=== PATIENT | male | born 1955 | race Caucasian/White ===

== ENCOUNTER → 2017-08-20 | Outpatient (CLI) | payer OTHER ==
[~2017-08-20] MED LIST: IOPAMIDOL 370 MG/ML 200 ML INFUS..BTL INJ ONE; SODIUM CHLORIDE 0.9% 50ML 50 ML ONE
[2017-08-20 08:00] LABS: BLOOD UREA NITROGEN 18 mg/dL (7-26); BUN/CREATININE RATIO 21 (6-25); CREATININE, SERUM 0.84 mg/dL (0.72-1.25); EST GLOMERULAR FILTRATION RATE > 60 ML/MIN (60-)
--- NOTE | 2017-08-20 10:20 | Diagnostic Imaging Report ---
Exam: Neck CTA History: Evaluate carotid stenosis Comparison studies:None Technique: Axial images were obtained from the thoracic inlet. Coronal and sagittal images reconstructed from the axial data. Intravenous contrast: 100 cc of Omnipaque 300. If present, stenosis is calculated utilizing the NASCET method which calculates the degree of stenosis with reference to the normal lumen of the carotid artery distal to the stenosis. Findings: Aortic arch and major vessels: Scattered hard plaque throughout the arch. Mild hard plaque at the origins of the left common carotid artery and left subclavian artery without significant stenosis. Mild scattered hard plaque in the left subclavian artery without significant stenosis. Mild stenosis at the right subclavian origin due to hard plaque. Right carotid artery: Mild scattered hard plaque in the common carotid artery without significant stenosis. Mild to moderate hard and soft plaque at the bifurcation extends into the carotid bulb with no (0%) significant stenosis by NASCET criteria. Approximately 50% stenosis at the ECA origin. Moderately tortuous internal carotid artery with mild hard and soft plaque in the proximal segment which does not result in significant stenosis. Minimal nonstenotic hard plaque in the intracranial right paraophthalmic segment. Left carotid artery: Minimal nonstenotic hard plaque in the common carotid artery. Moderate hard and soft plaque at the cervical carotid bifurcation extends into the left carotid bulb and ICA origin. There is approximately 30% stenosis in the carotid bulb and 50% stenosis at the left ICA origin. Mildly tortuous ICA. Vertebral arteries: Patent bilaterally with tortuous left V1 segment. Approximately 50% stenosis at the origin where there is mild hard plaque. Moderate (greater than 50% stenosis) at the left vertebral artery origin due to hard and soft plaque. Incidental findings: Surgical changes of anterior cervical discectomy and fusion from C4 to C7 with anterior plate and screw construct from C4 to C6. Mild canal stenosis at C5-C6 due due to an asymmetric left posterior osteophyte. Moderate left C3-C4 foraminal stenosis due to uncovertebral arthrosis and severe left facet arthrosis. Enhancing nonaggressive-appearing circumscribed 1.5 cm nodule in the superficial lobe of the right parotid gland. Findings may reflect tumor of primary parotid origin, possibly pleomorphic adenoma or alternatively pathologic lymph node. IMPRESSION: 1. Atherosclerosis at the right cervical bifurcation, carotid bulb and right ICA origin with approximately 50% stenosis at the left ECA origin without significant stenosis in the carotid bulb or ICA (0% stenosis by NASCET criteria). 2. Atherosclerosis in the left carotid bifurcation, carotid bulb and proximal left ICA with approximately 30% stenosis at the left carotid bulb and 50% stenosis at the left ICA origin. 3. Stenosis at the vertebral artery origins, moderate on the left and mild on the right. 4. Incidental right parotid nodule. Recommend FNA to further evaluate. Signed by: Dr. Ruben Alcala M.D. on 08/20/2017 10:16 AM
== END ==
LOC: CT 07:16
PROVIDERS: ATTEND Internal Medicine Interventional Cardiology
DX: I65.23 Occlusion and stenosis of bilateral carotid arteries (principal)
CPT/HCPCS: 36415; 70498; 82565; 84520; Q9967

== ENCOUNTER 2017-10-30 09:30 | Observation (INO) | payer OTHER ==
[~2017-10-30] VITALS: Ht 185.4 cm; Wt 120.2 kg
[2017-10-30] MEDS ORDERED: ASPIRIN 81 MG CHEW TAB PO ONE ×2 (09:45→11:00)
[2017-10-30] MEDS ORDERED: DIOVAN HCT 1601 EACH PO (10:20)
[2017-10-30] MEDS ORDERED: LOMOTIL (10:20)
[2017-10-30] MEDS ORDERED: HYDRALAZINE HCL50 MG PO (10:20)
[2017-10-30] MEDS ORDERED: FLOMAX0.4 MG PO (10:20)
[2017-10-30] MEDS ORDERED: ASPIRIN81 MG PO (10:20)
[2017-10-30] MEDS ORDERED: [UNRECOGNIZED DRUG - OTHER] (10:20)
[2017-10-30] MEDS ORDERED: LIPITOR20 MG (10:20)
[2017-10-30] MEDS ORDERED: METOPROLOL TART50 MG PO (10:20)
[2017-10-30] MEDS ORDERED: CLOPIDOGREL75 MG PO (10:20)
[2017-10-30] MEDS ORDERED: CYMBALTA30 MG PO (10:20)
[2017-10-30] MEDS ORDERED: [UNRECOGNIZED DRUG - OTHER] (10:20)
[2017-10-30] MEDS ORDERED: ALEVE220 MG PO (10:20)
[2017-10-30] MEDS ORDERED: SINGULAIR10 MG PO (10:20)
[2017-10-30] MEDS ORDERED: CRANBERRY (10:20)
[2017-10-30 10:24] LABS: BASOPHILS % 0.5 % (0.0-1.0); EOSINOPHILS # (AUTO) 0.3 (0.0-0.4); EOSINOPHILS % 4.6 % (0.0-6.0); HEMATOCRIT 38.1 % (38.2-49.6); HEMOGLOBIN 12.7 g/dL (14.0-18.0); LYMPHOCYTES # (AUTO) 0.9 (1.0-3.2); LYMPHOCYTES % 13.8 % (18.0-39.1); MEAN CORPUSCULAR HEMOGLOBIN 27.1 pg (28-32); MEAN CORPUSCULAR HGB CONC 33.3 g/dL (31-35); MEAN CORPUSCULAR VOLUME 81.4 fL (81-99); MONOCYTES # (AUTO) 0.5 (0.2-0.8); MONOCYTES % 7.7 % (4.4-11.3); NEUTROPHILS # (AUTO) 4.7 (2.1-6.9); NEUTROPHILS % 72.3 % (38.7-80.0); PLATELET COUNT 189 x10e3/uL (140-360); RED BLOOD COUNT 4.68 x10e6/uL (4.3-5.7); RED CELL DISTRIBUTION WIDTH 14.4 % (11.7-14.4)
[2017-10-30 10:36] LABS: INR 1.06
[2017-10-30 10:37] LABS: PARTIAL THROMBOPLASTIN TIME 27.4 seconds (23.8-35.5)
[2017-10-30 10:46] LABS: ALANINE AMINOTRANSFERASE 17 IU/L (0-55); ALBUMIN 3.8 g/dL (3.5-5.0); ALBUMIN/GLOBULIN RATIO 1.4 (0.8-2.0); ALKALINE PHOSPHATASE 83 IU/L (40-150); ANION GAP 14.2 mmol/L (8-16); BLOOD UREA NITROGEN 14 mg/dL (7-26); BUN/CREATININE RATIO 17 (6-25); CALCIUM 9.4 mg/dL (8.4-10.2); CARBON DIOXIDE 29 mmol/L (22-29); CHLORIDE 100 mmol/L (98-107); CREATINE KINASE 115 IU/L (30-200); CREATININE, SERUM 0.83 mg/dL (0.72-1.25); EST GLOMERULAR FILTRATION RATE > 60 ML/MIN (60-); GLUCOSE 164 mg/dL (74-118); POTASSIUM 3.2 mmol/L (3.5-5.1); SODIUM 140 mmol/L (136-145)
[2017-10-30] MEDS ORDERED: NITROGLYCERIN 0.4 MG SUBL SL PRN (11:00)
[2017-10-30 11:12] LABS: BILIRUBIN,URINE NEGATIVE (NEGATIVE); CLARITY,URINE CLEAR (CLEAR); COLOR,URINE YELLOW (YELLOW); KETONES,URINE NEGATIVE (NEGATIVE); LEUKOCYTE ESTERASE ,URINE NEGATIVE (NEGATIVE); NITRITE,URINE NEGATIVE (NEGATIVE); PROTEIN,URINE DIPSTICK NEGATIVE (NEGATIVE); URINE UROBILINOGEN 0.2 mg/dL (0.2 - 1)
--- NOTE | 2017-10-30 11:15 | Diagnostic Imaging Report ---
PROCEDURE: CHEST SINGLE (PORTABLE) COMPARISON: None. INDICATIONS: CHEST PAIN FINDINGS: LUNGS: No consolidations or edema. Right basilar round opacity may represent a nodule versus overlapping shadows. Followup PA and lateral chest recommended. PLEURA: No effusions or pneumothorax. HEART \T\ MEDIASTINUM: The heart is within normal size-limits. BONES \T\ SOFT TISSUES: No acute findings. CONCLUSION: 1. No acute thoracic abnormality. 2. Right basilar opacity could represent a pulmonary nodule. Regis Murdock D.O. Dictated by: Regis Murdock D.O. on 10/30/2017 at 11:21 Electronically approved by: Regis Murdock D.O. on 10/30/2017 at 11:21
[2017-10-30 11:17] LABS: BACTERIA,URINE FEW /HPF; EPITHELIAL CELLS,URINE FEW /LPF; RBC,URINE 0-5 /HPF (0-5); WBC,URINE (MAN) 0-5 /HPF (0-5)
[2017-10-30 12:59] VITALS: BP_SYST 199; BP_DIAS 88; BP_DIAS 98
[2017-10-30 13:23] VITALS: BP 199/88
[2017-10-30 16:19] VITALS: BP 195/86
[2017-10-30] MEDS ORDERED: LABETALOL HCL 5 MG/ML 20ML VIAL IV STA (18:23)
[2017-10-30 19:47] LABS: CREATINE KINASE MB 2.2 ng/mL (0-5.0)
[2017-10-30] MEDS ORDERED: ZOLPIDEM TARTRATE 5 MG TAB PO PRN (20:30)
[2017-10-30] MEDS ORDERED: ACETAMINOPHEN/ASPIRIN/CAFFEINE 1 EA TAB PO PRN (20:30)
[2017-10-30] MEDS ORDERED: POTASSIUM CHLORIDE 10 MEQ TABCR PO ONE (20:45)
[2017-10-30] MEDS ORDERED: ATORVASTATIN 40 MG TAB PO SCH (21:00)
[2017-10-30 21:44] VITALS: BP 179/75
[2017-10-30 22:00] VITALS: BP 169/77
[2017-10-30] MEDS: HYDRALAZINE HCL 25 MG TAB PO SCH (22:00)
[2017-10-31 00:11] VITALS: BP 149/66
[2017-10-31] MEDS ORDERED: ACETAMINOPHEN 325 MG TAB PO PRN (00:15)
--- NOTE | 2017-10-31 00:30 | Consultation ---
DATE OF CONSULTATION: October 30, 2017 CARDIOLOGY CONSULT NOTE REASON FOR CONSULT: Chest pain and hypertensive urgency. CHIEF COMPLAINT: "My blood pressure is out of control and I have pressure in my chest." HPI: Patient is a 62-year-old man with history of known CAD, status post stents in the past, mostly recently several months ago to the LAD, presents to the ER with complaints of chest pain. Says that he has been having pressure in his chest for past several weeks. Has also noticed his blood pressure has been extremely high at home despite being compliant with his meds. Patient says that he was taking his aspirin and Plavix. Chest pain feels like pressure and heaviness in the middle of his chest. Does not radiate. Feels similar to prior to a stent, however, less severe. Denies any exacerbating or relieving factors. Says that he was compliant with his medications. Denies any syncope or palpitations. PAST MEDICAL HISTORY: 1. Coronary artery disease. 2. Hypertension. 3. Hyperlipidemia. REVIEW OF SYSTEMS: As above, otherwise negative. SOCIAL HISTORY: Patient denies smoking, alcohol, or drug use. FAMILY HISTORY: No family history of early CAD or sudden cardiac . OBJECTIVE: VITAL SIGNS: Temperature 96.8, pulse 67, respiratory rate 20, blood pressure 179/75, satting 96% on room air. GENERAL: Obese white man, in no acute distress. CARDIOVASCULAR: Regular rate and rhythm. No murmurs, rubs, or gallops. PMI nondisplaced. Palpable carotid pulses. Palpable radial pulses. Palpable pedal pulses. No peripheral edema or varicosities. LUNGS: Clear to auscultation bilaterally. No respiratory distress. ABDOMEN: Obese, soft, nontender, nondistended. NEURO AND PSYCH: Alert and oriented to person, place, and time. Normal affect. LABORATORY DATA: Reviewed. Notable for cardiac enzymes negative x2 sets. IMAGING DATA: Reviewed, shows normal chest x-ray. TELEMETRY DATA: Reviewed, shows normal sinus rhythm. Echocardiogram pending. Electrocardiogram reviewed, shows normal sinus rhythm, no ST-T changes suggestive of ischemia. ASSESSMENT: 1. Typical chest pain. 2. Hypertensive urgency. PLAN: Acute [place] has been ruled out with serial cardiac enzymes, and ECG not suggestive of any acute ischemia. However, patient continues to complain of typical chest pain. He had recent stents. Although he says he is compliant given his episodes of hypertension that improves with his home oral medications, I am not sure whether he has been fully compliant with . Echocardiogram is pending. We will reassess after patient's blood pressure is better controlled, how is chest pain is doing. If he continues to complain about chest pain, will need risk stratification with stress test given history of recent stents. Resume his previous cardiac medications including dual antiplatelet therapy. Thank you for this consult. Will continue to follow. Job#: [id number]
[2017-10-31 05:16] VITALS: BP_SYST 152; BP_SYST 184; BP_DIAS 67; BP_DIAS 85
[2017-10-31 06:00] LABS: CHOL/HDL RATIO 3.1 (3.9-4.7)
[2017-10-31 08:36] VITALS: BP 171/72
[2017-10-31 08:42] LABS: BASOPHILS % 0.4 % (0.0-1.0); EOSINOPHILS # (AUTO) 0.3 (0.0-0.4); EOSINOPHILS % 3.7 % (0.0-6.0); HEMATOCRIT 38.3 % (38.2-49.6); HEMOGLOBIN 12.5 g/dL (14.0-18.0); LYMPHOCYTES # (AUTO) 0.9 (1.0-3.2); LYMPHOCYTES % 12.9 % (18.0-39.1); MEAN CORPUSCULAR HEMOGLOBIN 27.2 pg (28-32); MEAN CORPUSCULAR HGB CONC 32.6 g/dL (31-35); MEAN CORPUSCULAR VOLUME 83.3 fL (81-99); MONOCYTES # (AUTO) 0.6 (0.2-0.8); NEUTROPHILS # (AUTO) 5.4 (2.1-6.9); NEUTROPHILS % 74.4 % (38.7-80.0); PLATELET COUNT 202 x10e3/uL (140-360); RED CELL DISTRIBUTION WIDTH 14.9 % (11.7-14.4)
[2017-10-31] MEDS ORDERED: VICTOZA 2-0.6 MG/0.1 (08:51)
[2017-10-31 08:57] LABS: ANION GAP 14.1 mmol/L (8-16); BLOOD UREA NITROGEN 12 mg/dL (7-26); BUN/CREATININE RATIO 16 (6-25); CALCIUM 9.3 mg/dL (8.4-10.2); CARBON DIOXIDE 27 mmol/L (22-29); CHLORIDE 101 mmol/L (98-107); CREATININE, SERUM 0.76 mg/dL (0.72-1.25); EST GLOMERULAR FILTRATION RATE > 60 ML/MIN (60-); GLUCOSE 158 mg/dL (74-118); MAGNESIUM 1.5 MG/DL (1.3-2.1); POTASSIUM 3.1 mmol/L (3.5-5.1); SODIUM 139 mmol/L (136-145)
[2017-10-31] MEDS ORDERED: NON-FORMULARY MEDICATION (Hydralazine Hcl 50 MG) PO SCH (09:00)
[2017-10-31] MEDS ORDERED: ONDANSETRON HCL INJ 2 MG/ML VIAL IV PRN (09:00)
[2017-10-31] MEDS ORDERED: METOPROLOL TARTRATE 50 MG TAB PO SCH (09:00)
[2017-10-31] MEDS ORDERED: ENOXAPARIN SOD INJ 40 MG/0.4 ML SYR SC SCH (09:00)
[2017-10-31] MEDS ORDERED: VALSARTAN PO SCH (09:00)
[2017-10-31] MEDS ORDERED: TAMSULOSIN HCL 0.4 MG CAP PO SCH (09:00)
[2017-10-31] MEDS ORDERED: CLOPIDOGREL BISULFATE 75 MG TAB PO SCH (09:00)
[2017-10-31] MEDS ORDERED: HYDROCHLOROTHIAZIDE PO SCH (09:00)
[2017-10-31] MEDS ORDERED: HYDROCHLOROTHIAZIDE 25 MG TAB PO SCH (09:00)
[2017-10-31] MEDS ORDERED: [UNRECOGNIZED DRUG - OTHER] PO SCH (09:00)
[2017-10-31] MEDS ORDERED: DEXTROSE 50% SYRINGE 50 ML IV PRN (09:00)
[2017-10-31] MEDS ORDERED: VALSARTAN 160 MG TAB PO SCH (09:00)
[2017-10-31] MEDS ORDERED: HYDRALAZINE HCL 20 MG/ML VIAL IV PRN (09:00)
[2017-10-31] MEDS ORDERED: ATORVASTATIN 20 MG TAB PO SCH (09:00)
[2017-10-31] MEDS ORDERED: ASPIRIN 81 MG CHEW TAB PO SCH (09:00)
[2017-10-31] MEDS ORDERED: ASPIRIN 81 MG ENTERIC COATED PO SCH (09:00)
[2017-10-31] MEDS: HYDRALAZINE HCL 25 MG TAB PO SCH ×2 (09:11→16:08)
[2017-10-31] MEDS ORDERED: REGADENOSON 0.4 MG/5 ML SYR IV ONE (10:02)
[2017-10-31] MEDS ORDERED: INSULIN LISPRO 100 UNIT/1 ML 3ML VIAL SQ SCH (11:30)
[2017-10-31] MEDS ORDERED: POTASSIUM CHLORIDE 20 MEQ TAB CR PO NR (14:30)
[2017-10-31] MEDS ORDERED: POTASSIUM CHLORIDE 20 MEQ TAB CR PO ONE (16:15)
[2017-10-31] MEDS ORDERED: FAMOTIDINE 20 MG TAB PO SCH (16:30)
--- NOTE | 2017-10-31 16:38 | Progress Note ---
DATE: October 31, 2017 CARDIOLOGY PROGRESS NOTE SUBJECTIVE: No major events overnight. Blood pressure is better controlled. Chest pain has improved significantly; however, he still complains of about 1/10 to 2/10 chest pain. Underwent Lexiscan stress test today. REVIEW OF SYSTEMS: As above, otherwise negative. OBJECTIVE VITAL SIGNS: Temperature 98.3, pulse 64, respiratory rate 20, blood pressure 152/67. Satting 94% on room air. GENERAL: White man in no acute distress. CARDIOVASCULAR: Regular rate and rhythm. No murmurs, rubs, or gallops. Palpable carotid pulses. Palpable radial pulses. Palpable pedal pulses. No peripheral edema or varicosities. LUNGS: Clear to auscultation bilaterally. No respiratory distress. ABDOMEN: Soft, nontender, nondistended. No masses. NEURO AND PSYCH: Alert and oriented to person, place, and time. Normal affect. MEDICATIONS: Reviewed. LABORATORY DATA: Reviewed. IMAGING DATA: Reviewed. Stress test shows normal myocardial perfusion with no significant defects. ASSESSMENT 1. Chest pain, typical. 2. Hypertensive urgency. 3. Coronary artery disease, status post multiple stents. 4. Poorly controlled hypertension. 5. Hyperlipidemia. PLAN: The patient has been ruled out for acute [place]. Stress test today showed no perfusion defects. Continue his cardiovascular medicines including aspirin and Plavix for now. He needs better blood pressure control. Will change his metoprolol to carvedilol. Will also add low-dose spironolactone given he is on multiple blood pressure medicines with inadequate control. Thank you for this consult. Will continue to follow. Job#: [id number]
[2017-10-31] MEDS ORDERED: CARVEDILOL 12.5 MG TAB PO SCH (17:00)
[2017-10-31] MEDS ORDERED: SPIRONOLACTONE 25 MG TAB PO SCH (17:45)
[2017-10-31] MEDS ORDERED: CARVEDILOL12.5 MG PO (19:39)
[2017-10-31] MEDS ORDERED: SPIRONOLACTONE25 MG PO (19:40)
--- NOTE | 2017-10-31 20:34 | Discharge Summary ---
ADMISSION DIAGNOSES 1. Chest pain. 2. Hypertension. 3. Hyperlipidemia. 4. Type-2 diabetes. 5. BPH. 6. Neuropathy. 7. Obesity. DISCHARGE DIAGNOSES 1. Chest pain. 2. Hypertension. 3. Hyperlipidemia. 4. Type-2 diabetes. 5. BPH. 6. Neuropathy. 7. Obesity. 8. Ruled out myocardial infarction. HISTORY: Patient has a history of hyperlipidemia, hypertension, BPH, cardiac stents times 2, neuropathy, seasonal allergies, prostate cancer, status post radiation, and type-2 diabetes. Surgical history of cervical fusion, pelvic fracture, cholecystectomy, and tonsillectomy. HOSPITAL COURSE: A 62-year-old male complains of chest pressure that occurred all week. The pressure worsened and was associated with shortness of breath yesterday morning while sitting at work in a meeting. Pain is described as constant, but does not radiate. Pressures worse with exertion and improved with rest. On admission, patient had troponins negative times 3. EKG was normal sinus with PVCs, echo of 60%-65%. Patient was given aspirin and per cardiology, patient had a stress test. The stress test was negative per cardiology, who changed his blood pressure medications. Patient will discharge home on valsartan, Coreg, hydralazine, and spironolactone per cardio rec. He will resume the rest of his home medications. Patient will follow up with Cardiology as discussed and primary care in 1-2 weeks. Patient understands discharge instructions and agrees to plan. Dictated by: Sheri Proctor NP DIMA WELCH MD Job#: [id number] CQ
[2017-10-31] MEDS ORDERED: DULOXETINE HCL 30 MG DELAYED RELEASE PO SCH (21:00)
[2017-10-31] MEDS ORDERED: MONTELUKAST SODIUM 10 MG TAB PO SCH (21:00)
[2017-11-01] MEDS ORDERED: CARVEDILOL 12.5 MG TAB PO SCH (09:00)
[2017-11-01] MEDS ORDERED: SPIRONOLACTONE 25 MG TAB PO SCH (09:00)
== END 2017-10-31 19:50 | disposition home or self-care (01) ==
LOC: ER 09:30 → ERHOLD 11:25 → MED/SURG 13:10
PROVIDERS: ADMIT Internal Medicine; ATTEND Internal Medicine
DX: R07.9 Chest pain, unspecified (principal); E11.42 Type 2 diabetes mellitus with diabetic polyneuropathy; I10 Essential (primary) hypertension; D64.9 Anemia, unspecified; E87.6 Hypokalemia; I16.0 Hypertensive urgency; E66.9 Obesity, unspecified; I25.10 Atherosclerotic heart disease of native coronary artery without angina pectoris; E78.5 Hyperlipidemia, unspecified; N40.0 Benign prostatic hyperplasia without lower urinary tract symptoms; Z85.46 Personal history of malignant neoplasm of prostate; Z83.3 Family history of diabetes mellitus; Z82.3 Family history of stroke; Z95.5 Presence of coronary angioplasty implant and graft
CPT/HCPCS: 36415 ×2; 71045; 78452; 80048; 80053; 80061; 81001; 82550 ×2; 82553 ×2; 82948; 83735; 84484 ×2; 85025 ×2; 85610; 85730; 93005; 93306; 99284; A9502; G0378 ×2; J3490; 93017

== ENCOUNTER 2018-10-29 04:10 | Inpatient (IN) | payer OTHER ==
[~2018-10-29] VITALS: Ht 185.4 cm; Wt 122.5 kg
[~2018-10-29 04:10] MED LIST changes: +ALEVE220 MG PO; +ASPIRIN81 MG PO; +CARVEDILOL12.5 MG PO; +CLOPIDOGREL75 MG PO; +CRANBERRY; +CYMBALTA30 MG PO; +DIOVAN HCT 1601 EACH PO; +FLOMAX0.4 MG PO; +HYDRALAZINE HCL50 MG PO; -IOPAMIDOL 370 MG/ML 200 ML INFUS..BTL INJ ONE; +LIPITOR20 MG; +LOMOTIL; +METOPROLOL TART50 MG PO; +SINGULAIR10 MG PO; -SODIUM CHLORIDE 0.9% 50ML 50 ML ONE; +SPIRONOLACTONE25 MG PO; +VICTOZA 2-0.6 MG/0.1; +[UNRECOGNIZED DRUG - OTHER]; +[UNRECOGNIZED DRUG - OTHER] PO
--- OUTSIDE RECORDS SUMMARY | 2018-10-29 04:13 | XMS REPORT | Clinical Summary ---
Author Author Scott [facility] Organization [facility] Address Unknown Phone Unavailable Care Team Providers Care Lead Fabricator Name Role Phone Geovanni Arreaga MD PCP Allergies No Known Allergies Medications End Date Status Medication Sig Dispensed Refills Start Date Active clopidogrel (PLAVIX) 75 Take 75 mg by 0 mg tablet mouth daily. Active amlodipine-benazepril Take 1 0 (LOTREL) 10-40 mg per capsule by capsule mouth daily. Active metoprolol succinate XL Take 100 mg 0 (TOPROL-XL) 100 mg 24 hr by mouth tablet daily. Active valsartan-hydrochlorothia Take 1 tablet 0 zide (DIOVAN-HCT) by mouth 160-12.5 mg per tablet daily. Active hydrALAZINE (APRESOLINE) Take 50 mg by 0 50 MG tablet mouth 3 (three) times a day. Active carvedilol (COREG) 12.5 Take 12.5 mg 0 MG tablet by mouth 2 (two) times a day with meals. Active DULoxetine (CYMBALTA) 30 Take 30 mg by 0 MG capsule mouth daily. Active OMEPRAZOLE/SODIUM Take by 0 BICARBONATE (ZEGERID OTC mouth. ORAL) Active fluticasone (FLONASE) 50 2 sprays by 0 mcg/actuation nasal spray Each Nare route daily. As directed Active ACETAMINOPHEN/DIPHENHYDRA Take by 0 MINE mouth. PRN (DIPHENHYDRAMINE-ACETAMIN OPHEN ORAL) Active pen needle, diabetic (BD Use once 100 each 10 ULTRA-FINE SAV PEN daily 7 NEEDLES) 32 gauge x 32" needle Active VICTOZA 2-MAGDY 0.6 mg/0.1 DIAL AND 18 mL 1 mL (18 mg/3 mL) pen INJECT 7 injector SUBCUTANEOUSL Y 1.2MG DAILY Active Problems Problem Noted Date Uncontrolled type 2 diabetes mellitus with hyperglycemia 08/13/2016 Family History Medical History Relation Name Comments Emphysema Father Alzheimer's disease Mother Relation Name Status Comments Father Mother Social History Date Tobacco Use Types Packs/Day Years Used Never Smoker Smokeless Tobacco: Never Used Alcohol Use Drinks/Week oz/Week Comments No Sex Assigned at Date Recorded Not on file Industry Job Start Date Occupation Not on file Not on file Not on file Travel End Travel History Travel Start No recent travel history available. Last Filed Vital Signs Not on file Plan of Treatment Health Maintenance Due Date Last Done Comments DIABETIC RETINAL EYE EXAM 1955 DIABETIC FOOT EXAM 06/15/1965 URINE MICROALBUMIN 06/15/1965 COLONOSCOPY SCREENING 06/15/2005 SHINGLES VACCINES (#1) 06/15/2005 INFLUENZA VACCINE 10/15/2018 Results Not on fileafter 10/28/2017 Insurance Type Payer Benefit Subscriber ID Effective Phone Address Plan / Dates Group PPO [facility] xxxxxxxx 2012-P THCARE resent PPO- [employer] Advance Directives Patient has advance care planning documents on file. For more information, marco antonio e contact: Tlyer Garza [address] [place] [address]
[2018-10-29] MEDS ORDERED: ONDANSETRON HCL INJ 2MG/ML 2ML 2 MG/ML VIAL IV STA (04:29)
[2018-10-29] MEDS ORDERED: ASPIRIN 81 MG CHEW TAB PO ONE (04:30)
[2018-10-29] MEDS ORDERED: SODIUM CHLORIDE 0.9% 1000ML 1,000 ML IV ONE ×2 (04:30)
[2018-10-29] MEDS ORDERED: SODIUM CHLORIDE 0.9% 1000ML 1,000 ML ONE (04:36)
[2018-10-29 04:47] LABS: BASOPHILS % 0.3 % (0.0-1.0); EOSINOPHILS # (AUTO) 0.2 (0.0-0.4); EOSINOPHILS % 1.6 % (0.0-6.0); HEMATOCRIT 44.1 % (38.2-49.6); HEMOGLOBIN 13.9 g/dL (14.0-18.0); LYMPHOCYTES # (AUTO) 0.9 (1.0-3.2); MEAN CORPUSCULAR HEMOGLOBIN 26.1 pg (28-32); MEAN CORPUSCULAR HGB CONC 31.5 g/dL (31-35); MEAN CORPUSCULAR VOLUME 82.9 fL (81-99); MONOCYTES # (AUTO) 0.7 (0.2-0.8); MONOCYTES % 6.4 % (4.4-11.3); NEUTROPHILS # (AUTO) 9.7 (2.1-6.9); NEUTROPHILS % 83.4 % (38.7-80.0); PLATELET COUNT 269 x10e3/uL (140-360); RED BLOOD COUNT 5.32 x10e6/uL (4.3-5.7); RED CELL DISTRIBUTION WIDTH 13.4 % (11.7-14.4)
[2018-10-29 05:05] LABS: ALANINE AMINOTRANSFERASE 23 IU/L (0-55); ALBUMIN/GLOBULIN RATIO 1.5 (0.8-2.0); ALKALINE PHOSPHATASE 112 IU/L (40-150); ANION GAP 13.8 mmol/L (8-16); BLOOD UREA NITROGEN 9 mg/dL (7-26); BUN/CREATININE RATIO 10 (6-25); CALCIUM 9.1 mg/dL (8.4-10.2); CARBON DIOXIDE 30 mmol/L (22-29); CHLORIDE 99 mmol/L (98-107); CREATINE KINASE 124 IU/L (30-200); CREATININE, SERUM 0.92 mg/dL (0.72-1.25); EST GLOMERULAR FILTRATION RATE > 60 ML/MIN (60-); GLUCOSE 151 mg/dL (74-118); POTASSIUM 3.8 mmol/L (3.5-5.1); SODIUM 139 mmol/L (136-145)
[2018-10-29] MEDS ORDERED: MORPHINE SULFATE INJ 4 MG/ML INJ 1ML IV ONE (05:15)
[2018-10-29 05:17] LABS: AMYLASE 51 U/L (25-125); LIPASE 57 U/L (8-78)
[2018-10-29] MEDS ORDERED: AMLODIPINE BESYL5 MG PO (05:45)
[2018-10-29] MEDS ORDERED: METOPROLOL SUCC50 MG PO (05:46)
[2018-10-29] MEDS ORDERED: ISOSORBIDE MONO30 MG PO (05:47)
[2018-10-29 05:49] LABS: BILIRUBIN,URINE NEGATIVE (NEGATIVE); CLARITY,URINE SL CLOUDY (CLEAR); COLOR,URINE YELLOW (YELLOW); KETONES,URINE NEGATIVE (NEGATIVE); LEUKOCYTE ESTERASE ,URINE NEGATIVE (NEGATIVE); NITRITE,URINE NEGATIVE (NEGATIVE); PROTEIN,URINE DIPSTICK 2+ (NEGATIVE); URINE UROBILINOGEN 0.2 mg/dL (0.2 - 1)
[2018-10-29] MEDS ORDERED: TESTOSTERONE INJ (05:51)
[2018-10-29] MEDS ORDERED: CIALIS10 MG PO (05:52)
[2018-10-29] MEDS ORDERED: IOPAMIDOL 370 MG/ML 200 ML INFUS..BTL INJ ONE (05:53)
[2018-10-29] MEDS ORDERED: SODIUM CHLORIDE 0.9% 50ML 50 ML ONE (05:53)
[2018-10-29 06:03] LABS: AMORPHOUS SEDIMENT,URINE FEW (FEW); BACTERIA,URINE MANY /HPF; EPITHELIAL CELLS,URINE MODERATE /LPF; RBC,URINE 0-5 /HPF (0-5)
[2018-10-29 06:04] LABS: MUCUS,URINE MODERATE (RARE)
--- NOTE | 2018-10-29 06:34 | Diagnostic Imaging Report ---
EXAM: CT of the abdomen and pelvis WITH contrast HISTORY: Abdominal pain, vomiting, nausea, diarrhea, history of prostate cancer, cholecystectomy COMPARISON: None. TECHNIQUE: The abdomen and pelvis were scanned utilizing a multidetector helical scanner. Coronal and sagittal reformats are provided. PROTOCOL: Routine IV CONTRAST: 100 cc of Isovue-370. ORAL CONTRAST: Water RADIATION DOSE: Total DLP: 896.74 mGy*cm Estimated effective dose: (DLP x 0.015 x size factor) Dose modulation, iterative reconstruction, and/or weight based adjustment of the mA/kV was utilized to reduce the radiation dose to as low as reasonably achievable. COMPLICATIONS: None FINDINGS: LOWER THORAX: Unremarkable. HEPATOBILIARY: No mass. No biliary dilation. Metallic clips in the right upper quadrant of the abdomen are compatible with prior cholecystectomy. SPLEEN: No splenomegaly. PANCREAS: No focal masses or ductal dilatation. ADRENALS: No discrete adrenal nodule. KIDNEYS/URETERS: No hydronephrosis, stones, or definite solid mass lesions. Multiple bilateral fluid densities, measuring up to 3.6 cm in greatest dimension, compatible with cysts. PELVIC ORGANS/BLADDER: The urinary bladder is decompressed. GI TRACT: Multiple mildly dilated loops of small bowel, measuring up to 3.8 cm in diameter. Segmental wall thickening and narrowing of the small bowel in the midabdomen (axial image [id number]). The more distal small bowel and colon are relatively decompressed. PERITONEUM / RETROPERITONEUM: No free air or fluid. LYMPH NODES: No pathologically enlarged lymph node. VESSELS: Scattered atherosclerotic vascular calcifications, including the coronary arteries. BONES and JOINTS: No aggressive osseous lesion or acute fracture. Metallic left pelvic fixation hardware. SOFT TISSUES: Unremarkable. IMPRESSION: 1. Mildly dilated loops of small bowel, compatible with partial small bowel obstruction versus ileus. Serial abdominal radiographs may be of benefit for further catheterization. 2. Possible mid small bowel segmental stricture versus nonspecific inflammation. 3. Coronary atherosclerosis. Signed by: Dr. Lloyd Denton D.O., M.M.M. on 10/29/2018 6:31 AM
[2018-10-29] MEDS: CEFEPIME 1GM/NS 0.9% 50 ML 50 ML IV SCH ×2 (06:47→19:32)
[2018-10-29] MEDS: ONDANSETRON HCL INJ 2MG/ML 2ML 2 MG/ML VIAL IV PRN ×3 (06:52→22:47)
--- OUTSIDE RECORDS SUMMARY | 2018-10-29 06:54 | XMS REPORT | Clinical Summary ---
Author Author Scott [facility] Organization [facility] Address Unknown Phone Unavailable Care Team Providers Care Health Unit Supervisor Name Role Phone Geovanni Arreaga MD PCP [...] Phone Address Plan / Dates Group PPO [facility] xxxxxxxx 2012-P THCARE resent PPO- U[employer] Advance Directives Patient has advance care planning documents on file. For more information, marco antonio e contact: Tyler Garza [address] [place] [address]
[2018-10-29] MEDS: SODIUM CHLORIDE 0.9% 1000ML 1,000 ML IV SCH ×3 (07:50→16:15)
[2018-10-29] MEDS: MORPHINE SULFATE 2 MG/ML SYR 1ML IV PRN ×2 (10:51→20:46)
[2018-10-29] MEDS ORDERED: ACETAMINOPHEN 650 MG SUPP PR PRN (11:45)
[2018-10-29] MEDS ORDERED: DEXTROSE 50% SYRINGE 50 ML IV PRN (11:45)
--- NOTE | 2018-10-29 12:42 | NUR ---
DR.J WELLS HERE ASSESSING PATIENT
[2018-10-29 14:48] VITALS: BP 131/62
--- NOTE | 2018-10-29 14:48 | NUR ---
RECEIVED PT TO FLOOR AA0X3 PT IS NPO FOR DX OF SBO. PT ABD LARGE ROUND BUT SOFT TO TOUCH. NO PAIN UPON PALPATION BS ARE PRESENT ALL 4 QUADRANTS PT LBM REPORTED YESTERDAY, DESCRIBED LARGE DIARRHEA BROWN IN COLOR PT HAS IV FLUIDS TO THE LEFT AC 20 G , SITE IS CLEAN AND DRY PT DENIES PAIN, STATES BEING COMFORTABLE AT THIS TIME WILL CONTINUE TO MONITOR PT CLOSELY SIDE RAILSX2, BED WHEELS LOCKED ,CALL LIGHT IS WITHIN EASY REACH, INSTRUCTED TO CALL FOR ASSISTANCE IF NEEDED
--- NOTE | 2018-10-29 14:54 | Diagnostic Imaging Report ---
Abdomen, 2 views. History: Small bowel obstruction. Comparison: CT from earlier today. Findings: Multiple air-filled loops of dilated bowel are again seen in the left abdomen. Nondilated air-filled distal small bowel and colon are present. There is no evidence of free air. There are no masses or abnormal calcifications. The osseous structures are intact. Contrast is present within the bladder. Surgical screws are present in the left pelvis. IMPRESSION: Persistent partial proximal small bowel obstruction. Signed by: Brian Darby on 10/29/2018 2:51 PM
[2018-10-29] MEDS: INSULIN LISPRO 100 UNIT/1 ML 3ML VIAL SQ SCH ×2 (15:48→20:22)
[2018-10-29] MEDS: FAMOTIDINE 20 MG/2 ML VIAL IV SCH (16:44)
[2018-10-29 20:00] VITALS: BP 169/75
[2018-10-29 20:19] VITALS: BP 169/75
--- NOTE | 2018-10-29 21:00 | NUR ---
Patient refused SCD's for tonight. Patient can't sleep with SCDs on.
--- NOTE | 2018-10-29 22:43 | NUR ---
residual urine 95ml. Patient has no complaints
[2018-10-30] VITALS (8 sets, daily range): BP systolic 128–181; BP diastolic 57–84
[2018-10-30 03:09] LABS: BASOPHILS % 0.3 % (0.0-1.0); EOSINOPHILS # (AUTO) 0.2 (0.0-0.4); EOSINOPHILS % 1.5 % (0.0-6.0); HEMATOCRIT 42.2 % (38.2-49.6); HEMOGLOBIN 13.2 g/dL (14.0-18.0); LYMPHOCYTES # (AUTO) 0.8 (1.0-3.2); MEAN CORPUSCULAR HEMOGLOBIN 26.6 pg (28-32); MEAN CORPUSCULAR HGB CONC 31.3 g/dL (31-35); MEAN CORPUSCULAR VOLUME 85.1 fL (81-99); MONOCYTES # (AUTO) 0.7 (0.2-0.8); MONOCYTES % 6.8 % (4.4-11.3); NEUTROPHILS # (AUTO) 8.3 (2.1-6.9); PLATELET COUNT 219 x10e3/uL (140-360); RED BLOOD COUNT 4.96 x10e6/uL (4.3-5.7); RED CELL DISTRIBUTION WIDTH 13.7 % (11.7-14.4)
[2018-10-30 03:24] LABS: ANION GAP 12.6 mmol/L (8-16); BLOOD UREA NITROGEN 11 mg/dL (7-26); BUN/CREATININE RATIO 13 (6-25); CALCIUM 8.3 mg/dL (8.4-10.2); CARBON DIOXIDE 29 mmol/L (22-29); CHLORIDE 103 mmol/L (98-107); CREATININE, SERUM 0.83 mg/dL (0.72-1.25); EST GLOMERULAR FILTRATION RATE > 60 ML/MIN (60-); GLUCOSE 126 mg/dL (74-118); POTASSIUM 3.6 mmol/L (3.5-5.1); SODIUM 141 mmol/L (136-145)
[2018-10-30] MEDS: HYDRALAZINE HCL 20 MG/ML VIAL IV PRN (04:48)
--- NOTE | 2018-10-30 05:30 | NUR ---
No bladder discomfort noted. Bladder scan done 95 ml recorded.
[2018-10-30] MEDS: CEFEPIME 1GM/NS 0.9% 50 ML 50 ML IV SCH ×2 (06:20→18:22)
--- NOTE | 2018-10-30 06:42 | Diagnostic Imaging Report ---
RADIOGRAPH(S) OF THE ABDOMEN AND PELVIS, 3 view(s) HISTORY: Partial small bowel obstruction versus ileus COMPARISON: Abdominal series October 29, 2018. CT of the abdomen and pelvis October 29, 2018. FINDINGS: See impression IMPRESSION: Interval decrease in the gaseous dilation of multiple loops of small bowel, compatible with improving partial small bowel obstruction versus ileus. Signed by: Dr. Lloyd Denton D.O., M.M.M. on 10/30/2018 6:39 AM
[2018-10-30] MEDS: SODIUM CHLORIDE 0.9% 1000ML 1,000 ML IV SCH ×3 (06:45→22:30)
--- NOTE | 2018-10-30 07:00 | NUR ---
BEDSIDE SHIFT REPORT RECEIVED, PT IN STABLE CONDITIONS, DENIES PAIN AT THIS TIME, IVF INFUSING TO L AC 20G NO SS OF INFILTRATION NOTED, NO OTHER CO VOICED CALL LIGHT IN REACH WILL CONTINUE TO MONITOR
[2018-10-30] MEDS: INSULIN LISPRO 100 UNIT/1 ML 3ML VIAL SQ SCH ×4 (07:30→21:13)
[2018-10-30] MEDS: FAMOTIDINE 20 MG/2 ML VIAL IV SCH ×2 (09:45→16:46)
--- NOTE | 2018-10-30 11:30 | NUR ---
IV INFILTRATED, 20G TO R AC X 1 STICK PER FIRE SAFETY MANAGER, PT TOLERATED WELL, WILL CONTINUE TO MOINTOR
--- NOTE | 2018-10-30 12:25 | NUR ---
EDUCATED ABOUT IMM, SIGNED, FILED IN CHART, WITH COPY LEFT WITH FAMILY AT BEDSIDE.
[2018-10-30] MEDS ORDERED: MORPHINE SULFATE INJ 4 MG/ML INJ 1ML IV PRN (13:00)
--- NOTE | 2018-10-30 15:34 | Diagnostic Imaging Report ---
Abdomen, 2 views. History: Bowel obstruction. Findings: There are decreased number of dilated small bowel loops in the left abdomen. Air-filled nondilated distal small bowel and colon are again noted. Surgical changes are again noted. There is no evidence of free air. There are no masses or abnormal calcifications. The osseous structures are intact. IMPRESSION: Improvement in small bowel obstruction. Signed by: Brian Darby on 10/30/2018 3:31 PM
--- NOTE | 2018-10-30 16:22 | NUR ---
pt voided, post-void residual 57 ml, pt denies discomfort, will continue to monitor.
[2018-10-30] MEDS: CLOPIDOGREL BISULFATE 75 MG TAB PO SCH (16:46)
[2018-10-30] MEDS: ASPIRIN 81 MG CHEW TAB PO SCH (16:46)
[2018-10-30] MEDS: AMLODIPINE BESYLATE 5 MG TAB PO SCH (16:46)
[2018-10-30] MEDS: METOPROLOL SUCCINATE 50 MG TAB XL PO SCH (16:47)
--- NOTE | 2018-10-30 18:52 | NUR ---
BEDSIDE SHIFT REPORT PERFORMED, RECEIVED PT LAYING SEMI FOWLERS IN BED, AAOX3, RR EVEN AND NON-LABORED, ON ROOM AIR. NO S/SX OF DISTRESS NOTED. LEFT PT LAYING SEMI FOWLERS IN BED, BED IN LOW LOCKED POSITION, SIDE RAILS UPX2, CALL LIGHT AND PHONE WITHIN REACH.
--- NOTE | 2018-10-30 19:02 | NUR ---
BEDSIDE SHIFT REPORT GIVEN TO ONCOMING NIGHT RN, PT IN STABLE CONDITION, VOICES NO CO AT THIS TIME, CALL LIGHT IN REACH WILL CONTINUE TO MONITOR
--- NOTE | 2018-10-30 20:48 | NUR ---
POST VOID RESIDUAL OBTAINED. PT VOIDED 100ML, PVR WAS 37ML.
[2018-10-30] MEDS ORDERED: TAMSULOSIN HCL 0.4 MG CAP PO SCH (21:00)
[2018-10-30] MEDS ORDERED: MONTELUKAST SODIUM 10 MG TAB PO SCH (21:00)
[2018-10-30] MEDS ORDERED: ATORVASTATIN 40 MG TAB PO SCH (21:00)
[2018-10-30] MEDS ORDERED: DULOXETINE HCL 30 MG DELAYED RELEASE PO SCH (21:00)
[2018-10-31] VITALS: BP 198/92
[2018-10-31] MEDS: HYDRALAZINE HCL 20 MG/ML VIAL IV PRN (00:21)
[2018-10-31 04:00] VITALS: BP 141/64
[2018-10-31 04:12] LABS: BASOPHILS % 0.4 % (0.0-1.0); EOSINOPHILS # (AUTO) 0.3 (0.0-0.4); EOSINOPHILS % 3.6 % (0.0-6.0); HEMATOCRIT 39.7 % (38.2-49.6); HEMOGLOBIN 12.3 g/dL (14.0-18.0); LYMPHOCYTES % 13.5 % (18.0-39.1); MEAN CORPUSCULAR HEMOGLOBIN 26.1 pg (28-32); MEAN CORPUSCULAR VOLUME 84.3 fL (81-99); MONOCYTES # (AUTO) 0.6 (0.2-0.8); MONOCYTES % 8.2 % (4.4-11.3); NEUTROPHILS # (AUTO) 5.3 (2.1-6.9); NEUTROPHILS % 73.7 % (38.7-80.0); PLATELET COUNT 173 x10e3/uL (140-360); RED BLOOD COUNT 4.71 x10e6/uL (4.3-5.7); RED CELL DISTRIBUTION WIDTH 13.7 % (11.7-14.4)
[2018-10-31 04:27] LABS: ANION GAP 10.4 mmol/L (8-16); BLOOD UREA NITROGEN 8 mg/dL (7-26); BUN/CREATININE RATIO 11 (6-25); CALCIUM 7.9 mg/dL (8.4-10.2); CARBON DIOXIDE 27 mmol/L (22-29); CHLORIDE 107 mmol/L (98-107); CREATININE, SERUM 0.71 mg/dL (0.72-1.25); EST GLOMERULAR FILTRATION RATE > 60 ML/MIN (60-); GLUCOSE 129 mg/dL (74-118); POTASSIUM 3.4 mmol/L (3.5-5.1); SODIUM 141 mmol/L (136-145)
[2018-10-31] MEDS: SODIUM CHLORIDE 0.9% 1000ML 1,000 ML IV SCH (06:12)
[2018-10-31] MEDS: CEFEPIME 1GM/NS 0.9% 50 ML 50 ML IV SCH (06:12)
--- NOTE | 2018-10-31 07:00 | NUR ---
BEDSIDE SHIFT REPORT RECEIVED UPDATED ON POC VOICED UNDERSTANDING, DENIES PAIN AT THIS TIME, CALL LIGHT IN REACH WILL CONTINUE TO MONITOR
--- NOTE | 2018-10-31 07:26 | Diagnostic Imaging Report ---
EXAM: Abdomen 2 Views INDICATION: ^f/u SBO COMPARISON: KUB 10/30/2018 FINDINGS: Lines/tubes: None. Mild amount of stool in the colon. Interval decrease in size of the small and large bowel when compared to prior KUB. No renal calculi. No abnormal soft tissue masses. Mild degenerative changes in the lumbar spine and pelvis. Status post fixation of the left iliac bone with 2 traversing surgical screws. Right upper quadrant cholecystectomy clips. IMPRESSION: Continued improvement in small bowel obstruction. Signed by: Dr. Chantell Edwards M.D. on 10/31/2018 7:23 AM
[2018-10-31] MEDS: INSULIN LISPRO 100 UNIT/1 ML 3ML VIAL SQ SCH ×2 (07:30→12:48)
[2018-10-31 07:51] VITALS: BP 144/68
[2018-10-31] MEDS ORDERED: POTASSIUM CHLORIDE 20 MEQ TAB CR PO NR (08:15)
[2018-10-31 09:00] VITALS: BP 144/68
[2018-10-31] MEDS: AMLODIPINE BESYLATE 5 MG TAB PO SCH (09:00)
[2018-10-31] MEDS: METOPROLOL SUCCINATE 50 MG TAB XL PO SCH (09:00)
[2018-10-31] MEDS: ASPIRIN 81 MG CHEW TAB PO SCH (09:00)
[2018-10-31] MEDS: FAMOTIDINE 20 MG/2 ML VIAL IV SCH (09:00)
[2018-10-31] MEDS ORDERED: ATORVASTATIN 20 MG TAB PO SCH (09:00)
[2018-10-31] MEDS: CLOPIDOGREL BISULFATE 75 MG TAB PO SCH (09:00)
[2018-10-31 11:36] VITALS: BP 141/69
--- NOTE | 2018-11-01 00:31 | Discharge Summary ---
ADMISSION DIAGNOSES: Partial small bowel obstruction versus ileus, hypertension, hyperlipidemia, benign prostatic hypertrophy, obesity, type 2 diabetes, neuropathy. DISCHARGE DIAGNOSES: Partial small bowel obstruction versus ileus, hypertension, hyperlipidemia, benign prostatic hypertrophy, obesity, type 2 diabetes, neuropathy. HISTORY: Hypertension, hyperlipidemia, BPH, CAD with stents x2, neuropathy, prostate cancer, status post radiation, type 2 diabetes. SURGICAL HISTORY: Cervical fusion, pelvic fracture, cholecystectomy, tonsillectomy. FAMILY HISTORY: The patient's mother had diabetes and a stroke. SOCIAL HISTORY: Noncontributory. HOSPITAL COURSE: A 63-year-old male complains of abdominal discomfort and diarrhea x2-3 days. Yesterday, the abdominal pain located in the right upper and lower and right flank. It became sharp and constant, so he came to the ER. He was having 2 to 3 watery bowel movements a day until yesterday when the bowel movements stopped. Overall, he has been eating less because he has been trying to lose weight. On admission, CT of the abdomen showed mildly dilated loops of small bowel compatible with SBO versus ileus. The patient was kept n.p.o. and KUBs were repeated. On the day of discharge, KUB showed continued improvement in small bowel obstruction. The patient's diet was advanced and he is tolerating a regular diet and had multiple bowel movements prior to discharge. The patient will follow up with primary care in 1 to 2 weeks. Vital signs stable, the patient afebrile. Dictated by Sheri Proctor NP MD KARRIE Phillips/DOROTHY /[id number]
[2018-12-09] MEDS ORDERED: AMLODIPINE BESYL5 MG PO (16:10)
== END 2018-10-31 15:50 | disposition home or self-care (01) | DRG 390 ==
LOC: ER 04:10 → ERHOLD 06:48 → MED/SURG 14:49
PROVIDERS: ADMIT Internal Medicine; ATTEND Internal Medicine
DX: K56.609 Unspecified intestinal obstruction, unspecified as to partial versus complete obstruction (principal); I10 Essential (primary) hypertension; N40.0 Benign prostatic hyperplasia without lower urinary tract symptoms; E11.42 Type 2 diabetes mellitus with diabetic polyneuropathy; Z85.46 Personal history of malignant neoplasm of prostate; I25.10 Atherosclerotic heart disease of native coronary artery without angina pectoris; Z95.5 Presence of coronary angioplasty implant and graft; Z90.49 Acquired absence of other specified parts of digestive tract; E66.9 Obesity, unspecified; Z68.35 Body mass index [BMI] 35.0-35.9, adult
CPT/HCPCS: 36415; 74018; 74022; 74177; 80048; 80053; 81001; 82150; 82550; 82553; 82948; 83605; 83690; 84484; 85025; 87086; 93005; 96374; 99284; J0360; J0692; J2270; J2405; J7030; Q9967

== ENCOUNTER 2018-11-05 10:12 | Emergency (ER) | payer OTHER ==
[~2018-11-05] VITALS: Ht 185.4 cm; Wt 122.5 kg
[~2018-11-05 10:12] MED LIST changes: +AMLODIPINE BESYL5 MG PO; +CIALIS10 MG PO; +ISOSORBIDE MONO30 MG PO; +METOPROLOL SUCC50 MG PO; +TESTOSTERONE INJ
--- OUTSIDE RECORDS SUMMARY | 2018-11-05 10:16 | XMS REPORT | Clinical Summary ---
Author Author Scott [facility] Organization [facility] Address Unknown Phone Unavailable Care Team Providers Care Wordpress Developer Name Role Phone Geovanni Arreaga MD PCP [...] Used Never Smoker Smokeless Tobacco: Never Used Drinks/Week oz/Week Comments Alcohol Use No Sex Assigned at Date Recorded Not [...] INFLUENZA VACCINE 10/15/2018 Results Not on fileafter 11/04/2017 Insurance Type Payer Benefit Subscriber ID Effective Phone Address Plan / Dates Group PPO [facility] xxxxxxxx 2012-P THCARE resent PPO- [employer] Advance Directives For more information, please contact: [phone] 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
[2018-11-05 11:38] LABS: BASOPHILS % 0.2 % (0.0-1.0); EOSINOPHILS # (AUTO) 0.2 (0.0-0.4); EOSINOPHILS % 1.7 % (0.0-6.0); HEMOGLOBIN 12.4 g/dL (14.0-18.0); LYMPHOCYTES # (AUTO) 0.8 (1.0-3.2); LYMPHOCYTES % 8.4 % (18.0-39.1); MEAN CORPUSCULAR HEMOGLOBIN 25.9 pg (28-32); MEAN CORPUSCULAR VOLUME 83.5 fL (81-99); MONOCYTES # (AUTO) 0.6 (0.2-0.8); MONOCYTES % 6.6 % (4.4-11.3); NEUTROPHILS # (AUTO) 7.8 (2.1-6.9); NEUTROPHILS % 82.7 % (38.7-80.0); PLATELET COUNT 245 x10e3/uL (140-360); RED BLOOD COUNT 4.79 x10e6/uL (4.3-5.7); RED CELL DISTRIBUTION WIDTH 13.8 % (11.7-14.4)
[2018-11-05 11:57] LABS: ALANINE AMINOTRANSFERASE 15 IU/L (0-55); ALBUMIN 3.7 g/dL (3.5-5.0); ALBUMIN/GLOBULIN RATIO 1.5 (0.8-2.0); ALKALINE PHOSPHATASE 94 IU/L (40-150); ANION GAP 10.4 mmol/L (8-16); BLOOD UREA NITROGEN 22 mg/dL (7-26); BUN/CREATININE RATIO 22 (6-25); CALCIUM 8.7 mg/dL (8.4-10.2); CARBON DIOXIDE 29 mmol/L (22-29); CHLORIDE 96 mmol/L (98-107); CREATINE KINASE 63 IU/L (30-200); CREATININE, SERUM 0.99 mg/dL (0.72-1.25); EST GLOMERULAR FILTRATION RATE > 60 ML/MIN (60-); GLUCOSE 112 mg/dL (74-118); POTASSIUM 3.4 mmol/L (3.5-5.1); SODIUM 132 mmol/L (136-145)
[2018-11-05 12:17] LABS: BILIRUBIN,URINE SMALL (NEGATIVE); CLARITY,URINE CLEAR (CLEAR); COLOR,URINE YELLOW (YELLOW); KETONES,URINE NEGATIVE (NEGATIVE); LEUKOCYTE ESTERASE ,URINE NEGATIVE (NEGATIVE); NITRITE,URINE NEGATIVE (NEGATIVE); PROTEIN,URINE DIPSTICK 1+ (NEGATIVE); URINE UROBILINOGEN 1 mg/dL (0.2 - 1)
[2018-11-05 12:33] LABS: BACTERIA,URINE MODERATE /HPF; EPITHELIAL CELLS,URINE MODERATE /LPF; MUCUS,URINE FEW (RARE); RBC,URINE 0-5 /HPF (0-5); WBC,URINE (MAN) 0-5 /HPF (0-5)
--- NOTE | 2018-11-05 14:37 | Diagnostic Imaging Report ---
Exam: KUB Clinical history: Abdominal pain Findings: Prominent air-filled proximal colon is noted. There is bowel gas distally. This may represent ileus versus enteritis. There is no evidence of pathological calcification. Surgical screws are noted in the bony structures of the left hemipelvis. Impression: 1. Mildly prominent air-filled colon which may represent enteritis versus ileus. Signed by: Dr. Richard Levine MD on 11/05/2018 2:34 PM
[2018-11-05] MEDS ORDERED: FLAGYL500 MG PO (16:22)
[2018-11-05] MEDS ORDERED: CIPRO500 MG PO (16:22)
--- NOTE | 2018-11-05 16:24 | NUR ---
pt given po challenge at 1530 per md orders; pt po challenge negative
[2018-11-05 16:31] VITALS: BP 127/76
[2018-12-09] MEDS ORDERED: AMLODIPINE BESYL5 MG PO (16:10)
== END 2018-11-05 16:33 | disposition home or self-care (01) ==
LOC: ER 10:12
DX: R10.9 Unspecified abdominal pain (principal); R11.2 Nausea with vomiting, unspecified; R19.7 Diarrhea, unspecified
CPT/HCPCS: 36415; 74018; 80053; 81001; 82550; 82553; 84484; 85025; 99284

== ENCOUNTER 2018-11-19 12:10 | Inpatient (IN) | payer OTHER ==
[~2018-11-19] VITALS: Ht 185.4 cm; Wt 118.9 kg
[~2018-11-19 12:10] MED LIST changes: +CIPRO500 MG PO; +FLAGYL500 MG PO
--- OUTSIDE RECORDS SUMMARY | 2018-11-19 12:18 | XMS REPORT | Clinical Summary ---
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
[2018-11-19] MEDS ORDERED: ONDANSETRON HCL INJ 2MG/ML 2ML 2 MG/ML VIAL IV STA (12:25)
[2018-11-19] MEDS ORDERED: SODIUM CHLORIDE 0.9% 1000ML 1,000 ML IV STA (12:25)
[2018-11-19] MEDS ORDERED: MORPHINE SULFATE 2 MG/ML SYR 1ML IV STA (12:25)
[2018-11-19] MEDS ORDERED: MORPHINE SULFATE INJ 4 MG/ML INJ 1ML IV ONE (12:45)
--- NOTE | 2018-11-19 13:19 | NUR ---
Pt sitting up comfortably on stretcher. RR even and unlabored. Cardiac monitoring NIBP and pulse ox on pt. Bed locked in lowest position. Call light in reach. Will continue to monitor.
--- NOTE | 2018-11-19 13:31 | Diagnostic Imaging Report ---
EXAMINATION: CHEST SINGLE (PORTABLE) INDICATION: Chest pain COMPARISON: None FINDINGS: LINES/TUBES:EKG leads overlie the chest. LUNGS:The lungs are well-inflated. No focal consolidation or pulmonary edema. PLEURA:No pleural effusion or pneumothorax. MEDIASTINUM:The cardiomediastinal silhouette appears normal in size and shape. Atherosclerotic calcifications of the thoracic aorta. BONES/SOFT TISSUES:No acute osseous injury. ABDOMEN:No free air under the diaphragm. IMPRESSION: No focal pneumonia or pulmonary edema. Signed by: Renetta Rollins MD on 11/19/2018 1:28 PM
[2018-11-19 13:42] LABS: BASOPHILS % 0.6 % (0.0-1.0); EOSINOPHILS # (AUTO) 0.1 (0.0-0.4); EOSINOPHILS % 1.9 % (0.0-6.0); HEMATOCRIT 40.8 % (38.2-49.6); HEMOGLOBIN 12.9 g/dL (14.0-18.0); LYMPHOCYTES # (AUTO) 0.8 (1.0-3.2); LYMPHOCYTES % 13.1 % (18.0-39.1); MEAN CORPUSCULAR HEMOGLOBIN 25.8 pg (28-32); MEAN CORPUSCULAR HGB CONC 31.6 g/dL (31-35); MEAN CORPUSCULAR VOLUME 81.6 fL (81-99); MONOCYTES # (AUTO) 0.8 (0.2-0.8); MONOCYTES % 13.1 % (4.4-11.3); NEUTROPHILS # (AUTO) 4.6 (2.1-6.9); NEUTROPHILS % 71.1 % (38.7-80.0); PLATELET COUNT 259 x10e3/uL (140-360)
[2018-11-19 13:58] LABS: BILIRUBIN,URINE MODERATE (NEGATIVE); CLARITY,URINE SL CLOUDY (CLEAR); COLOR,URINE BROWN (YELLOW); INR 0.98; KETONES,URINE TRACE (NEGATIVE); LEUKOCYTE ESTERASE ,URINE NEGATIVE (NEGATIVE); NITRITE,URINE POSITIVE (NEGATIVE); PARTIAL THROMBOPLASTIN TIME 30.8 seconds (23.8-35.5); PROTEIN,URINE DIPSTICK 1+ (NEGATIVE); PROTHROMBIN TIME 13.5 seconds (11.9-14.5); URINE UROBILINOGEN 0.2 mg/dL (0.2 - 1)
[2018-11-19 14:12] LABS: ALANINE AMINOTRANSFERASE 25 IU/L (0-55); ALBUMIN 3.8 g/dL (3.5-5.0); ALBUMIN/GLOBULIN RATIO 1.5 (0.8-2.0); ALKALINE PHOSPHATASE 86 IU/L (40-150); BLOOD UREA NITROGEN 8 mg/dL (7-26); BUN/CREATININE RATIO 9 (6-25); CALCIUM 9.3 mg/dL (8.4-10.2); CARBON DIOXIDE 26 mmol/L (22-29); CHLORIDE 100 mmol/L (98-107); CREATINE KINASE 88 IU/L (30-200); CREATININE, SERUM 0.86 mg/dL (0.72-1.25); EST GLOMERULAR FILTRATION RATE > 60 ML/MIN (60-); GLUCOSE 91 mg/dL (74-118); LIPASE 71 U/L (8-78); MAGNESIUM 1.4 MG/DL (1.3-2.1); SODIUM 137 mmol/L (136-145)
[2018-11-19 14:16] LABS: BACTERIA,URINE FEW /HPF; EPITHELIAL CELLS,URINE FEW /LPF; TRANSITIONAL EPI CELLS,URINE RARE
--- NOTE | 2018-11-19 15:16 | Consultation ---
DATE OF CONSULTATION: 11/19/2018 Cardiology Consultation REASON FOR CONSULTATION: Chest pain. CONSULTING PHYSICIAN: Shine Pollock MD, Interventional Cardiology. HISTORY OF PRESENT ILLNESS: Mr. Araiza is 63-year-old man with history of coronary artery disease with previous stents, morbid obesity, dyslipidemia, hypertension, diabetes, presenting with complaints of abdominal discomfort and distention and cramps following p.o. intake. He recently had hospital evaluation for abdominal distention and bowel obstruction and was attempting to schedule outpatient endoscopic assessment. While this episode recurred and symptom fernandez from abdomen discomfort standpoint, the patient noted some radiation to chest and left upper extremity reason why he decided to seek attention in the emergency department. His initial evaluation demonstrates an EKG with normal sinus rhythm, normal EKG. On telemetry, sinus rhythm with rare PVCs. He currently is chest pain-free. He denies any shortness of breath, lightheadedness, or syncope. REVIEW OF SYSTEMS: A 12-system review is negative except for as noted above. ALLERGIES: TRAMADOL. MEDICATIONS: Home medication reviewed. Amlodipine 5 mg daily, aspirin 81 mg daily, atorvastatin 10 mg at bedtime, clopidogrel 75 mg daily, metoprolol succinate 50 mg daily, tamsulosin 0.4 mg daily studies. SOCIAL HISTORY: No current smoking, alcohol, or drugs. FAMILY HISTORY: Noncontributory. PHYSICAL EXAMINATION: VITAL SIGNS: Temperature 97.5, heart rate 79, respiratory rate 18, blood pressure 124/64, O2 saturation 98%. GENERAL: No acute distress, alert. NECK: No JVD. CHEST: Clear to auscultation. CARDIOVASCULAR: Regular rate and rhythm. Normal S1, S2. No S3, no S4. ABDOMEN: Distended. Bowel sounds decreased, tympanic. No rebound or guarding. EXTREMITIES: No edema. Warm distal extremities. CARDIOVASCULAR MEDICATIONS: Reviewed. LABORATORY DATA: Studies reviewed. White blood cell 6.4, hemoglobin 12.9, platelets of 259. INR 0.9 and creatinine 0.8. Normal transaminases. Troponin I 0.019. BNP 45, total protein 6.4, albumin 3.8, lipase 71. Chest x-ray, no focal pneumonia or pulmonary edema. ASSESSMENT: 1. Chest pain, atypical. 2. Suspected small-bowel obstruction. 3. Coronary artery disease with previous drug-eluting stents. 4. Hypertension, dyslipidemia and diabetes mellitus. RECOMMENDATIONS: 1. GI consultation. 2. Trend cardiac enzymes. 3. Resume cardiovascular medications. If advised by GI to keep n.p.o. transition to aspirin 300 mg per rectum. 4. We will follow closely. MD HEATH Arenas/DOROTHY /[id number]
[2018-11-19] MEDS ORDERED: MORPHINE SULFATE 2 MG/ML SYR 1ML IV PRN (16:00)
[2018-11-19] MEDS ORDERED: ONDANSETRON HCL INJ 2MG/ML 2ML 2 MG/ML VIAL IV PRN (16:00)
[2018-11-19] MEDS ORDERED: DEXTROSE 50% SYRINGE 50 ML IV PRN (16:00)
--- OUTSIDE RECORDS SUMMARY | 2018-11-19 16:01 | XMS REPORT | Clinical Summary ---
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
--- NOTE | 2018-11-19 16:42 | Diagnostic Imaging Report ---
EXAM: CT Abdomen and Pelvis WITH intravenous contrast INDICATION: Abdominal distention COMPARISON: Abdominal radiograph of 10/31/2018, abdomen and pelvis CT of 10/29/2018 TECHNIQUE: Abdomen and pelvis were scanned utilizing a multidetector helical scanner from the lung base to the pubic symphysis after administration of IV contrast. Coronal and sagittal reformations were obtained. Routine protocol was performed. Scan was performed during portal venous phase. IV CONTRAST: 100mL of Isovue 370 ORAL CONTRAST: Water RADIATION DOSE: Total DLP: 904.4 mGy*cm Dose modulation, iterative reconstruction, and/or weight based adjustment of the mA/kV was utilized to reduce the radiation dose to as low as reasonably achievable. FINDINGS: LOWER THORAX: Scattered right middle lobe and left lingular subcentimeter calcified and noncalcified granulomas. No focal consolidation. Coronary artery atherosclerotic calcifications. HEPATOBILIARY: No focal liver lesions. No biliary ductal dilation. Status post cholecystectomy. SPLEEN: No splenomegaly. PANCREAS: No focal masses or ductal dilatation. ADRENALS: No adrenal nodules. KIDNEYS/URETERS: No hydronephrosis. No renal calculi. Multiple bilateral renal cysts measuring up to 4.2 cm on the right and 4.1 cm on the left. PELVIC ORGANS/BLADDER: Unremarkable. PERITONEUM / RETROPERITONEUM: No free air or fluid. LYMPH NODES: No lymphadenopathy. VESSELS: Atherosclerotic calcifications of the nonaneurysmal abdominal aorta and major branches. GI TRACT: No abnormal bowel wall thickening. No bowel obstruction. Normal appendix. BONES AND SOFT TISSUES: Postoperative findings of hardware fixation of the left iliac bone. No acute osseous injury. No suspicious lytic or blastic lesions. Multilevel degenerative changes of the lumbar spine. IMPRESSION: No acute findings in the abdomen or pelvis. Diffuse atherosclerotic calcifications including of the coronary arteries. Signed by: Renetta Rollins MD on 11/19/2018 4:38 PM
[2018-11-19] MEDS: INSULIN LISPRO 100 UNIT/1 ML 3ML VIAL SQ SCH ×2 (16:45→21:00)
[2018-11-19] MEDS: METOPROLOL SUCCINATE 50 MG TAB XL PO SCH (16:57)
[2018-11-19] MEDS: SODIUM CHLORIDE 0.9% 1000ML 1,000 ML IV SCH (16:57)
[2018-11-19] MEDS: FAMOTIDINE 20 MG/2 ML VIAL IV SCH (16:57)
--- NOTE | 2018-11-19 17:45 | NUR ---
Recvd patient from ER via Wheelchair. AAOx3, able to walk, not in any distress, call light in reach
[2018-11-19 18:00] VITALS: BP 157/72
--- NOTE | 2018-11-19 18:45 | NUR ---
Received bedside report from RN. The patient is sitting up on the bed, not in distress and reported no pain. Bed height low, side rails up x2, call light within reach and wheels lock.
[2018-11-19] MEDS ORDERED: SODIUM CHLORIDE 0.9% 50ML 50 ML ONE (19:11)
[2018-11-19] MEDS ORDERED: IOPAMIDOL 370 MG/ML 200 ML INFUS..BTL INJ ONE (19:11)
[2018-11-19 19:30] VITALS: BP 162/79
[2018-11-19 19:34] LABS: CREATINE KINASE MB 1.8 ng/mL (0-5.0)
[2018-11-19 20:00] VITALS: BP 162/79
[2018-11-19] MEDS: ATORVASTATIN 40 MG TAB PO SCH (21:00)
[2018-11-19] MEDS ORDERED: HYDRALAZINE HCL 20 MG/ML VIAL IV PRN (22:45)
[2018-11-20] VITALS (9 sets, daily range): BP systolic 129–171; BP diastolic 61–82
--- NOTE | 2018-11-20 00:36 | NUR ---
Right AC IV is infiltrated and removed due to fluid noted in the surrounding tissue. The patient stated he does not want a new IV at this time and will notify the nurse when he want one. Tape and gauze placed over the right AC.
[2018-11-20] MEDS: SODIUM CHLORIDE 0.9% 1000ML 1,000 ML IV SCH ×3 (02:00→20:23)
[2018-11-20] MEDS ORDERED: ACETAMINOPHEN 325 MG TAB PO PRN (05:00)
[2018-11-20] MEDS ORDERED: ACETAMINOPHEN/CODEINE 300MG - 30MG TAB PO PRN (05:00)
[2018-11-20] MEDS ORDERED: MELATONIN 5 MG TABLET PO PRN (05:00)
--- NOTE | 2018-11-20 05:16 | NUR ---
Called Dr. Gloria and Dr. Ramon Hernandez for consult.
[2018-11-20 06:10] LABS: BASOPHILS % 0.6 % (0.0-1.0); EOSINOPHILS # (AUTO) 0.1 (0.0-0.4); EOSINOPHILS % 2.9 % (0.0-6.0); HEMATOCRIT 41.8 % (38.2-49.6); LYMPHOCYTES # (AUTO) 0.7 (1.0-3.2); LYMPHOCYTES % 14.5 % (18.0-39.1); MEAN CORPUSCULAR HEMOGLOBIN 25.5 pg (28-32); MEAN CORPUSCULAR HGB CONC 31.1 g/dL (31-35); MEAN CORPUSCULAR VOLUME 82.1 fL (81-99); MONOCYTES # (AUTO) 0.7 (0.2-0.8); MONOCYTES % 14.3 % (4.4-11.3); NEUTROPHILS # (AUTO) 3.3 (2.1-6.9); NEUTROPHILS % 67.3 % (38.7-80.0); PLATELET COUNT 209 x10e3/uL (140-360); RED BLOOD COUNT 5.09 x10e6/uL (4.3-5.7); RED CELL DISTRIBUTION WIDTH 13.8 % (11.7-14.4)
[2018-11-20 06:39] LABS: ALANINE AMINOTRANSFERASE 26 IU/L (0-55); ALBUMIN 3.5 g/dL (3.5-5.0); ALBUMIN/GLOBULIN RATIO 1.5 (0.8-2.0); ALKALINE PHOSPHATASE 76 IU/L (40-150); ANION GAP 13.4 mmol/L (8-16); BLOOD UREA NITROGEN 6 mg/dL (7-26); BUN/CREATININE RATIO 7 (6-25); CALCIUM 8.9 mg/dL (8.4-10.2); CARBON DIOXIDE 29 mmol/L (22-29); CHLORIDE 99 mmol/L (98-107); CHOL/HDL RATIO 3.4 (3.9-4.7); CHOLESTEROL 91 MD/DL (0-199); CREATININE, SERUM 0.81 mg/dL (0.72-1.25); EST GLOMERULAR FILTRATION RATE > 60 ML/MIN (60-); GLUCOSE 89 mg/dL (74-118); HDL CHOLESTEROL 27 MG/DL (40-60); LDL CHOLESTEROL 46 MG/DL (60-130); POTASSIUM 3.4 mmol/L (3.5-5.1); SODIUM 138 mmol/L (136-145); TRIGLYCERIDES 89 MG/DL (0-149)
[2018-11-20 06:40] LABS: CREATINE KINASE MB 2.2 ng/mL (0-5.0)
--- NOTE | 2018-11-20 07:15 | NUR ---
RECEIVED PATIENT RESTING IN BED NO S/S OF DISTRESS. BED LOW, WHEELS LOCKED, SIDE RAILS X2. CALL LIGHT IN REACH WILL CONTINUE TO MONITOR PATIENT.
[2018-11-20] MEDS: INSULIN LISPRO 100 UNIT/1 ML 3ML VIAL SQ SCH ×5 (07:30→20:23)
[2018-11-20] MEDS: METOPROLOL SUCCINATE 50 MG TAB XL PO SCH ×2 (08:01→17:45)
[2018-11-20] MEDS: ASPIRIN 81 MG CHEW TAB PO SCH (08:01)
[2018-11-20] MEDS: CLOPIDOGREL BISULFATE 75 MG TAB PO SCH (08:01)
[2018-11-20] MEDS ORDERED: ATORVASTATIN 20 MG TAB PO SCH (09:00)
--- NOTE | 2018-11-20 10:05 | NUR ---
PATIENT A/O X3, EVEN RESPIRATIONS ON RA. BOWEL SOUNDS ACTIVE, SKIN INTACT, NO EDEMA. ABDOMINAL PAIN 2/10. NO CHEST PAIN AT THIS TIME. PATIENT AMBULATES INDEPENDENTLY. PATIENT NPO AT THIS TIME. TELEMETRY #13 SR. CALL LIGHT IN REACH WILL CONTINUE TO MONITOR PATIENT.
[2018-11-20] MEDS ORDERED: ONDANSETRON HCL 4 MG ORAL DISINTEGRATING TAB PO PRN (10:15)
--- NOTE | 2018-11-20 11:05 | NUR ---
NEW IV PLACED TO LEFT FA 20 GAUGE
[2018-11-20] MEDS: FAMOTIDINE 20 MG/2 ML VIAL IV SCH ×2 (11:10→17:45)
[2018-11-20] MEDS: CEFTRIAXONE SOD 1 GM/NS 50 ML 50 ML IV SCH (12:26)
[2018-11-20] MEDS: HYDRALAZINE HCL 20 MG/ML VIAL IV PRN ×2 (12:27→23:44)
--- NOTE | 2018-11-20 12:41 | Progress Note ---
DATE: 11/20/2018 Cardiology Progress Note SUBJECTIVE: No complaints. PHYSICAL EXAMINATION: VITAL SIGNS: Temperature 97.2, heart rate 89, respiratory rate 20, blood pressure 139/69, O2 saturation 95%. GENERAL: In no acute distress, alert. NECK: No JVD. CHEST: Clear to auscultation. CARDIOVASCULAR: Regular rate and rhythm. Normal S1, S2. ABDOMEN: Distended. No rebound or guarding. EXTREMITIES: No cyanosis, clubbing, or edema. CARDIOVASCULAR MEDICATIONS: Reviewed. Hydralazine 10 mg q.3 hours IV p.r.n., atorvastatin 40 mg at bedtime, clopidogrel 75 mg daily, aspirin 81 mg daily, currently n.p.o. P.o. medications are being held. Metoprolol succinate 50 mg b.i.d. on hold. LABORATORY DATA: White blood cells 4.9, hemoglobin 13, platelets 209. Sodium 138, potassium 3.4, chloride 99, bicarbonate 29, BUN 6, creatinine 0.8, glucose 89. Troponins negative x3. LDL 46, HDL 27, total cholesterol 91, triglycerides 89. On telemetry, remains in sinus rhythm. ASSESSMENT: 1. Abdominal distention concerning for small bowel obstruction versus constipation, undergoing further evaluation. CT with no acute findings in the abdomen and pelvis and diffuse atherosclerotic calcifications including in the coronary arteries reported. 2. Atypical chest pain, now resolved. 3. Coronary artery disease with previous drug-eluting stents. 4. Hypertension, dyslipidemia, and diabetes. 5. Morbid obesity. RECOMMENDATIONS: 1. GI consulted. Appreciate input. 2. Cardiac enzymes negative. No AMI. Chest pain is atypical and now resolved. Continue conservative medical management for now. 3. Once resuming p.o., please continue current cardiovascular medications. If remains n.p.o. overnight, we will initiate aspirin 300 mg per rectum starting a.m. MD HEATH Arenas/DOROTHY /[id number]
--- NOTE | 2018-11-20 13:07 | NUR ---
LEFT FA IV INFILTRATED. REMOVED IV. CATHETER TIP INTACT AND PRESSURE DRESSING APPLIED.
--- NOTE | 2018-11-20 16:23 | NUR ---
SPOKE WITH DR. Lee Ann DORESY. PATIENT OK TO HAVE CLEAR LIQUID DIET AT THIS TIME. NEW ORDERS IMPLEMENTED .
--- NOTE | 2018-11-20 16:46 | NUR ---
NEW IV STARTED TO RIGHT FA 20 GAUGE.
[2018-11-20] MEDS: ATORVASTATIN 40 MG TAB PO SCH (20:24)
[2018-11-21] VITALS (8 sets, daily range): BP systolic 140–184; BP diastolic 62–82
[2018-11-21 02:32] LABS: BASOPHILS % 0.3 % (0.0-1.0); EOSINOPHILS # (AUTO) 0.2 (0.0-0.4); EOSINOPHILS % 2.4 % (0.0-6.0); HEMATOCRIT 39.7 % (38.2-49.6); HEMOGLOBIN 12.7 g/dL (14.0-18.0); LYMPHOCYTES # (AUTO) 0.8 (1.0-3.2); LYMPHOCYTES % 13.5 % (18.0-39.1); MEAN CORPUSCULAR HEMOGLOBIN 25.7 pg (28-32); MEAN CORPUSCULAR VOLUME 80.2 fL (81-99); MONOCYTES # (AUTO) 0.7 (0.2-0.8); MONOCYTES % 12.1 % (4.4-11.3); NEUTROPHILS # (AUTO) 4.4 (2.1-6.9); NEUTROPHILS % 71.4 % (38.7-80.0); PLATELET COUNT 229 x10e3/uL (140-360); RED BLOOD COUNT 4.95 x10e6/uL (4.3-5.7)
[2018-11-21 03:00] LABS: ANION GAP 15.2 mmol/L (8-16); BLOOD UREA NITROGEN 8 mg/dL (7-26); BUN/CREATININE RATIO 11 (6-25); CALCIUM 8.6 mg/dL (8.4-10.2); CARBON DIOXIDE 23 mmol/L (22-29); CHLORIDE 103 mmol/L (98-107); CREATININE, SERUM 0.72 mg/dL (0.72-1.25); EST GLOMERULAR FILTRATION RATE > 60 ML/MIN (60-); GLUCOSE 102 mg/dL (74-118); MAGNESIUM 1.4 MG/DL (1.3-2.1); POTASSIUM 3.2 mmol/L (3.5-5.1); SODIUM 138 mmol/L (136-145)
[2018-11-21 03:21] LABS: THYROID STIMULATING HORMONE 0.656 uIU/mL (0.350-4.940)
[2018-11-21 03:39] LABS: B-TYPE NATRIURETIC PEPTIDE2 53.5 pg/mL (0-100)
[2018-11-21] MEDS ORDERED: POTASSIUM CHLORIDE 20MEQ/100ML 200 ML IV ONE (06:00)
--- NOTE | 2018-11-21 07:00 | NUR ---
RECEIVED PATIENT RESTING IN BED NO SIGNS OF DISTRESS. BED LOW, WHEELS LOCKED, SIDE RAILS X2. CALL LIGHT IN REACH WILL CONTINUE TO MONITOR PATIENT.
--- NOTE | 2018-11-21 07:15 | NUR ---
NOTIFIED DR. SIBLEY THAT PATIENT HAD 7 RUNS ON V-TACH AND IS NOW BACK IN SINUS RHYTHM. NEW ORDER FOR MAGNESIUM SULFATE 2 GRAMS IV IF MAG LEVEL LESS THAN 2. METOPROLOL 5 MG IV Q8 FIRST DOSE NOW. NEW ORDERS IMPLEMENTED.
[2018-11-21] MEDS ORDERED: MAGNESIUM SULFATE 2GM/50ML 50 ML IV ONE (07:30)
[2018-11-21] MEDS: METOPROLOL SUCCINATE 50 MG TAB XL PO SCH ×2 (07:58→17:11)
[2018-11-21] MEDS: FAMOTIDINE 20 MG/2 ML VIAL IV SCH ×2 (08:13→17:11)
[2018-11-21] MEDS: METOPROLOL TARTRATE INJ 1 MG/ML VIAL IV SCH ×2 (08:13→12:55)
[2018-11-21] MEDS: SODIUM CHLORIDE 0.9% 1000ML 1,000 ML IV SCH ×3 (08:14→20:44)
[2018-11-21] MEDS ORDERED: AMLODIPINE BESYLATE 10 MG TAB PO SCH (09:00)
--- NOTE | 2018-11-21 09:41 | NUR ---
PATIENT A/O X3, EVEN RESPIRATIONS ON RA. BOWEL SOUNDS ACTIVE, SKIN INTACT, NO EDEMA. NO ABDOMINAL PAIN AT THIS TIME. PATIENT HAD BOWEL MOVEMENT THIS MORNING. NO CHEST PAIN AT THIS TIME. PATIENT AMBULATES INDEPENDENTLY. PATIENT NPO AT THIS TIME FOR CT SCAN TODAY. TELEMETRY #13 SR. CALL LIGHT IN REACH WILL CONTINUE TO MONITOR PATIENT
[2018-11-21] MEDS: ASPIRIN 81 MG CHEW TAB PO SCH (12:54)
[2018-11-21] MEDS: CLOPIDOGREL BISULFATE 75 MG TAB PO SCH (12:54)
--- NOTE | 2018-11-21 13:39 | Diagnostic Imaging Report ---
ADDENDUM #1 ADDENDUM: While the study was performed as CT Enterography, the evaluation of the small bowel is limited due to lack of small bowel distension and phase of contrast. There is a short segment proximal ileal loop with apparent wall thickening measuring up to 1 cm on series 3, image 130, which is non-specific, and may reflect peristalsis with infectious/inflammatory enteritis considered less likely. This finding was not definitely present on recent CT Abdomen/Pelvis from 11/19/2018. No evidence of wall thickening elsewhere in the small or large bowel. No surrounding inflammatory changes. The terminal ileum appears unremarkable. No evidence of abnormal enhancement. Signed by: Dr. Hiram Leggett MD on 11/23/2018 9:19 AM ORIGINAL REPORT EXAM: CT Abdomen and Pelvis WITH intravenous contrast INDICATION: Abdominal distention COMPARISON: CT abdomen/pelvis 11/19/2018. TECHNIQUE: Abdomen and pelvis were scanned utilizing a multidetector helical scanner from the lung base to the pubic symphysis after administration of IV contrast. CT enterography protocol was performed. Coronal and sagittal reformations were obtained. Scan was performed during portal venous phase. IV CONTRAST: 100mL of Isovue 370 ORAL CONTRAST: 900 cc of water. RADIATION DOSE: Total DLP: 874.1 mGy*cm Dose modulation, iterative reconstruction, and/or weight based adjustment of the mA/kV was utilized to reduce the radiation dose to as low as reasonably achievable. FINDINGS: LOWER THORAX: Scattered right middle lobe and left lingular subcentimeter calcified and noncalcified granulomas. No focal consolidation. Extensive coronary atherosclerosis. Extensive mitral annular calcifications. HEPATOBILIARY: No focal liver lesions. No biliary ductal dilation. Status post cholecystectomy. SPLEEN: No splenomegaly. PANCREAS: No focal masses or ductal dilatation. ADRENALS: No adrenal nodules. KIDNEYS/URETERS: No hydronephrosis. No renal calculi. Multiple bilateral renal cysts measuring up to 4.2 cm on the right and 4.1 cm on the left. PELVIC ORGANS/BLADDER: Unremarkable. PERITONEUM / RETROPERITONEUM: No free air or fluid. LYMPH NODES: No lymphadenopathy. VESSELS: Extensive atherosclerotic calcifications of the nonaneurysmal abdominal aorta and major branches. GI TRACT: The small bowel is not well distended. No abnormal bowel wall thickening. No bowel obstruction. Normal appendix. BONES AND SOFT TISSUES: Left pelvic bony hardware fixation. No acute osseous injury. No suspicious lytic or blastic lesions. Multilevel degenerative changes of the lumbar spine. IMPRESSION: No acute CT abnormality in the abdomen or pelvis. Signed by: Dr. Hiram Leggett MD on 11/21/2018 1:35 PM
[2018-11-21] MEDS: CEFTRIAXONE SOD 1 GM/NS 50 ML 50 ML IV SCH (13:51)
[2018-11-21] MEDS ORDERED: SODIUM CHLORIDE 0.9% 50ML 50 ML ONE (14:04)
[2018-11-21] MEDS ORDERED: IOPAMIDOL 370 MG/ML 200 ML INFUS..BTL INJ ONE (14:04)
--- NOTE | 2018-11-21 14:22 | Progress Note ---
DATE: 11/21/2018 Cardiology Progress Note SUBJECTIVE: The patient denies any chest pain or shortness of breath. Abdominal discomfort is still present, however, slightly improved. Remains distended. Plans for CT today. OBJECTIVE: VITAL SIGNS: Temperature 98.2, heart rate 82, respiratory rate 18, blood pressure 148/75, and O2 saturation 96% on room air. On telemetry, had a short run of ventricular tachycardia, remains in predominant sinus rhythm with right bundle-branch block. GENERAL: In no acute distress, alert, active. NECK: No JVD. CHEST: Clear to auscultation. CARDIOVASCULAR: Regular rate and rhythm, normal S1, S2. No S3 or S4. ABDOMEN: Distended. No rebound or guarding. EXTREMITIES: No cyanosis, clubbing, or edema. CARDIOVASCULAR MEDICATIONS: Reviewed. Metoprolol tartrate initiated at 5 mg IV every 8 hours, starting today. Aspirin 81 mg daily and clopidogrel 75 mg daily, currently on hold, patient is n.p.o. Atorvastatin 40 mg at bedtime, currently on hold, patient is n.p.o. STUDIES: White blood cells 6.1, hemoglobin 12.7, and platelets 229. INR 0.9. Sodium 138, potassium 3.2, chloride 103, bicarbonate 23, BUN 8, creatinine 0.7, glucose 102. Hemoglobin A1c 6.4, calcium 8.6, magnesium 1.4. BNP 53. TSH 0.6. ASSESSMENT: 1. A 63-year-old man presents with atypical chest pain. 2. Abdominal discomfort and issues with bowel obstruction, undergoing GI evaluation. 3. Coronary artery disease with history of drug-eluting stent PCI. 4. Diabetes mellitus. 5. Hypertension. 6. Dyslipidemia. 7. Hypokalemia. 8. Hypomagnesemia. 9. Ventricular tachycardia, nonsustained. RECOMMENDATIONS: 1. Continue telemetry monitoring. 2. Replete potassium and magnesium and attempt to maintain closer to 4 potassium and magnesium 2 and above. 3. IV metoprolol while n.p.o., resume oral home dosing once tolerating p.o. again. 4. Aspirin 300 mg per rectum today. He remains n.p.o., otherwise initiate aspirin 81 mg daily, and clopidogrel 75 mg daily, given the patient's drug-eluting stent PCI in less than a year ago. 5. Depending on clinical course, further recommendations to follow. MD HEATH Arenas/DOROTHY /[id number]
[2018-11-21] MEDS: ATORVASTATIN 40 MG TAB PO SCH (20:43)
[2018-11-21] MEDS: HYDRALAZINE HCL 20 MG/ML VIAL IV PRN (20:44)
[2018-11-22] VITALS: BP 164/71
[2018-11-22] MEDS ORDERED: CHLORDIAZEPOXIDE/CLIDINIUM 1 CAP PO STA
[2018-11-22 03:04] LABS: BASOPHILS % 0.5 % (0.0-1.0); EOSINOPHILS # (AUTO) 0.2 (0.0-0.4); EOSINOPHILS % 3.2 % (0.0-6.0); HEMATOCRIT 41.5 % (38.2-49.6); HEMOGLOBIN 13.3 g/dL (14.0-18.0); LYMPHOCYTES # (AUTO) 0.9 (1.0-3.2); LYMPHOCYTES % 15.3 % (18.0-39.1); MEAN CORPUSCULAR HEMOGLOBIN 25.9 pg (28-32); MEAN CORPUSCULAR VOLUME 80.7 fL (81-99); MONOCYTES # (AUTO) 0.8 (0.2-0.8); MONOCYTES % 13.6 % (4.4-11.3); NEUTROPHILS # (AUTO) 4.1 (2.1-6.9); NEUTROPHILS % 67.1 % (38.7-80.0); PLATELET COUNT 260 x10e3/uL (140-360); RED BLOOD COUNT 5.14 x10e6/uL (4.3-5.7)
[2018-11-22 03:15] LABS: ANION GAP 15.2 mmol/L (8-16); BLOOD UREA NITROGEN < 5 mg/dL (7-26); CALCIUM 8.6 mg/dL (8.4-10.2); CARBON DIOXIDE 24 mmol/L (22-29); CHLORIDE 105 mmol/L (98-107); CREATININE, SERUM 0.68 mg/dL (0.72-1.25); EST GLOMERULAR FILTRATION RATE > 60 ML/MIN (60-); GLUCOSE 110 mg/dL (74-118); POTASSIUM 3.2 mmol/L (3.5-5.1); SODIUM 141 mmol/L (136-145)
[2018-11-22 03:22] LABS: BUN/CREATININE RATIO 7 (6-25)
[2018-11-22 04:00] VITALS: BP 165/79
[2018-11-22] MEDS ORDERED: POTASSIUM CHLORIDE 20 MEQ TAB CR PO STA (05:12)
[2018-11-22] MEDS ORDERED: DIPHENHYDRAMINE HCL 25 MG CAP PO PRN (05:15)
[2018-11-22] MEDS ORDERED: NIFEDIPINE ER30 M1 PO (05:16)
[2018-11-22] MEDS ORDERED: LIBRAX CAPSULE1 EACH PO (05:16)
--- NOTE | 2018-11-22 07:08 | NUR ---
RECEIVED PATIENT RESTING IN BED NO SIGNS OF DISTRESS. BED LOW, WHEELS LOCKED, SIDE RAILS X2. CALL LIGHT IN REACH WILL CONTINUE TO MONITOR PATIENT.
[2018-11-22] MEDS: ASPIRIN 81 MG CHEW TAB PO SCH (08:26)
[2018-11-22] MEDS: FAMOTIDINE 20 MG/2 ML VIAL IV SCH (08:26)
[2018-11-22] MEDS: CHLORDIAZEPOXIDE/CLIDINIUM 1 CAP PO SCH ×2 (08:26→11:49)
[2018-11-22] MEDS: CLOPIDOGREL BISULFATE 75 MG TAB PO SCH (08:26)
[2018-11-22] MEDS: METOPROLOL SUCCINATE 50 MG TAB XL PO SCH (08:27)
[2018-11-22 08:58] VITALS: BP 140/75
[2018-11-22] MEDS ORDERED: NIFEDIPINE CR 30 MG TAB PO SCH (09:00)
[2018-11-22 09:18] VITALS: BP 140/75
--- NOTE | 2018-11-22 10:01 | NUR ---
PATIENT A/O X3, EVEN RESPIRATIONS ON RA. BOWEL SOUNDS ACTIVE, SKIN INTACT, NO EDEMA. NO ABDOMINAL PAIN AT THIS TIME. NO CHEST PAIN AT THIS TIME. PATIENT AMBULATES INDEPENDENTLY. TELEMETRY #13 SR. RIGHT FA 20 GAUGE IV SL. IV INTACT AND PATENT. CALL LIGHT IN REACH WILL CONTINUE TO MONITOR PATIENT.
[2018-11-22 12:21] VITALS: BP 162/78
--- NOTE | 2018-11-22 13:00 | NUR ---
SPOKE WITH DR. Lee Ann DORSEY, PATIENT ABLE TO GO HOME AND NEEDS TO FOLLOW UP IN OFFICE. PATIENT ALSO CLEARED FOR DISCHARGE BY DR. SAWYER COVERING FOR DR. SIBLEY.
--- NOTE | 2018-11-22 13:20 | NUR ---
REMOVED PATIENTS IV. CATHETER TIP INTACT AND PRESSURE DRESSING APPLIED.
--- NOTE | 2018-11-22 13:28 | NUR ---
PATIENT DISCHARGED FROM FACILITY. PATIENT GATHERED ALL PERSONAL BELONGINGS, DISCHARGE INSTRUCTIONS, AND FOLLOW UP INFORMATION. LEFT UNIT IN WHEELCHAIR AND WENT HOME VIA PRIVATE AUTO. NO SIGNS OF DISTRESS WHEN LEAVING FACILITY.
--- NOTE | 2018-11-25 07:38 | Discharge Summary ---
ADMISSION DIAGNOSES: Chest pain, urinary tract infection present on admission, hypertension, abdominal pain, type 2 diabetes, hyperlipidemia, and obesity with a BMI of 35.1. DISCHARGE DIAGNOSES: Chest pain, urinary tract infection present on admission, hypertension, abdominal pain, type 2 diabetes, hyperlipidemia, and obesity with a BMI of 35.1, rule out myocardial infarction, rule out congestive heart failure, and rule out urinary tract infection. HISTORY: Hypertension, hyperlipidemia, BPH, CAD with stents x2, neuropathy, prostate cancer, status post radiation, and type 2 diabetes. SURGICAL HISTORY: Cervical fusion, pelvic fracture repair, cholecystectomy, and tonsillectomy. FAMILY HISTORY: The patient's mom had diabetes and a stroke. SOCIAL HISTORY: Noncontributory. HOSPITAL COURSE: 63-year-old male recently hospitalized for SBO, returns with complaints of bilateral lower quadrant pain and poor appetite. He denies nausea, vomiting, diarrhea, and fever. He had a soft bowel movement yesterday. He says he is scared to eat because eating worsens the GI symptoms. He has also been having left-sided chest pain since yesterday that radiates to his left shoulder and arm. He denies associated shortness of breath, diaphoresis, dizziness. Chest pain worsens with exertion. On admission, troponins were negative. EKG showed normal sinus rhythm. Echo showed an EF of 55%. Chest x-ray was negative. CT of the abdomen showed no acute findings. GI then repeated the CT of the abdomen to get more specific answers, but the radiologist read it as the same. He was started on antibiotics because his urine initially showed positive nitrites, but the urine culture came back negative, so antibiotics were discontinued. Cardiology saw the patient and has no plan with him. GI started the patient on Librax, which helped the symptom. The patient is now eating and no longer having abdominal pain, so he will discharge home with new prescriptions for nifedipine and Librax. The patient understands discharge instructions and agrees to plan. He will follow up with primary care and GI in 1 to 2 weeks. Vital signs were stable, the patient is afebrile. Dictated by Sheri Proctor NP MD KARRIE Phillips/MODL /[id number]
[2018-12-09] MEDS ORDERED: AMLODIPINE BESYL5 MG PO (16:10)
== END 2018-11-22 13:28 | disposition home or self-care (01) | DRG 690 ==
LOC: ER 12:10 → ERHOLD 14:32 → MED/SURG 17:29
PROVIDERS: ADMIT Internal Medicine; ATTEND Internal Medicine
DX: N39.0 Urinary tract infection, site not specified (principal); I47.2 Ventricular tachycardia; R07.89 Other chest pain; M25.512 Pain in left shoulder; I10 Essential (primary) hypertension; E11.9 Type 2 diabetes mellitus without complications; I25.10 Atherosclerotic heart disease of native coronary artery without angina pectoris; K21.9 Gastro-esophageal reflux disease without esophagitis; I25.2 Old myocardial infarction; Z90.49 Acquired absence of other specified parts of digestive tract; Z85.46 Personal history of malignant neoplasm of prostate; Z82.49 Family history of ischemic heart disease and other diseases of the circulatory system; Z95.5 Presence of coronary angioplasty implant and graft; Z80.9 Family history of malignant neoplasm, unspecified; Z83.3 Family history of diabetes mellitus; E78.5 Hyperlipidemia, unspecified; E66.9 Obesity, unspecified; Z68.35 Body mass index [BMI] 35.0-35.9, adult; E87.6 Hypokalemia; E83.42 Hypomagnesemia; N28.1 Cyst of kidney, acquired; D64.9 Anemia, unspecified; N40.0 Benign prostatic hyperplasia without lower urinary tract symptoms; R31.9 Hematuria, unspecified; R10.32 Left lower quadrant pain; R10.31 Right lower quadrant pain; R14.0 Abdominal distension (gaseous)
CPT/HCPCS: 36415; 71045; 74177; 80048; 80053; 80061; 81001; 82550; 82553; 82948; 83036; 83690; 83735; 83880; 84443; 84484; 85025; 85610; 85730; 87086; 93005; 93306; 99284; J0360; J0696; J3475; J3480; J7030; Q9967

== ENCOUNTER → 2018-12-12 | Day surgery (SDC) | payer OTHER ==
[~2018-12-12] MED LIST changes: +FENTANYL CITRATE/PF 100MCG/2 ML INJ ONE; +GLUCAGON FOR INJ 1 MG VIAL ONE; +HYOSCYAMINE 0.125 MG TAB ONE; +LIBRAX CAPSULE1 EACH PO; +MIDAZOLAM HCL 2 MG/2 ML VIAL ONE; +NIFEDIPINE ER30 M1 PO; +PROPOFOL IV EMULSION 10 MG/ML 50 ML VIAL ONE
--- OUTSIDE RECORDS SUMMARY | 2018-12-12 09:07 | XMS REPORT | Clinical Summary ---
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
[2018-12-12 13:44] LABS: WBC,FECAL (FECAL LACTOFERRIN) NEGATIVE (NEGATIVE)
[2018-12-12 14:00] VITALS: BP 126/64
--- NOTE | 2018-12-12 14:31 | Operative Report ---
DATE OF PROCEDURE: 12/12/2018 SURGEON: Bob Hernandez MD PROCEDURE: Colonoscopy with polypectomy and biopsies. MEDICATIONS: The patient was done under MAC, please see anesthesiologist's note. INDICATION FOR PROCEDURE: Colorectal cancer screening, history of loose stools. PROCEDURE IN DETAIL: With the patient in left lateral decubitus position, a flexible fiberoptic Olympus colonoscope was inserted into the rectum with ease and advanced all the way to the cecum. An approximately 1 cm sessile polyp was noted in the cecum that was removed per snare electrocautery and site was hemoclipped x2. The ileocecal valve was intubated and the scope was advanced into the terminal ileum. Biopsies were obtained. The scope was then withdrawn back into the colon. Of note, scattered diverticulosis was noted throughout the colon. It was somewhat more prominent in the left colon. One minute polyp was removed per the cold biopsy forceps from the ascending colon. One polyp was snared and two polyps were removed per the biopsy forceps from the transverse colon. One polyp was removed per snare electrocautery. An additional polyp was removed per cold snare polypectomy from the descending colon. An approximately 1 cm polypoid lesion with yellowish over hue suspicious for lipoma, was biopsied from the distal descending colon. One polyp was removed per snare electrocautery from the sigmoid colon. The rectum grossly appeared to be within normal limits. The scope was then retroflexed into the distal rectum and small internal hemorrhoids were noted, none of which was actively bleeding. The scope was then straightened out, it was subsequently withdrawn after securing an adequate stool specimen that was sent for the appropriate stool studies. The patient tolerated the procedure well. IMPRESSION: 1. Cecal polyp approximately 1 cm in size was removed per snare electrocautery from the cecum, site hemoclipped x2. 2. Ascending colon polyp removed per cold biopsy forceps. 3. Diverticulosis. 4. Transverse colon polyps x3, one removed per snare electrocautery and two per biopsy forceps. 5. Mild patchy left-sided colitis. 6. Descending colon polyps x2, snared. 7. Rule out lipoma, descending colon. 8. Sigmoid polyp removed per snare electrocautery. 9. Internal hemorrhoids, none actively bleeding. PLAN: Follow up histology. Follow up stool studies. Check IBD panel, sedimentation rate and CRP. Start Bentyl 10 mg one p.o. t.i.d. and Visbiome one p.o. b.i.d. The patient might benefit from a followup colonoscopy in 3 years. Bob Hernandez MD [facility]/ANDREZL /[id number] cc: Dr. Geovanni Arreaga
[2018-12-13 12:28] LABS: C DIFFICILE TOXIN A&B AMP PROB **POSITIVE** (NEGATIVE)
== END | disposition home or self-care (01) ==
LOC: OR 08:40
PROVIDERS: ATTEND Internal Medicine Gastroenterology
DX: R19.7 Diarrhea, unspecified (principal); K63.5 Polyp of colon; K57.30 Diverticulosis of large intestine without perforation or abscess without bleeding; K51.50 Left sided colitis without complications; K64.8 Other hemorrhoids; I10 Essential (primary) hypertension; E78.5 Hyperlipidemia, unspecified; I25.10 Atherosclerotic heart disease of native coronary artery without angina pectoris; Z88.5 Allergy status to narcotic agent; E66.01 Morbid (severe) obesity due to excess calories; K21.9 Gastro-esophageal reflux disease without esophagitis; Z85.46 Personal history of malignant neoplasm of prostate; I25.2 Old myocardial infarction; Z95.5 Presence of coronary angioplasty implant and graft; D12.2 Benign neoplasm of ascending colon; D12.0 Benign neoplasm of cecum; D12.4 Benign neoplasm of descending colon; D12.5 Benign neoplasm of sigmoid colon; D12.3 Benign neoplasm of transverse colon; D17.79 Benign lipomatous neoplasm of other sites
CPT/HCPCS: 36415; 45380; 45385; 82948; 83630; 83993; 85651; 86140; 86256; 86671; 87045; 87177; 87328; 87493; J1610; J2250; J2704; J3010

== ENCOUNTER 2019-07-30 00:34 | Observation (INO) | payer OTHER ==
[~2019-07-30] VITALS: Ht 162.6 cm; Wt 125.6 kg
[~2019-07-30 00:34] MED LIST changes: -FENTANYL CITRATE/PF 100MCG/2 ML INJ ONE; -GLUCAGON FOR INJ 1 MG VIAL ONE; -HYOSCYAMINE 0.125 MG TAB ONE; -MIDAZOLAM HCL 2 MG/2 ML VIAL ONE; +NAPROSYN500 MG PO; -PROPOFOL IV EMULSION 10 MG/ML 50 ML VIAL ONE; +ULTRAM50 MG PO
--- OUTSIDE RECORDS SUMMARY | 2019-07-30 00:36 | XMS REPORT ---
Author Author [facility] t Organization [facility] Address [address] [facility]. [address] [place] [address] Phone Unavailable Care Team Providers Care Screw Machine Tool Setter Name Role Phone SAMARIA ARRIAGA M.D. PCP DR AMEYA LEÓN Attphys Unavailable Florina HINOJOSA Attphys Unavailable DIMA WELCH Attphys Unavailable Negro SALVADOR Attphys Unavailable PRAVEEN REED Attphys Unavailable DR AMEYA LEÓN Admphys Unavailable DIMA WELCH Admshaylas Unavailable Payers Payer Name Policy Type Policy Number Effective Date Expiration Date S mary janeandrew [facility] [id number] 2012 00:00:00 ANOOP araiza [facility] [id number] 2012 00:00:00 [facility] [id number] 2012 00:00:00 [facility] [id number] 2012 00:00:00 [facility] [id number] 2012 00:00:00 [facility] Problems Condition Name Condition Details Condition Category Status Onset Date Resolution Date Last Treatment Date Treating Clinician Comments Source Uncontrolled type 2 diabetes mellitus with hyperglycem ia Uncontrolled type 2 diabetes mellitus with hyperglycemia Disease Active 2016-08-13 00:00:00 Tyler Garza Chest pain Chest pain Problem Active [facility] Partial small bowel obstruction Partial small bowel obstruction Pro blem Active [facility] Urinary tract infection UTI (urinary tract infection) Problem Active [facility] Vomiting Vomiting Problem Active [facility] Abdominal pain Abdominal pain Problem Active [facility] Allergies, Adverse Reactions, Alerts Allergy Name Allergy Type Status Severity Reaction(s) Onset Date Inacti ve Date Treating Clinician Comments Source Codeine Propensity to adverse reactions Active Mild itching 2019-03-07 00:00:00 [facility] Tramadol Propensity to adverse reactions Active Mild ITCH ING 2019-03-07 00:00:00 [facility] No Known Allergies DA Active U 2017-11-20 00:00:00 [facility] tramadol DA Active [place] 2017-11-20 00:00:00 [facility] No Known Allergies DA Active U 2017-07-17 00:00:00 [facility] Family History Family Member Diagnosis Comments Start Date Stop Date Source Natural father Emphy[facility] Natural mother Alzheimer's disease H ernesto Garza Social History Social Habit Start Date Stop Date Quantity Comments Source Sex Assigned At Ryan Garza Alcohol intake 2016-08-13 00:00:00 2016-08-13 00:00:00 Current non-drinker of alcohol (finding) Tyler Garza Smoking Status Start Date Stop Date Source Never smoker Tyler koenig Medications Ordered Medication Name Filled Medication Name Start Date Stop Da te Current Medication? Ordering Clinician Indication Dosage Frequency Signature (SIG) Comments Components Source Naproxen (Naprosyn) 500 Mg Tablet Naproxen (Naprosyn) 500 Mg Tablet 2019-03-07 00:00:00 Yes Jaison Hinojosa Md 500 Twice A Day as needed for Pain [facility] Tramadol Hcl (Ultram) 50 Mg Tablet Tramadol Hcl (Ultram) 50 Mg Tablet 2019-03-07 00:00:00 Yes Jaison Hinojosa Md 50 Three Time s A Day as needed for Pain [facility] Chlordiazepoxide/Clidinium Br (Librax Capsule) 1 Each Capsule, 1 Cap Oral Chlordiazepoxide/Clidinium Br (Librax Capsule) 1 Each Capsule, 1 Cap Oral 2018-11-22 00:00:00 2018-12-09 00:00:00 No Holli Morel Interactive Media Project Manager 1 Before Meals And At Bedtime [facility] Nifedipine (Nifedipine Er) 30 Mg Tab.er.24, 30 Mg Oral Nifedipine (Nifedipine Er) 30 Mg Tab.er.24, 30 Mg Oral 2018-11-22 00:00:00 2018-12-09 00:00:00 No Holli Morel Interactive Media Project Manager 30 Daily [facility] Ciprofloxacin Hcl (Cipro) 500 Mg Tablet, 500 Mg Oral C iprofloxacin Hcl (Cipro) 500 Mg Tablet, 500 Mg Oral 2018-11-05 00:00:00 2018-11-19 00:00:00 No Ambica Sandhir Do 500 Twice A Day [facility] Metronidazole (Flagyl) 500 Mg Tablet, 500 Mg Oral Metr onidazole (Flagyl) 500 Mg Tablet, 500 Mg Oral 2018-11-05 00:00:00 2018-11-19 00:00:00 No Ambi ca Sandhir Do 500 Every 8 Hours [facility] VICTOZA 2-MAGDY 0.6 mg/0.1 mL (18 mg/3 mL) pen injector 2016-11-01 00:00:00 Yes DIAL AND INJECT SUBCUTANEOUSLY 1.2MG ZOIE LY Tyler Garza clopidogrel (PLAVIX) 75 mg tablet 2016-08-13 19:17:08 Yes 75mg QD Take 75 mg by mouth daily. Tyler Garza amlodipine-benazepril (LOTREL) 10-40 mg per capsule 08-13 19:17:08 Yes 1{capsule} QD Take 1 capsule by mouth daily. Tyler Garza metoprolol succinate XL (TOPROL-XL) 100 mg 24 hr tablet 2016-08-13 19:17:08 Yes 100mg QD Take 100 mg by mouth daily. Tyler Garza valsartan-hydrochlorothiazide (DIOVAN-HCT) 160-12.5 mg per t ablet 2016-08-13 19:17:08 Yes 1{tbl} QD Take 1 tablet by mouth daily. Tyler Garza hydrALAZINE (APRESOLINE) 50 MG tablet 2016-08-13 19:17:08 Yes 50mg Q.[id number] Take 50 mg by mouth 3 (three) times a day. Tyler Garza carvedilol (COREG) 12.5 MG tablet 2016-08-13 19:17:08 Yes 12.5mg Q.5D Take 12.5 mg by mouth 2 (two) times a day with meals. Tyler Garza DULoxetine (CYMBALTA) 30 MG capsule 2016-08-13 19:17:08 Yes 30mg QD Take 30 mg by mouth daily. Tyler Garza OMEPRAZOLE/SODIUM BICARBONATE (ZEGERID OTC ORAL) 2016-08-13 19:17:08 Yes Take by mouth. Tyler phan fluticasone (FLONASE) 50 mcg/actuation nasal spray 2016-07 19:17:08 Yes 2{spray} QD 2 sprays by Each Nare route daily. As di rected Tyler Garza ACETAMINOPHEN/DIPHENHYDRAMINE (DIPHENHYDRAMINE-ACETAMINOPHEN ORAL) 2016-08-13 19:17:08 Yes Take by mouth. PRN Tyler Garza pen needle, diabetic (BD ULTRA-FINE SAV PEN NEEDLES) 32 gau ge x 5/32" needle 2016-08-13 00:00:00 Yes Use once daily Tyler Garza Amlodipine Besylate 5 Mg Tablet Amlodipine Besylate 5 Mg Tablet Yes 5 Twice A Day [facility] Aspirin 81 Mg Tab.chew Aspirin 81 Mg Tab.chew Yes 81 Daily [facility] Atorvastatin Calcium (Lipitor) 20 Mg Tablet Atorvastat in Calcium (Lipitor) 20 Mg Tablet Yes 40 Daily [facility] Clopidogrel Bisulfate (Clopidogrel) 75 Mg Tablet Clopi dogrel Bisulfate (Clopidogrel) 75 Mg Tablet Yes 75 Daily [facility] Duloxetine Hcl (Cymbalta) 30 Mg Capsule. Duloxetine Hcl (Cymbalta) 30 Mg Capsule. Yes 30 Bedtime [facility] Liraglutide (Victoza 2-Magdy) 0.6 Mg/0.1 Ml Pen.injctr L iraglutide (Victoza 2-Magdy) 0.6 Mg/0.1 Ml Pen.injctr Yes [facility] Metoprolol Succinate 50 Mg Tab.er.24h Metoprolol Succinate 50 Mg Ta b.er.24h Yes 50 Twice A Day [facility] Montelukast Sodium (Singulair) 10 Mg Tablet Montelukas t Sodium (Singulair) 10 Mg Tablet Yes 10 Bedtime [facility] Naproxen Sodium (Aleve) 220 Mg Tablet Naproxen Sodium (Aleve) 220 M g Tablet Yes 220 Every 12 Hours as needed for Pain [facility] Tadalafil (Cialis) 10 Mg Tablet Tadalafil (Cialis) 10 Mg Tablet Yes 10 Daily [facility] Tamsulosin Hcl (Flomax*) 0.4 Mg Cap Tamsulosin Hcl (Flomax*) 0.4 Mg C ap Yes .[address] [facility] Testosterone Testosterone Yes 1.5 .n6xtkcm [facility] Zegrid Otc Zegrid Otc Yes 20 Bedtime [facility] Amlodipine Besylate 5 Mg Tablet, 5 Mg Oral Amlodipine Besylate 5 Mg Tablet, 5 Mg Oral 2018-11-22 00:00:00 No 5 Twice A Day [facility] Carvedilol 12.5 Mg Tablet, 12.5 Mg Oral Carvedilol 12.5 Mg T ablet, 12.5 Mg Oral 2018-10-29 00:00:00 No 12.5 Twice A Day [facility] Cranberry , Cranberry , 2018-10-29 00:00:00 No [facility] Gink , Gink , 2018-10-29 00:00:00 No [facility] Hydralazine Hcl 50 Mg Tablet, 50 Mg Oral Hydralazine H cl 50 Mg Tablet, 50 Mg Oral 2018-10-29 00:00:00 No 50 Three Times A Day [facility] Isosorbide Mononitrate (Isosorbide Mononitrate Er) 30 Mg Tab.er.24h, 30 Mg Oral Isosorbide Mononitrate (Isosorbide Mononitrate Er) 30 Mg Tab.er.24h, 30 Mg Oral 2018-10-29 00:00:00 No 30 Daily [facility] Lomotil , Lomotil , 2018-10-29 00:00:00 No as ne eded for Diarrhea [facility] Spironolactone 25 Mg Tablet, 25 Mg Oral Spironolactone 25 Mg Tablet, 25 Mg Oral 2018-10-29 00:00:00 No 25 Daily [facility] Valsartan/Hydrochlorothiazide (Diovan Hc t 160-12.5 Mg Tab) 1 Each Tablet, 1 Tab Oral Valsartan/Hydrochlorothiazide (Diovan Hc t 160-12.5 Mg Tab) 1 Each Tablet, 1 Tab Oral 2018-10-29 00:00:00 No 1 Daily [facility] Metoprolol Tartrate 50 Mg Tablet, 100 Mg Oral Metoprol ol Tartrate 50 Mg Tablet, 100 Mg Oral 2017-10-31 00:00:00 No 100 Twice A Day [facility] Procedures Procedure Date / Time Performed Performing Clinician [facility] e COLONOSCOPY AND BIOPSY 2018-12-12 00:00:00 TELMA HERNANDEZ [facility] COLONOSCOPY W/LESION REMOVAL 2018-12-12 00:00:00 TELMA HERNANDEZ [facility] Computed tomography of abdomen and pelvis with contrast 2018 00:00:00 TELMA HERNANDEZ [facility] Computed tomography of abdomen and pelvis with contrast 2018 00:00:00 EUGENIESUELLEN [facility] Computed tomography of abdomen and pelvis with contrast 2018 00:00:00 VON ACHARYA [facility] Plan of Care Planned Activity Planned Date Details Comments Source Future Scheduled Test 2019-10-16 00:00:00 INFLUENZA VACCINE [code = INFLUENZA VACCINE] [facility] Future Scheduled Test 2005-06-15 00:00:00 COLONOSCOPY SCREEN ING [code = COLONOSCOPY SCREENING] [facility] Future Scheduled Test 2005-06-15 00:00:00 SHINGLES VACCINES (#1) [code = SHINGLES VACCINES (#1)] [facility] Future Scheduled Test 1965-06-15 00:00:00 DIABETIC FOOT EXAM [code = DIABETIC FOOT EXAM] [facility] Future Scheduled Test 1965-06-15 00:00:00 URINE MICROALBUMIN [code = URINE MICROALBUMIN] [facility] Scheduled Test 1955 00:00:00 DIABETIC RETINAL E YE EXAM [code = DIABETIC RETINAL EYE EXAM] [facility] Encounters Start Date/Time End Date/Time Encounter Type Admission Type Attendi [facility] Care Department Encounter ID Source 2018-09-07 09:00:00 Inpatient C JAMESAMEYA COMER [facility] [id number] [facility] 2019-03-07 13:32:00 2019-03-07 15:00:00 Departed Emergency Room [address] [facility] [id number] [facility] 2018-12-12 08:40:00 2018-12-12 08:40:00 Registered Surgical Day Care [facility] [id number] [facility] 2018-11-19 14:32:00 2018-11-22 13:28:00 Discharged Inpatient [address] [facility] [id number] [facility] 2018-11-05 10:12:00 2018-11-05 16:33:00 Departed Emergency Room [address] [facility] [id number] [facility] 2018-10-29 06:48:00 2018-10-31 15:50:00 Discharged Inpatient [address] [facility] [id number] [facility] 2017-10-30 11:25:00 2017-10-31 19:50:00 Discharged Inpatient (obs) [address] [facility] [id number] [facility] 2017-08-20 07:16:00 2017-08-20 07:16:00 Registered Clinic [address] [facility] [id number] [facility] Results Test Description Test Time Test Comments Results Result Comments Source FOOT 3 [facility] 2019-03-07 14:27:00 [place] [address] Patient Name: KASSI MCNULTY MR #: [id number] : 1955 Age/Sex: 63/M Req #: [id number] Adm Physician: Ordered by: JAISON HINOJOSA MD Report #: [id number] Location: [facility] Room/Bed: Procedure: [id number] HOPD/FOOT 3 [facility] Exam Date: 03/07/19 Exam Time: 1422 REPORT STATUS: Signed Exam: Left foot series, 3 views. Clinical History: Foot pain for a month, no trauma Comparison: None. Findings: 3 views of the left foot. There is normal bone mineralization. Negative for acute, displaced fracture or dislocation. Minimal degenerative changes in the first toe metatarsophalangeal joint. Small inferior calcaneal enthesophyte. Soft tissues are unremarkable. Impression: 1. No acute abnormalities. Signed by: Lee Ann Post.D. on 03/07/2019 2:28 PM Dictated By: SHAILESH LÓPEZ MD 27 Transcribed By: CAROL on 03/07/191427 COPY TO: JAISON HINOJOSA MD [facility] 2019-03-07 14:26:00 [place] [address] Patient Name: KASSI MCNULTY MR #: [id number] : 1955 Age/Sex: 63/M Req #: [id number] Adm Physician: Ordered by: JAISON HINOJOSA MD Report #: [id number] Location: [facility] Room/Bed: Procedure: [id number] HOPD[facility]ANKLE [facility] Exam Date: 03/07/19 Exam Time: 1421 REPORT STATUS: Signed Exam: Left Ankle Series. History: Ankle pain for one month, no trauma Comparison: None. DISCUSSION: 3 views of the left ankle. There is normal bone mineralization. No evidence of acute, displaced fracture or dislocation. Ankle mortise is preserved.No osteochondral lesion. No abnormal soft tissue calcification or mass. Anterior calcaneal enthesophyte. No soft tissue swelling. IMPRESSION: 1. No acute abnormalities. The staff physician below has personally reviewed this exam on the date of dictation. Signed by: Dr. Shailesh López M.D. on 03/07/2019 2:27 PM Dictated By: SHAILESH LÓPEZ MD 26 Transcribed By: CAROL on 03/07/191426 COPY TO: JAISON HINOJOSA MD Saccharomyces cerevisiae IgG Ab 2018-12-16 21:57:00 Test Item Saccharomyces cerevisiae IgG Ab (test code = 6713-2) 33.4 0 .0-24.9 Negative <20.0 Equivocal 20.1 - 24.9 Positive >or= 25.0[facility] Centeracchar[facility] IgA Ab 2018-12-16 21:57:00* Test Item Value Reference Range Interpretation Comments Saccharomyces cerevisiae IgA Ab (test code = 51069-1) 28.0 0.0-24.9 Negative <20.0 Equivocal 20.1 - 24.9 Positive >or= 25.0IgA and IgG antibody testing for S. cerevisiae isuseful adjunct testing for differentiating Crohn'sdisease and ulcerative colitis. Close to 80% ofCrohn's disease patients are positive for eitherIgA or IgG. In ulcerative colitis, less than 15% arepositive for IgG and less than 2% are positive forIgA. Fewer than 5% are positive for either IgG orIgA antibody, and no healthy controls had antib odyfor both.[facility] CenterAtypical q-[id number] 21:57:00* Test Item Value Reference Range Interpretation Comments Atypical p-ANCA (test code = 02674-7) <1:20 Neg:<1:20 The atypical pANCA pattern has been observed in asignificant percentage of patie nts with ulcerative colitis,primary sclerosing cholangitis and autoimmune hepati tis. ASCA+/PANCA- Suggestive of Crohn's disease ASCA-/PANCA+ S uggestive of Ulcerative colitisPerformed at: [facility] [address] [place], [place] [id number] Director: Veronica Wilson MD, Phone: [phone] Centertool Qorvtqbudjdr9332-56-90 05:24:00 * Test Item Value Reference Range Interpretation Comments Stool Calprotectin (test code = 33952-5) <16 0-120 Concentration Interpretation Follow-Up<16 - 50 ug/g Normal None>50 -120 ug/g Borderline Re-evaluate in 4-6 weeks >120 ug/g Abnormal Repeat as clinically indicatedPerformed at: [facility] [address] [place], [place] [id number] Director: Veronica Wilson MD, Phone: [phone] Regional Medical CenterC-Reactive Fmypqdt5553-40-65 00:36:00* Test Item Value Reference Range Interpretation Comments C-Reactive Protein (test code = 1988-5) 2 0-10 Performed at: - [facility] [id number] Director: Jorge Granda MD, Phone: [phone] Regional Medical CenterClostridium Difficile Toxin A & [id number] 12:29:00* Test Item Value Reference Range Interpretation Comments Clostridium Difficile Toxin A & B (test code = 981550564) POSI TIVE NEGATIVE Results faxed to Dr. Hernandez at 1228 on 12/13/18 by Josh Molina. RB OK.Results f axed to infection control at 1228 on 12/13/18 by Josh Molina.Testing on stool a spirate specimens is outside bearing press machine operator claims since specimen type not validat ed on this assay.[facility] CenterErythrocyte Sedimentation [id number] 15:11:00* Test Item Value Reference Range Interpretation Comments Erythrocyte Sedimentation Rate (test code = 4537-7) 7 0- 13 [facility] Lactoferrin (LAB)2018-12-12 13:44:00* Test Item Value Reference Range Interpretation Comments Stool Lactoferrin (LAB) (test code = 76153-7) NEGATIVE NEGATIVE Testing on stool aspirate specimens is outside bearing press machine operator claims since specime n type not validated on this assay.[facility] Bedside Unuphcy7709-22-97 13:32:00* Test Item Value Reference Range Interpretation Comments Bedside Glucose (test code = 77204-4) 118 70-120 Meter ID: [id number] Regional Medical CenterWhite Blood Count 2018-11-22 03:23:00* Test Item Value Reference Range Interpretation Comments White Blood Count (test code = 6690-2) 6.03 4.8-10.8 [facility] CenterRed Blood [id number] 03:23:00* Test Item Value Reference Range Interpretation Comments Red Blood Count (test code = 789-8) 5.14 4.3-5.7 [facility] CenterHemoglobin2019-09-08 03:23:00* Test Item Value Reference Range Interpretation Comments Hemoglobin (test code = 96826-5) 13.3 14.0-18.0 [facility] CenterHematocrit2019-09-08 03:23:00* Test Item Value Reference Range Interpretation Comments Hematocrit (test code = 4544-3) 41.5 38.2-49.6 [facility] CenterMean Corpuscular Qujbxt3471-09-50 03:23:00* Test Item Value Reference Range Interpretation Comments Mean Corpuscular Volume (test code = 787-2) 80.7 81-99 [facility] CenterMean Corpuscular Rmdpdyjzpk3171-23-32 03:23:00* Test Item Value Reference Range Interpretation Comments Mean Corpuscular Hemoglobin (test code = 785-6) 25.9 28-32 [facility] CenterMean Corpuscular Hemoglobin Concent 2018-11-22 03:23:00* Test Item Value Reference Range Interpretation Comments Mean Corpuscular Hemoglobin Concent (test code = 786-4) 32.0 31-35 [facility] CenterRed Cell Distribution Acxeh0835-39-33 03:23:00* Test Item Value Reference Range Interpretation Comments Red Cell Distribution Width (test code = 68829-6) 14.0 11.7 -14.4 [facility] CenterPlatelet Hpwmz8613-62-57 03:23:00* Test Item Value Reference Range Interpretation Comments Platelet Count (test code = 777-3) 260 140-360 [facility] CenterNeutrophils (%) (Auto)2018-11-22 03:23:00 * Test Item Value Reference Range Interpretation Comments Neutrophils (%) (Auto) (test code = 48046-4) 67.1 38.7-80.0 [facility] CenterLymphocytes (%) (Auto)2018-11-22 03:23:00 * Test Item Value Reference Range Interpretation Comments Lymphocytes (%) (Auto) (test code = 736-9) 15.3 18.0-39.1 [facility] CenterMonocytes (%) (Auto)2018-11-22 03:23:00* Test Item Value Reference Range Interpretation Comments Monocytes (%) (Auto) (test code = 5905-5) 13.6 4.4-11.3 [facility] CenterEosinophils (%) (Auto)2018-11-22 03:23:00 * Test Item Value Reference Range Interpretation Comments Eosinophils (%) (Auto) (test code = 713-8) 3.2 0.0-6.0 [facility] CenterBasophils (%) (Auto)2018-11-22 03:23:00* Test Item Value Reference Range Interpretation Comments Basophils (%) (Auto) (test code = 706-2) 0.5 0.0-1.0 [facility] CenterIM GRANULOCYTES %2018-11-22 03:23:00* Test Item Value Reference Range Interpretation Comments IM GRANULOCYTES % (test code = IM GRANULOCYTES %) 0.3 0.0- 1.0 [facility] CenterNeutrophils # (Auto)2018-11-22 03:23:00* Test Item Value Reference Range Interpretation Comments Neutrophils # (Auto) (test code = 751-8) 4.1 2.1-6.9 [facility] CenterLymphocytes # (Auto)2018-11-22 03:23:00* Test Item Value Reference Range Interpretation Comments Lymphocytes # (Auto) (test code = 71226-0) 0.9 1.0-3.2 [facility] CenterMonocytes # (Auto)2018-11-22 03:23:00* Test Item Value Reference Range Interpretation Comments Monocytes # (Auto) (test code = 742-7) 0.8 0.2-0.8 [facility] CenterEosinophils # (Auto)2018-11-22 03:23:00* Test Item Value Reference Range Interpretation Comments Eosinophils # (Auto) (test code = 711-2) 0.2 0.0-0.4 [facility] CenterBasophils # (Auto)2018-11-22 03:23:00* Test Item Value Reference Range Interpretation Comments Basophils # (Auto) (test code = 704-7) 0.0 0.0-0.1 [facility] CenterAbsolute Immature Granulocyte (auto 2018-11-22 03:23:00* Test Item Value Reference Range Interpretation Comments Absolute Immature Granulocyte (auto (chriss t code = Absolute Immature Granulocyte (auto) 0.02 0-0.1 [facility] Centerodium Qrleu1467-11-51 03:22:00* Test Item Value Reference Range Interpretation Comments Sodium Level (test code = 2951-2) 141 136-145 [facility] CenterPotassium Fhpub3976-59-80 03:22:00* Test Item Value Reference Range Interpretation Comments Potassium Level (test code = 2823-3) 3.2 3.5-5.1 [facility] CenterChloride Wkwhd5963-85-74 03:22:00* Test Item Value Reference Range Interpretation Comments Chloride Level (test code = 2075-0) 105 98-107 [facility] CenterCarbon Dioxide Qvdsy6654-39-29 03:22:00* Test Item Value Reference Range Interpretation Comments Carbon Dioxide Level (test code = 2028-9) 24 22-29 [facility] CenterAnion [id number] 03:22:00* Test Item Value Reference Range Interpretation Comments Anion Gap (test code = 49061-7) 15.2 8-16 [facility] CenterBlood Urea Dygqoknv7805-73-52 03:22:00* Test Item Value Reference Range Interpretation Comments Blood Urea Nitrogen (test code = 3094-0) < 5 7-26 [facility] CenterCreatinine2019-09-08 03:22:00* Test Item Value Reference Range Interpretation Comments Creatinine (test code = 2160-0) 0.68 0.72-1.25 [facility] CenterBUN/Creatinine Demuz6320-72-98 03:22:00* Test Item Value Reference Range Interpretation Comments BUN/Creatinine Ratio (test code = 3097-3) 7 6-25 [facility] CenterEstimat Glomerular Filtration Rate 2018-11-22 03:22:00* Test Item Value Reference Range Interpretation Comments Estimat Glomerular Filtration Rate (test code = 251288189) > 60 >60 Ranges were taken from the National Kidney Disease Education Program and the [facility] Foundation literature.Reference ranges:60 or greater: Nzoxmc36-92 ( for 3 consecutive months): Chronic kidney disease 15 or less: Kidney failureMatagorda Regional Medical CenterGlucose Smnuk4987-81-08 03:22:00* Test Item Value Reference Range Interpretation Comments Glucose Level (test code = RLJ1800) 110 74-118 [facility] CenterCalcium Ljeto6539-98-21 03:22:00* Test Item Value Reference Range Interpretation Comments Calcium Level (test code = 34027-8) 8.6 8.4-10.2 [facility] CenterCT ABDOMEN/PELVIS [id number] 13:28:00 [facility] [address] [place] [address] Patient Name: KASSI MCNULTY MR #: [id number] : 1955 Age/Sex: 63/M Req #: [id number] Adm Physician: DIMA WELCH MD Ordered by: TELMA HERNANDEZ MD Report #: [id number] Location: MED/SURG Room/Bed: [facility] Procedure: [id number] CT/ CT ABDOMEN/PELVIS W Exam Date: 11/21/18 Exam Time: REPORT STATUS: Signed ADDENDUM #1 ADDENDUM: While the study was performed as CT Enterography, the evaluation of the small bowel is limited due to lack of smal l bowel distension and phase of contrast. There is a short segment proxima l ileal loop with apparent wall thickening measuring up to 1 cm on series 3, i mage 130, which is non-specific, and may reflect peristalsis with infectious/i nflammatory enteritis considered less likely. This finding was not definitely present on recent CT Abdomen/Pelvis from 11/19/2018. No evidence of wall thicken ing elsewhere in the small or large bowel. No surrounding inflammatory changes . The terminal ileum appears unremarkable. No evidence of abnormal enhancement . Signed by: Dr. Ghada Alexander MD on 11/23/2018 9:19 AM ORIGINAL RE PORT EXAM: CT Abdomen and Pelvis WITH intravenous contrast INDICATION: Abdominal distention COMPARISON: CT abdomen/pelvis 11/19/2018. TECHNIQUE: Abdomen and pelvis were scanned utilizing a multidetector helical scanner from the lung base to the pubic symphysis after administration of IV contrast. CT enterography protocol was performed. Coronal and sagittal reform ations were obtained. Scan was performed during portal venous phase. I V CONTRAST: 100mL of Isovue 370 ORAL CONTRAST: 900 cc of water. RADIATION DOSE: Total DLP: 874.1 mGy*cm Dose modulation, iterative reconstruction, and/or weight based adjustment of the mA/kV was utilized to reduce the radiat ion dose to as low as reasonably achievable. FINDINGS: LOWER THORAX: S cattered right middle lobe and left lingular subcentimeter calcified and nonca lcified granulomas. No focal consolidation. Extensive coronary atherosclerosis . Extensive mitral annular calcifications. HEPATOBILIARY: No focal liver le sions. No biliary ductal dilation. Status post cholecystectomy. SPLEEN: N o splenomegaly. PANCREAS: No focal masses or ductal dilatation. ADRENA LS: No adrenal nodules. KIDNEYS/URETERS: No hydronephrosis. No renal calculi. Multiple bilateral renal cysts measuring up to 4.2 cm on the right and 4.1 cm on the left. PELVIC ORGANS/BLADDER: Unremarkable. PERITONEUM / RETROPERIT ONEUM: No free air or fluid. LYMPH NODES: No lymphadenopathy. VESSELS: Exten sive atherosclerotic calcifications of the nonaneurysmal abdominal aorta and m ajor branches. GI TRACT: The small bowel is not well distended. No abnormal bowel wall thickening. No bowel obstruction. Normal appendix. BONES AND SOFT TISSUES: Left pelvic bony hardware fixation. No acute osseous injury. No suspicious lytic or blastic lesions. Multilevel degenerative changes of the christine mbar spine. IMPRESSION: No acute CT abnormality in the abdomen or pelvis . Signed by: Dr. Ghada Alexander MD on 11/21/2018 1:35 PM Dictated By: JACK ALEXANDER MD 8 Transcribe d By: CAROL on 11/21/18 7038 COPY TO: TELMA HERNANDEZ MD B-Type Natriuretic Dchgpfo1334-68-54 03:46:00* Test Item Value Reference Range Interpretation Comments B-Type Natriuretic Peptide (test code = 97379-6) 53.5 0-100 [facility] CenterHemoglobin A1c Vxcojbk8307-32-08 03:25:00 * Test Item Value Reference Range Interpretation Comments Hemoglobin A1c Percent (test code = Hemoglobin A1c Percent) 6.4 4.0-7.0 [facility] CenterMagnesium Ymirk2783-47-56 03:25:00* Test Item Value Reference Range Interpretation Comments Magnesium Level (test code = 93564-3) 1.4 1.3-2.1 [facility] CenterThyroid Stimulating Hormone (TSH) 2018-11-21 03:25:00* Test Item Value Reference Range Interpretation Comments Thyroid Stimulating Hormone (TSH) (test code = 55928-4) 0.656 0.350-4.940 [facility] CenterCreatine Kinase CT6231-26-52 06:42:00* Test Item Value Reference Range Interpretation Comments Creatine Kinase MB (test code = 79629-6) 2.20 0-5.0 [facility] CenterTroponin L2820-33-78 06:42:00* Test Item Value Reference Range Interpretation Comments Troponin I (test code = QQV2788) 0.016 0-0.300 [facility] CenterTotal Vglliorql2477-52-60 06:41:00* Test Item Value Reference Range Interpretation Comments Total Bilirubin (test code = 1975-2) 0.8 0.2-1.2 [facility] CenterAspartate Amino Transf (AST/SGOT) 2018-11-20 06:41:00* Test Item Value Reference Range Interpretation Comments Aspartate Amino Transf (AST/SGOT) (test code = Aspartate Amino Transf (AST/SGOT)) 25 5-34 [facility] CenterAlanine Aminotransferase (ALT/SGPT) 2018-11-20 06:41:00* Test Item Value Reference Range Interpretation Comments Alanine Aminotransferase (ALT/SGPT) (test code = 1742-6) 26 0-55 [facility] CenterTotal Vaodllr3018-50-03 06:41:00* Test Item Value Reference Range Interpretation Comments Total Protein (test code = 2885-2) 5.9 6.5-8.1 [facility] CenterAlbumin2019-09-06 06:41:00* Test Item Value Reference Range Interpretation Comments Albumin (test code = 1751-7) 3.5 3.5-5.0 [facility] CenterGlobulin2019-09-06 06:41:00* Test Item Value Reference Range Interpretation Comments Globulin (test code = 20169-2) 2.4 2.3-3.5 [facility] CenterAlbumin/Globulin Gzszc6459-96-26 06:41:00 * Test Item Value Reference Range Interpretation Comments Albumin/Globulin Ratio (test code = 1759-0) 1.5 0.8-2.0 [facility] CenterAlkaline Fgeswmqggpx9774-18-42 06:41:00* Test Item Value Reference Range Interpretation Comments Alkaline Phosphatase (test code = 6768-6) 76 40-150 [facility] CenterTriglycerides Yftga9973-40-93 06:41:00* Test Item Value Reference Range Interpretation Comments Triglycerides Level (test code = 2571-8) 89 0-149 [facility] CenterCholesterol Jntxe8768-42-61 06:41:00* Test Item Value Reference Range Interpretation Comments Cholesterol Level (test code = 2093-3) 91 0-199 Less than 200 mg/dL Low Mehw907 - 239 mg/dL Borderline Bpli078 m g/dl and greater High Risk [facility] CenterLDL Gnpfssdegxj9925-88-75 06:41:00* Test Item Value Reference Range Interpretation Comments LDL Cholesterol (test code = 2089-1) 46 60-130 [facility] CenterHDL Tdtohrayays7594-84-70 06:41:00* Test Item Value Reference Range Interpretation Comments HDL Cholesterol (test code = 2085-9) 27 40-60 [facility] CenterCholesterol/HDL Ulfyv0178-29-28 06:41:00 * Test Item Value Reference Range Interpretation Comments Cholesterol/HDL Ratio (test code = 9830-1) 3.4 3.9-4.7 [facility] CenterCreatine Azbayc2897-16-59 06:39:00* Test Item Value Reference Range Interpretation Comments Creatine Kinase (test code = 2157-6) 80 30-200 [facility] CenterCT ABDOMEN/PELVIS R3024-48-72 15:53:00 [facility] [address] [place] [address] Patient Name: KASSI MCNULTY MR #: [id number] : 1955 Age/Sex: 63/M Req #: [id number] Adm Physician: DIMA WELCH MD Ordered by: SUELLEN TRAORE MD Report #: [id number] Location: [facility] Room/Bed: [place] [address] Procedure: CT/C T ABDOMEN/PELVIS W Exam Date: 11/19/18 Exam Time: 14 42 REPORT STATUS: Signed EXAM: C T Abdomen and Pelvis WITH intravenous contrast INDICATION: Abdominal dist ention COMPARISON: Abdominal radiograph of 10/31/2018, abdomen and pelvis CT of 10/29/2018 TECHNIQUE: Abdomen and pelvis were scanned utilizing a mult idetector helical scanner from the lung base to the pubic symphysis after admi nistration of IV contrast. Coronal and sagittal reformations were obtained. Ro utine protocol was performed. Scan was performed during portal venous phase. IV CONTRAST: 100mL of Isovue 370 ORAL CONTRAST: Water RADIATION DOSE: Total DLP: 904.4 mGy*cm Dose modulation, iterative reconstruction, and/or weight based adjustment of the mA/kV was utilized to reduce the radiat ion dose to as low as reasonably achievable. FINDINGS: LOWER THORAX: S cattered right middle lobe and left lingular subcentimeter calcified and nonca lcified granulomas. No focal consolidation. Coronary artery atherosclerotic ca lcifications. HEPATOBILIARY: No focal liver lesions. No biliary ductal dila tion. Status post cholecystectomy. SPLEEN: No splenomegaly. PANCREAS : No focal masses or ductal dilatation. ADRENALS: No adrenal nodules. KID NEYS/URETERS: No hydronephrosis. No renal calculi. Multiple bilateral renal cy sts measuring up to 4.2 cm on the right and 4.1 cm on the left. PELVIC ORGANS/ BLADDER: Unremarkable. PERITONEUM / RETROPERITONEUM: No free air or fluid. LYMPH NODES: No lymphadenopathy. VESSELS: Atherosclerotic calcifications of the nonaneurysmal abdominal aorta and major branches. GI TRACT: No abnorm al bowel wall thickening. No bowel obstruction. Normal appendix. BONES AN D SOFT TISSUES: Postoperative findings of hardware fixation of the left iliac bone. No acute osseous injury. No suspicious lytic or blastic lesions. Multile dereje degenerative changes of the lumbar spine. IMPRESSION: No acute findi ngs in the abdomen or pelvis. Diffuse atherosclerotic calcifications includ ing of the coronary arteries. Signed by: Ai Busch MD on 11/19/2018 4:38 PM Dictated By: AI BUSCH MD 1638 COPY TO: PAULINA TRAORE MD Urine UMC4417-79-88 14:16:00* Test Item Value Reference Range Interpretation Comments Urine WBC (test code = 5821-4) NONE 0-5 [facility] CenterUrine WUP2200-95-93 14:16:00* Test Item Value Reference Range Interpretation Comments Urine RBC (test code = 34240-2) NONE 0-5 [facility] CenterUrine Ozzlqpci8905-49-35 14:16:00* Test Item Value Reference Range Interpretation Comments Urine Bacteria (test code = 82942-4) FEW NONE [facility] CenterUrine Epithelial Aevfp7505-87-76 14:16:00 * Test Item Value Reference Range Interpretation Comments Urine Epithelial Cells (test code = 77284-3) FEW NONE [facility] CenterUrine Transitional Epithelial Cells 2018-11-19 14:16:00* Test Item Value Reference Range Interpretation Comments Urine Transitional Epithelial Cells (test code = 8249-5) RARE NONE [facility] CenterLipase2019-09-05 14:15:00* Test Item Value Reference Range Interpretation Comments Lipase (test code = 3040-3) 71 8-78 [facility] CenterProthrombin Auks8058-90-02 14:00:00* Test Item Value Reference Range Interpretation Comments Prothrombin Time (test code = 5902-2) 13.5 11.9-14.5 [facility] CenterProthromb Time International Ratio 2018-11-19 14:00:00* Test Item Value Reference Range Interpretation Comments Prothromb Time International Ratio (test code = 6301-6) 0.98 Oral Anticoagulant Therapy INR Values:1. Low Intensity Therapy 1.5 - 2.02 . Moderate Intensity Therapy 2.0 - 3.03. High Intensity Therapy(1) 2.5 - 3. 54. High Intensity Therapy(2) 3.0 - 4.05. Panic Value INR > 5.0 [facility] CenterActivated Partial Thromboplast Time 2018-11-19 14:00:00* Test Item Value Reference Range Interpretation Comments Activated Partial Thromboplast Time (test code = 74834-7) 30.8 23.8-35.5 [facility] CenterUrine Ondzb9316-71-29 13:59:00* Test Item Value Reference Range Interpretation Comments Urine Color (test code = 5778-6) BROWN YELLOW [facility] CenterUrine Zolujok5290-96-53 13:59:00* Test Item Value Reference Range Interpretation Comments Urine Clarity (test code = 48380-5) SL CLOUDY CLEAR [facility] CenterUrine Specific Gayoxoh4389-44-79 13:59:00 * Test Item Value Reference Range Interpretation Comments Urine Specific [place] (test code = 5811-5) >=1.030 1.010-1.02 5 [facility] CenterUrine pC7382-51-06 13:59:00* Test Item Value Reference Range Interpretation Comments Urine pH (test code = 99782-6) 5.5 5-7 [facility] CenterUrine Leukocyte Bdhejsiz4389-93-93 13:59:00* Test Item Value Reference Range Interpretation Comments Urine Leukocyte Esterase (test code = 11154-7) NEGATIVE NEGATIV E [facility] CenterUrine Tbvnzwl9668-28-49 13:59:00* Test Item Value Reference Range Interpretation Comments Urine Nitrite (test code = 26478-9) POSITIVE NEGATIVE [facility] CenterUrine Xgwsuim7111-85-37 13:59:00* Test Item Value Reference Range Interpretation Comments Urine Protein (test code = 09466-5) 1+ NEGATIVE [facility] Glucose (UA)2018-11-19 13:59:00* Test Item Value Reference Range Interpretation Comments Urine Glucose (UA) (test code = 73727-5) NEGATIVE NEGATIVE [facility] CenterUrine Xawxzcy2211-71-93 13:59:00* Test Item Value Reference Range Interpretation Comments Urine Ketones (test code = 13254-4) TRACE NEGATIVE [facility] Mezyqqkviwvc5947-52-60 13:59:00* Test Item Value Reference Range Interpretation Comments Urine Urobilinogen (test code = 89287-3) 0.2 0.2-1 [facility] CenterUrine Flivzlmyl5561-79-52 13:59:00* Test Item Value Reference Range Interpretation Comments Urine Bilirubin (test code = 1977-8) MODERATE NEGATIVE [facility] Xodwg2510-67-32 13:59:00* Test Item Value Reference Range Interpretation Comments Urine Blood (test code = 50940-7) NEGATIVE NEGATIVE [facility] CenterCHEST SINGLE (PORTABLE)2018-11-19 13:27:00 [facility] [address] [place], [place] [address] Patient Name: KASSI MCNULTY MR #: [id number] : 1955 Age/Sex: 63/M Req #: [id number] Adm Physician: Ordered by: SUELLEN TRAORE MD Report #: [id number] Location: ER Room/Bed: Procedure: [id number] DX/CH EST SINGLE (PORTABLE) Exam Date: 11/19/18 Exam Time: 1250 REPORT STATUS: Signed EXAM INATION: CHEST SINGLE (PORTABLE) INDICATION: Chest pain COMPARISO N: None FINDINGS: LINES/TUBES:EKG leads overlie the chest. L UNGS:The lungs are well-inflated. No focal consolidation or pulmonary edema. PLEURA:No pleural effusion or pneumothorax. MEDIASTINUM:The cardiomediast inal silhouette appears normal in size and shape. Atherosclerotic calcificatio ns of the thoracic aorta. BONES/SOFT TISSUES:No acute osseous injury. ABDOMEN:No free air under the diaphragm. IMPRESSION: No focal pneumon ia or pulmonary edema. Signed by: Ai Busch MD on 11/19/2018 1:28 PM Dictated By: AI BUSCH MD 1328 Transcribed By: CAROL on 11/19/18 1328 COPY TO: SUELLEN TRAORE MD ABDOMEN-1VIEW (KUB)2018-11-05 14:29:00 [place] [id number] [place], [place] [address] Patient Name: KASSI MCNULTY MR #: [id number] : 1955 Age/Sex: 63/M Req #: [id number] Adm Physician: Ordered by: DEBBY SALVADOR MD Report #: [id number] Location: ER Room/Bed: Procedure: [id number] DX/ ABDOMEN-1VIEW (KUB) Exam Date: 11/05/18 Exam Time: 1 200 REPORT STATUS: Signed Exam: KUB Clinical history: Abdominal pain Findings: Prominent air-filled pr oximal colon is noted. There is bowel gas distally. This may represent ileus v ersus enteritis. There is no evidence of pathological calcification. Surgical screws are noted in the bony structures of the left hemipelvis. Impressio n: 1. Mildly prominent air-filled colon which may represent enteritis versus ileus. Signed by: Dr. Richard Levine MD on 11/05/2018 2:34 PM Dictated By: OPAL LEVINE MD 1434 Transcribed By: CAROL on 11/05/18 1434 COPY TO: DEBBY SALVADOR MD Urine Lxorm4229-14-10 12:34:00* Test Item Value Reference Range Interpretation Comments Urine Mucus (test code = 8247-9) FEW RARE [facility]2018-10-31 07:19:00 [facility] [address] [place] [address] Patient Name: KASSI MCNULTY MR #: [id number] : 1955 Age/Sex: 63/M Req #: [id number] Adm Physician: DIMA WELCH MD Ordered by: Holli Morel [employer] Report #: [id number] Location: MED/SURG Room/Bed: 109-1 Procedure: [id number] DX/ ABDOMEN-1VIEW (KUB) Exam Date: Exam Time: REPORT STATUS: Signed EXAM: Abdomen 2 V iews INDICATION: f/u SBO COMPARISON: KUB 10/30/2018 FINDINGS: Lines/tubes: None. Mild amount of stool in the colon. Interval decrea se in size of the small and large bowel when compared to prior KUB. No re nal calculi. No abnormal soft tissue masses. Mild degenerative changes in the lumbar spine and pelvis. Status post fixation of the left iliac bone w ith 2 traversing surgical screws. Right upper quadrant cholecystectomy clip s. IMPRESSION: Continued improvement in small bowel obstruction. Sig jessica by: Dr. Chantell Edwards M.D. on 10/31/2018 7:23 AM Dictated B y: CHANTELL EDWARDS MD 2 Transcribed By: CAROL on 10/31/18722 COPY TO: HOLLI MOREL NP ABDOMEN ACUTE SERIES W/MINOR HCX6352-74-20 15:28:00 [place] [address] Patient Name: KASSI MCNULTY MR #: [id number] : 1955 Age/Sex: 63/M Req #: [id number] Adm Physician: DIMA WELCH MD Ordered by: AL WELLS MD Report #: [id number] Location: MED/SURG Room/Bed: [facility] Procedure: DX/ABDOMEN ACUTE SERIES W/PA CXR Exam Date: 10/30/18 Exam Time: 1429 REPORT STATUS: Sig jessica Abdomen, 2 views. History: Bowel obstruction. Findings: T here are decreased number of dilated small bowel loops in the left abdomen. r-filled nondilated distal small bowel and colon are again noted. Surgical daria nges are again noted. There is no evidence of free air. There are no masses or abnormal calcifications. The osseous structures are intact. IMPRESSIO N: Improvement in small bowel obstruction. Signed by: Brian Darby on 3:31 PM Dictated By: BRIAN DARBY MD 1531 Transcribed By: CAROL on 10/30/18 1531 COPY TO: AL WELLS MD ABDOMEN-1VIEW (KUB)2018-10-30 06:34:00 [place] [address] Patient Name: KASSI MCNULTY MR #: [id number] : 1955 Age/Sex: 63/M Req #: [id number] Adm Physician: DIMA WELCH MD Ordered by: Holli Morel [employer] Report #: [id number] Location: MED/SURG Room/Bed: [facility] Procedure: DX/ ABDOMEN-1VIEW (KUB) Exam Date: 10/30/18 Exam Time: 0 610 REPORT STATUS: Signed RADIOG RAPH(S) OF THE ABDOMEN AND PELVIS, 3 view(s) HISTORY: Partial small cheyanne wel obstruction versus ileus COMPARISON: Abdominal series October 29, 2018. CT of the abdomen and pelvis October 29, 2018. FINDINGS: See impression IMPRESSION: Interval decrease in the gaseous dilation of multiple loops of small bowel, compatible with improving partial small bowel obstruction dago angle ileus. Signed by: Dr. Lloyd Ngo D.O., M.M.M. on 10/30/2018 6:39 AM Dictated By: LLOYD NGO DO 8 COPY TO: Jayson MOREL NP ABDOMEN ACUTE SERIES W/PA ZTD6079-00-92 14:48:00 [place] [address] Patient Name: KASSI MCNULTY MR #: [id number] : 1955 Age/Sex: 63/M Req #: [id number] Adm Physician: DIMA WELCH MD Ordered by: AL WELLS MD Report #: [id number] Location: MED/SURG Room/Bed: [facility] Procedure: [id number] DX/ABDOMEN ACUTE SERIES W/PA CXR Exam Date: 10/29/18 Exam Time: 1306 REPORT STATUS: Sig jessica Abdomen, 2 views. History: Small bowel obstruction. Michael rison: CT from earlier today. Findings: Multiple air-filled loops of dilate d bowel are again seen in the left abdomen. Nondilated air-filled distal small bowel and colon are present. There is no evidence of free air. There are no masses or abnormal calcifications. The osseous structures are intact. Contrast is present within the bladder. Surgical screws are present in the left pelvis. IMPRESSION: Persistent partial proximal small bowel obstruction. Signed by: Brian Darby on 10/29/2018 2:51 PM Dictated By: BRIAN DARBY MD 50 Transcribed By: CAROL on 10/29/181450 COPY TO: AL WELLS MD CT ABDOMEN/PELVIS D9750-03-04 06:13:00 [place] [address] Patient Name: KASSI MCNULTY MR #: [id number] : 1955 Age/Sex: 63/M Req #: [id number] Adm Physician: Ordered by: VON ACHARYA MD Report #: [id number] Location: ER Room/Bed: Procedure: [id number]/CT ABDOMEN/PELVIS W Exam Date: 10/29/18 Exam Ti me: 0559 REPORT STATUS: Signed E XAM: CT of the abdomen and pelvis WITH contrast HISTORY: Abdominal pain, vomiting, nausea, diarrhea, history of prostate cancer, cholecystectomy COMP ARISON: None. TECHNIQUE: The abdomen and pelvis were scanned utilizing a multidetector helical scanner. Coronal and sagittal reformats are provided. PROTOCOL: Routine IV CONTRAST: 100 cc of Isovue-3 70. ORAL CONTRAST: Water RADIATION DOSE: Total DLP: 896.74 mGy*cm Estimated effective dose: (DLP x 0.015 x size factor) Dose modulation, iterative reconstruction, and/or weight based a djustment of the mA/kV was utilized to reduce the radiation dose to as low as reasonably achievable. COMPLICATIONS: None FINDINGS: LOWE R THORAX: Unremarkable. HEPATOBILIARY: No mass. No biliary dilation. Metallic clips in the right upper quadrant of the abdomen are compatible with prior cholecystectomy. SPLEEN: No splenomegaly. PANCREAS: No focal ma sses or ductal dilatation. ADRENALS: No discrete adrenal nodule. KIDNE YS/URETERS: No hydronephrosis, stones, or definite solid mass lesions. Mul tiple bilateral fluid densities, measuring up to 3.6 cm in greatest dimension, compatible with cysts. PELVIC ORGANS/BLADDER: The urinary bladder is decom pressed. GI TRACT: Multiple mildly dilated loops of small bowel, measuri ng up to 3.8 cm in diameter. Segmental wall thickening and narrowing of the small bowel in the midabdomen (axial image 49-53). The more distal small bow el and colon are relatively decompressed. PERITONEUM / RETROPERITONEUM: No free air or fluid. LYMPH NODES: No pathologically enlarged lymph node. VESSE LS: Scattered atherosclerotic vascular calcifications, including the coronary arteries. BONES and JOINTS: No aggressive osseous lesion or acute fracture. Metallic left pelvic fixation hardware. SOFT TISSUES: Unremarkable. IMPRESSION: 1. Mildly dilated loops of small bowel, compatible with partial small bowel obstruction versus ileus. Serial abdominal radiographs may be of benefit for further catheterization. 2. Possible mid small bowel segmental stricture versus nonspecific inflammation. 3. Coronary atherosclerosis. Signed by: Dr. Lloyd Ngo D.O., M.M.M. on 10/29/2018 6:31 AM Dictated By: LLOYD NGO DO 0 T ranscribed By: CAROL on 10/29/18630 COPY TO: VON ACHARYA MD Urine Amorphous Jrxqgznw4259-45-26 06:04:00* Test Item Value Reference Range Interpretation Comments Urine Amorphous Sediment (test code = 8246-1) FEW FEW [facility] Center[facility] Hyaline Azktn8680-26-22 06:04:00* Test Item Value Reference Range Interpretation Comments Urine Hyaline Casts (test code = 02742-7) 6-10 0-1 [facility] CenterUrine Fine Granular Gzcbu1382-93-66 06:04:00* Test Item Value Reference Range Interpretation Comments Urine Fine Granular Casts (test code = 41338-4) 1-5 >0 [facility] CenterAmylase Xcatr7439-85-85 05:18:00* Test Item Value Reference Range Interpretation Comments Amylase Level (test code = 1798-8) 51 25-125 [facility] CenterLactic Acid Donsi0237-55-53 05:06:00* Test Item Value Reference Range Interpretation Comments Lactic Acid Level (test code = Lactic Acid Level) 14.5 4.5- 19.8 [facility] OASG7726-22-96 13:40:00 [facility] [address] [place] [address] Patient Name : KASSI MCNULTY MR #: [id number] : 1955 Age/Sex: 62/M Adm Physician : DIMA WELCH MD Admit Date : 10/30/17 Location : MED/SURG Room/Bed : [facility] REPORT: Cardiolog y Report REFERRING PHYSICIAN: DIMA WELCH MD DATE OF STUDY: October NUCLEAR STRESS REPORT INDICATIONS: Chest pain. PROCEDURE: Pha rmacologic stress testing was performed per protocol with regadenoson. The he art rate was 67 beats per minute at rest and increased to 88 beats per minute during the regadenoson infusion. The rest blood pressure was 125/61 mmHg and increased to 134/47 mmHg, which is a normal response. The patient did not dev elop any significant symptoms. The resting electrocardiogram demonstrated nor mal sinus rhythm. There were no ST segment changes consistent with myocardial ischemia. Occasional PVCs were noted in recovery. Myocardial perfusion im aging was performed at rest following the injection of 11 mCi of tetrofosmin. At peak pharmacologic effect, the patient was injected with 33 mCi of tetrofo smin. Gated poststress tomographic imaging was performed. FINDINGS: The o verall quality of the study is fair. Left ventricular cavity is noted to be n ormal size on the rest and stress studies. SPECT images demonstrate homogeneo us tracer distribution throughout the myocardium. The gated SPECT imaging rev eals normal myocardial thickening and wall motion. The left ventricular eject ion fraction was calculated to be 61%. IMPRESSION: Myocardial perfusion im aging is normal. Overall left ventricular systolic function is normal without regional wall motion abnormalities. DT: 2017 13:55 Job#: [id number] EV cc: DIMA WELCH MD Signature Date Dictated By: NATANAEL MCCALLUM MD Transcribed By: [employer] on 10/31/17 <Electronically signed by NATANAEL MCCALLUM MD><<Signature on File>>01/28/18 1308 COPY TO: CHEST SINGLE (PORTABLE)2017-10-30 11:21:00 [place] [address] Patient Name: KASSI MCNULTY MR #: [id number] : 1955 Age/Sex: 62/M Req #: [id number] Adm Physician: Ordered by: DEBBY SALVADOR MD Report #: [id number] Location: ER Room/Bed: Procedure: [id number] DX/CHEST SINGLE (PORTABLE) Exam Date: 10/30/17 Exam Time: 1030 REPORT STATUS: Signed PROCEDURE: CHEST SINGLE (PORTABLE) COMPARISON: None. INDICATIONS: CHEST PAIN FINDINGS: LUNGS: No consolidations or edema. Right basi lar round opacity may represent a nodule versus overlapping shadows. Followup PA and lateral chest recommended. PLEURA: No effusions or pneumotho rax. HEART T MEDIASTINUM: The heart is within normal size-limits. BONES T SOFT TISSUES: No acute findings. CONCLUSION: 1. No acute thoracic abnormality. 2. Right basilar opacity could represent a pulm onary nodule. Herber Manning D.O. Dictated by: Herber Manning D.O. on 10/30/2017 at 11:21 Electronically approved by: Destiny Pennington on 10/30/2017 at 11:21 Dictated By: HERBER MANNING DO Elect ronically Signed By: HERBER MANNING DO on 10/30/17 1121 Transcribed By: ADRIANE on 10/30/17 1121 COPY TO: DEBBY SALVADOR MD CTA NECK [place] [address] Patient Name: KASSI MCNULTY MR #: [id number] : 1955 Age/Sex: 62/M Req #: [id number] Adm Physician: Ordered by: PRAVEEN REED MD Report #: [id number] Location: CT Room/Bed: Procedure: [id number] CT/CTA NECK Exam Date: 08/20/17 Exam Time: 0825 REPORT STATUS: Signed Exam: Ne ck CTA History: Evaluate carotid stenosis Comparison studies:None Techn ique: Axial images were obtained from the thoracic inlet. Coronal and sagit abel images reconstructed from the axial data. Intravenous contrast: 100 cc of Omnipaque 300. If present, stenosis is calculated utilizing the NASCET meth od which calculates the degree of stenosis with reference to the normal lumen of the carotid artery distal to the stenosis. Findings: Aortic arch and major vessels: Scattered hard plaque throughout the arch. Mild hard plaque at the origins of the left common carotid artery and left subclavian artery w ithout significant stenosis. Mild scattered hard plaque in the left subclavian artery without significant stenosis. Mild stenosis at the right subclavian or igin due to hard plaque. Right carotid artery: Mild scattered hard plaque in the common carotid artery without significant stenosis. Mild to moderate h terese and soft plaque at the bifurcation extends into the carotid bulb with no ( 0%) significant stenosis by NASCET criteria. Approximately 50% stenosis at the ECA origin. Moderately tortuous internal carotid artery with mild hard and so ft plaque in the proximal segment which does not result in significant stenosi s. Minimal nonstenotic hard plaque in the intracranial right paraophthalmic se gment. Left carotid artery: Minimal nonstenotic hard plaque in the common c arotid artery. Moderate hard and soft plaque at the cervical carotid bifurcati on extends into the left carotid bulb and ICA origin. There is approximately 3 0% stenosis in the carotid bulb and 50% stenosis at the left ICA origin. Mildl y tortuous ICA. Vertebral arteries: Patent bilaterally with tortuous left V1 segment. Approximately 50% stenosis at the origin where there is mild hard plaque. Moderate (greater than 50% stenosis) at the left vertebral artery kiara gin due to hard and soft plaque. Incidental findings: Surgical changes of anterior cervical discectomy and fusion from C4 to C7 with anterior plate and screw construct from C4 to C6. Mild canal stenosis at C5-C6 due due to an asymmetric left posterior osteophyte. Moderate left C3-C4 foraminal stenosis d ue to uncovertebral arthrosis and severe left facet arthrosis. Enhancing nonaggressive-appearing circumscribed 1.5 cm nodule in the superficial lobe of the right parotid gland. Findings may reflect tumor of primary parotid origin, possibly pleomorphic adenoma or alternatively pathologic lymph node. IMPRESSION: 1. Atherosclerosis at the right cervical bifurcation, carotid bulb and right ICA origin with approximately 50% stenosis at the left ECA origin without significant stenosis in the carotid bulb or ICA (0% stenosis by NASCET criteria). 2. Atherosclerosis in the left carotid bifurcation, c arotid bulb and proximal left ICA with approximately 30% stenosis at the left carotid bulb and 50% stenosis at the left ICA origin. 3. Stenosis at the vertebral artery origins, moderate on the left and mild on the right. 4. Incidental right parotid nodule. Recommend FNA to further evaluate. Signed by: Dr. Aj Foote M.D. on 08/20/2017 10:16 AM Dictated By: AJ MCCRACKEN MD 1016 Transc ribed By: CAROL on 08/20/17 1016 COPY TO: PRAVEEN REED MD
--- OUTSIDE RECORDS SUMMARY | 2019-07-30 00:36 | XMS REPORT | Clinical Summary ---
Author Author [facility] Organization [facility] Address Unknown Phone Unavailable Care Team Providers Care Pluck Trimmer Name Role Phone Geovanni Arreaga MD PCP [...] diabetic (BD Use once 100 each 10 0 ULTRA-FINE SAV PEN daily 7 NEEDLES) 32 gauge x " needle Active VICTOZA 2-MAGDY 0.6 mg/0.1 DIAL AND 18 mL 1 0 mL (18 mg/3 mL) pen INJECT 7 injector SUBCUTANEOUSL Y 1.2MG DAILY Active Problems Problem Noted Date Uncontrolled type 2 diabetes mellitus with hyperglyce tonya 08/13/2016 Family History Medical History Relation Name [...] 06/15/2005 SHINGLES VACCINES (#1) 06/15/2005 INFLUENZA VACCINE 10/16/2019 Results Not on fileafter 07/29/2018 Insurance Type Payer Benefit Subscriber ID Effective Phone Address Plan / Dates Group PPO [facility] xxxxxxxx 2012-P THC[employer] resent PPO- [employer] Advance Directives For more information, please contact: [phone] 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
[2019-07-30] MEDS ORDERED: NITROGLYCERIN 2% OINT 1 GM PKT TOP ONE (00:45)
[2019-07-30] MEDS ORDERED: ASPIRIN 81 MG CHEW TAB PO ONE (00:45)
[2019-07-30 01:00] LABS: BASOPHILS # (AUTO) 0.1 (0.0-0.1); BASOPHILS % 0.4 % (0.0-1.0); EOSINOPHILS # (AUTO) 0.3 (0.0-0.4); EOSINOPHILS % 1.8 % (0.0-6.0); HEMOGLOBIN 15.4 g/dL (14.0-18.0); LYMPHOCYTES # (AUTO) 1.1 (1.0-3.2); LYMPHOCYTES % 7.9 % (18.0-39.1); MEAN CORPUSCULAR HEMOGLOBIN 27.9 pg (28-32); MEAN CORPUSCULAR HGB CONC 32.8 g/dL (31-35); MEAN CORPUSCULAR VOLUME 85.1 fL (81-99); MONOCYTES # (AUTO) 1.2 (0.2-0.8); MONOCYTES % 8.7 % (4.4-11.3); NEUTROPHILS # (AUTO) 11.1 (2.1-6.9); PLATELET COUNT 206 x10e3/uL (140-360); RED BLOOD COUNT 5.52 x10e6/uL (4.3-5.7)
--- NOTE | 2019-07-30 01:01 | Emergency Department Note ---
History of Present Illnes History of Present Illness Chief Complaint: Chest Pain History of Present Illness This is a 64 year old male wth h/o cad and 4 cardiac stents who presen ts with intermittent chest pain for past couple of days, at 6 pm last night began to have arm pain with left arm hurting worse than right, rates chest pain 4/10 and left arm pain 8/10. 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 Historian: Patient Arrival Mode: Car Location: substernal chest pain Quality: substernal chest pain radiating to left arm Radiation: extremity (left arm) Severity: moderate Onset quality: gradual Duration (how long): day(s) (2) Timing of current episode: intermittent Progression: worsening Chronicity: recurrent Relieving factors: rest Exacerbating factors: other (exertion) Risk factors: cad,htn, dm Past Medical/Family History Physician Review I have reviewed the patient's past medical and family history. Any updates have been documented here. Past Medical History Recent Fever: No Clinical Suspicion of Infectio: No New/Unexplained Change in Ment: No Past Medical History: Hypertension, Diabetes, CAD, GERD, Hyperlipedemia Other Medical History: SBO NEUROPATHY Past Surgical History: Cholecysctectomy Other Surgery: CARDIAC STENTS X4 CERVICAL FUSION PELVIC SX BRONCHIAL CLEFT CYST REMOVAL AT 4 M/O AND 14Y/O Social History Smoking Cessation: Never Smoker Alcohol Use: None Any Illegal Drug Use: No Family History Family history of heart diseas: Yes Other family history htn,dm Other Last Tetanus: X4 MONTHS AGO Review of Systems Review of Systems Constitutional: no symptoms EENTM: no symptoms Cardiovascular: as per HPI Respiratory: no symptoms Gastrointestinal: no symptoms Genitourinary: no symptoms Musculoskeletal: no symptoms Neurological: no symptoms Psychological: no symptoms Endocrine: no symptoms Hematological/Lymphatic: no symptoms Review of other systems All other systems reviewed and negative. Physical Exam Related Data Allergies: Coded Allergies: codeine (Verified Adverse Reaction, Mild, itching, 03/07/19) cannot take synthetic codeine only tramadol (Verified Adverse Reaction, Mild, ITCHING, 03/07/19) can take for a few days then begins to itch Triage Vital Signs Vital Signs Date Time Temp Pulse Resp B/P (MAP) Pulse Ox O2 Delivery O2 Flow Rate FiO2 07/30/19 00:35 98.4 68 20 175/85 95 Vital signs reviewed: Yes Physical Exam CONSTITUTIONAL Constitutional: well-developed, well-nourished, distressed (mild) HENT HENT: normocephalic, atraumatic, oropharynx clear/moist, nose normal HENT L/R: left ext ear normal, right ext ear normal EYES Eyes: PERRL, conjunctivae normal NECK Neck: ROM normal PULMONARY Pulmonary: effort normal, breath sounds normal CARDIOVASCULAR Cardiovascular: regular rhythm, heart sounds normal, capillary refill normal, normal rate (67) GASTROINTESTINAL Abdominal: soft, nontender, bowel sounds normal GENITOURINARY Genitourinary: exam deferred SKIN Skin: warm, dry MUSCULOSKELETAL Musculoskeletal: ROM normal NEUROLOGICAL Neurological: alert, oriented x 3, no gross motor or sensory deficits PSYCHOLOGICAL Psychological: mood/affect normal, judgement normal Results Laboratory Laboratory Laboratory Tests Test 07/30/19 00:35 White Blood Count 13.74 x10e3/uL (4.8-10.8) Red Blood Count 5.52 x10e6/uL (4.3-5.7) Hemoglobin 15.4 g/dL (14.0-18.0) Hematocrit 47.0 % (38.2-49.6) Mean Corpuscular Volume 85.1 fL (81-99) Mean Corpuscular Hemoglobin 27.9 pg (28-32) Mean Corpuscular Hemoglobin Concent 32.8 g/dL (31-35) Red Cell Distribution Width 14.0 % (11.7-14.4) Platelet Count 206 x10e3/uL (140-360) Neutrophils (%) (Auto) 81.0 % (38.7-80.0) Lymphocytes (%) (Auto) 7.9 % (18.0-39.1) Monocytes (%) (Auto) 8.7 % (4.4-11.3) Eosinophils (%) (Auto) 1.8 % (0.0-6.0) Basophils (%) (Auto) 0.4 % (0.0-1.0) Neutrophils # (Auto) 11.1 (2.1-6.9) Lymphocytes # (Auto) 1.1 (1.0-3.2) Monocytes # (Auto) 1.2 (0.2-0.8) Eosinophils # (Auto) 0.3 (0.0-0.4) Basophils # (Auto) 0.1 (0.0-0.1) Absolute Immature Granulocyte (auto 0.03 x10e3/uL (0-0.1) Prothrombin Time 13.0 seconds (11.9-14.5) Prothromb Time International Ratio 0.93 Activated Partial Thromboplast Time 29.2 seconds (23.8-35.5) Sodium Level 135 mmol/L (136-145) Potassium Level 3.6 mmol/L (3.5-5.1) Chloride Level 97 mmol/L (98-107) Carbon Dioxide Level 27 mmol/L (22-29) Anion Gap 14.6 mmol/L (8-16) Blood Urea Nitrogen 15 mg/dL (7-26) Creatinine 0.84 mg/dL (0.72-1.25) Estimat Glomerular Filtration Rate > 60 ML/MIN (60-) BUN/Creatinine Ratio 18 (6-25) Glucose Level 152 mg/dL (74-118) Calcium Level 9.5 mg/dL (8.4-10.2) Total Bilirubin 0.9 mg/dL (0.2-1.2) Aspartate Amino Transf (AST/SGOT) 17 IU/L (5-34) Alanine Aminotransferase (ALT/SGPT) 26 IU/L (0-55) Alkaline Phosphatase 81 IU/L (40-150) Creatine Kinase 94 IU/L (30-200) Creatine Kinase MB 4.80 ng/mL (0-5.0) Troponin I 0.035 ng/mL (0-0.300) Total Protein 6.3 g/dL (6.5-8.1) Albumin 3.4 g/dL (3.5-5.0) Globulin 2.9 g/dL (2.3-3.5) Albumin/Globulin Ratio 1.2 (0.8-2.0) Laboratory Tests Test 07/30/19 00:35 Lab results reviewed: Yes Imaging Imaging results reviewed: Yes Impressions Patient Name: KASSI MCNULTY MR #: [id number] : 1955 Age/Sex: 64/M Req #: [id number] Adm Physician: Ordered by: VON ACHARYA MD Report #: [id number] Location: ER Room/Bed: Procedure: [id number] DX/CHEST SINGLE (PORTABLE) Exam Date: Exam Time: REPORT STATUS: Signed EXAMINATION: CHEST SINGLE (PORTABLE) INDICATION: ^chest pain ^Y COMPARISON: None FINDINGS: AP view TUBES and LINES: None. LUNGS: Lungs are well inflated. Mild bibasilar atelectasis/scarring. No focal consolidation. There is no evidence of pneumonia or pulmonary edema. PLEURA: No pleural effusion or pneumothorax. HEART AND MEDIASTINUM: The cardiomediastinal silhouette is unremarkable. BONES AND SOFT TISSUES: No acute osseous lesion. Soft tissues are unremarkable. UPPER ABDOMEN: No free air under the diaphragm. IMPRESSION: No acute thoracic radiographic abnormality. 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 Clinical Decision Tools HEART Score HEART Scort: HEART Scort Response (Comments) Value History Moderately suspicious 1 EKG Normal 0 Age 45 - 65 1 Risk factors hx of atherosclerotic disease 2 Troponin < or = to normal limit Total 4 Assessment & Plan Assessment & Plan Problems: (1) Chest pain due to CAD Assessment & Plan pt with h/o cad, htn, dm with 4 cardiac stents presents with intermittent chest pain for 2 days and now with arm pain, especially left arm. cbc,cmp, ekg, cardiac enzymes, cxr, ordered to eval for myocardial infarction, electrolyte a bnormality, nitropaste 1 inch to chest wall ordered aspirin 81 mg po tylenol 650 mg po ordered i spoke with dr deutsch and dr stuart place in obs Reassessment Reassessment time: 01:46 Reassessment pt's chest pain is resolved and left arm pain is improved on nitrobid ointment Depart Disposition: ADMITTED Last Vital Signs Date Time Temp Pulse Resp B/P (MAP) Pulse Ox O2 Delivery O2 Flow Rate FiO2 07/30/19 00:35 98.4 68 20 175/85 95 Home Meds Active Scripts Tramadol Hcl (ULTRAM) 50 Mg Tablet, 50 MG PO TID PRN for pain for 5 Days, #15 TAB Prov:JAISON HINOJOSA MD 03/07/19 Naproxen (NAPROSYN) 500 Mg Tablet, 500 MG PO BID PRN for pain for 7 Days, #15 Prov:JAISON HINOJOSA MD 03/07/19 Reported Medications Amlodipine Besylate (AMLODIPINE BESYLATE) 5 Mg Tablet, 5 MG PO BID, #30 TAB 12/09/18 Tadalafil (CIALIS) 10 Mg Tablet, 10 MG PO DAILY 10/29/18 [Testosterone ] No Conflict Check, 1.5 ML INJ .[id number] 10/29/18 Metoprolol Succinate (METOPROLOL SUCCINATE) 50 Mg Tab.er.24h, 50 MG PO BID, MG 10/29/18 Liraglutide (VICTOZA 2-MAGDY) 0.6 Mg/0.1 Ml Pen.injctr 10/31/17 Naproxen Sodium (ALEVE) 220 Mg Tablet, 220 MG PO Q12H PRN for PAIN 10/30/17 Atorvastatin Calcium (LIPITOR) 20 Mg Tablet, 40 MG DAILY, #30 TAB 10/30/17 Clopidogrel Bisulfate (CLOPIDOGREL) 75 Mg Tablet, 75 MG PO DAILY, #30 TAB 10/30/17 Aspirin (ASPIRIN) 81 Mg Tab.chew, 81 MG PO DAILY 10/30/17 Montelukast Sodium (SINGULAIR) 10 Mg Tablet, 10 MG PO HS 10/30/17 Duloxetine Hcl (CYMBALTA) 30 Mg Capsule.dr, 30 MG PO HS, #30 CAP 10/30/17 [Zegrid Otc] No Conflict Check, 20 MG PO HS 10/30/17 Tamsulosin Hcl* (FLOMAX*) 0.4 Mg Cap, 0.8 MG PO HS, #30 CAP 10/30/17 Medications in the ED Aspirin 81 mg PRN ONCE PO ; Start 07/30/19 at 00:45; Stop 07/30/19 at 00:48; Status DC Nitroglycerin 1 gm ONCE ONCE TOP ; Start 07/30/19 at 00:45; Stop 07/30/19 at 00:48; Status DC VON ACHARYA MD July 30, 2019 01:01
[2019-07-30 01:05] LABS: INR 0.93
[2019-07-30 01:06] LABS: PARTIAL THROMBOPLASTIN TIME 29.2 seconds (23.8-35.5)
[2019-07-30] MEDS ORDERED: ACETAMINOPHEN 325 MG TAB PO ONE (01:15)
[2019-07-30 01:20] LABS: ALANINE AMINOTRANSFERASE 26 IU/L (0-55); ALBUMIN 3.4 g/dL (3.5-5.0); ALBUMIN/GLOBULIN RATIO 1.2 (0.8-2.0); ALKALINE PHOSPHATASE 81 IU/L (40-150); ANION GAP 14.6 mmol/L (8-16); BLOOD UREA NITROGEN 15 mg/dL (7-26); BUN/CREATININE RATIO 18 (6-25); CALCIUM 9.5 mg/dL (8.4-10.2); CARBON DIOXIDE 27 mmol/L (22-29); CHLORIDE 97 mmol/L (98-107); CREATINE KINASE 94 IU/L (30-200); CREATININE, SERUM 0.84 mg/dL (0.72-1.25); EST GLOMERULAR FILTRATION RATE > 60 ML/MIN (60-); GLUCOSE 152 mg/dL (74-118); POTASSIUM 3.6 mmol/L (3.5-5.1); SODIUM 135 mmol/L (136-145)
--- NOTE | 2019-07-30 01:46 | Diagnostic Imaging Report ---
EXAMINATION: CHEST SINGLE (PORTABLE) INDICATION: ^chest pain ^Y COMPARISON: None FINDINGS: AP view TUBES and LINES: None. LUNGS: Lungs are well inflated. Mild bibasilar atelectasis/scarring. No focal consolidation. There is no evidence of pneumonia or pulmonary edema. PLEURA: No pleural effusion or pneumothorax. HEART AND MEDIASTINUM: The cardiomediastinal silhouette is unremarkable. BONES AND SOFT TISSUES: No acute osseous lesion. Soft tissues are unremarkable. UPPER ABDOMEN: No free air under the diaphragm. IMPRESSION: No acute thoracic radiographic abnormality. Signed by: Rodney Watson MD on 07/30/2019 1:43 AM
[2019-07-30] MEDS ORDERED: ONDANSETRON HCL INJ 2MG/ML 2ML 2 MG/ML VIAL IV PRN (02:00)
[2019-07-30] MEDS ORDERED: DEXTROSE 50% SYRINGE 50 ML IV PRN (02:00)
[2019-07-30] MEDS: MORPHINE SULFATE 2 MG/ML SYR 1ML IV PRN ×3 (02:15→16:15)
[2019-07-30] MEDS: FAMOTIDINE 20 MG/2 ML VIAL IV SCH ×3 (02:15→20:46)
--- OUTSIDE RECORDS SUMMARY | 2019-07-30 02:31 | XMS REPORT ---
Author Author [facility] t Organization [facility] Address [address] [facility]. 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 PCP DR AMEYA LEÓN Attphys Unavailable Cristofer ACHARYA Attphys Unavailable Florina HINOJOSA Attphys Unavailable DIMA WELCH Attphys Unavailable Negro SALVADOR Attphys Unavailable PRAVEEN REED Attphys Unavailable DR AMEYA LEÓN Admphys Unavailable DIMA WELCH Admgaro Unavailable Payers Payer Name Policy Type Policy Number Effective Date Expiration Date S mary janeandrew [facility] [id number] 2012 00:00:00 ANOOP araiza [facility] [id number] 2012 00:00:00 [facility] [id number] 2012 00:00:00 [facility] [id number] 2012 00:00:00 [facility] [id number] 2012 00:00:00 [facility] Problems Condition Name Condition Details Condition Category Status Onset Date Resolution Date Last Treatment Date Treating Clinician Comments Source Uncontrolled type 2 diabetes mellitus with hyperglycem ia Uncontrolled type 2 diabetes mellitus with hyperglycemia Disease Active 2016-08-13 00:00:00 Tyler Garza Chest pain Chest pain Problem Active [facility] Partial small bowel obstruction Partial small bowel obstruction Pro blem Active [facility] Urinary tract infection UTI (urinary tract infection) Problem Active [facility] Vomiting Vomiting Problem Active [facility] Abdominal pain Abdominal pain Problem Active [facility] Allergies, Adverse Reactions, Alerts Allergy Name Allergy Type Status Severity Reaction(s) Onset Date Inacti ve Date Treating Clinician Comments Source Codeine Propensity to adverse reactions Active Mild itching 2019-03-07 00:00:00 [facility] Tramadol Propensity to adverse reactions Active Mild ITCH ING 2019-03-07 00:00:00 [facility] No Known Allergies DA Active [place] 2017-11-20 00:00:[address] [facility] tramadol DA Active [place] 2017-11-20 00:00:[address] [facility] No Known Allergies DA Active U 2017-07-17 00:00:[address] [facility] Family History Family Member Diagnosis Comments Start Date Stop Date Source Natural father Emphysema [facility] Natural mother Alzheimer's disease H ernesto Garza Social History Social Habit Start Date Stop Date Quantity Comments Source Sex Assigned At Ryan Garza Alcohol intake 2016-08-13 00:00:00 2016-08-13 00:00:00 Current non-drinker of alcohol (finding) Tyler Garza Smoking Status Start Date Stop Date Source Never smoker [facility] t Medications Ordered Medication Name Filled Medication Name Start Date Stop Da te Current Medication? Ordering Clinician Indication Dosage Frequency Signature (SIG) Comments Components Source Naproxen (Naprosyn) 500 Mg Tablet Naproxen (Naprosyn) 500 Mg Tablet 2019-03-07 00:00:00 Yes Jaison Hinojosa Md 500 Twice A Day as needed for Pain [facility] Tramadol Hcl (Ultram) 50 Mg Tablet Tramadol Hcl (Ultram) 50 Mg Tablet 2019-03-07 00:00:00 Yes Jaison Hinojosa Md 50 Three Time s A Day as needed for Pain [facility] Chlordiazepoxide/Clidinium Br (Librax Capsule) 1 Each Capsule, 1 Cap Oral Chlordiazepoxide/Clidinium Br (Librax Capsule) 1 Each Capsule, 1 Cap Oral 2018-11-22 00:00:00 2018-12-09 00:00:00 No Holli Morel Snout Puller 1 Before Meals And At Bedtime [facility] Nifedipine (Nifedipine Er) 30 Mg Tab.er.24, 30 Mg Oral Nifedipine (Nifedipine Er) 30 Mg Tab.er.24, 30 Mg Oral 2018-11-22 00:00:00 2018-12-09 00:00:00 No Holli Morel Snout Puller 30 Daily [facility] Ciprofloxacin Hcl (Cipro) 500 Mg Tablet, 500 Mg Oral C iprofloxacin Hcl (Cipro) 500 Mg Tablet, 500 Mg Oral 2018-11-05 00:00:00 2018-11-19 00:00:00 No Debby Rochar Do 500 Twice A Day [facility] Metronidazole (Flagyl) 500 Mg Tablet, 500 Mg Oral Metr onidazole (Flagyl) 500 Mg Tablet, 500 Mg Oral 2018-11-05 00:00:00 2018-11-19 00:00:00 No Denisha herrera Sandhir Do 500 Every 8 Hours [facility] VICTOZA 2-MAGDY 0.6 mg/0.1 mL (18 mg/3 mL) pen injector 2016-11-01 00:00:00 Yes DIAL AND INJECT SUBCUTANEOUSLY 1.2MG ZOIE Garza clopidogrel (PLAVIX) 75 mg tablet 2016-08-13 [...] 50 MG tablet 2016-08-13 19:17:08 Yes 50mg Q.[id number] Take 50 mg by mouth 3 (three) [...] Tyler Garza pen needle, diabetic (BD ULTRA-FINE SVA PEN NEEDLES) 32 gau ge x 5/32" needle 2016-08-13 00:00:00 Yes Use once daily Tyler Garza Amlodipine Besylate 5 Mg Tablet Amlodipine Besylate 5 Mg Tablet Yes 5 Twice A Day [facility] Aspirin 81 Mg Tab.chew Aspirin 81 Mg Tab.chew Yes 81 Daily [facility] Atorvastatin Calcium (Lipitor) 20 Mg Tablet Atorvastat in Calcium (Lipitor) 20 Mg Tablet Yes 40 Daily [facility] Clopidogrel Bisulfate (Clopidogrel) 75 Mg Tablet Clopi dogrel Bisulfate (Clopidogrel) 75 Mg Tablet Yes 75 Daily [facility] Duloxetine Hcl (Cymbalta) 30 Mg Capsule. Duloxetine Hcl (Cymbalta) 30 Mg Capsule. Yes 30 Bedtime [facility] Liraglutide (Victoza 2-Magdy) 0.6 Mg/0.1 Ml Pen.injctr L iraglutide (Victoza 2-Magdy) 0.6 Mg/0.1 Ml Pen.injctr Yes [facility] Metoprolol Succinate 50 Mg Tab.er.24h Metoprolol Succinate 50 Mg Ta b.er.24h Yes 50 Twice A Day [facility] Montelukast Sodium (Singulair) 10 Mg Tablet Montelukas t Sodium (Singulair) 10 Mg Tablet Yes 10 Bedtime [facility] Naproxen Sodium (Aleve) 220 Mg Tablet Naproxen Sodium (Aleve) 220 M g Tablet Yes 220 Every 12 Hours as needed for Pain [facility] Tadalafil (Cialis) 10 Mg Tablet Tadalafil (Cialis) 10 Mg Tablet Yes 10 Daily [facility] Tamsulosin Hcl (Flomax*) 0.4 Mg Cap Tamsulosin Hcl (Flomax*) 0.4 Mg C ap Yes .8 Bedtime [facility] Testosterone Testosterone Yes 1.5 .d0dthvk [facility] Zegrid Otc Zegrid Otc Yes 20 Bedtime [facility] Amlodipine Besylate 5 Mg Tablet, 5 Mg Oral Amlodipine Besylate 5 Mg Tablet, 5 Mg Oral 2018-11-22 00:00:00 No 5 Twice A Day [facility] Carvedilol 12.5 Mg Tablet, 12.5 Mg Oral Carvedilol 12.5 Mg T ablet, 12.5 Mg Oral 2018-10-29 00:00:00 No 12.5 Twice A Day [facility] Cranberry , Cranberry , 2018-10-29 00:00:00 No [facility] Gink , Gink , 2018-10-29 00:00:00 No [facility] Hydralazine Hcl 50 Mg Tablet, 50 Mg Oral Hydralazine H cl 50 Mg Tablet, 50 Mg Oral 2018-10-29 00:00:00 No 50 Three Times A Day [facility] Isosorbide Mononitrate (Isosorbide Mononitrate Er) 30 Mg Tab.er.24h, 30 Mg Oral Isosorbide Mononitrate (Isosorbide Mononitrate Er) 30 Mg Tab.er.24h, 30 Mg Oral 2018-10-29 00:00:00 No 30 Daily [facility] Lomotil , Lomotil , 2018-10-29 00:00:00 No as ne eded for Diarrhea [facility] Spironolactone 25 Mg Tablet, 25 Mg Oral Spironolactone 25 Mg Tablet, 25 Mg Oral 2018-10-29 00:00:00 No 25 Daily [facility] Valsartan/Hydrochlorothiazide (Diovan Hc t 160-12.5 Mg Tab) 1 Each Tablet, 1 Tab Oral Valsartan/Hydrochlorothiazide (Diovan Hc t 160-12.5 Mg Tab) 1 Each Tablet, 1 Tab Oral 2018-10-29 00:00:00 No 1 Daily [facility] Metoprolol Tartrate 50 Mg Tablet, 100 Mg Oral Metoprol ol Tartrate 50 Mg Tablet, 100 Mg Oral 2017-10-31 00:00:00 No 100 Twice A Day [facility] Procedures Procedure Date / Time Performed Performing Clinician [facility] e COLONOSCOPY AND BIOPSY 2018-12-12 00:00:00 TELMA HERNANDEZ [facility] COLONOSCOPY W/LESION REMOVAL 2018-12-12 00:00:00 TELMA HERNANDEZ [facility] Computed tomography of abdomen and pelvis with contrast 2018 00:00:00 TELMA HERNANDEZ [facility] Computed tomography of abdomen and pelvis with contrast 2018 00:00:00 SUELLEN TRAORE [facility] Computed tomography of abdomen and pelvis with contrast 2018 00:00:00 VON ACHARYA [facility] Plan of Care Planned Activity Planned Date Details Comments Source Future Scheduled Test 2019-10-16 00:00:00 INFLUENZA VACCINE [code = INFLUENZA VACCINE] [facility] Scheduled Test 2005-06-15 00:00:00 COLONOSCOPY SCREEN ING [code = COLONOSCOPY SCREENING] [facility] Scheduled Test 2005-06-15 00:00:00 SHINGLES VACCINES (#1) [code = SHINGLES VACCINES (#1)] [facility] Scheduled Test 1965-06-15 00:00:00 DIABETIC FOOT EXAM [code = DIABETIC FOOT EXAM] [facility] Scheduled Test 1965-06-15 00:00:00 URINE MICROALBUMIN [code = URINE MICROALBUMIN] [facility] Scheduled Test 1955 00:00:00 DIABETIC RETINAL E YE EXAM [code = DIABETIC RETINAL EYE EXAM] [facility] Encounters Start Date/Time End Date/Time Encounter Type Admission Type Attendi [facility] Care Department Encounter ID Source 2018-09-07 09:00:00 Inpatient C AMEYA LEÓN [facility] [id number] [facility] 2019-03-07 13:32:00 2019-03-07 15:00:00 Departed Emergency Room 1 JAISON HINOJOSA [facility] [id number] [facility] 2018-12-12 08:40:00 2018-12-12 08:40:00 Registered Surgical Day Care [facility] [id number] [facility] 2018-11-19 14:32:00 2018-11-22 13:28:00 Discharged Inpatient 1 DIMA WELCH [facility] [id number] [facility] 2018-11-05 10:12:00 2018-11-05 16:33:00 Departed Emergency Room 1 DEBBY SALVADOR [facility] [id number] [facility] 2018-10-29 06:48:00 2018-10-31 15:50:00 Discharged Inpatient 1 DIMA WELCH [facility] [id number] [facility] 2017-10-30 11:25:00 2017-10-31 19:50:00 Discharged Inpatient (obs) 1 DIMA WELCH [facility] [id number] [facility] 2017-08-20 07:16:00 2017-08-20 07:16:00 Registered Clinic 3 PRAVEEN REED [facility] [id number] [facility] Results Test Description Test Time Test Comments Results Result Comments Source CHEST SINGLE (PORTABLE) 2019-07-30 01:42:00 [facility] [address] [place] [address] Patient Name: KASSI MCNULTY MR #: [id number] : 1955 Age/Sex: 64/M Req #: [id number] Adm Physician: Ordered by: VON ACHARYA MD Report #: [id number] Location: ER Room/Bed: Procedure: [id number] DX/CHEST SINGLE (PORTABLE) Exam Date: Exam Time: REPORT STATUS: Signed EXAMINATION: CHEST SINGLE (PORTABLE) INDICATION: chest pain Y COMPARISON: None FINDINGS: AP view TUBES and LINES: None. LUNGS: Lungs are well inflated. Mild bibasilar atelectasis/scarring. No focal consolidation. There is no evidence of pneumonia or pulmonary edema. PLEURA: No pleural effusion or pneumothorax. HEART AND MEDIASTINUM: The cardiomediastinal silhouette is unremarkable. BONES AND SOFT TISSUES: No acute osseous lesion. Soft tissues are unremarkable. UPPER ABDOMEN: No free air under the diaphragm. IMPRESSION: No acute thoracic radiographic abnormality. Signed by: Rodney Sampson MD on 07/30/2019 1:43 AM Dictated By: RODNEY SAMPSON MD 2 Transcribed By: CAROL on 07/30/19142 COPY TO: OVN ACHARYA MD FOOT 3 VIEW LT - [facility] 2019-03-07 14:27:00 [place] [address] Patient Name: KASSI MCNULTY MR #: [id number] : 1955 Age/Sex: 63/M Req #: [id number] Adm Physician: Ordered by: JAISON HINOJOSA MD Report #: [id number] [facility] Room/Bed: Procedure: [id number] [facility]/FOOT 3 VIEW LT - [facility] Exam Date: 03/07/19 Exam Time: 1422 REPORT [...] Impression: 1. No acute abnormalities. Signed by: Dr. Shailesh López M.D. on 03/07/2019 2:28 PM Dictated By: SHAILESH LÓPEZ MD 142 Transcribed By: CAROL on 03/07/191427 COPY TO: JAISON HINOJOSA MD [facility] 2019-03-07 14:26:00 [place] [address] Patient Name: KASSI MCNULTY MR #: [id number] : 1955 Age/Sex: 63/M Req #: [id number] Adm Physician: Ordered by: JAISON HINOJOSA MD Report #: [id number] [facility] Room/Bed: Procedure: [id number] [facility] Exam Date: 03/07/19 Exam Time: 1421 REPORT [...] <20.0 Equivocal 20.1 - 24.9 Positive >or= 25.0[facility] Renaissanceaccharomyces cerevisiae IgA Ab 2018-12-16 21:57:00* Test Item Value Reference Range Interpretation Comments Saccharomyces cerevisiae IgA Ab (test code = 27400-8) 28.0 0.0-24.9 Negative <20.0 Equivocal 20.1 - [...] and no healthy controls had antib odyfor both.[facility] LakewayAtypical [id number] 21:57:00* Test Item Value Reference Range Interpretation Comments Atypical p-ANCA (test code = 07248-5) <1:20 Neg:<1:20 The atypical pANCA pattern has been observed in asignificant percentage of patie nts with ulcerative colitis,primary sclerosing cholangitis and autoimmune hepati tis. ASCA+/PANCA- Suggestive of Crohn's disease ASCA-/PANCA+ S uggestive of Ulcerative colitisPerformed at: [employer] [address] [place], [place] [id number] Director: Veronica Wilson MD, Phone: [phone] Renaissancetool Ggfqkilpvyeh1867-15-51 05:24:00 * Test Item Value Reference Range Interpretation Comments Stool Calprotectin (test code = 52396-3) <16 0-120 Concentration Interpretation Follow-Up<16 - 50 ug/g Normal None>50 -120 ug/g Borderline Re-evaluate in 4-6 weeks >120 ug/g Abnormal Repeat as clinically indicatedPerformed at: [facility] [address] [place], [place] [id number] Director: Veronica Wilson MD, Phone: [phone] Scott & [facility] Center [facility] LakewayC-Reactive Syofqit2763-71-59 00:36:00* Test Item Value Reference Range Interpretation Comments C-Reactive Protein (test code = 1988-5) 2 0-10 Performed at: [facility] [address] [place], [place] [id number] Director: Jorge Granda MD, Phone: [phone] Scott & White Medical Center – LakewayClostridium Difficile Toxin A & [id number] 12:29:00* Test Item Value Reference Range Interpretation Comments Clostridium Difficile Toxin A & B (test code = 643227067) POSI TIVE NEGATIVE Results faxed to Dr. Hernandez at 1228 on 12/13/18 by Josh Molina. RB OK.Results f axed to infection control at 1228 on 12/13/18 by Josh Molina.Testing on stool a spirate specimens is outside dental surgeon claims since specimen type not validat ed on this assay.[facility] LakewayErythrocyte Sedimentation [id number] 15:11:00* Test Item Value Reference Range Interpretation Comments Erythrocyte Sedimentation Rate (test code = 4537-7) 7 0- 13 [facility] Renaissancetool Lactoferrin (LAB)2018-12-12 13:44:00* Test Item Value Reference Range Interpretation Comments Stool Lactoferrin (LAB) (test code = 37483-7) NEGATIVE NEGATIVE Testing on stool aspirate specimens is outside dental surgeon claims since specime n type not validated on this assay.[facility] Bedside Mbzetls6246-80-77 13:32:00* Test Item Value Reference Range Interpretation Comments Bedside Glucose (test code = 99258-2) 118 70-120 Meter ID: [id number] Scott & White Medical Center – LakewayWhite Blood Count 2018-11-22 03:23:00* Test Item Value Reference Range Interpretation Comments White Blood Count (test code = 6690-2) 6.03 4.8-10.8 [facility] LakewayRed Blood Hiuyf6552-15-54 03:23:00* Test Item Value Reference Range Interpretation Comments Red Blood Count (test code = 789-8) 5.14 4.3-5.7 [facility] LakewayHemoglobin2019-09-08 03:23:00* Test Item Value Reference Range Interpretation Comments Hemoglobin (test code = 66176-7) 13.3 14.0-18.0 [facility] LakewayHematocrit2019-09-08 03:23:00* Test Item Value Reference Range Interpretation Comments Hematocrit (test code = 4544-3) 41.5 38.2-49.6 [facility] LakewayMean Corpuscular Nadmjf6993-21-22 03:23:00* Test Item Value Reference Range Interpretation Comments Mean Corpuscular Volume (test code = 787-2) 80.7 81-99 [facility] LakewayMean Corpuscular Zfsjgqavez4071-73-66 03:23:00* Test Item Value Reference Range Interpretation Comments Mean Corpuscular Hemoglobin (test code = 785-6) 25.9 28-32 [facility] LakewayMean Corpuscular Hemoglobin Concent 2018-11-22 03:23:00* Test Item Value Reference Range Interpretation Comments Mean Corpuscular Hemoglobin Concent (test code = 786-4) 32.0 31-35 [facility] LakewayRed Cell Distribution Kfmpr5430-26-60 03:23:00* Test Item Value Reference Range Interpretation Comments Red Cell Distribution Width (test code = 33677-6) 14.0 11.7 -14.4 [facility] LakewayPlatelet Gjdmt7239-94-15 03:23:00* Test Item Value Reference Range Interpretation Comments Platelet Count (test code = 777-3) 260 140-360 [facility] LakewayNeutrophils (%) (Auto)2018-11-22 03:23:00 * Test Item Value Reference Range Interpretation Comments Neutrophils (%) (Auto) (test code = 49372-6) 67.1 38.7-80.0 [facility] LakewayLymphocytes (%) (Auto)2018-11-22 03:23:00 * Test Item Value Reference Range Interpretation Comments Lymphocytes (%) (Auto) (test code = 736-9) 15.3 18.0-39.1 [facility] LakewayMonocytes (%) (Auto)2018-11-22 03:23:00* Test Item Value Reference Range Interpretation Comments Monocytes (%) (Auto) (test code = 5905-5) 13.6 4.4-11.3 [facility]wayEosinophils (%) (Auto)2018-11-22 03:23:00 * Test Item Value Reference Range Interpretation Comments Eosinophils (%) (Auto) (test code = 713-8) 3.2 0.0-6.0 [facility] LakewayBasophils (%) (Auto)2018-11-22 03:23:00* Test Item Value Reference Range Interpretation Comments Basophils (%) (Auto) (test code = 706-2) 0.5 0.0-1.0 [facility] LakewayIM GRANULOCYTES %2018-11-22 03:23:00* Test Item Value Reference Range Interpretation Comments IM GRANULOCYTES % (test code = IM GRANULOCYTES %) 0.3 0.0- 1.0 [facility] LakewayNeutrophils # (Auto)2018-11-22 03:23:00* Test Item Value Reference Range Interpretation Comments Neutrophils # (Auto) (test code = 751-8) 4.1 2.1-6.9 [facility] LakewayLymphocytes # (Auto)2018-11-22 03:23:00* Test Item Value Reference Range Interpretation Comments Lymphocytes # (Auto) (test code = 81589-0) 0.9 1.0-3.2 [facility] LakewayMonocytes # (Auto)2018-11-22 03:23:00* Test Item Value Reference Range Interpretation Comments Monocytes # (Auto) (test code = 742-7) 0.8 0.2-0.8 [facility]wayEosinophils # (Auto)2018-11-22 03:23:00* Test Item Value Reference Range Interpretation Comments Eosinophils # (Auto) (test code = 711-2) 0.2 0.0-0.4 [facility] LakewayBasophils # (Auto)2018-11-22 03:23:00* Test Item Value Reference Range Interpretation Comments Basophils # (Auto) (test code = 704-7) 0.0 0.0-0.1 [facility] LakewayAbsolute Immature Granulocyte (auto 2018-11-22 03:23:00* Test Item Value Reference Range Interpretation Comments Absolute Immature Granulocyte (auto (chriss t code = Absolute Immature Granulocyte (auto) 0.02 0-0.1 [facility] Renaissanceodium Qlnzo7616-89-04 03:22:00* Test Item Value Reference Range Interpretation Comments Sodium Level (test code = 2951-2) 141 136-145 [facility] LakewayPotassium Husyr2235-27-61 03:22:00* Test Item Value Reference Range Interpretation Comments Potassium Level (test code = 2823-3) 3.2 3.5-5.1 [facility] LakewayChloride Xngxi0965-34-02 03:22:00* Test Item Value Reference Range Interpretation Comments Chloride Level (test code = 2075-0) 105 98-107 [facility] LakewayCarbon Dioxide Hfuoq3653-23-05 03:22:00* Test Item Value Reference Range Interpretation Comments Carbon Dioxide Level (test code = 2028-9) 24 22-29 [facility] LakewayAnion Pxo3837-98-91 03:22:00* Test Item Value Reference Range Interpretation Comments Anion Gap (test code = 46554-6) 15.2 8-16 [facility] LakewayBlood Urea Xjfvmygc3844-13-15 03:22:00* Test Item Value Reference Range Interpretation Comments Blood Urea Nitrogen (test code = 3094-0) < 5 7-26 [facility] LakewayCreatinine2019-09-08 03:22:00* Test Item Value Reference Range Interpretation Comments Creatinine (test code = 2160-0) 0.68 0.72-1.25 [facility] LakewayBUN/Creatinine Eqtnr3644-36-67 03:22:00* Test Item Value Reference Range Interpretation Comments BUN/Creatinine Ratio (test code = 3097-3) 7 6-25 [facility] LakewayEstimat Glomerular Filtration Rate 2018-11-22 03:22:00* Test Item Value Reference Range Interpretation Comments Estimat Glomerular Filtration Rate (test code = 658726007) > 60 >60 Ranges were taken from the National Kidney Disease Education Program and the [facility] Kidney Foundation literature.Reference ranges:60 or greater: Afnoem64-78 ( for 3 consecutive months): Chronic kidney disease 15 or less: Kidney failureBaylor Scott & White Medical Center – LakewayGlucose Cdfru4805-25-55 03:22:00* Test Item Value Reference Range Interpretation Comments Glucose Level (test code = UIN7973) 110 74-118 [facility] LakewayCalcium Mlrwb8477-85-67 03:22:00* Test Item Value Reference Range Interpretation Comments Calcium Level (test code = 80786-6) 8.6 8.4-10.2 [facility] LakewayCT ABDOMEN/PELVIS Q6046-69-53 13:28:00 [facility] [address] [place] [address] Patient Name: KASSI MCNULTY MR #: [id number] : 1955 Age/Sex: 63/M Req #: [id number] Adm Physician: DIMA WELCH MD Ordered by: TELMA HERNANDEZ MD Report #: [id number] Location: MED/SURG Room/Bed: [facility] Procedure: CT/ CT ABDOMEN/PELVIS W Exam Date: 11/21/18 [...] 1:35 PM Dictated By: JACK ALEXANDER MD 0919 Transcribe d By: CAROL on 11/21/18 3358 COPY TO: TELMA HERNANDEZ MD B-Type Natriuretic Jsukbsr1548-28-57 03:46:00* Test Item Value Reference Range Interpretation Comments B-Type Natriuretic Peptide (test code = 96785-7) 53.5 0-100 [facility] LakewayHemoglobin A1c Xyoznrj5302-03-29 03:25:00 * Test Item Value Reference Range Interpretation Comments Hemoglobin A1c Percent (test code = Hemoglobin A1c Percent) 6.4 4.0-7.0 [facility] LakewayMagnesium Qqezh6516-08-16 03:25:00* Test Item Value Reference Range Interpretation Comments Magnesium Level (test code = 95581-1) 1.4 1.3-2.1 [facility] LakewayThyroid Stimulating Hormone (TSH) 2018-11-21 03:25:00* Test Item Value Reference Range Interpretation Comments Thyroid Stimulating Hormone (TSH) (test code = 40773-3) 0.656 0.350-4.940 [facility] LakewayCreatine Kinase DH4779-72-25 06:42:00* Test Item Value Reference Range Interpretation Comments Creatine Kinase MB (test code = 42135-5) 2.20 0-5.0 [facility]wayTroponin R1252-69-15 06:42:00* Test Item Value Reference Range Interpretation Comments Troponin I (test code = POO8105) 0.016 0-0.300 [facility] LakewayTotal Dhufepgkw5250-88-16 06:41:00* Test Item Value Reference Range Interpretation Comments Total Bilirubin (test code = 1975-2) 0.8 0.2-1.2 [facility] LakewayAspartate Amino Transf (AST/SGOT) 2018-11-20 06:41:00* Test Item Value Reference Range Interpretation Comments Aspartate Amino Transf (AST/SGOT) (test code = Aspartate Amino Transf (AST/SGOT)) 25 5-34 [facility] LakewayAlanine Aminotransferase (ALT/SGPT) 2018-11-20 06:41:00* Test Item Value Reference Range Interpretation Comments Alanine Aminotransferase (ALT/SGPT) (test code = 1742-6) 26 0-55 [facility]wayTotal Fmyuqzx6276-61-14 06:41:00* Test Item Value Reference Range Interpretation Comments Total Protein (test code = 2885-2) 5.9 6.5-8.1 [facility] LakewayAlbumin2019-09-06 06:41:00* Test Item Value Reference Range Interpretation Comments Albumin (test code = 1751-7) 3.5 3.5-5.0 [facility] LakewayGlobulin2019-09-06 06:41:00* Test Item Value Reference Range Interpretation Comments Globulin (test code = 76317-3) 2.4 2.3-3.5 [facility] LakewayAlbumin/Globulin Slbwi6555-55-69 06:41:00 * Test Item Value Reference Range Interpretation Comments Albumin/Globulin Ratio (test code = 1759-0) 1.5 0.8-2.0 [facility] LakewayAlkaline Ofnydbqnbuo3502-63-88 06:41:00* Test Item Value Reference Range Interpretation Comments Alkaline Phosphatase (test code = 6768-6) 76 40-150 [facility] LakewayTriglycerides Rlimq9983-02-41 06:41:00* Test Item Value Reference Range Interpretation Comments Triglycerides Level (test code = 2571-8) 89 0-149 [facility] LakewayCholesterol Zymlx7481-86-37 06:41:00* Test Item Value Reference Range Interpretation Comments Cholesterol Level (test code = 2093-3) 91 0-199 Less than 200 mg/dL Low Tqod373 - 239 mg/dL Borderline Owag976 m g/dl and greater High Risk [facility] LakewayLDL Yybjjjgqpkw2215-92-67 06:41:00* Test Item Value Reference Range Interpretation Comments LDL Cholesterol (test code = 2089-1) 46 60-130 [facility] LakewayHDL Etssnreekip2906-13-15 06:41:00* Test Item Value Reference Range Interpretation Comments HDL Cholesterol (test code = 2085-9) 27 40-60 [facility] LakewayCholesterol/HDL Pdose6296-15-53 06:41:00 * Test Item Value Reference Range Interpretation Comments Cholesterol/HDL Ratio (test code = 9830-1) 3.4 3.9-4.7 [facility] LakewayCreatine Qthybt0448-98-30 06:39:00* Test Item Value Reference Range Interpretation Comments Creatine Kinase (test code = 2157-6) 80 30-200 [facility] LakewayCT ABDOMEN/PELVIS [id number] 15:53:00 [facility] [address] [address] Patient Name: KASSI MCNULTY MR #: [id number] : 1955 Age/Sex: 63/M Req #: [id number] Adm Physician: DIMA WELCH MD Ordered by: SUELLEN TRAORE MD Report #: [id number] Location: [facility] Room/Bed: [address] [address] Procedure: [id number] CT/C T ABDOMEN/PELVIS W Exam Date: 11/19/18 Exam Time: 14 42 REPORT STATUS: Signed EXAM: C T Abdomen and Pelvis WITH intravenous contrast INDICATION: Abdominal dist ention COMPARISON: Abdominal radiograph of 10/31/2018, abdomen and pelvis CT of 10/29/2018 TECHNIQUE: Abdomen and pelvis were scanned utilizing a [facility] [employer]tector helical scanner from the lung base to [...] 1638 COPY TO: PAULINA TRAORE MD Urine AUD8377-64-15 14:16:00* Test Item Value Reference Range Interpretation Comments Urine WBC (test code = 5821-4) NONE 0-5 [facility] LakewayUrine NJP3714-57-34 14:16:00* Test Item Value Reference Range Interpretation Comments Urine RBC (test code = 69670-2) NONE 0-5 [facility] LakewayUrine Bbxtdvfa4187-79-16 14:16:00* Test Item Value Reference Range Interpretation Comments Urine Bacteria (test code = 30319-5) FEW NONE [facility] LakewayUrine Epithelial Kdkwb4309-71-35 14:16:00 * Test Item Value Reference Range Interpretation Comments Urine Epithelial Cells (test code = 13413-0) FEW NONE [facility] LakewayUrine Transitional Epithelial Cells 2018-11-19 14:16:00* Test Item Value Reference Range Interpretation Comments Urine Transitional Epithelial Cells (test code = 8249-5) RARE NONE [facility] LakewayLipase2019-09-05 14:15:00* Test Item Value Reference Range Interpretation Comments Lipase (test code = 3040-3) 71 8-78 [facility] LakewayProthrombin Iiqt7842-81-18 14:00:00* Test Item Value Reference Range Interpretation Comments Prothrombin Time (test code = 5902-2) 13.5 11.9-14.5 [facility] LakewayProthromb Time International Ratio 2018-11-19 14:00:00* Test Item Value Reference Range Interpretation Comments Prothromb Time International Ratio (test code = 6301-6) 0.98 Oral Anticoagulant Therapy INR Values:1. Low Intensity Therapy 1.5 - 2.02 . Moderate Intensity Therapy 2.0 - 3.03. High Intensity Therapy(1) 2.5 - 3. 54. High Intensity Therapy(2) 3.0 - 4.05. Panic Value INR > 5.0 [facility] LakewayActivated Partial Thromboplast Time 2018-11-19 14:00:00* Test Item Value Reference Range Interpretation Comments Activated Partial Thromboplast Time (test code = 38411-4) 30.8 23.8-35.5 [facility] LakewayUrine Myosu5271-53-35 13:59:00* Test Item Value Reference Range Interpretation Comments Urine Color (test code = 5778-6) BROWN YELLOW [facility] LakewayUrine Mdxxwfz7517-55-91 13:59:00* Test Item Value Reference Range Interpretation Comments Urine Clarity (test code = 50634-3) SL CLOUDY CLEAR [facility] LakewayUrine Specific Ouxtkfq6302-40-86 13:59:00 * Test Item Value Reference Range Interpretation Comments Urine Specific Alva (test code = 5811-5) >=1.030 1.010-1.02 5 [facility] LakewayUrine oI1463-52-75 13:59:00* Test Item Value Reference Range Interpretation Comments Urine pH (test code = 65883-0) 5.5 5-7 [facility] LakewayUrine Leukocyte Xaaksavj4040-48-00 13:59:00* Test Item Value Reference Range Interpretation Comments Urine Leukocyte Esterase (test code = 30672-7) NEGATIVE NEGATIV E [facility] LakewayUrine Hiwqryg8645-82-58 13:59:00* Test Item Value Reference Range Interpretation Comments Urine Nitrite (test code = 43941-9) POSITIVE NEGATIVE [facility] LakewayUrine Gsvtknt7574-76-00 13:59:00* Test Item Value Reference Range Interpretation Comments Urine Protein (test code = 56368-2) 1+ NEGATIVE [facility] LakewayUrine Glucose (UA)2018-11-19 13:59:00* Test Item Value Reference Range Interpretation Comments Urine Glucose (UA) (test code = 58748-1) NEGATIVE NEGATIVE [facility] LakewayUrine Yjdlqas9864-91-89 13:59:00* Test Item Value Reference Range Interpretation Comments Urine Ketones (test code = 08976-6) TRACE NEGATIVE [facility] LakewayUrine Fpuakoefctir4101-89-73 13:59:00* Test Item Value Reference Range Interpretation Comments Urine Urobilinogen (test code = 70918-4) 0.2 0.2-1 [facility] LakewayUrine Gsyywsmvd7449-17-31 13:59:00* Test Item Value Reference Range Interpretation Comments Urine Bilirubin (test code = 1977-8) MODERATE NEGATIVE [facility] LakewayUrine Zumps1687-03-66 13:59:00* Test Item Value Reference Range Interpretation Comments Urine Blood (test code = 03167-9) NEGATIVE NEGATIVE [facility] LakewayCHEST SINGLE (PORTABLE)2018-11-19 13:27:00 [facility] [address] [place] [address] Patient Name: KASSI MCNULTY MR #: [id number] : 1955 Age/Sex: 63/M Req #: [id number] Adm Physician: Ordered by: SUELLEN TRAORE MD Report #: [id number] Location: ER Room/Bed: Procedure: DX/CH EST SINGLE (PORTABLE) Exam Date: 11/19/18 [...] TO: SUELLEN TRAORE MD ABDOMEN-1VIEW (KUB)2018-11-05 14:29:00 [address] [place] [address] Patient Name: KASSI MCNULTY MR #: [id number] : 1955 Age/Sex: 63/M Req #: [id number] Adm Physician: Ordered by: DEBBY SALVADOR MD Report #: [id number] Location: ER Room/Bed: Procedure: [id number] DX/ ABDOMEN-1VIEW (KUB) Exam Date: 11/05/18 Exam [...] 1434 COPY TO: DEBBY SALVADOR MD Urine Zgiuv2497-12-30 12:34:00* Test Item Value Reference Range Interpretation Comments Urine Mucus (test code = 8247-9) [facility]2018-10-31 07:19:00 [address] [place] [address] Patient Name: KASSI MCNULTY MR #: [id number] : 1955 Age/Sex: 63/M Req #: [id number] Adm Physician: DIMA WELCH MD Ordered by: Holli Morel SOIL TECHNOLOGIST Report #: [id number] Location: MED/SURG Room/Bed: 109 Procedure: [id number] DX/ ABDOMEN-1VIEW (KUB) Exam Date: Exam Time: [...] TO: HOLLI MOREL NP ABDOMEN ACUTE SERIES W/PA YPO6801-64-45 15:28:00 [address] [address] Patient Name: KASSI MCNULTY MR #: [id number] : 1955 Age/Sex: 63/M Req #: [id number] Adm Physician: DIMA WELCH MD Ordered by: AL WELLS MD Report #: [id number] Location: MED/SURG Room/Bed: [facility] Procedure: [id number] DX/ABDOMEN ACUTE SERIES W/PA CXR Exam Date: [...] TO: AL WELLS MD ABDOMEN-1VIEW (KUB)2018-10-30 06:34:00 [place] [address] Patient Name: KASSI MCNULTY MR #: [id number] : 1955 Age/Sex: 63/M Req #: [id number] Adm Physician: DIMA WELCH MD Ordered by: Holli Morel SOIL TECHNOLOGIST Report #: [id number] Location: MED/SURG Room/Bed: [facility] Procedure: [id number] DX/ ABDOMEN-1VIEW (KUB) Exam Date: 10/30/18 Exam [...] Jayson MOREL NP ABDOMEN ACUTE SERIES W/PA VZC1267-70-16 14:48:00 [address] [address] Patient Name: KASSI MCNULTY MR #: [id number] : 1955 Age/Sex: 63/M Req #: [id number] Adm Physician: DIMA WELCH MD Ordered by: AL WELLS MD Report #: [id number] Location: MED/SURG Room/Bed: [facility] Procedure: [id number] DX/ABDOMEN ACUTE SERIES W/PA CXR Exam Date: [...] 2:51 PM Dictated By: BRIAN DARBY MD 1452 Transcribed By: CAROL on 10/29/18 1451 COPY TO: AL WELLS MD CT ABDOMEN/PELVIS U0278-23-08 06:13:00 [address] [address] Patient Name: KASSI MCNULTY MR #: [id number] : 1955 Age/Sex: 63/M Req #: [id number] Adm Physician: Ordered by: VON ACHARYA MD Report #: [id number] Location: ER Room/Bed: Procedure: [id number]/CT [...] 6:31 AM Dictated By: LLOYD NGO DO T ranscribed By: CAROL on 10/29/1831 COPY TO: VON ACHARYA MD Urine Amorphous Vyxunior9354-17-73 06:04:00* Test Item Value Reference Range Interpretation Comments Urine Amorphous Sediment (test code = 8246-1) FEW FEW [facility] LakewayUrine Hyaline Czgml0587-05-42 06:04:00* Test Item Value Reference Range Interpretation Comments Urine Hyaline Casts (test code = 83371-4) 6-10 0-1 [facility] LakewayUrine Fine Granular Yfjmq7949-36-72 06:04:00* Test Item Value Reference Range Interpretation Comments Urine Fine Granular Casts (test code = 06056-0) 1-5 >0 [facility] LakewayAmylase Fxtcs9394-50-84 05:18:00* Test Item Value Reference Range Interpretation Comments Amylase Level (test code = 1798-8) 51 25-125 [facility] LakewayLactic Acid Mqowh4101-56-28 05:06:00* Test Item Value Reference Range Interpretation Comments Lactic Acid Level (test code = Lactic Acid Level) 14.5 4.5- 19.8 [facility] - Treadmill CGYR1489-92-60 13:40:00 [facility] [address] [address] Patient Name : KASSI MCNULTY MR #: [id number] : 1955 Age/Sex: 62/M Adm Physician : DIMA WELCH MD Admit Date : 10/30/17 Location : MED/SURG Room/Bed : [facility] REPORT: Cardiolog y Report REFERRING PHYSICIAN: DIMA [...] wall motion abnormalities. DT: 2017 13:55 Job#: [id number] EV cc: DIMA WELCH MD Signature Date Dictated By: NATANAEL MCCALLUM MD Transcribed By: EDS on 10/31/17 <Electronically signed by NATANAEL MCCALLUM MD><<Signature on File>>01/28/18 1308 COPY TO: CHEST SINGLE (PORTABLE)2017-10-30 11:21:00 [place] [address] Patient Name: KASSI CMNULTY MR #: [id number] : 1955 Age/Sex: 62/M Req #: [id number] Adm Physician: Ordered by: DEBBY SALVADOR MD Report #: [id number] Location: ER Room/Bed: Procedure: [id number] DX/CHEST SINGLE (PORTABLE) Exam Date: 10/30/17 Exam [...] COPY TO: DEBBY SALVADOR MD CTA NECK [place] [address] [address] Patient Name: KASSI MCNULTY MR #: [id number] : 1955 Age/Sex: 62/M Req #: [id number] Adm Physician: Ordered by: PRAVEEN REED MD Report #: [id number] Location: CT Room/Bed: Procedure: [id number] CT/CTA NECK Exam Date: 08/20/17 Exam Time: 824 REPORT STATUS: Signed Exam: Ne ck CTA [...]
--- OUTSIDE RECORDS SUMMARY | 2019-07-30 02:31 | XMS REPORT | Clinical Summary ---
Author Author [facility] Organization [facility] Address Unknown Phone Unavailable Care Team Providers Care Donkey Ride Operator Name Role Phone Geovanni Arreaga MD PCP [...] Address Plan / Dates Group PPO [facility] xxxxxxxx 2012-P [id number] resent PPO- UMR Advance Directives For more information, please contact: [phone] Patient Cps Team Lead Explanation Type Date Recorded Advance Directives, Living Will and Medical Power of Senior Managing Director
[2019-07-30] MEDS ORDERED: MORPHINE SULFATE 2 MG/ML SYR 1ML IV STA (02:36)
--- NOTE | 2019-07-30 03:11 | NUR ---
PT HAD A 5 BEAT RUN OF VTACH AT THIS TIME. RHYTHM NOTED ON [employer]. ER MD NOTIFIED AND AWARE. NO NEW ORDERS AT THIS TIME.
--- NOTE | 2019-07-30 06:59 | NUR ---
PT'S O2 SAT DROPPED TO 90% RA WHILE SLEEPING. PT PLACED ON 2LPM NC AT THIS TIME. NAD NOTED AT THIS TIME. PT IS TOLERATING WELL. WILL CONTINUE TO MONITOR.
--- NOTE | 2019-07-30 07:08 | NUR ---
REPORT GIVEN TO Dioni CARDENAS RN AT THIS TIME.
[2019-07-30] MEDS: NITROGLYCERIN 2% OINT 1 GM PKT TOP SCH ×3 (08:20→23:30)
[2019-07-30] MEDS ORDERED: ASPIRIN 81 MG ENTERIC COATED PO SCH (09:00)
[2019-07-30] MEDS ORDERED: NON-FORMULARY MEDICATION (Naproxen Sodium (Aleve) 220 MG) PO PRN (09:30)
[2019-07-30] MEDS ORDERED: TRAMADOL HCL 50 MG TAB PO PRN (09:30)
[2019-07-30] MEDS ORDERED: NAPROXEN 250 MG TAB PO PRN (09:30)
--- NOTE | 2019-07-30 09:35 | NUR ---
per dr. Koehler patient to receive metoprolol this am and again this pm.
[2019-07-30] MEDS: AMLODIPINE BESYLATE 5 MG TAB PO SCH ×2 (09:51→16:36)
[2019-07-30 09:52] LABS: CREATINE KINASE MB 3.3 ng/mL (0-5.0)
[2019-07-30] MEDS: METOPROLOL SUCCINATE 50 MG TAB XL PO SCH ×2 (09:52→16:37)
[2019-07-30] MEDS: INSULIN REGULAR, HUMAN 100 UNIT/1 ML 3ML VIAL SQ SCH ×4 (10:41→20:47)
[2019-07-30] MEDS: SODIUM CHLORIDE 0.9% 1000ML 1,000 ML IV SCH ×2 (11:36→17:03)
--- NOTE | 2019-07-30 12:03 | Consultation ---
DATE OF CONSULTATION: 07/30/2019 Cardiology Consultation REASON FOR CONSULTATION: Chest pain concerning for angina pectoris. HISTORY OF PRESENT ILLNESS: A 64-year-old pleasant gentleman, well known to me with history of type 2 diabetes, hypertension, dyslipidemia, morbid obesity, coronary artery disease with prior coronary stents, who presents with crescendo chest discomfort, last episode occurring yesterday, radiating to both upper extremities, pressure-like, increasing in intensity, frequency and duration. This is despite of adjustments of antihypertensive and antianginal therapy as outpatient. His initial set of enzymes is negative. His EKG shows normal sinus rhythm, nonspecific repolarization abnormalities. Symptoms are mildly improved, but still persistent. REVIEW OF SYSTEMS: A 12-systems review negative except for as noted above. PAST MEDICAL HISTORY: As per HPI. ALLERGIES: TO TRAMADOL, CODEINE. FAMILY HISTORY: Remarkable for hypertension. SOCIAL HISTORY: No current smoking, alcohol, or drugs. PHYSICAL EXAMINATION: VITAL SIGNS: Afebrile, blood pressure 154/88, respiratory rate 20, O2 saturation 99%. BMI 35. GENERAL: In no acute distress. Alert. NECK: No JVD. No carotid bruits. CHEST: Clear to auscultation. CARDIOVASCULAR: Regular rate and rhythm. Normal S1, S2. No S3, no S4. No murmurs. No rubs. ABDOMEN: Soft, nontender, and nondistended. Bowel sounds positive. EXTREMITIES: Trace edema, warm distal extremities. CARDIOVASCULAR MEDICATIONS: Reviewed. Resuming home cardiac medications aspirin 81 mg daily. Nitroglycerin p.r.n., it was given in the ER. LABORATORY DATA: Studies reviewed. Sodium 135, potassium 3.6, chloride 97, bicarbonate 27, BUN 15, creatinine 0.84, glucose 152. White blood cells 13.7, hemoglobin 15.4, and platelets 206. INR 0.9. AST 17, ALT 26, alkaline phosphatase 81. EKG as described above. ASSESSMENT AND PLAN: A 64-year-old man presents with: 1. Unstable angina. 2. History of coronary artery disease and prior stents. 3. Hypertension. 4. Diabetes. 5. Dyslipidemia. RECOMMENDATIONS: 1. Initiate IV fluids. Resume beta-leland, statin therapy, aspirin. 2. Plan for coronary angiography and possible coronary intervention later this afternoon. 3. Discussed at length with patient indications, alternatives, risks and benefits. The patient voices understanding and agrees to proceed. We will schedule. MD HEATH Arenas/DOROTHY /[id number]
[2019-07-30 12:14] VITALS: BP 135/68
--- NOTE | 2019-07-30 12:14 | NUR ---
RCD PT FRO ER BY BED PT IS ALERT AND ORIENTED VITALS CHECKED PT RESTING ON BED ADMISSION ASSESSMENT AND HISTORY DONE ,IV PATENT BY SALINE FLUSH ,PT RESTING ON BED ,INSTRUCTED THE PT AND FAMILY REGARDING HOSPITAL POLICY AND ROUTINE INCLUDING VISITOR POLICY BED LOW AND LOCKED CALL LIGHT IN REACH
--- NOTE | 2019-07-30 12:36 | NUR ---
PT ATE THE LUNCH FROM ER PAGED AND NOTIFIED DR DIXON HE SAID KEEP NPO PROCEDURE MAY BE LATER TODAY
[2019-07-30 14:13] VITALS: BP 135/68
[2019-07-30 14:21] VITALS: BP 135/68
--- NOTE | 2019-07-30 15:30 | NUR ---
GOT THE TELEPHONE ORDER FROM DR SIBLEY HE IS NOT DOING THE PROCEDURE TODAY BECAUSE THE BAD CLEVE AND POWER LOSS ,NOTIFIED [facility] PT HE IS OK WITH THAT GOT THE ORDER TO KEEP THE PT NPO AFTER MIDNIGHT
--- NOTE | 2019-07-30 15:30 | NUR ---
PT C/O PAIN ON BOTH ARMS PAGED AND NOTIFIED DR SIBLEY HE ASKED THE CARDIAC ENZYMES ,ITS NORMAL
[2019-07-30 15:45] VITALS: BP 169/77
[2019-07-30 17:40] LABS: CREATINE KINASE MB 3.8 ng/mL (0-5.0)
--- NOTE | 2019-07-30 17:48 | NUR ---
AC TO CASE SPECIALIST PAGED AND TALKED DR SIBLEY REGARDING PROCEDURE HE SAID HE IS DOING PROCEDURE ON TOMORROW MORNING AND HE WILL DISCUSS WIT CASE SPECIALIST
--- NOTE | 2019-07-30 17:50 | NUR ---
NOTIFIED THE COMMERCIAL LENDING VICE PRESIDENT Florina SIBLEY WILL DISCUSS WITH [employer] VAT WORKER REGARDING THE PROCEDURE
--- NOTE | 2019-07-30 18:52 | NUR ---
PT RESTING ON BED BED SIDE REPORT GIVEN TO ONCOMING NURSE
[2019-07-30 20:00] VITALS: BP 149/72
[2019-07-30 20:53] VITALS: BP 149/72
[2019-07-30] MEDS ORDERED: DULOXETINE HCL 30 MG DELAYED RELEASE PO SCH (21:00)
[2019-07-30] MEDS ORDERED: TAMSULOSIN HCL 0.4 MG CAP PO SCH (21:00)
[2019-07-30] MEDS ORDERED: MONTELUKAST SODIUM 10 MG TAB PO SCH (21:00)
[2019-07-31] VITALS (16 sets, daily range): BP systolic 111–162; BP diastolic 63–87
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
[2019-07-31] MEDS: SODIUM CHLORIDE 0.9% 1000ML 1,000 ML IV SCH ×2 (04:29→09:00)
[2019-07-31 05:45] LABS: BASOPHILS # (AUTO) 0.1 (0.0-0.1); BASOPHILS % 0.5 % (0.0-1.0); EOSINOPHILS # (AUTO) 0.3 (0.0-0.4); EOSINOPHILS % 2.5 % (0.0-6.0); HEMOGLOBIN 15.1 g/dL (14.0-18.0); LYMPHOCYTES # (AUTO) 0.7 (1.0-3.2); LYMPHOCYTES % 7.2 % (18.0-39.1); MEAN CORPUSCULAR HEMOGLOBIN 28.2 pg (28-32); MEAN CORPUSCULAR HGB CONC 32.1 g/dL (31-35); MEAN CORPUSCULAR VOLUME 87.7 fL (81-99); NEUTROPHILS % 79.4 % (38.7-80.0); PLATELET COUNT 196 x10e3/uL (140-360); RED BLOOD COUNT 5.36 x10e6/uL (4.3-5.7); RED CELL DISTRIBUTION WIDTH 14.2 % (11.7-14.4)
[2019-07-31] MEDS: NITROGLYCERIN 2% OINT 1 GM PKT TOP SCH ×2 (06:00→12:00)
[2019-07-31 06:14] LABS: ANION GAP 12.5 mmol/L (8-16); BLOOD UREA NITROGEN 9 mg/dL (7-26); BUN/CREATININE RATIO 12 (6-25); CALCIUM 8.7 mg/dL (8.4-10.2); CARBON DIOXIDE 28 mmol/L (22-29); CHLORIDE 101 mmol/L (98-107); CREATININE, SERUM 0.77 mg/dL (0.72-1.25); EST GLOMERULAR FILTRATION RATE > 60 ML/MIN (60-); GLUCOSE 127 mg/dL (74-118); MAGNESIUM 1.4 MG/DL (1.3-2.1); PHOSPHORUS 2.5 MG/DL (2.3-4.7); POTASSIUM 3.5 mmol/L (3.5-5.1); SODIUM 138 mmol/L (136-145)
[2019-07-31 06:33] LABS: CHOL/HDL RATIO 2.6 (3.9-4.7)
--- NOTE | 2019-07-31 07:05 | NUR ---
RCD PT AT BED PT IS ALERT AND ORIENTED PT RESTING ON BED IV PATENT PT NPO FOR PROCEDURE BED LOW AND LOCKED CALL LIGHT IN REACH
[2019-07-31] MEDS: INSULIN REGULAR, HUMAN 100 UNIT/1 ML 3ML VIAL SQ SCH ×2 (07:30→13:12)
[2019-07-31] MEDS ORDERED: IOPAMIDOL 370 MG/ML 200 ML INFUS..BTL INJ ONE (08:51)
[2019-07-31] MEDS ORDERED: HEPARIN SOD (PORCINE) 1000 UNIT/ML 30ML ONE (08:51)
[2019-07-31] MEDS ORDERED: VERAPAMIL HCL 2.5 MG/ML 2 ML VIAL ONE (08:51)
[2019-07-31] MEDS ORDERED: FENTANYL CITRATE/PF 100MCG/2 ML INJ ONE (08:51)
[2019-07-31] MEDS ORDERED: MIDAZOLAM HCL 2 MG/2 ML VIAL ONE (08:51)
[2019-07-31] MEDS ORDERED: LIDOCAINE HCL 2% LOCAL 20 ML VIAL ONE (08:51)
[2019-07-31] MEDS ORDERED: HEPARIN SOD/SOD CHLORIDE 2,000 ML ONE (08:51)
[2019-07-31] MEDS ORDERED: NITROGLYCERIN/D5W 200 MCG/ML 250 ML ONE (08:52)
[2019-07-31] MEDS ORDERED: SODIUM CHLORIDE 0.9% 1000ML 1,000 ML ONE (08:52)
[2019-07-31] MEDS: FAMOTIDINE 20 MG/2 ML VIAL IV SCH (09:00)
[2019-07-31] MEDS ORDERED: CLOPIDOGREL BISULFATE 75 MG TAB PO SCH (09:00)
[2019-07-31] MEDS ORDERED: ATORVASTATIN 40 MG TAB PO SCH ×2 (09:00→21:00)
[2019-07-31] MEDS ORDERED: ASPIRIN 81 MG CHEW TAB PO SCH (09:00)
--- NOTE | 2019-07-31 09:07 | NUR ---
PT WENT TO PROCEDURE IN SAFE CONDITION
[2019-07-31] MEDS ORDERED: ASPIRIN 325 MG TAB ONE (10:20)
[2019-07-31] MEDS ORDERED: CLOPIDOGREL BISULFATE 75 MG TAB ONE (10:20)
[2019-07-31] MEDS ORDERED: SODIUM CHLORIDE 0.9% 1000ML 1,000 ML IV SCH (10:45)
--- NOTE | 2019-07-31 12:12 | Progress Note ---
DATE: 07/30/2019 Cardiology Progress Note SUBJECTIVE: Denies any chest pain or shortness of breath this a.m. Had stuttering chest pain yesterday. OBJECTIVE: VITAL SIGNS: Temperature 98.2, heart rate 85, respiratory rate 16, blood pressure 150/87 to 126/64, O2 saturation 95% on room air. GENERAL: No acute distress. Alert. NECK: No JVD. CHEST: Clear to auscultation. CARDIOVASCULAR: Regular rate and rhythm. Normal S1, S2. No S3, no S4. No murmurs, no rubs. ABDOMEN: Soft. Bowel sounds positive. EXTREMITIES: Trace edema. TELEMETRY: Reveals normal sinus rhythm with occasional PVCs and PACs. STUDIES: Reviewed. Sodium 138, potassium 3.5, chloride 101, bicarbonate 28, BUN 9, creatinine 0.7, glucose 127, calcium 8.7, magnesium 1.4, phosphorus 2.5. Serial troponin negative x3. Triglycerides 51, total cholesterol 89, LDL 45, HDL 34. ASSESSMENT AND PLAN: A 64-year-old man presents with an unstable angina in the setting of multivessel coronary artery disease, now status post OM drug-eluting stent PCI this a.m. 1. Diabetes mellitus type 2. 2. Hyperlipidemia. 3. Hypertension. 4. Morbid obesity. PLAN: 1. Aspirin 81 mg daily. 2. Clopidogrel 75 mg daily for at least one year following drug-eluting stent PCI. 3. Continue diabetes optimization. Consider SGLT2 inhibitor as outpatient for improvement in cardiovascular risk. 4. High potency statin, given progressive coronary artery disease. Atorvastatin 80 mg at bedtime. 5. Up titrate metoprolol to 50 mg b.i.d. and continue amlodipine 5 mg b.i.d. 6. Outpatient followup advised in 2-4 weeks post discharge. 7. I thank, Dr. Castillo for the opportunity to participate in the care of Mr. Araiza. Shine Pollock MD AFSamantha/MODL /[id number]
--- NOTE | 2019-07-31 12:55 | NUR ---
PT BACK AFTER PROCEDURE PT IS ALERT AND ORIENTED VITALS CHECKED PT RESTING ON BED NO SIGNS OF BLEEDING NOTED ON THE RIGHT WRIST ON THE INCISION SITE BED LOW AND LOCKED CALL LIGHT IN REACH
[2019-07-31] MEDS: AMLODIPINE BESYLATE 5 MG TAB PO SCH (13:10)
[2019-07-31] MEDS: METOPROLOL SUCCINATE 50 MG TAB XL PO SCH (13:10)
--- NOTE | 2019-07-31 14:12 | Operative Report ---
DATE OF PROCEDURE: 07/31/2019 SURGEON: Shine Pollock MD PROCEDURE: Cardiac Catheterization PROCEDURE INDICATION: Unstable angina. PROCEDURE PERFORMED: 1. Left heart catheterization. 2. Selective coronary angiography. 3. Drug-eluting stent PCI of obtuse marginal. 4. Moderate sedation. PROCEDURE COMPLICATIONS: None. ESTIMATED BLOOD LOSS: Less than 15 mL. PROCEDURE SUMMARY: After consent was obtained, the patient was prepped and draped in a sterile fashion and the right radial site was locally infiltrated with 2% lidocaine. An access was obtained and a 5-[place]icar[place]uan outer diameter slender sheath was advanced. A TIG catheter was used for engagement of left main and right coronary artery and to cross aortic valve, a pigtail catheter was used. XBLAD 4.0 no side holes 6-[place]icaraguan guide catheter was used for the intervention along with a run-through wire and Resolute zita 2.25 x 8 drug-eluting stent was deployed across the target lesion to 20 atmospheres. FINDINGS: 1. LV pressure is 150/6 with end-diastolic pressure of 24. Aortic pressure was 138/73 with a gradient of 12 mmHg. 2. LV gram reveals preserved left ventricular systolic function, left ventricular ejection fraction is 65-70%. 3. Left main is large in caliber with luminal irregularities, gives an LAD, ramus intermedius, and circumflex. 4. The LAD has approximately luminal irregularities gives a diagonal that has two branches of small caliber branch of which has two tandem lesions of 70% and is less than 1.5 mm in caliber at this point. The mid LAD has less than 30% stenosis. The distal LAD has a patent stent. 5. The ramus intermedius has luminal irregularities and small to medium in caliber. 6. Circumflex is large in caliber, has an obtuse marginal, which has patent stent distal to the stent, however, there is 90% to 95% area of focal stenosis, this was felt to be the target lesion and was treated with drug-eluting stent PCI as will be described below. The right coronary artery is dominant with patent ostial stent. Distal, the crux level has a 30-40% area of focal stenosis. The RPDA is small in caliber and has a tandem lesions of 60 and 50% stenosis. The RPLV has 3 terminal branches and are small in caliber. 7. Drug-eluting stent PCI of obtuse marginal. XBLAD 4.0 guide catheter was used, a run through wire to cross the area of stenosis. Heparin to maintain an ACT over 250. Aspirin 325 mg and Plavix 600 mg were provided. ARTURO flow preprocedure was 3, postprocedure was 3, preprocedure stenosis 95%, postprocedure stenosis 0%, B type lesion. Postprocedure, no dissections or perforations. Primary stenting was performed with 2.25 x 8 Resolute Zita drug-eluting stents deployed to 20 atmospheres across the target lesion with excellent angiographic results. A TR band was applied at the end of the procedure. CONCLUSION: 1. Drug-eluting stent PCI of obtuse marginal with a 2.5 x 8 drug-eluting stent, deployed to 20 atmospheres to obtuse marginal. Recommend aspirin 81 mg daily, clopidogrel 75 mg daily, high potency statin (atorvastatin 80 mg at bedtime). Continue antianginal therapy with beta-leland and calcium channel leland, IV fluids. MD HEATH Arenas/DOROTHY /[id number]
[2019-07-31] MEDS ORDERED: Atorvastatin PO (14:49)
--- NOTE | 2019-07-31 16:04 | NUR ---
PATIENT WENT HOME IN SAFE CONDITION WITH HIS ,NO SIGNS OF BLEEDING ON THE SURGICAL SITE
--- NOTE | 2019-08-01 02:40 | Discharge Summary ---
ADMISSION DIAGNOSES: 1. Unstable angina with history of coronary artery disease and prior percutaneous coronary intervention. 2. Hypertension. DISCHARGE DIAGNOSES: 1. Unstable angina with history of coronary artery disease and prior percutaneous coronary intervention. 2. Hypertension. HISTORY: Type 2 diabetes, hypertension, hyperlipidemia, CAD with PCI, GERD, BPH, prostate cancer with radiation, nonsustained V-tach, neuropathy, seasonal allergies. SURGICAL HISTORY: Cholecystectomy, cervical fusion, pelvic fracture, brachial cleft cyst removal, tonsillectomy. FAMILY HISTORY: The patient's mother had diabetes and a stroke. SOCIAL HISTORY: Noncontributory. HOSPITAL COURSE: A 64-year-old male, admits with chest pain on occasions, which has worsened over the last 3 days. The pain worsens with exertion and that radiates down both arms. On admission, Cardiology was consulted. The patient's troponins were negative x3. Lipid panel was within normal limits. 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 The patient had a PCI placed on the obtuse marginal. The patient will continue aspirin and Plavix. His Lipitor was increased and he will continue his metoprolol per Cardiology recommendation. The patient understands discharge instructions and agrees to plan. He will follow up with primary care in 1 to 2 weeks and Cardiology next week. Vital signs stable and the patient afebrile. Dictated by Sheri Proctor NP MD KARRIE Phillips/DOROTHY /[id number]
[2019-08-01] MEDS ORDERED: CLOPIDOGREL BISULFATE 75 MG TAB PO SCH (09:00)
== END 2019-07-31 16:02 | disposition home or self-care (01) ==
LOC: ER 00:34 → ERHOLD 01:55 → MED/SURG 12:15
PROVIDERS: ADMIT Internal Medicine; ATTEND Internal Medicine
DX: I25.110 Atherosclerotic heart disease of native coronary artery with unstable angina pectoris (principal); I10 Essential (primary) hypertension; E11.9 Type 2 diabetes mellitus without complications; K21.9 Gastro-esophageal reflux disease without esophagitis; Z95.5 Presence of coronary angioplasty implant and graft; G62.9 Polyneuropathy, unspecified; E78.5 Hyperlipidemia, unspecified; N40.0 Benign prostatic hyperplasia without lower urinary tract symptoms; Z85.46 Personal history of malignant neoplasm of prostate
CPT/HCPCS: 36415 ×2; 71045; 80048; 80053; 80061; 82550; 82553; 82948 ×2; 83735; 84100; 84484; 85025 ×2; 85610; 85730; 92928; 93005; 93458; 96372; 99284; C1769; C1874; C1887; G0378 ×2; J1644; J2001; J2250; J2270; J3010; J7030 ×2; Q9967; 99152; 99153

== ENCOUNTER 2019-08-13 15:57 | Observation (INO) | payer OTHER ==
[~2019-08-13] VITALS: Ht 193 cm; Wt 125.6 kg
[~2019-08-13 15:57] MED LIST changes: +Atorvastatin PO
--- OUTSIDE RECORDS SUMMARY | 2019-08-13 16:01 | XMS REPORT | Clinical Summary ---
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
--- OUTSIDE RECORDS SUMMARY | 2019-08-13 16:01 | XMS REPORT ---
Author Author [facility] Organization [facility] Address [address] [place] [address] Phone Unavailable Care Team Providers Care Cv Tech Name Role Phone Roslyn ARRIAGA M.D. PCP DR AMEYA LEÓN Attphys Unavailable DIMA WELCH Attphys Unavailable ZEBALLOS, Florina BLACKWOOD Attphys Unavailable MODESTO, S DEBBY Attphys Unavailable BRIANNAPRAVEEN Irwin Attphys Unavailable DR AMEYA LEÓN Admphys Unavailable DIMA WELCH Admphys Unavailable Payers Payer Name Policy Type Policy Number Effective Date Expiration Date S mallika Umr Hmo NA 2012 00:00:00 [facility] Problems Condition Name Condition Details Condition Category Status Onset Date Resolution Date Last Treatment Date Treating Clinician Comments Source Uncontrolled type 2 diabetes mellitus with hyperglycem ia Uncontrolled type 2 diabetes mellitus with hyperglycemia Disease Active 2016-08-13 00:00:00 Tyler Druze Chest pain Chest pain Problem Active [facility] Partial small bowel obstruction Partial small bowel obstruction Pro blem Active [facility] Urinary tract infection UTI (urinary tract infection) Problem Active [facility] Vomiting Vomiting Problem Active [facility] Abdominal pain Abdominal pain Problem Active [facility] Chest pain due to coronary artery disease Problem Active [facility] Allergies, Adverse Reactions, Alerts Allergy Name Allergy Type Status Severity Reaction(s) Onset Date Inacti ve Date Treating Clinician Comments Source Codeine Propensity to adverse reactions Active Mild itching 2019-03-07 00:00:00 [facility] Tramadol Propensity to adverse reactions Active Mild ITCH ING 2019-03-07 00:00:00 [facility] No Known Allergies DA Active U 2017-11-20 00:00:00 [facility] tramadol DA Active ME 2017-11-20 00:00:00 [facility] No Known Allergies DA Active U 2017-07-17 00:00:00 [facility] Family History Family Member Diagnosis Comments Start Date Stop Date Source Natural father Emphysema [facility] Natural mother Alzheimer's disease H ernesto Garza Social History Social Habit Start Date Stop Date Quantity Comments Source Sex Assigned At Ryan idallo Druze Alcohol intake 2016-08-13 00:00:00 2016-08-13 00:00:00 Current non-drinker of alcohol (finding) Tyler Garza Smoking Status Start Date Stop Date Source Never smoker Tyler koenig Medications Ordered Medication Name Filled Medication Name Start Date Stop Da te Current Medication? Ordering Clinician Indication Dosage Frequency Signature (SIG) Comments Components Source Atorvastatin Atorvastatin 2019-07-31 14:49:00 Yes 80 Bedtime [facility] Tramadol Hcl (Ultram) 50 Mg TABLET Tramadol Hcl (Ultram) 50 Mg TABLET 2019-03-07 12:59:00 Yes 50 Three Times A Day as needed f or Pain [facility] Naproxen (Naprosyn) 500 Mg TABLET Naproxen (Naprosyn) 500 Mg TABLET 2019-03-07 12:59:00 2019-07-31 00:00:00 No 500 Twice A Day as n eeded for Pain [facility] Chlordiazepoxide/Clidinium Br (Librax Capsule) 1 Each CAPSULE Chlordiazepoxide/Clidinium Br (Librax Capsule) 1 Each CAPSULE 2018-11-22 05:16:00 2018-12-09 00:00:00 No 1 Before Meals And At Bedtime [facility] Nifedipine (Nifedipine Er) 30 Mg TAB.ER.24 Nifedipine (Nifedipine Er) 30 Mg TAB.ER.24 2018-11-22 05:16:00 2018-12-09 00:00:00 No 30 Daily [facility] Ciprofloxacin Hcl (Cipro) 500 Mg TABLET Ciprofloxacin Hcl (C ipro) 500 Mg TABLET 2018-11-05 16:22:00 2018-11-19 00:00:00 No 500 Twice A Day [facility] Metronidazole (Flagyl) 500 Mg TABLET Metronidazole (Flagyl) 500 Mg TABLET 2018-11-05 16:22:00 2018-11-19 00:00:00 No 500 Every 8 Hours [facility] VICTOZA 2-MAGDY 0.6 mg/0.1 mL (18 mg/3 mL) pen injector 2016-11-01 00:00:00 Yes DIAL AND INJECT SUBCUTANEOUSLY 1.2MG ZOIE LY Tyler Garza clopidogrel (PLAVIX) 75 mg tablet 2016-08-13 14:17:08 Yes 75mg QD Take 75 mg by mouth daily. Tyler Garza amlodipine-benazepril (LOTREL) 10-40 mg per capsule 08-13 14:17:08 Yes 1{capsule} QD Take 1 capsule by mouth daily. Tyler Garza metoprolol succinate XL (TOPROL-XL) 100 mg 24 hr tablet 2016-08-13 14:17:08 Yes 100mg QD Take 100 mg by mouth daily. Tyler Garza valsartan-hydrochlorothiazide (DIOVAN-HCT) 160-12.5 mg per t ablet 2016-08-13 14:17:08 Yes 1{tbl} QD Take 1 tablet by mouth daily. Tyler Garza hydrALAZINE (APRESOLINE) 50 MG tablet 2016-08-13 14:17:08 Yes 50mg [id number] Take 50 mg by mouth 3 (three) times a day. Tyler Garza carvedilol (COREG) 12.5 MG tablet 2016-08-13 14:17:08 Yes 12.5mg Q.5D Take 12.5 mg by mouth 2 (two) times a day with meals. Tyler Garza DULoxetine (CYMBALTA) 30 MG capsule 2016-08-13 14:17:08 Yes 30mg QD Take 30 mg by mouth daily. Tyler Garza OMEPRAZOLE/SODIUM BICARBONATE (ZEGERID OTC ORAL) 2016-08-13 14:17:08 Yes Take by mouth. Tyler phan fluticasone (FLONASE) 50 mcg/actuation nasal spray 2016-07 14:17:08 Yes 2{spray} QD 2 sprays by Each Nare route daily. As di rected Tyler Garza ACETAMINOPHEN/DIPHENHYDRAMINE (DIPHENHYDRAMINE-ACETAMINOPHEN ORAL) 2016-08-13 14:17:08 Yes Take by mouth. PRN Tyler Garza pen needle, diabetic (BD ULTRA-FINE SAV PEN NEEDLES) 32 gau ge x 5/32" needle 2016-08-13 00:00:00 Yes Use once daily Tyler Garza Amlodipine Besylate Amlodipine Besylate Yes 5 Twice A Day [facility] Aspirin Aspirin Yes 81 Daily [facility] Clopidogrel Bisulfate (Clopidogrel) 75 Mg TABLET Clopi dogrel Bisulfate (Clopidogrel) 75 Mg TABLET Yes 75 Daily [facility] Duloxetine Hcl (Cymbalta) 30 Mg CAPSULE. Duloxetine Hcl (Cymbalta) 30 Mg CAPSULE. Yes 30 Bedtime [facility] Liraglutide (Victoza 2-Magdy) 0.6 Mg/0.1 Ml PEN.INJCTR L iraglutide (Victoza 2-Magdy) 0.6 Mg/0.1 Ml PEN.INJCTR Yes [facility] Metoprolol Succinate Metoprolol Succinate Yes 50 Twice A Day [facility] Montelukast Sodium (Singulair) 10 Mg TABLET Montelukas t Sodium (Singulair) 10 Mg TABLET Yes 10 Bedtime [facility] Naproxen Sodium (Aleve) 220 Mg TABLET Naproxen Sodium (Aleve) 220 M g TABLET Yes 220 Every 12 Hours as needed for Pain [facility] Tadalafil (Cialis) 10 Mg TABLET Tadalafil (Cialis) 10 Mg TABLET Yes 10 Daily [facility] Tamsulosin Hcl (Flomax*) 0.4 Mg CAP Tamsulosin Hcl (Flomax*) 0.4 Mg C AP Yes .8 Bedtime [facility] Testosterone Testosterone Yes 1.5 .q8asoxn [facility] Zegrid Otc Zegrid Otc Yes 20 Bedtime [facility] Atorvastatin Calcium (Lipitor) 20 Mg TABLET Atorvastat in Calcium (Lipitor) 20 Mg TABLET 2019-07-31 00:00:00 No 40 Daily [facility] Amlodipine Besylate Amlodipine Besylate 2018-11-22 00:00:00 No 5 Twice A Day [facility] Carvedilol Carvedilol 2018-10-29 00:00:00 No 12.5 Twi ce A Day [facility] Cranberry Cranberry 2018-10-29 00:00:00 No [facility] Gink Gink 2018-10-29 00:00:00 No [facility] Hydralazine Hcl Hydralazine Hcl 2018-10-29 00:00:00 No 50 Three Times A Day [facility] Isosorbide Mononitrate (Isosorbide Mononitrate Er) 30 Mg TAB.ER.24H Isosorbide Mononitrate (Isosorbide Mononitrate Er) 30 Mg TAB.ER.24H 201 11-22-14 00:00:00 No 30 Daily [facility] Lomotil Lomotil 2018-10-29 00:00:00 No as needed for Diarrhea [facility] Spironolactone Spironolactone 2018-10-29 00:00:00 No 25 Daily [facility] Valsartan/Hydrochlorothiazide (Diovan Hct 160-12.5 Mg Tab) 1 Each TABLET Valsartan/Hydrochlorothiazide (Diovan Hct 160-12.5 Mg Tab) 1 Each TABLET 2018-10-29 00:00:00 No 1 Daily [facility] Metoprolol Tartrate Metoprolol Tartrate 2017-10-31 00:00:00 No 100 Twice A Day [facility] Vital Signs Vital Name Observation Time Observation Value Comments Source Body Temperature 2019-07-31 13:45:00 98.1 [degF] [facility] BMI (Body Mass Index) 2019-07-30 14:18:00 47.5 kg/m2 [facility] Weight 2019-07-30 12:14:00 277 [lb_av] [facility] Procedures Procedure Date / Time Performed Performing Clinician [facility] e COLONOSCOPY AND BIOPSY 2018-12-12 00:00:00 [facility] COLONOSCOPY W/LESION REMOVAL 2018-12-12 00:00:00 [facility] Computed tomography of abdomen and pelvis with contrast 2018 00:00:00 TELMA HERNANDEZ [facility] Computed tomography of abdomen and pelvis with contrast 2018 00:00:00 SUELLEN TRAORE [facility] Computed tomography of abdomen and pelvis with contrast 2018 00:00:00 VON ACHARYA [facility] Plan of Care Planned Activity Planned Date Details Comments Source Future Scheduled Test 2019-10-16 00:00:00 INFLUENZA VACCINE [code = INFLUENZA VACCINE] [facility] Scheduled Test 2005-06-15 00:00:00 COLONOSCOPY SCREEN ING [code = COLONOSCOPY SCREENING] [facility] Scheduled Test 2005-06-15 00:00:00 SHINGLES VACCINES (#1) [code = SHINGLES VACCINES (#1)] [facility] Scheduled Test 1965-06-15 00:00:00 DIABETIC FOOT EXAM [code = DIABETIC FOOT EXAM] [facility] Scheduled Test 1965-06-15 00:00:00 URINE MICROALBUMIN [code = URINE MICROALBUMIN] [facility] Scheduled Test 1955 00:00:00 DIABETIC RETINAL E YE EXAM [code = DIABETIC RETINAL EYE EXAM] [facility] Instructions Angina [facility] Encounters Start Date/Time End Date/Time Encounter Type Admission Type Att[facility] Care Department Encounter ID Source 2018-09-07 09:00:00 Inpatient Froilan AMEYA LEÓN [facility] [id number] [facility] 2019-07-30 01:55:00 2019-07-31 16:02:00 Discharged Inpatient (obs) 1 DIMA WELCH [facility] [id number] I [facility] 2019-03-07 12:32:00 2019-03-07 14:00:00 Departed Emergency Room 1 JAISON HINOJOSA [facility] [id number] [facility] 2018-12-12 08:40:00 2018-12-12 08:40:00 Registered Surgical Day Care [facility] [id number] [facility] 2018-11-19 14:32:00 2018-11-22 13:28:00 Discharged Inpatient 1 DIMA WELCH [facility] [id number] [facility] 2018-11-05 10:12:00 2018-11-05 16:33:00 Departed Emergency Room 1 DEBBY SALVADOR [facility] [id number] [facility] 2018-10-29 06:48:00 2018-10-31 15:50:00 Discharged Inpatient 1 DIMA WELCH [facility] [id number] [facility] 2017-10-30 11:25:00 2017-10-31 19:50:00 Discharged Inpatient (obs) 1 DIMA WELCH [facility] [id number] [facility] 2017-08-20 07:16:00 2017-08-20 07:16:00 Registered Clinic 3 BRIANNAPRAVEEN [facility] [id number] [facility] Results Test Description Test Time Test Comments Results Result Comments Source Capillary blood glucose measurement by glucometer (mas s/volume) 2019-07-31 13:09:00 Test Item Bedside Glucose (test code = 29869-9) 177 70-120 Meter ID: [id number] [facility] HospitalBlood leukocytes automated count (number/volume)2019-07-31 05:00:00* Test Item Value Reference Range Interpretation Comments White Blood Count (test code = 6690-2) 10.01 4.8-10.8 [facility] erythrocytes automated count (number/volume)2019-07-31 05:00:00* Test Item Value Reference Range Interpretation Comments Red Blood Count (test code = 789-8) 5.36 4.3-5.[address] [facility] hemoglobin measurement (moles/volume)2019-07-31 05:00:00* Test Item Value Reference Range Interpretation Comments Hemoglobin (test code = 35086-6) 15.1 14.0-18.0 [facility] Hospital[facility] blood hematocrit (volume fraction)2019-07-31 05:00:00* Test Item Value Reference Range Interpretation Comments Hematocrit (test code = 4544-3) 47.0 38.2-49.6 [facility] HospitalAutomated erythrocyte mean corpuscular tsinas4460-58-45 05:00:00* Test Item Value Reference Range Interpretation Comments Mean Corpuscular Volume (test code = 787-2) 87.7 81-99 [facility] HospitalAutom[facility] erythrocyte mean corpuscular hemoglobin (mass per erythrocyte)2019-07-31 05:00:00* Test Item Value Reference Range Interpretation Comments Mean Corpuscular Hemoglobin (test code = 785-6) 28.2 28-32 [facility] HospitalAutomated erythrocyte mean corpuscular hemoglobin concentration measurement (mass/volume)2019-07-31 05:00:00* Test Item Value Reference Range Interpretation Comments Mean Corpuscular Hemoglobin Concent (test code = 786-4) 32.1 31-35 [facility] HospitalRDW UkzSx-[id number] 05:00:00* Test Item Value Reference Range Interpretation Comments Red Cell Distribution Width (test code = 84907-1) 14.2 11.7 -14.4 [facility] HospitalAutom[facility] blood platelet count (count/volume)2019-07-31 05:00:00* Test Item Value Reference Range Interpretation Comments Platelet Count (test code = 777-3) 196 140-360 [facility] count as percentage of total dkrherplni8573-05-55 05:00:00* Test Item Value Reference Range Interpretation Comments Neutrophils (%) (Auto) (test code = 77299-2) 79.4 38.7-80.0 [facility] Hospital[facility] lymphocyte count as percentage ot total yfyxtqpejf0986-88-02 05:00:00* Test Item Value Reference Range Interpretation Comments Lymphocytes (%) (Auto) (test code = 736-9) 7.2 18.0-39.1 [facility] HospitalAutom[facility] blood monocyte count as percentage of total dzdfzefpbq6966-70-39 05:00:00* Test Item Value Reference Range Interpretation Comments Monocytes (%) (Auto) (test code = 5905-5) 10.0 4.4-11.3 [facility] HospitalAutomated blood eosinophil count as percentage of total srnmscdvjq6667-33-89 05:00:00* Test Item Value Reference Range Interpretation Comments Eosinophils (%) (Auto) (test code = 713-8) 2.5 0.0-6.0 [facility] HospitalAutomated blood basophil count as percentage of total tavmegmiyn8751-88-35 05:00:00* Test Item Value Reference Range Interpretation Comments Basophils (%) (Auto) (test code = 706-2) 0.5 0.0-1.0 [facility] HospitalFluoroscopic procedure less than one hour olmxohcp0968-88-83 05:00:00* Test Item Value Reference Range Interpretation Comments IM GRANULOCYTES % (test code = IM GRANULOCYTES %) 0.4 0.0- 1.0 [facility] HospitalAutom[facility] blood neutrophil count 2019-07-31 05:00:00* Test Item Value Reference Range Interpretation Comments Neutrophils # (Auto) (test code = 751-8) 8.0 2.1-6.9 [facility]Blood lymphocytes count (number/volume) 2019-07-31 05:00:00* Test Item Value Reference Range Interpretation Comments Lymphocytes # (Auto) (test code = 51906-6) 0.7 1.0-3.2 [facility] HospitalBlood monocytes automated count (number/volume)2019-07-31 05:00:00* Test Item Value Reference Range Interpretation Comments Monocytes # (Auto) (test code = 742-7) 1.0 0.2-0.8 [facility] HospitalAutomated blood eosinophil count 2019-07-31 05:00:00* Test Item Value Reference Range Interpretation Comments Eosinophils # (Auto) (test code = 711-2) 0.3 0.0-0.4 [facility] HospitalAutomated blood basophil count (count/volume)2019-07-31 05:00:00* Test Item Value Reference Range Interpretation Comments Basophils # (Auto) (test code = 704-7) 0.1 0.0-0.1 [facility] HospitalFluoroscopic procedure less than one hour kaugvsuy4159-19-39 05:00:00* Test Item Value Reference Range Interpretation Comments Absolute Immature Granulocyte (auto (chriss t code = Absolute Immature Granulocyte (auto) 0.04 0-0.1 [facility] sodium measurement (moles/volume)2019-07-31 05:00:00* Test Item Value Reference Range Interpretation Comments Sodium Level (test code = 2951-2) 138 136-145 [facility] plasma potassium measurement (moles/volume)2019-07-31 05:00:00* Test Item Value Reference Range Interpretation Comments Potassium Level (test code = 2823-3) 3.5 3.5-5.1 [facility] plasma chloride measurement (moles/volume)2019-07-31 05:00:00* Test Item Value Reference Range Interpretation Comments Chloride Level (test code = 2075-0) 101 98-107 [facility] plasma carbon dioxide, total measurement (moles/volume)2019-07-31 05:00:00* Test Item Value Reference Range Interpretation Comments Carbon Dioxide Level (test code = 2028-9) 28 22-29 [facility] plasma anion jnz1093-22-79 05:00:00* Test Item Value Reference Range Interpretation Comments Anion Gap (test code = 75214-8) 12.5 8-16 [facility] plasma urea nitrogen measurement (mass/volume)2019-07-31 05:00:00* Test Item Value Reference Range Interpretation Comments Blood Urea Nitrogen (test code = 3094-0) 9 7-26 [facility] creatinine measurement (mass/volume)2019-07-31 05:00:00* Test Item Value Reference Range Interpretation Comments Creatinine (test code = 2160-0) 0.77 0.72-1.25 [facility] plasma urea nitrogen/creatinine mass mihtc5973-04-50 05:00:00* Test Item Value Reference Range Interpretation Comments BUN/Creatinine Ratio (test code = 3097-3) 12 6-25 [facility] HospitalEstimated glomerular filtration rate (GFR) gregraygihymn7288-45-54 05:00:00* Test Item Value Reference Range Interpretation Comments Estimat Glomerular Filtration Rate (test code = 146588571) > 60 >60 Ranges were taken from the National Kidney Disease Education Program and the [facility] [employer] literature.Reference ranges:60 or greater: Udilzw34-02 ( for 3 consecutive months): Chronic kidney disease 15 or less: Kidney failureNavarro Regional HospitalGlucose jyokomjelsa6927-80-09 05:00:00* Test Item Value Reference Range Interpretation Comments Glucose Level (test code = IJZ4256) 127 74-118 [facility] calcium measurement (mass/volume)2019-07-31 05:00:00* Test Item Value Reference Range Interpretation Comments Calcium Level (test code = 47552-4) 8.7 8.4-10.2 [facility] HospitalPhosphorus dodrtgkmqzq0880-48-09 05:00:00 * Test Item Value Reference Range Interpretation Comments Phosphorus Level (test code = HFL7160) 2.5 2.3-4.7 [facility] magnesium measurement (mass/volume)2019-07-31 05:00:00* Test Item Value Reference Range Interpretation Comments Magnesium Level (test code = 48528-7) 1.4 1.3-2.1 [facility] plasma triglyceride measurement (mass/volume)2019-07-31 05:00:00* Test Item Value Reference Range Interpretation Comments Triglycerides Level (test code = 2571-8) 51 0-149 [facility] plasma cholesterol measurement (mass/volume)2019-07-31 05:00:00* Test Item Value Reference Range Interpretation Comments Cholesterol Level (test code = 2093-3) 89 0-199 Less than 200 mg/dL Low Pieb165 - 239 mg/dL Borderline Fjok514 m g/dl and greater High Risk [facility] plasma cholesterol in LDL measurement (mass/volume) 2019-07-31 05:00:00* Test Item Value Reference Range Interpretation Comments LDL Cholesterol (test code = 2089-1) 45 60-130 [facility] plasma cholesterol in HDL measurement (mass/volume)2019-07-31 05:00:00* Test Item Value Reference Range Interpretation Comments HDL Cholesterol (test code = 2085-9) 34 40-60 [facility] plasma total cholesterol/cholesterol in HDL mass ienvy3739-13-35 05:00:00* Test Item Value Reference Range Interpretation Comments Cholesterol/HDL Ratio (test code = 9830-1) 2.6 3.9-4.7 [facility] plasma creatine kinase measurement (enzymatic activity/volume)2019-07-30 16:40:00* Test Item Value Reference Range Interpretation Comments Creatine Kinase (test code = 2157-6) 105 30-200 [facility] plasma creatine kinase MB measurement (mass/volume)2019-07-30 16:40:00* Test Item Value Reference Range Interpretation Comments Creatine Kinase MB (test code = 24439-5) 3.80 0-5.0 [facility] HospitalTroponin I measurement by highly sensitive enzyme dmadfwtasiz3111-87-64 16:40:00* Test Item Value Reference Range Interpretation Comments Troponin I (test code = 41544-1) 0.022 0-0.300 [facility] HospitalCHEST SINGLE (PORTABLE)2019-07-30 01:42:00 [facility] [address] [place] [address] Patient Name: KASSI MCNULTY MR #: [id number] : 1955 Age/Sex: 64/M Req #: [id number] Adm Physician: DIMA WELCH MD Ordered by: VON ACHARYA MD Report #: [id number] Location: MED/SURG Room/Bed: [employer] Procedure: [id number] DX/CHEST SINGLE (PORTABLE) Exam Date: 07/30/19 Exam Time: 011 0 REPORT STATUS: Signed EXAMINAT ION: CHEST SINGLE (PORTABLE) INDICATION: chest pain Y COMPARISON: None FINDINGS: AP view TUBES and LINES: None. LUNGS: Lungs are well inflated. Mild bibasilar atelectasis/scarring. No f ocal consolidation. There is no evidence of pneumonia or pulmonary edema. PLEURA: No pleural effusion or pneumothorax. HEART AND MEDIASTINUM: The cardiomediastinal silhouette is unremarkable. BONES AND SOFT TISSUES: No acute osseous lesion. Soft tissues are unremarkable. UPPER ABDOMEN: N o free air under the diaphragm. IMPRESSION: No acute thoracic radiog raphic abnormality. Signed by: Rodney Sampson MD on 07/30/2019 1:43 AM Dictated By: RODNEY SAMPSON MD 2 Transcribed By: CAROL on 07/30/19142 COPY TO: VON REESE MD Prothrombin time (PT) in platelet poor plasma by coagulation [id number] 00:35:00* Test Item Value Reference Range Interpretation Comments Prothrombin Time (test code = 5902-2) 13.0 11.9-14.5 [facility] HospitalINR in Platelet poor plasma by Coagulation [id number] 00:35:00* Test Item Value Reference Range Interpretation Comments Prothromb Time International Ratio (test code = 6301-6) 0.93 Oral Anticoagulant Therapy INR Values:1. Low Intensity Therapy 1.5 - 2.02 . Moderate Intensity Therapy 2.0 - 3.03. High Intensity Therapy(1) 2.5 - 3. 54. High Intensity Therapy(2) 3.0 - 4.05. Panic Value INR > 5.0 [facility] HospitalActivated partial thromboplastin time (aPTT) in platelet poor plasma by coagulation nphxb9749-97-74 00:35:00* Test Item Value Reference Range Interpretation Comments Activated Partial Thromboplast Time (test code = 60279-3) 29.2 23.8-35.5 [facility] total bilirubin measurement (mass/volume)2019-07-30 00:35:00* Test Item Value Reference Range Interpretation Comments Total Bilirubin (test code = 1975-2) 0.9 0.2-1.2 [facility] HospitalFluoroscopic procedure less than one hour yzilmubi6213-65-28 00:35:00* Test Item Value Reference Range Interpretation Comments Aspartate Amino Transf (AST/SGOT) (test code = Aspartate Amino Transf (AST/SGOT)) 17 5-34 [facility] alanine aminotransferase measurement (enzymatic activity/volume)2019-07-30 00:35:00* Test Item Value Reference Range Interpretation Comments Alanine Aminotransferase (ALT/SGPT) (test code = 1742-6) 26 0-55 [facility] protein measurement (mass/volume)2019-07-30 00:35:00* Test Item Value Reference Range Interpretation Comments Total Protein (test code = 2885-2) 6.3 6.5-8.1 [facility] albumin measurement (mass/volume)2019-07-30 00:35:00* Test Item Value Reference Range Interpretation Comments Albumin (test code = 1751-7) 3.4 3.5-5.0 [facility] HospitalPlasma globulin measurement (mass/volume) 2019-07-30 00:35:00* Test Item Value Reference Range Interpretation Comments Globulin (test code = 34432-9) 2.9 2.3-3.5 [facility] or plasma albumin/globulin mass ucllq4307-88-30 00:35:00* Test Item Value Reference Range Interpretation Comments Albumin/Globulin Ratio (test code = 1759-0) 1.2 0.8-2.0 [facility] Irving[facility] or plasma alkaline phosphatase measurement (enzymatic activity/volume)2019-07-30 00:35:00* Test Item Value Reference Range Interpretation Comments Alkaline Phosphatase (test code = 6768-6) 81 40-150 [facility] HospitalFO[facility] 14:27:00 [facility] [address] [address] Patient Name: KASSI MCNULTY MR #: [id number] : 1955 Age/Sex: 63/M Req #: [id number] Adm Physician: Ordered by: JAISON HINOJOSA MD Report #: [id number] Location: [facility] Room/Bed: Procedure: [id number] H [facility] Ex[facility]: 03/07/19 Exam T keenan: 1422 REPORT STATUS: Signed Exam: Left foot series, 3 views. Clinical History: Foot pain for a francisco h, no trauma Comparison: None. Findings: 3 views of the left foot. The re is normal bone mineralization. Negative for acute, displaced fracture or di slocation. Minimal degenerative changes in the first toe metatarsophalangeal j oint. Small inferior calcaneal enthesophyte. Soft tissues are unremarkable. Impression: 1. No acute abnormalities. Signed by: Dr. Shailesh López M.D. on 03/07/2019 2:28 PM Dictated By: SHAILESH LÓPEZ MD Elec tronically Signed By: SHAILESH LÓPEZ MD on 03/07/191427 Transcribed By: FARIBA Mercado on 03/07/191427 COPY TO: JAISON HINOJOSA MD ANKLE 3[facility]ITALYZLC0081-43-58 14:26:[address] [address] Patient Name: KASSI MCNULTY MR #: [id number] : 1955 Age/Sex: 63/M Req #: [id number] Adm Physician: Ordered by: JAISON HIONJOSA MD Report #: [id number] Location: [facility] Room/Bed: Procedure: [id number] H OPD[facility]LE [facility] Exam Date: 03/07/19 Exam T keenan: 1422 REPORT STATUS: Signed Exam: Left Ankle Series. History: Ankle pain for one month, no trauma Comparison: None. DISCUSSION: 3 views of the left ankle. There is nor mal bone mineralization. No evidence of acute, displaced fracture or dislocat ion. Ankle mortise is preserved.No osteochondral lesion. No abnormal soft tiss ue calcification or mass. Anterior calcaneal enthesophyte. No soft tissue swel ling. IMPRESSION: 1. No acute abnormalities. The staff physician below has personally reviewed this exam on the date of dictation. Signed by: Dr. Shailesh López M.D. on 03/07/2019 2:27 PM Dict ated By: SHAILESH LÓPEZ MD 26 COPY TO: KELECHI HINOJOSA MD Saccharomyces cerevisiae IgG [id number] 21:57:00* Test Item Value Reference Range Interpretation Comments Saccharomyces cerevisiae IgG Ab (test code = 6713-2) 33.4 0 .0-24.9 H Negative <20.0 Equivocal 20.1 - 24.9 Positive >or= 25.0[facility] Irvingaccharomyces cerevisiae IgA Ab 2018-12-16 21:57:00* Test Item Value Reference Range Interpretation Comments Saccharomyces cerevisiae IgA Ab (test code = 41735-5) 28.0 0.0-24.9 H Negative <20.0 Equivocal 20.1 - 24.9 Positive [...] and no healthy controls had antib odyfor both.[facility] HospitalAtypical a-[id number] 21:57:00* Test Item Value Reference Range Interpretation Comments Atypical p-ANCA (test code = 18002-0) <1:20 Neg:<1:20 The atypical pANCA pattern has been observed in asignificant percentage of patie nts with ulcerative colitis,primary sclerosing cholangitis and autoimmune hepati tis. ASCA+/PANCA- Suggestive of Crohn's disease ASCA-/PANCA+ S uggestive of Ulcerative colitisPerformed at: [facility] [place], [place] [id number] Director: Veronica Wilson MD, Phone: [phone] Irvingtool Ecsbenpjmrln8868-70-26 05:24:00 * Test Item Value Reference Range Interpretation Comments Stool Calprotectin (test code = 01063-3) <16 0-120 Concentration Interpretation Follow-Up<16 - 50 ug/g Normal None>50 -120 ug/g Borderline Re-evaluate in 4-6 weeks >120 ug/g Abnormal Repeat as clinically indicatedPerformed at: [facility] [address] [place], [place] [id number] Director: Veronica Wilson MD, Phone: [phone] Regional HospitalC-Reactive Umwdsjd1264-59-66 00:36:00* Test Item Value Reference Range Interpretation Comments C-Reactive Protein (test code = 1988-5) 2 0-10 Performed at: - [facility] [address] [place], [place] [id number] Director: Jorge Granda MD, Phone: [phone] Regional HospitalClostridium Difficile Toxin A & B4785-65-15 12:29:00* Test Item Value Reference Range Interpretation Comments Clostridium Difficile Toxin A & B (test code = 174159218) POSI TIVE NEGATIVE H Results faxed to Dr. Hernandez at 1228 on 12/13/18 by Josh Molina. RB OK.Results f axed to infection control at 1228 on 12/13/18 by Josh Molina.Testing on stool a spirate specimens is outside barrel reamer claims since specimen type not validat ed on this assay.[facility] HospitalErythrocyte Sedimentation Nrke6382-38-57 15:11:00* Test Item Value Reference Range Interpretation Comments Erythrocyte Sedimentation Rate (test code = 4537-7) 7 0- 13 [facility] HospitalErythrocyte sedimentation rate by Westergren avhazj8920-16-96 14:15:00* Test Item Value Reference Range Interpretation Comments Erythrocyte Sedimentation Rate (test code = 4537-7) 7 0- 13 [facility] Irvingerum combs's yeast IgG antibody assay (units/volume)2018-12-12 14:15:00* Test Item Value Reference Range Interpretation Comments Saccharomyces cerevisiae IgG Ab (test code = 6713-2) 33.4 0 .0-24.9 Negative <20.0 Equivocal 20.1 - 24.9 Positive >or= 25.0[facility] Irvingerum combs's yeast IgA antibody assay (units/volume)2018-12-12 14:15:00* Test Item Value Reference Range Interpretation Comments Saccharomyces cerevisiae IgA Ab (test code = 52508-3) 28.0 0.0-24.9 Negative <20.0 Equivocal 20.1 - [...] both.[facility] Irvingerum atypical perinuclear neutrophil cytoplasmic antibody titer by ouracuqnnomjdwtrjr4932-67-38 14:15:00* Test Item Value Reference Range Interpretation Comments Atypical p-ANCA (test code = 31828-9) <1:20 Neg:<1:20 The atypical pANCA pattern has been observed in asignificant percentage of patie nts with ulcerative colitis,primary sclerosing cholangitis and autoimmune hepati tis. ASCA+/PANCA- Suggestive of Crohn's disease ASCA-/PANCA+ S uggestive of Ulcerative colitisPerformed at: - [facility] [id number] Director: Veronica Wilson MD, Phone: [phone] Irvingerum or plasma C reactive protein measurement (mass/volume)2018-12-12 14:15:00* Test Item Value Reference Range Interpretation Comments C-Reactive Protein (test code = 1988-5) 2 0-10 Performed at: - [facility] [address] [id number] Director: Jorge Granda MD, Phone: [phone] Scott & White Medical Center – Irvingtool Lactoferrin (LAB)2018-12-12 13:44:00* Test Item Value Reference Range Interpretation Comments Stool Lactoferrin (LAB) (test code = 65869-3) NEGATIVE NEGATIVE Testing on stool aspirate specimens is outside barrel reamer claims since specime n type not validated on this assay.[facility] Bedside Omupjkf8655-09-43 13:32:00* Test Item Value Reference Range Interpretation Comments Bedside Glucose (test code = 68450-1) 118 70-120 Meter ID: [id number] Scott & White Medical Center – Irvingtool lactoferrin rlqrsnxlg0193-43-63 12:21:00* Test Item Value Reference Range Interpretation Comments Stool Lactoferrin (LAB) (test code = 76621-9) NEGATIVE NEGATIVE Testing on stool aspirate specimens is outside barrel reamer claims since specime n type not validated on this assay.[facility] Irvingtool calprotectin measurement (mass/mass)2018-12-12 12:21:00* Test Item Value Reference Range Interpretation Comments Stool Calprotectin (test code = 35639-6) <16 0-120 Concentration Interpretation Follow-Up<16 - 50 ug/g Normal None>50 -120 ug/g Borderline Re-evaluate in 4-6 weeks >120 ug/g Abnormal Repeat as clinically indicatedPerformed at: [facility] [address] [id number] Director: Veronica Wilson MD, Phone: [phone] Regional HospitalClostridium difficile A and B toxin zqxee7346-10-81 12:21:00* Test Item Value Reference Range Interpretation Comments Clostridium Difficile Toxin A & B (test code = 291168450) POSI TIVE NEGATIVE Results faxed to Dr. Hernandez at 1228 on 12/13/18 by Josh Molina. RB OK.Results f axed to infection control at 1228 on 12/13/18 by Josh Molina.Testing on stool a spirate specimens is outside barrel reamer claims since specimen type not validat ed on this assay.[facility] HospitalWhite Blood Count 2018-11-22 03:23:00* Test Item Value Reference Range Interpretation Comments White Blood Count (test code = 6690-2) 6.03 4.8-10.8 [facility] HospitalRed Blood Qtdfs3108-96-84 03:23:00* Test Item Value Reference Range Interpretation Comments Red Blood Count (test code = 789-8) 5.14 4.3-5.7 [facility] HospitalHemoglobin2019-09-08 03:23:00* Test Item Value Reference Range Interpretation Comments Hemoglobin (test code = 97198-1) 13.3 14.0-18.0 L [facility] HospitalHematocrit2019-09-08 03:23:00* Test Item Value Reference Range Interpretation Comments Hematocrit (test code = 4544-3) 41.5 38.2-49.6 [facility] HospitalMean Corpuscular Hqetxu8274-59-75 03:23:00* Test Item Value Reference Range Interpretation Comments Mean Corpuscular Volume (test code = 787-2) 80.7 81-99 L [facility] HospitalMean Corpuscular Awekccirvr2696-65-53 03:23:00* Test Item Value Reference Range Interpretation Comments Mean Corpuscular Hemoglobin (test code = 785-6) 25.9 28-32 L [facility] HospitalMean Corpuscular Hemoglobin Concent 2018-11-22 03:23:00* Test Item Value Reference Range Interpretation Comments Mean Corpuscular Hemoglobin Concent (test code = 786-4) 32.0 31-35 [facility] HospitalRed Cell Distribution Aymta0143-12-13 03:23:00* Test Item Value Reference Range Interpretation Comments Red Cell Distribution Width (test code = 07271-0) 14.0 11.7 -14.4 [facility] HospitalPlatelet Nxsvv5723-53-51 03:23:00* Test Item Value Reference Range Interpretation Comments Platelet Count (test code = 777-3) 260 140-360 [facility] HospitalNeutrophils (%) (Auto)2018-11-22 03:23:00 * Test Item Value Reference Range Interpretation Comments Neutrophils (%) (Auto) (test code = 06127-7) 67.1 38.7-80.0 [facility] HospitalLymphocytes (%) (Auto)2018-11-22 03:23:00 * Test Item Value Reference Range Interpretation Comments Lymphocytes (%) (Auto) (test code = 736-9) 15.3 18.0-39.1 L [facility] HospitalMonocytes (%) (Auto)2018-11-22 03:23:00* Test Item Value Reference Range Interpretation Comments Monocytes (%) (Auto) (test code = 5905-5) 13.6 4.4-11.3 H [facility] HospitalEosinophils (%) (Auto)2018-11-22 03:23:00 * Test Item Value Reference Range Interpretation Comments Eosinophils (%) (Auto) (test code = 713-8) 3.2 0.0-6.0 [facility] HospitalBasophils (%) (Auto)2018-11-22 03:23:00* Test Item Value Reference Range Interpretation Comments Basophils (%) (Auto) (test code = 706-2) 0.5 0.0-1.0 [facility] HospitalIM GRANULOCYTES %2018-11-22 03:23:00* Test Item Value Reference Range Interpretation Comments IM GRANULOCYTES % (test code = IM GRANULOCYTES %) 0.3 0.0- 1.0 [facility] HospitalNeutrophils # (Auto)2018-11-22 03:23:00* Test Item Value Reference Range Interpretation Comments Neutrophils # (Auto) (test code = 751-8) 4.1 2.1-6.9 [facility] HospitalLymphocytes # (Auto)2018-11-22 03:23:00* Test Item Value Reference Range Interpretation Comments Lymphocytes # (Auto) (test code = 24651-9) 0.9 1.0-3.2 L [facility] HospitalMonocytes # (Auto)2018-11-22 03:23:00* Test Item Value Reference Range Interpretation Comments Monocytes # (Auto) (test code = 742-7) 0.8 0.2-0.8 [facility] HospitalEosinophils # (Auto)2018-11-22 03:23:00* Test Item Value Reference Range Interpretation Comments Eosinophils # (Auto) (test code = 711-2) 0.2 0.0-0.4 [facility] HospitalBasophils # (Auto)2018-11-22 03:23:00* Test Item Value Reference Range Interpretation Comments Basophils # (Auto) (test code = 704-7) 0.0 0.0-0.1 [facility] HospitalAbsolute Immature Granulocyte (auto 2018-11-22 03:23:00* Test Item Value Reference Range Interpretation Comments Absolute Immature Granulocyte (auto (chriss t code = Absolute Immature Granulocyte (auto) 0.02 0-0.1 [facility] HospitalWhite Blood Chsjj5995-95-45 03:23:00* Test Item Value Reference Range Interpretation Comments White Blood Count (test code = 6690-2) 6.03 4.8-10.8 [facility] HospitalRed Blood Kgzsw8600-55-95 03:23:00* Test Item Value Reference Range Interpretation Comments Red Blood Count (test code = 789-8) 5.14 4.3-5.7 [facility] HospitalHemoglobin2019-09-08 03:23:00* Test Item Value Reference Range Interpretation Comments Hemoglobin (test code = 80458-1) 13.3 14.0-18.0 L [facility] HospitalHematocrit2019-09-08 03:23:00* Test Item Value Reference Range Interpretation Comments Hematocrit (test code = 4544-3) 41.5 38.2-49.6 [facility] HospitalMean Corpuscular Ziqbvs6485-29-66 03:23:00* Test Item Value Reference Range Interpretation Comments Mean Corpuscular Volume (test code = 787-2) 80.7 81-99 L [facility] HospitalMean Corpuscular Osllryitvr0414-66-29 03:23:00* Test Item Value Reference Range Interpretation Comments Mean Corpuscular Hemoglobin (test code = 785-6) 25.9 28-32 L [facility] HospitalMean Corpuscular Hemoglobin Concent 2018-11-22 03:23:00* Test Item Value Reference Range Interpretation Comments Mean Corpuscular Hemoglobin Concent (test code = 786-4) 32.0 31-35 [facility] HospitalRed Cell Distribution Tijfy9475-34-26 03:23:00* Test Item Value Reference Range Interpretation Comments Red Cell Distribution Width (test code = 24911-4) 14.0 11.7 -14.4 [facility] HospitalPlatelet Udsbg5499-53-25 03:23:00* Test Item Value Reference Range Interpretation Comments Platelet Count (test code = 777-3) 260 140360 [facility] HospitalNeutrophils (%) (Auto)2018-11-22 03:23:00 * Test Item Value Reference Range Interpretation Comments Neutrophils (%) (Auto) (test code = 67931-8) 67.1 38.7-80.0 [facility] HospitalLymphocytes (%) (Auto)2018-11-22 03:23:00 * Test Item Value Reference Range Interpretation Comments Lymphocytes (%) (Auto) (test code = 736-9) 15.3 18.0-39.1 L [facility] HospitalMonocytes (%) (Auto)2018-11-22 03:23:00* Test Item Value Reference Range Interpretation Comments Monocytes (%) (Auto) (test code = 5905-5) 13.6 4.4-11.3 H [facility] HospitalEosinophils (%) (Auto)2018-11-22 03:23:00 * Test Item Value Reference Range Interpretation Comments Eosinophils (%) (Auto) (test code = 713-8) 3.2 0.0-6.0 [facility] HospitalBasophils (%) (Auto)2018-11-22 03:23:00* Test Item Value Reference Range Interpretation Comments Basophils (%) (Auto) (test code = 706-2) 0.5 0.0-1.0 [facility] HospitalIM GRANULOCYTES %2018-11-22 03:23:00* Test Item Value Reference Range Interpretation Comments IM GRANULOCYTES % (test code = IM GRANULOCYTES %) 0.3 0.0- 1.0 [facility] HospitalNeutrophils # (Auto)2018-11-22 03:23:00* Test Item Value Reference Range Interpretation Comments Neutrophils # (Auto) (test code = 751-8) 4.1 2.1-6.9 [facility] HospitalLymphocytes # (Auto)2018-11-22 03:23:00* Test Item Value Reference Range Interpretation Comments Lymphocytes # (Auto) (test code = 02859-8) 0.9 1.0-3.2 L [facility] HospitalMonocytes # (Auto)2018-11-22 03:23:00* Test Item Value Reference Range Interpretation Comments Monocytes # (Auto) (test code = 742-7) 0.8 0.2-0.8 [facility] HospitalEosinophils # (Auto)2018-11-22 03:23:00* Test Item Value Reference Range Interpretation Comments Eosinophils # (Auto) (test code = 711-2) 0.2 0.0-0.4 [facility] HospitalBasophils # (Auto)2018-11-22 03:23:00* Test Item Value Reference Range Interpretation Comments Basophils # (Auto) (test code = 704-7) 0.0 0.0-0.1 [facility] HospitalAbsolute Immature Granulocyte (auto 2018-11-22 03:23:00* Test Item Value Reference Range Interpretation Comments Absolute Immature Granulocyte (auto (chriss t code = Absolute Immature Granulocyte (auto) 0.02 0-0.1 [facility] Irvingodium Ntftt8078-45-62 03:22:00* Test Item Value Reference Range Interpretation Comments Sodium Level (test code = 2951-2) 141 136-145 [facility] HospitalPotassium Gdhik0338-83-65 03:22:00* Test Item Value Reference Range Interpretation Comments Potassium Level (test code = 2823-3) 3.2 3.5-5.1 L [facility] HospitalChloride Djtua8831-01-19 03:22:00* Test Item Value Reference Range Interpretation Comments Chloride Level (test code = 2075-0) 105 98-107 [facility] HospitalCarbon Dioxide Nosxh6260-51-75 03:22:00* Test Item Value Reference Range Interpretation Comments Carbon Dioxide Level (test code = 2028-9) 24 22-29 [facility] HospitalAnion Rsl0911-67-38 03:22:00* Test Item Value Reference Range Interpretation Comments Anion Gap (test code = 35444-1) 15.2 8-16 [facility] HospitalBlood Urea Mydniadc6582-71-06 03:22:00* Test Item Value Reference Range Interpretation Comments Blood Urea Nitrogen (test code = 3094-0) < 5 7-26 L [facility] HospitalCreatinine2019-09-08 03:22:00* Test Item Value Reference Range Interpretation Comments Creatinine (test code = 2160-0) 0.68 0.72-1.25 L [facility] HospitalBUN/Creatinine Gdspf7460-28-85 03:22:00* Test Item Value Reference Range Interpretation Comments BUN/Creatinine Ratio (test code = 3097-3) 7 6-25 [facility] HospitalEstimat Glomerular Filtration Rate 2018-11-22 03:22:00* Test Item Value Reference Range Interpretation Comments Estimat Glomerular Filtration Rate (test code = 887326050) > 60 >60 Ranges were taken from the National Kidney Disease Education Program and the [facility] literature.Reference ranges:60 or greater: Jwugcl76-42 ( for 3 consecutive months): Chronic kidney disease 15 or less: Kidney failureNavarro Regional HospitalGlucose Xnpvm3052-90-02 03:22:00* Test Item Value Reference Range Interpretation Comments Glucose Level (test code = LXB1365) 110 74-118 [facility] HospitalCalcium Zuwpo5742-78-46 03:22:00* Test Item Value Reference Range Interpretation Comments Calcium Level (test code = 34871-8) 8.6 8.4-10.2 [facility] Irvingodium Oqama5854-25-55 03:22:00* Test Item Value Reference Range Interpretation Comments Sodium Level (test code = 2951-2) 141 136-145 [facility] HospitalPotassium Oorsc8499-01-68 03:22:00* Test Item Value Reference Range Interpretation Comments Potassium Level (test code = 2823-3) 3.2 3.5-5.1 L [facility] HospitalChloride Sgval8129-87-97 03:22:00* Test Item Value Reference Range Interpretation Comments Chloride Level (test code = 2075-0) 105 98-107 [facility] HospitalCarbon Dioxide Arpwv3251-40-87 03:22:00* Test Item Value Reference Range Interpretation Comments Carbon Dioxide Level (test code = 2028-9) 24 22-29 [facility] HospitalAnion Fvv2331-30-02 03:22:00* Test Item Value Reference Range Interpretation Comments Anion Gap (test code = 46571-0) 15.2 8-16 [facility] HospitalBlood Urea Ziychxbh3910-17-55 03:22:00* Test Item Value Reference Range Interpretation Comments Blood Urea Nitrogen (test code = 3094-0) < 5 7-26 L [facility] HospitalCreatinine2019-09-08 03:22:00* Test Item Value Reference Range Interpretation Comments Creatinine (test code = 2160-0) 0.68 0.72-1.25 L [facility] HospitalBUN/Creatinine Arbjb4614-59-04 03:22:00* Test Item Value Reference Range Interpretation Comments BUN/Creatinine Ratio (test code = 3097-3) 7 09-08 [facility] HospitalEstimat Glomerular Filtration Rate 2018-11-22 03:22:00* Test Item Value Reference Range Interpretation Comments Estimat Glomerular Filtration Rate (test code = 781706577) > 60 >60 Ranges were taken from the National Kidney Disease Education Program and the [facility] literature.Reference ranges:60 or greater: [place]75-14 ( for 3 consecutive months): Chronic kidney disease 15 or less: Kidney failureNavarro Regional HospitalGlucose Nvyav4823-78-01 03:22:00* Test Item Value Reference Range Interpretation Comments Glucose Level (test code = VMV2083) 110 74-118 [facility] HospitalCalcium Mzxpd5803-48-47 03:22:00* Test Item Value Reference Range Interpretation Comments Calcium Level (test code = 30047-2) 8.6 8.4-10.2 [facility] HospitalBedside Pmhpcvm3731-99-40 20:14:00* Test Item Value Reference Range Interpretation Comments Bedside Glucose (test code = 52709-8) 115 70-120 Meter ID: [id number] Regional HospitalCT ABDOMEN/PELVIS W 2018-11-21 13:28:00 [facility] [address] [place] [address] Patient Name: KASSI MCNULTY MR #: [id number] : 1955 Age/Sex: 63/M Req #: [id number] Adm Physician: DIMA WELCH MD Ordered by: TELMA HERNANDEZ MD Report #: [id number] Location: MED/SURG Room/Bed: [facility] Procedure: [id number] CT/ CT ABDOMEN/PELVIS W Exam Date: 11/21/18 [...] 0919 Transcribe d By: CAROL on 11/21/18 4590 COPY TO: TELMA HERNANDEZ MD B-Type Natriuretic Fpkahwm5646-04-33 03:46:00* Test Item Value Reference Range Interpretation Comments B-Type Natriuretic Peptide (test code = 48752-3) 53.5 0-100 [facility] HospitalB-Type Natriuretic Mfedluf3644-21-43 03:46:00* Test Item Value Reference Range Interpretation Comments B-Type Natriuretic Peptide (test code = 41249-0) 53.5 0-100 [facility] HospitalHemoglobin A1c Awnqoal3541-62-14 03:25:00 * Test Item Value Reference Range Interpretation Comments Hemoglobin A1c Percent (test code = Hemoglobin A1c Percent) 6.4 4.0-7.0 [facility] Alliancegnesium Dfvdv8104-03-16 03:25:00* Test Item Value Reference Range Interpretation Comments Magnesium Level (test code = 75073-4) 1.4 1.3-2.1 [facility] HospitalThyroid Stimulating Hormone (TSH) 2018-11-21 03:25:00* Test Item Value Reference Range Interpretation Comments Thyroid Stimulating Hormone (TSH) (test code = 12272-0) 0.656 0.350-4.940 [facility] HospitalHemoglobin A1c Etgbzsn1497-66-31 03:25:00 * Test Item Value Reference Range Interpretation Comments Hemoglobin A1c Percent (test code = Hemoglobin A1c Percent) 6.4 4.0-7.0 [facility]2019-09-07 03:25:00* Test Item Value Reference Range Interpretation Comments Magnesium Level (test code = 47549-9) 1.4 1.3-2.1 [facility] HospitalThyroid Stimulating Hormone (TSH) 2018-11-21 03:25:00* Test Item Value Reference Range Interpretation Comments Thyroid Stimulating Hormone (TSH) (test code = 90513-0) 0.656 0.350-4.940 [facility] HospitalFluoroscopic procedure less than one hour ztfvhzwz9187-65-66 02:12:00* Test Item Value Reference Range Interpretation Comments Hemoglobin A1c Percent (test code = Hemoglobin A1c Percent) 6.4 4.0-7.0 [facility] HospitalBNP Grk-bBld5979-20-07 02:12:00* Test Item Value Reference Range Interpretation Comments B-Type Natriuretic Peptide (test code = 37167-8) 53.5 0-100 [facility] Irvingerum or plasma thyrotropin measurement by detection limit <= 0.005 miu/l (units/volume)2018-11-21 02:12:00* Test Item Value Reference Range Interpretation Comments Thyroid Stimulating Hormone (TSH) (test code = 07169-1) 0.656 0.350-4.940 [facility] HospitalCreatine Kinase PA3625-40-20 06:42:00* Test Item Value Reference Range Interpretation Comments Creatine Kinase MB (test code = 00894-2) 2.20 0-5.0 [facility] HospitalTroponin B1829-37-21 06:42:00* Test Item Value Reference Range Interpretation Comments Troponin I (test code = HAD6270) 0.016 0-0.300 [facility] HospitalCreatine Kinase JU6194-60-85 06:42:00* Test Item Value Reference Range Interpretation Comments Creatine Kinase MB (test code = 78596-9) 2.20 0-5.0 [facility]Trco[facility] centernin U6044-80-32 06:42:00* Test Item Value Reference Range Interpretation Comments Troponin I (test code = [id number]) 0.016 0-0.300 [facility] HospitalTotal Gzglleghv5893-65-78 06:41:00* Test Item Value Reference Range Interpretation Comments Total Bilirubin (test code = 1975-2) 0.8 0.2-1.2 [facility] HospitalAspartate Amino Transf (AST/SGOT) 2018-11-20 06:41:00* Test Item Value Reference Range Interpretation Comments Aspartate Amino Transf (AST/SGOT) (test code = Aspartate Amino Transf (AST/SGOT)) 25 5-34 [facility] HospitalAlanine Aminotransferase (ALT/SGPT) 2018-11-20 06:41:00* Test Item Value Reference Range Interpretation Comments Alanine Aminotransferase (ALT/SGPT) (test code = 1742-6) 26 0-55 [facility] HospitalTotal Fjlusnc9265-98-52 06:41:00* Test Item Value Reference Range Interpretation Comments Total Protein (test code = 2885-2) 5.9 6.5-8.1 L [facility] HospitalAlbumin2019-09-06 06:41:00* Test Item Value Reference Range Interpretation Comments Albumin (test code = 1751-7) 3.5 3.5-5.0 [facility] HospitalGlobulin2019-09-06 06:41:00* Test Item Value Reference Range Interpretation Comments Globulin (test code = 48376-7) 2.4 2.3-3.5 [facility] HospitalAlbumin/Globulin Llidt8498-01-91 06:41:00 * Test Item Value Reference Range Interpretation Comments Albumin/Globulin Ratio (test code = 1759-0) 1.5 0.8-2.0 [facility] HospitalAlkaline Dubtdwnetub3267-37-04 06:41:00* Test Item Value Reference Range Interpretation Comments Alkaline Phosphatase (test code = 6768-6) 76 40-150 [facility] HospitalTriglycerides Wnulj3584-58-13 06:41:00* Test Item Value Reference Range Interpretation Comments Triglycerides Level (test code = 2571-8) 89 0-149 [facility] HospitalCholesterol Acspu8668-11-19 06:41:00* Test Item Value Reference Range Interpretation Comments Cholesterol Level (test code = 2093-3) 91 0-199 Less than 200 mg/dL Low Aopa504 - 239 mg/dL Borderline Lxsw801 m g/dl and greater High Risk [facility] HospitalLDL Cqjckozbifx9938-95-57 06:41:00* Test Item Value Reference Range Interpretation Comments LDL Cholesterol (test code = 2089-1) 46 60-130 L [facility] HospitalHDL Kfbknnloggn5958-30-18 06:41:00* Test Item Value Reference Range Interpretation Comments HDL Cholesterol (test code = 2085-9) 27 40-60 L [facility] HospitalCholesterol/HDL Iytjs0595-43-17 06:41:00 * Test Item Value Reference Range Interpretation Comments Cholesterol/HDL Ratio (test code = 9830-1) 3.4 3.9-4.7 L [facility] HospitalTotal Rxdobzgdh5696-19-57 06:41:00* Test Item Value Reference Range Interpretation Comments Total Bilirubin (test code = 1975-2) 0.8 0.2-1.2 [facility] HospitalAspartate Amino Transf (AST/SGOT) 2018-11-20 06:41:00* Test Item Value Reference Range Interpretation Comments Aspartate Amino Transf (AST/SGOT) (test code = Aspartate Amino Transf (AST/SGOT)) 25 5-34 [facility] HospitalAlanine Aminotransferase (ALT/SGPT) 2018-11-20 06:41:00* Test Item Value Reference Range Interpretation Comments Alanine Aminotransferase (ALT/SGPT) (test code = 1742-6) 26 0-55 [facility] HospitalTotal Ytbudmc4423-57-21 06:41:00* Test Item Value Reference Range Interpretation Comments Total Protein (test code = 2885-2) 5.9 6.5-8.1 L [facility] HospitalAlbumin2019-09-06 06:41:00* Test Item Value Reference Range Interpretation Comments Albumin (test code = 1751-7) 3.5 3.5-5.0 [facility] HospitalGlobulin2019-09-06 06:41:00* Test Item Value Reference Range Interpretation Comments Globulin (test code = 28133-0) 2.4 2.3-3.5 [facility] HospitalAlbumin/Globulin Wyrrf7294-63-86 06:41:00 * Test Item Value Reference Range Interpretation Comments Albumin/Globulin Ratio (test code = 1759-0) 1.5 0.8-2.0 [facility] HospitalAlkaline Xrhgnjraxnt8027-27-24 06:41:00* Test Item Value Reference Range Interpretation Comments Alkaline Phosphatase (test code = 6768-6) 76 40-150 [facility] HospitalTriglycerides Qpltn3091-96-41 06:41:00* Test Item Value Reference Range Interpretation Comments Triglycerides Level (test code = 2571-8) 89 0-149 [facility] HospitalCholesterol Uyzef9917-09-16 06:41:00* Test Item Value Reference Range Interpretation Comments Cholesterol Level (test code = 2093-3) 91 0-199 Less than 200 mg/dL Low Ygqf391 - 239 mg/dL Borderline Mrrx592 m g/dl and greater High Risk [facility] HospitalLDL Utebasvmyoq4621-06-02 06:41:00* Test Item Value Reference Range Interpretation Comments LDL Cholesterol (test code = 2089-1) 46 60-130 L [facility] HospitalHDL Mvmlrtdcjdo0390-19-42 06:41:00* Test Item Value Reference Range Interpretation Comments HDL Cholesterol (test code = 2085-9) 27 40-60 L [facility] HospitalCholesterol/HDL Qvoer2876-54-51 06:41:00 * Test Item Value Reference Range Interpretation Comments Cholesterol/HDL Ratio (test code = 9830-1) 3.4 3.9-4.7 L [facility] HospitalCreatine Fuelqy7577-80-28 06:39:00* Test Item Value Reference Range Interpretation Comments Creatine Kinase (test code = 2157-6) 80 30-200 [facility] HospitalCreatine Sogbgh8194-60-40 06:39:00* Test Item Value Reference Range Interpretation Comments Creatine Kinase (test code = 2157-6) 80 30-200 [facility] HospitalCT ABDOMEN/PELVIS G7512-66-62 15:53:00 [facility] [address] [address] Patient Name: KASSI MCNULTY MR #: [id number] : 1955 Age/Sex: 63/M Req #: [id number] Adm Physician: DIMA WELCH MD Ordered by: SUELLEN TRAORE MD Report #: [id number] Location: [facility] Room/Bed: [place] [address] Procedure: CT/C T ABDOMEN/PELVIS W Exam Date: [...] 1638 COPY TO: PAULINA TRAORE MD Urine JMS5464-90-33 14:16:00* Test Item Value Reference Range Interpretation Comments Urine WBC (test code = 5821-4) NONE 0-5 [facility] HospitalU[facility] LMO7668-98-53 14:16:00* Test Item Value Reference Range Interpretation Comments Urine RBC (test code = 74156-5) NONE 0-5 [facility] HospitalUrine Olbqprfw0953-52-11 14:16:00* Test Item Value Reference Range Interpretation Comments Urine Bacteria (test code = 05852-3) FEW NONE [facility] HospitalUrine Epithelial Qsurc9486-60-95 14:16:00 * Test Item Value Reference Range Interpretation Comments Urine Epithelial Cells (test code = 63612-5) FEW NONE [facility] HospitalUrine Transitional Epithelial Cells 2018-11-19 14:16:00* Test Item Value Reference Range Interpretation Comments Urine Transitional Epithelial Cells (test code = 8249-5) RARE NONE [facility] HospitalUrine QRV0495-22-10 14:16:00* Test Item Value Reference Range Interpretation Comments Urine WBC (test code = 5821-4) NONE 0-5 [facility] HospitalUrine HNU4541-68-49 14:16:00* Test Item Value Reference Range Interpretation Comments Urine RBC (test code = 81861-4) NONE 0-5 [facility] HospitalUrine Lpyaklyn4381-60-95 14:16:00* Test Item Value Reference Range Interpretation Comments Urine Bacteria (test code = 42838-4) FEW NONE [facility] HospitalUrine Epithelial Ocmis0445-31-77 14:16:00 * Test Item Value Reference Range Interpretation Comments Urine Epithelial Cells (test code = 86039-1) FEW NONE [facility] HospitalUrine Transitional Epithelial Cells 2018-11-19 14:16:00* Test Item Value Reference Range Interpretation Comments Urine Transitional Epithelial Cells (test code = 8249-5) RARE NONE [facility] HospitalLipase2019-09-05 14:15:00* Test Item Value Reference Range Interpretation Comments Lipase (test code = 3040-3) [facility] HospitalLipase2019-09-05 14:15:00* Test Item Value Reference Range Interpretation Comments Lipase (test code = 3040-3) 71 - [facility] HospitalProthrombin Fwih2995-64-24 14:00:00* Test Item Value Reference Range Interpretation Comments Prothrombin Time (test code = 5902-2) 13.5 11.9-14.5 [facility] HospitalProthromb Time International Ratio 2018-11-19 14:00:00* Test Item Value Reference Range Interpretation Comments Prothromb Time International Ratio (test code = 6301-6) 0.98 Oral Anticoagulant Therapy INR Values:1. Low Intensity Therapy 1.5 - 2.02 . Moderate Intensity Therapy 2.0 - 3.03. High Intensity Therapy(1) 2.5 - 3. 54. High Intensity Therapy(2) 3.0 - 4.05. Panic Value INR > 5.0 [facility] HospitalActivated Partial Thromboplast Time 2018-11-19 14:00:00* Test Item Value Reference Range Interpretation Comments Activated Partial Thromboplast Time (test code = 84632-1) 30.8 23.8-35.5 [facility] HospitalProthrombin Wtqs4982-03-24 14:00:00* Test Item Value Reference Range Interpretation Comments Prothrombin Time (test code = 5902-2) 13.5 11.9-14.5 [facility] HospitalProthromb Time International Ratio 2018-11-19 14:00:00* Test Item Value Reference Range Interpretation Comments Prothromb Time International Ratio (test code = 6301-6) 0.98 Oral Anticoagulant Therapy INR Values:1. Low Intensity Therapy 1.5 - 2.02 . Moderate Intensity Therapy 2.0 - 3.03. High Intensity Therapy(1) 2.5 - 3. 54. High Intensity Therapy(2) 3.0 - 4.05. Panic Value INR > 5.0 [facility] HospitalActivated Partial Thromboplast Time 2018-11-19 14:00:00* Test Item Value Reference Range Interpretation Comments Activated Partial Thromboplast Time (test code = 82995-5) 30.8 23.8-35.5 [facility] HospitalUrine Qzqjg1320-91-37 13:59:00* Test Item Value Reference Range Interpretation Comments Urine Color (test code = 5778-6) BROWN YELLOW H [facility] HospitalUrine Hqxezbp8477-70-92 13:59:00* Test Item Value Reference Range Interpretation Comments Urine Clarity (test code = 76468-2) SL CLOUDY CLEAR H [facility] HospitalUrine Specific Ixsfohv1825-10-54 13:59:00 * Test Item Value Reference Range Interpretation Comments Urine Specific [place] (test code = 5811-5) >=1.030 1.010-1.02 5 [facility] HospitalUrine oU9112-15-13 13:59:00* Test Item Value Reference Range Interpretation Comments Urine pH (test code = 11871-0) 5.5 5-7 [facility] HospitalU[facility] Leukocyte Zwsnklpb9537-29-63 13:59:00* Test Item Value Reference Range Interpretation Comments Urine Leukocyte Esterase (test code = 84560-3) NEGATIVE NEGATIV E [facility] Gogrhxk6918-23-96 13:59:00* Test Item Value Reference Range Interpretation Comments Urine Nitrite (test code = 50102-3) POSITIVE NEGATIVE [facility] Tohhvkv7231-15-31 13:59:00* Test Item Value Reference Range Interpretation Comments Urine Protein (test code = 60514-6) 1+ NEGATIVE [facility] Glucose (UA)2018-11-19 13:59:00* Test Item Value Reference Range Interpretation Comments Urine Glucose (UA) (test code = 26303-3) NEGATIVE NEGATIVE [facility] HospitalU[facility] Qbaypuh1125-63-74 13:59:00* Test Item Value Reference Range Interpretation Comments Urine Ketones (test code = 94828-0) TRACE NEGATIVE H [facility] HospitalUrine Tbpjxswwuywr6389-69-26 13:59:00* Test Item Value Reference Range Interpretation Comments Urine Urobilinogen (test code = 57366-6) 0.2 0.2-1 [facility] HospitalU[facility] Efpukmrch5776-17-18 13:59:00* Test Item Value Reference Range Interpretation Comments Urine Bilirubin (test code = 1977-8) MODERATE NEGATIVE [facility] Yxlcr5797-87-84 13:59:00* Test Item Value Reference Range Interpretation Comments Urine Blood (test code = 10791-0) NEGATIVE NEGATIVE [facility] HospitalU[facility] Kwhec7008-13-17 13:59:00* Test Item Value Reference Range Interpretation Comments Urine Color (test code = 5778-6) BROWN YELLOW H [facility] HospitalUrine Yxmadau4591-99-63 13:59:00* Test Item Value Reference Range Interpretation Comments Urine Clarity (test code = 17263-7) SL CLOUDY CLEAR H [facility] HospitalUrine Specific Nmfhxlc9870-00-51 13:59:00 * Test Item Value Reference Range Interpretation Comments Urine Specific [place] (test code = 5811-5) >=1.030 1.010-1.02 5 [facility] HospitalUrine gC1761-26-94 13:59:00* Test Item Value Reference Range Interpretation Comments Urine pH (test code = 85440-6) 5.5 5-7 [facility] HospitalUrine Leukocyte Gdgkvlwg9898-43-67 13:59:00* Test Item Value Reference Range Interpretation Comments Urine Leukocyte Esterase (test code = 46432-6) NEGATIVE NEGATIV E [facility] HospitalU[facility] Kwjinsr2322-91-61 13:59:00* Test Item Value Reference Range Interpretation Comments Urine Nitrite (test code = 58847-8) POSITIVE NEGATIVE [facility] [place] Unahumw3745-85-19 13:59:00* Test Item Value Reference Range Interpretation Comments Urine Protein (test code = 55736-1) 1+ NEGATIVE H [facility] HospitalUrine Glucose (UA)2018-11-19 13:59:00* Test Item Value Reference Range Interpretation Comments Urine Glucose (UA) (test code = 27359-6) NEGATIVE NEGATIVE [facility] HospitalU[facility] Mpbfnmj3146-68-49 13:59:00* Test Item Value Reference Range Interpretation Comments Urine Ketones (test code = 42375-6) TRACE NEGATIVE H [facility] HospitalUrine Lsjvunqqkvhg6103-35-08 13:59:00* Test Item Value Reference Range Interpretation Comments Urine Urobilinogen (test code = 47158-6) 0.2 0.2-1 [facility] HospitalU[facility] Ypahjtstq7654-39-37 13:59:00* Test Item Value Reference Range Interpretation Comments Urine Bilirubin (test code = 1977-8) MODERATE NEGATIVE [facility] Wumli8234-20-95 13:59:00* Test Item Value Reference Range Interpretation Comments Urine Blood (test code = 38093-6) NEGATIVE NEGATIVE [facility] Club[facility] SING[facility] ([facility])2018-11-19 13:27:00 [facility] [address] [address] Patient Name: KASSI MCNULTY MR #: [id number] : 1955 Age/Sex: 63/M Req #: [id number] Adm Physician: Ordered by: SUELLEN TRAORE MD Report #: [id number] Location: ER Room/Bed: Procedure: [id number] DX/CH EST SINGLE (PORTABLE) Exam Date: 11/19/18 [...] 1:28 PM Dictated By: AI BUSCH MD 1320 Transcribed By: CAROL on 11/19/18 1328 COPY TO: SUELLEN TRAORE MD Urine color sbfdheoubyljx1384-85-01 12:55:00* Test Item Value Reference Range Interpretation Comments Urine Color (test code = 5778-6) BROWN YELLOW [facility] HospitalU[facility] tpyuldf9487-94-83 12:55:00* Test Item Value Reference Range Interpretation Comments Urine Clarity (test code = 30524-0) SL CLOUDY CLEAR [facility] gravity of Urine by Test strip 2018-11-19 12:55:00* Test Item Value Reference Range Interpretation Comments Urine Specific [place] (test code = 5811-5) >=1.030 1.010-1.02 5 [facility] HospitalU[facility] pH measurement by automated test ebqek1275-11-36 12:55:00* Test Item Value Reference Range Interpretation Comments Urine pH (test code = 52408-4) 5.5 5-7 [facility] HospitalUrine leukocyte esterase detection by automated test etyjk4746-89-57 12:55:00* Test Item Value Reference Range Interpretation Comments Urine Leukocyte Esterase (test code = 81277-0) NEGATIVE NEGATIV E [facility] HospitalUrine nitrite detection by automated test trwsm0250-73-65 12:55:00* Test Item Value Reference Range Interpretation Comments Urine Nitrite (test code = 81122-9) POSITIVE NEGATIVE [facility] HospitalUrine protein detection by automated test nggox6348-07-53 12:55:00* Test Item Value Reference Range Interpretation Comments Urine Protein (test code = 15355-9) 1+ NEGATIVE [facility] HospitalU[facility] glucose detection by automated test xxaxj7837-16-87 12:55:00* Test Item Value Reference Range Interpretation Comments Urine Glucose (UA) (test code = 06177-3) NEGATIVE NEGATIVE [facility] HospitalUrine ketones detection by automated test dseqg2995-55-27 12:55:00* Test Item Value Reference Range Interpretation Comments Urine Ketones (test code = 04567-6) TRACE NEGATIVE [facility] HospitalUrine urobilinogen measurement by test strip (mass/volume)2018-11-19 12:55:00* Test Item Value Reference Range Interpretation Comments Urine Urobilinogen (test code = 01114-7) 0.2 0.2-1 [facility] HospitalUrine total bilirubin dhdlgpxrp0390-99-85 12:55:00* Test Item Value Reference Range Interpretation Comments Urine Bilirubin (test code = 1977-8) MODERATE NEGATIVE [facility] HospitalUrine erythrocytes yofiajulz8767-20-86 12:55:00* Test Item Value Reference Range Interpretation Comments Urine Blood (test code = 37552-5) NEGATIVE NEGATIVE [facility] HospitalAutomated urine sediment leukocyte count by microscopy (number/high power field)2018-11-19 12:55:00* Test Item Value Reference Range Interpretation Comments Urine WBC (test code = 5821-4) NONE 0-5 [facility] HospitalErythrocytes detection in urine sediment by light shjthbvrgq7509-10-73 12:55:00* Test Item Value Reference Range Interpretation Comments Urine RBC (test code = 19954-7) NONE 0-5 [facility] HospitalBacteria detection in urine sediment by light ktjcxsstnt6075-37-52 12:55:00* Test Item Value Reference Range Interpretation Comments Urine Bacteria (test code = 22603-3) FEW NONE [facility] HospitalEpithelial cells detection in urine sediment by light tnegmnuzsp9555-49-50 12:55:00* Test Item Value Reference Range Interpretation Comments Urine Epithelial Cells (test code = 26702-4) FEW NONE [facility] HospitalTransitional cells detection in urine sediment by light xirixnmhgy4004-26-34 12:55:00* Test Item Value Reference Range Interpretation Comments Urine Transitional Epithelial Cells (test code = 8249-5) RARE NONE [facility] Irving[facility]um or plasma lipase measurement (enzymatic activity/volume)2018-11-19 12:55:00* Test Item Value Reference Range Interpretation Comments Lipase (test code = 3040-3) 71 8-78 [facility] HospitalABDOMEN-1VIEW (KUB)2018-11-05 14:29:00 [facility] [address] [address] Patient Name: KASSI MCNULTY MR #: [id number] : 1955 Age/Sex: 63/M Req #: [id number] Adm Physician: Ordered by: DEBBY SALVADOR MD Report #: [id number] Location: ER Room/Bed: Procedure: [id number] DX/ ABDOMEN-1VIEW (KUB) Exam Date: 11/05/18 Exam [...] 1434 COPY TO: DEBBY SALVADOR MD Urine CTF0269-20-43 12:34:00* Test Item Value Reference Range Interpretation Comments Urine WBC (test code = 5821-4) 0-5 0-5 [facility] HospitalU[facility] UZZ9594-16-66 12:34:00* Test Item Value Reference Range Interpretation Comments Urine RBC (test code = 31127-2) 0-5 0-5 [facility] HospitalU[facility] Pjglzepo2930-82-45 12:34:00* Test Item Value Reference Range Interpretation Comments Urine Bacteria (test code = 59480-9) MODERATE NONE H [facility] HospitalUrine Epithelial Kbyps8405-93-37 12:34:00 * Test Item Value Reference Range Interpretation Comments Urine Epithelial Cells (test code = 62842-2) MODERATE NONE [facility] Usljg1082-96-55 12:34:00* Test Item Value Reference Range Interpretation Comments Urine Mucus (test code = 8247-9) FEW RARE H [facility] Wtxxy2311-02-93 12:34:00* Test Item Value Reference Range Interpretation Comments Urine Mucus (test code = 8247-9) FEW RARE H [facility] Dydfx7095-15-86 12:34:00* Test Item Value Reference Range Interpretation Comments Urine Mucus (test code = 8247-9) FEW RARE H [facility] Kyueo6306-59-58 12:19:00* Test Item Value Reference Range Interpretation Comments Urine Color (test code = 5778-6) YELLOW YELLOW [facility] Dftirpx8139-12-74 12:19:00* Test Item Value Reference Range Interpretation Comments Urine Clarity (test code = 08768-6) CLEAR CLEAR [facility] Specific Pkxauzx4440-32-95 12:19:00 * Test Item Value Reference Range Interpretation Comments Urine Specific [place] (test code = 5811-5) >=1.030 1.010-1.02 5 [facility] vS2808-80-47 12:19:00* Test Item Value Reference Range Interpretation Comments Urine pH (test code = 88771-1) 5.5 5-7 [facility] Leukocyte Danhxrky5334-97-22 12:19:00* Test Item Value Reference Range Interpretation Comments Urine Leukocyte Esterase (test code = 35229-6) NEGATIVE NEGATIV E [facility] Phscpts6464-97-14 12:19:00* Test Item Value Reference Range Interpretation Comments Urine Nitrite (test code = 50010-8) NEGATIVE NEGATIVE [facility] Gyauuet8227-32-39 12:19:00* Test Item Value Reference Range Interpretation Comments Urine Protein (test code = 83605-4) 1+ NEGATIVE H [facility] HospitalUrine Glucose (UA)2018-11-05 12:19:00* Test Item Value Reference Range Interpretation Comments Urine Glucose (UA) (test code = 45630-8) NEGATIVE NEGATIVE [facility] HospitalUrine Cdqziys8424-25-84 12:19:00* Test Item Value Reference Range Interpretation Comments Urine Ketones (test code = 38614-2) NEGATIVE NEGATIVE [facility] HospitalUrine Abuugvhenppv2443-02-66 12:19:00* Test Item Value Reference Range Interpretation Comments Urine Urobilinogen (test code = 68268-9) 1 0.2-1 [facility] HospitalUrine Xzcjpcemp9092-04-06 12:19:00* Test Item Value Reference Range Interpretation Comments Urine Bilirubin (test code = 1977-8) SMALL NEGATIVE [facility] HospitalUrine Pmnie7502-89-21 12:19:00* Test Item Value Reference Range Interpretation Comments Urine Blood (test code = 30678-4) NEGATIVE NEGATIVE [facility] HospitalCreatine Kinase HI6813-28-20 12:11:00* Test Item Value Reference Range Interpretation Comments Creatine Kinase MB (test code = 61095-9) 2.20 0-5.0 [facility] HospitalTroponin F1537-44-18 12:11:00* Test Item Value Reference Range Interpretation Comments Troponin I (test code = GZK3540) 0.014 0-0.300 [facility] Mwswn1914-09-51 12:00:00* Test Item Value Reference Range Interpretation Comments Sodium Level (test code = 2951-2) 132 136-145 L [facility] HospitalPotassium Toygm4293-87-61 12:00:00* Test Item Value Reference Range Interpretation Comments Potassium Level (test code = 2823-3) 3.4 3.5-5.1 L [facility] HospitalChloride Viuyk0788-65-56 12:00:00* Test Item Value Reference Range Interpretation Comments Chloride Level (test code = 2075-0) 96 98-107 L [facility] HospitalCarbon Dioxide Vfyfk5108-12-82 12:00:00* Test Item Value Reference Range Interpretation Comments Carbon Dioxide Level (test code = 2028-9) 29 22-29 [facility] HospitalAnion Ham4546-52-88 12:00:00* Test Item Value Reference Range Interpretation Comments Anion Gap (test code = 56955-7) 10.4 8-16 [facility] HospitalBlood Urea Xatnyhvi4915-99-29 12:00:00* Test Item Value Reference Range Interpretation Comments Blood Urea Nitrogen (test code = 3094-0) 22 10-09 [facility] HospitalCreatinine2019-08-22 12:00:00* Test Item Value Reference Range Interpretation Comments Creatinine (test code = 2160-0) 0.99 0.72-1.25 [facility] HospitalBUN/Creatinine Azlff4920-58-49 12:00:00* Test Item Value Reference Range Interpretation Comments BUN/Creatinine Ratio (test code = 3097-3) 09-08 [facility] HospitalEstimat Glomerular Filtration Rate 2018-11-05 12:00:00* Test Item Value Reference Range Interpretation Comments Estimat Glomerular Filtration Rate (test code = 833992531) > 60 >60 Ranges were taken from the National Kidney Disease Education Program and the [facility] literature.Reference ranges:60 or greater: Xbsate61-37 ( for 3 consecutive months): Chronic kidney disease 15 or less: Kidney failureNavarro Regional HospitalGlucose Avsgy0478-11-21 12:00:00* Test Item Value Reference Range Interpretation Comments Glucose Level (test code = PBH2844) 112 74-118 [facility] HospitalCalcium Ynhtq0212-18-68 12:00:00* Test Item Value Reference Range Interpretation Comments Calcium Level (test code = 14623-5) 8.7 8.4-10.2 [facility] HospitalTotal Hrgwptcos6576-41-27 12:00:00* Test Item Value Reference Range Interpretation Comments Total Bilirubin (test code = 1975-2) 1.1 0.2-1.2 [facility] HospitalAspartate Amino Transf (AST/SGOT) 2018-11-05 12:00:00* Test Item Value Reference Range Interpretation Comments Aspartate Amino Transf (AST/SGOT) (test code = Aspartate Amino Transf (AST/SGOT)) 16 5-34 [facility] HospitalAlanine Aminotransferase (ALT/SGPT) 2018-11-05 12:00:00* Test Item Value Reference Range Interpretation Comments Alanine Aminotransferase (ALT/SGPT) (test code = 1742-6) 15 0-55 [facility] HospitalTotal Xqmyshu7292-77-83 12:00:00* Test Item Value Reference Range Interpretation Comments Total Protein (test code = 2885-2) 6.1 6.5-8.1 L [facility] HospitalAlbumin2019-08-22 12:00:00* Test Item Value Reference Range Interpretation Comments Albumin (test code = 1751-7) 3.7 3.5-5.0 [facility] HospitalGlobulin2019-08-22 12:00:00* Test Item Value Reference Range Interpretation Comments Globulin (test code = 61066-7) 2.4 2.3-3.5 [facility] HospitalAlbumin/Globulin Hqkhv4580-69-36 12:00:00 * Test Item Value Reference Range Interpretation Comments Albumin/Globulin Ratio (test code = 1759-0) 1.5 0.8-2.0 [facility] HospitalAlkaline Ciprjlocnlc5362-86-19 12:00:00* Test Item Value Reference Range Interpretation Comments Alkaline Phosphatase (test code = 6768-6) 94 40-150 [facility] HospitalCreatine Hhepdb8860-17-38 12:00:00* Test Item Value Reference Range Interpretation Comments Creatine Kinase (test code = 2157-6) 63 30-200 [facility] HospitalWhite Blood Xcdtz7461-82-19 11:45:00* Test Item Value Reference Range Interpretation Comments White Blood Count (test code = 6690-2) 9.38 4.8-10.8 [facility] HospitalRed Blood Hhwws1403-97-89 11:45:00* Test Item Value Reference Range Interpretation Comments Red Blood Count (test code = 789-8) 4.79 4.3-5.7 [facility] HospitalHemoglobin2019-08-22 11:45:00* Test Item Value Reference Range Interpretation Comments Hemoglobin (test code = 84810-8) 12.4 14.0-18.0 L [facility] HospitalHematocrit2019-08-22 11:45:00* Test Item Value Reference Range Interpretation Comments Hematocrit (test code = 4544-3) 40.0 38.2-49.6 [facility] HospitalMean Corpuscular Rlkhht6294-16-83 11:45:00* Test Item Value Reference Range Interpretation Comments Mean Corpuscular Volume (test code = 787-2) 83.5 81-99 [facility] HospitalMean Corpuscular Jtfcpmmpad5228-24-05 11:45:00* Test Item Value Reference Range Interpretation Comments Mean Corpuscular Hemoglobin (test code = 785-6) 25.9 28-32 L [facility] Hemoglobin Concent 2018-11-05 11:45:00* Test Item Value Reference Range Interpretation Comments Mean Corpuscular Hemoglobin Concent (test code = 786-4) 31.0 31-35 [facility] HospitalRed Cell Distribution Isqcg6876-12-44 11:45:00* Test Item Value Reference Range Interpretation Comments Red Cell Distribution Width (test code = 94702-4) 13.8 11.7 -14.4 [facility] HospitalPlatelet Smdak0638-54-66 11:45:00* Test Item Value Reference Range Interpretation Comments Platelet Count (test code = 777-3) 245 140-360 [facility] HospitalNeutrophils (%) (Auto)2018-11-05 11:45:00 * Test Item Value Reference Range Interpretation Comments Neutrophils (%) (Auto) (test code = 55197-4) 82.7 38.7-80.0 H [facility] HospitalLymphocytes (%) (Auto)2018-11-05 11:45:00 * Test Item Value Reference Range Interpretation Comments Lymphocytes (%) (Auto) (test code = 736-9) 8.4 18.0-39.1 L [facility] HospitalMonocytes (%) (Auto)2018-11-05 11:45:00* Test Item Value Reference Range Interpretation Comments Monocytes (%) (Auto) (test code = 5905-5) 6.6 4.4-11.3 [facility] HospitalEosinophils (%) (Auto)2018-11-05 11:45:00 * Test Item Value Reference Range Interpretation Comments Eosinophils (%) (Auto) (test code = 713-8) 1.7 0.0-6.0 [facility] HospitalBasophils (%) (Auto)2018-11-05 11:45:00* Test Item Value Reference Range Interpretation Comments Basophils (%) (Auto) (test code = 706-2) 0.2 0.0-1.0 [facility] HospitalIM GRANULOCYTES %2018-11-05 11:45:00* Test Item Value Reference Range Interpretation Comments IM GRANULOCYTES % (test code = IM GRANULOCYTES %) 0.4 0.0- 1.0 [facility] HospitalNeutrophils # (Auto)2018-11-05 11:45:00* Test Item Value Reference Range Interpretation Comments Neutrophils # (Auto) (test code = 751-8) 7.8 2.1-6.9 H [facility] HospitalLymphocytes # (Auto)2018-11-05 11:45:00* Test Item Value Reference Range Interpretation Comments Lymphocytes # (Auto) (test code = 51693-0) 0.8 1.0-3.2 L [facility] HospitalMonocytes # (Auto)2018-11-05 11:45:00* Test Item Value Reference Range Interpretation Comments Monocytes # (Auto) (test code = 742-7) 0.6 0.2-0.8 [facility] HospitalEosinophils # (Auto)2018-11-05 11:45:00* Test Item Value Reference Range Interpretation Comments Eosinophils # (Auto) (test code = 711-2) 0.2 0.0-0.4 [facility] HospitalBasophils # (Auto)2018-11-05 11:45:00* Test Item Value Reference Range Interpretation Comments Basophils # (Auto) (test code = 704-7) 0.0 0.0-0.1 [facility] HospitalAbsolute Immature Granulocyte (auto 2018-11-05 11:45:00* Test Item Value Reference Range Interpretation Comments Absolute Immature Granulocyte (auto (chriss t code = Absolute Immature Granulocyte (auto) 0.04 0-0.1 [facility] HospitalMucus detection in urine sediment by light qsmnrstedr6638-20-90 10:39:00* Test Item Value Reference Range Interpretation Comments Urine Mucus (test code = 8247-9) FEW RARE [facility] Dbhwiyt7498-74-26 15:32:00* Test Item Value Reference Range Interpretation Comments Bedside Glucose (test code = 70595-9) 222 70-120 H Meter ID: [id number] [facility] Glucose 2018-10-31 15:32:00* Test Item Value Reference Range Interpretation Comments Bedside Glucose (test code = 79270-3) 222 70-120 H Meter ID: [id number] [facility] ClubABDOMEN-1VIEW (MICHAB) 2018-10-31 07:19:00 [facility] [address] [place] [address] Patient Name: KASSI MCNULTY MR #: [id number] : 1955 Age/Sex: 63/M Req #: [id number] Adm Physician: DIMA WELCH MD Ordered by: Holli Morel MANAGEMENT ANALYST Report #: [id number] Location: MED/SURG Room/Bed: [facility] Procedure: [id number] DX/ ABDOMEN-1VIEW (DARY) Exam Date: Exam Time: REPORT STATUS: Signed [...] on 10/31/18722 COPY TO: HOLLI MOREL NP Sodium Obwsi2474-83-48 04:28:00* Test Item Value Reference Range Interpretation Comments Sodium Level (test code = 2951-2) 141 136-145 [facility] HospitalPotassium Hsiun7568-57-99 04:28:00* Test Item Value Reference Range Interpretation Comments Potassium Level (test code = 2823-3) 3.4 3.5-5.1 L [facility] HospitalChloride Uyckx8397-46-99 04:28:00* Test Item Value Reference Range Interpretation Comments Chloride Level (test code = 2075-0) 107 98-107 [facility] HospitalCarbon Dioxide Wqqtd4103-61-99 04:28:00* Test Item Value Reference Range Interpretation Comments Carbon Dioxide Level (test code = 2028-9) 27 22-29 [facility] HospitalAnion Hqc8599-55-28 04:28:00* Test Item Value Reference Range Interpretation Comments Anion Gap (test code = 05845-2) 10.4 8-16 [facility] HospitalBlood Urea Kwxeyeye3985-92-88 04:28:00* Test Item Value Reference Range Interpretation Comments Blood Urea Nitrogen (test code = 3094-0) 8 7-26 [facility] HospitalCreatinine2019-08-17 04:28:00* Test Item Value Reference Range Interpretation Comments Creatinine (test code = 2160-0) 0.71 0.72-1.25 L [facility] HospitalBUN/Creatinine Eyqwp3707-02-82 04:28:00* Test Item Value Reference Range Interpretation Comments BUN/Creatinine Ratio (test code = 3097-3) 11 -25 [facility] HospitalEstimat Glomerular Filtration Rate 2018-10-31 04:28:00* Test Item Value Reference Range Interpretation Comments Estimat Glomerular Filtration Rate (test code = 880101201) > 60 >60 Ranges were taken from the National Kidney Disease Education Program and the [facility] literature.Reference ranges:60 or greater: Phjxrj98-23 ( for 3 consecutive months): Chronic kidney disease 15 or less: Kidney failureCHI [facility] ClubGlucose Cpekt3345-02-34 04:28:00* Test Item Value Reference Range Interpretation Comments Glucose Level (test code = LHC3244) 129 74-118 H [facility] HospitalCalcium Abgyk3109-68-47 04:28:00* Test Item Value Reference Range Interpretation Comments Calcium Level (test code = 86051-4) 7.9 8.4-10.2 L [facility] HospitalWhite Blood Scgmr1199-09-01 04:15:00* Test Item Value Reference Range Interpretation Comments White Blood Count (test code = 6690-2) 7.21 4.8-10.8 [facility] HospitalRed Blood Gfrwn8153-62-91 04:15:00* Test Item Value Reference Range Interpretation Comments Red Blood Count (test code = 789-8) 4.71 4.3-5.7 [facility] HospitalHemoglobin2019-08-17 04:15:00* Test Item Value Reference Range Interpretation Comments Hemoglobin (test code = 58868-8) 12.3 14.0-18.0 L [facility] HospitalHematocrit2019-08-17 04:15:00* Test Item Value Reference Range Interpretation Comments Hematocrit (test code = 4544-3) 39.7 38.2-49.6 [facility] HospitalMean Corpuscular Gauczv1028-92-08 04:15:00* Test Item Value Reference Range Interpretation Comments Mean Corpuscular Volume (test code = 787-2) 84.3 81-99 [facility] HospitalMean Corpuscular Sythhxyzmd7177-30-10 04:15:00* Test Item Value Reference Range Interpretation Comments Mean Corpuscular Hemoglobin (test code = 785-6) 26.1 28-32 L [facility] HospitalMean Corpuscular Hemoglobin Concent 2018-10-31 04:15:00* Test Item Value Reference Range Interpretation Comments Mean Corpuscular Hemoglobin Concent (test code = 786-4) 31.0 31-35 [facility] HospitalRed Cell Distribution Itckm2768-71-76 04:15:00* Test Item Value Reference Range Interpretation Comments Red Cell Distribution Width (test code = 86284-2) 13.7 11.7 -14.4 [facility] HospitalPlatelet Mebrp3287-11-49 04:15:00* Test Item Value Reference Range Interpretation Comments Platelet Count (test code = 777-3) 173 140-360 [facility] HospitalNeutrophils (%) (Auto)2018-10-31 04:15:00 * Test Item Value Reference Range Interpretation Comments Neutrophils (%) (Auto) (test code = 56237-2) 73.7 38.7-80.0 [facility] HospitalLymphocytes (%) (Auto)2018-10-31 04:15:00 * Test Item Value Reference Range Interpretation Comments Lymphocytes (%) (Auto) (test code = 736-9) 13.5 18.0-39.1 L [facility] HospitalMonocytes (%) (Auto)2018-10-31 04:15:00* Test Item Value Reference Range Interpretation Comments Monocytes (%) (Auto) (test code = 5905-5) 8.2 4.4-11.3 [facility] HospitalEosinophils (%) (Auto)2018-10-31 04:15:00 * Test Item Value Reference Range Interpretation Comments Eosinophils (%) (Auto) (test code = 713-8) 3.6 0.0-6.0 [facility] HospitalBasophils (%) (Auto)2018-10-31 04:15:00* Test Item Value Reference Range Interpretation Comments Basophils (%) (Auto) (test code = 706-2) 0.4 0.0-1.0 [facility] HospitalIM GRANULOCYTES %2018-10-31 04:15:00* Test Item Value Reference Range Interpretation Comments IM GRANULOCYTES % (test code = IM GRANULOCYTES %) 0.6 0.0- 1.0 [facility] HospitalNeutrophils # (Auto)2018-10-31 04:15:00* Test Item Value Reference Range Interpretation Comments Neutrophils # (Auto) (test code = 751-8) 5.3 2.1-6.9 [facility] HospitalLymphocytes # (Auto)2018-10-31 04:15:00* Test Item Value Reference Range Interpretation Comments Lymphocytes # (Auto) (test code = 94274-6) 1.0 1.0-3.2 [facility] HospitalMonocytes # (Auto)2018-10-31 04:15:00* Test Item Value Reference Range Interpretation Comments Monocytes # (Auto) (test code = 742-7) 0.6 0.2-0.8 [facility] HospitalEosinophils # (Auto)2018-10-31 04:15:00* Test Item Value Reference Range Interpretation Comments Eosinophils # (Auto) (test code = 711-2) 0.3 0.0-0.4 [facility] HospitalBasophils # (Auto)2018-10-31 04:15:00* Test Item Value Reference Range Interpretation Comments Basophils # (Auto) (test code = 704-7) 0.0 0.0-0.1 [facility] HospitalAbsolute Immature Granulocyte (auto 2018-10-31 04:15:00* Test Item Value Reference Range Interpretation Comments Absolute Immature Granulocyte (auto (chriss t code = Absolute Immature Granulocyte (auto) 0.04 0-0.1 [facility] HospitalABDOMEN ACUTE SERIES W/PA XOA6999-47-32 15:28:[address] [address] Patient Name: KASSI MCNULTY MR #: [id number] : 1955 Age/Sex: 63/M Req #: [id number] Adm Physician: DIMA WELCH MD Ordered by: AL WELLS MD Report #: [id number] Location: MED/SURG Room/Bed: [facility] Procedure: [id number] DX/ABDOMEN ACUTE SERIES W/PA CXR Exam Date: [...] TO: AL WELLS MD ABDOMEN-1VIEW (KUB)2018-10-30 06:34:00 [place] [address] Patient Name: KASSI MCNULTY MR #: [id number] : 1955 Age/Sex: 63/M Req #: [id number] Adm Physician: DIMA WELCH MD Ordered by: Holli Morel NP Report #: [id number] Location: MED/SURG Room/Bed: 109-1 Procedure: [id number] DX/ ABDOMEN-1VIEW (KUB) Exam Date: 10/30/18 Exam [...] NGO DO 8 COPY TO: Jayson MOREL MANAGEMENT ANALYST ABDOMEN ACUTE SERIES W/MINOR HRG2063-92-63 14:48:00 [place] [address] Patient Name: KASSI MCNULTY MR #: [id number] : 1955 Age/Sex: 63/M Req #: [id number] Adm Physician: DIMA WELCH MD Ordered by: AL WELLS MD Report #: [id number] Location: MED/SURG Room/Bed: 109-1 Procedure: [id number] DX/ABDOMEN ACUTE SERIES W/PA CXR Exam Date: [...] COPY TO: AL WELLS MD CT ABDOMEN/PELVIS W1597-66-92 06:13:00 [place] [address] Patient Name: KASSI MCNULTY MR #: [id number] : 1955 Age/Sex: 63/M Req #: [id number] Adm Physician: Ordered by: VON ACHARYA MD Report #: [id number] Location: ER Room/Bed: Procedure: [id number]/CT [...] NGO DO T ranscribed By: CAROL on 10/29/18630 COPY TO: VON ACHARYA MD Urine LTU0629-27-24 06:04:00* Test Item Value Reference Range Interpretation Comments Urine WBC (test code = 5821-4) 11-20 0-5 H [facility] HospitalUrine LWJ3609-14-31 06:04:00* Test Item Value Reference Range Interpretation Comments Urine RBC (test code = 44286-0) 0-5 0-5 [facility] HospitalUrine Qbxesvym4969-37-94 06:04:00* Test Item Value Reference Range Interpretation Comments Urine Bacteria (test code = 61596-2) MANY NONE H [facility] HospitalUrine Epithelial Gpstg6194-13-46 06:04:00 * Test Item Value Reference Range Interpretation Comments Urine Epithelial Cells (test code = 74986-8) MODERATE NONE [facility] Amorphous Clnvfipe6544-81-23 06:04:00* Test Item Value Reference Range Interpretation Comments Urine Amorphous Sediment (test code = 8246-1) FEW FEW [facility] Hyaline Zhvvh9060-49-04 06:04:00* Test Item Value Reference Range Interpretation Comments Urine Hyaline Casts (test code = 58975-7) 6-10 0-1 H [facility] HospitalU[facility] Fine Granular Gbsnn9638-31-06 06:04:00* Test Item Value Reference Range Interpretation Comments Urine Fine Granular Casts (test code = 77082-8) 1-5 >0 H [facility] HospitalUrine Hdqgi7943-62-84 06:04:00* Test Item Value Reference Range Interpretation Comments Urine Mucus (test code = 8247-9) MODERATE RARE H [facility] HospitalUrine Amorphous Tkkumtns0982-59-03 06:04:00* Test Item Value Reference Range Interpretation Comments Urine Amorphous Sediment (test code = 8246-1) FEW FEW [facility] HospitalU[facility] Hyaline Svgfd7489-20-09 06:04:00* Test Item Value Reference Range Interpretation Comments Urine Hyaline Casts (test code = 94252-9) 6-10 0-1 H [facility] Fine Granular Ojyjb2517-42-78 06:04:00* Test Item Value Reference Range Interpretation Comments Urine Fine Granular Casts (test code = 71085-3) 1-5 >0 H [facility] HospitalU[facility] Amorphous Rpwjtkcn0658-87-61 06:04:00* Test Item Value Reference Range Interpretation Comments Urine Amorphous Sediment (test code = 8246-1) FEW FEW [facility] HospitalU[facility] Hyaline Xhgew1933-29-67 06:04:00* Test Item Value Reference Range Interpretation Comments Urine Hyaline Casts (test code = 57187-9) 6-10 0-1 H [facility] HospitalU[facility] Fine Granular Slqyu0538-62-66 06:04:00* Test Item Value Reference Range Interpretation Comments Urine Fine Granular Casts (test code = 27145-8) 1-5 >0 H [facility] HospitalU[facility] Amorphous Lbjaunsw2800-48-37 06:04:00* Test Item Value Reference Range Interpretation Comments Urine Amorphous Sediment (test code = 8246-1) FEW FEW [facility] Hyaline Qklzw4181-54-32 06:04:00* Test Item Value Reference Range Interpretation Comments Urine Hyaline Casts (test code = 77913-8) 6-10 0-1 H [facility] HospitalU[facility] Fine Granular Irbbm9158-02-74 06:04:00* Test Item Value Reference Range Interpretation Comments Urine Fine Granular Casts (test code = 63639-1) 1-5 >0 H [facility] HospitalUrine Jmyjj2536-96-75 05:53:00* Test Item Value Reference Range Interpretation Comments Urine Color (test code = 5778-6) YELLOW YELLOW [facility] HospitalUrine Jftqeci5328-27-94 05:53:00* Test Item Value Reference Range Interpretation Comments Urine Clarity (test code = 76059-2) SL CLOUDY CLEAR H [facility] HospitalUrine Specific Tdnwbdc4312-68-89 05:53:00 * Test Item Value Reference Range Interpretation Comments Urine Specific [place] (test code = 5811-5) 1.025 1.010-1.02 5 [facility] HospitalU[facility] pB9462-05-25 05:53:00* Test Item Value Reference Range Interpretation Comments Urine pH (test code = 88140-6) 6 5-7 [facility] Leukocyte Vogrvbad8307-33-82 05:53:00* Test Item Value Reference Range Interpretation Comments Urine Leukocyte Esterase (test code = 83527-5) NEGATIVE NEGATIV E [facility] HospitalUrine Nvcsqub7127-55-49 05:53:00* Test Item Value Reference Range Interpretation Comments Urine Nitrite (test code = 27652-9) NEGATIVE NEGATIVE [facility] Pfexzju0187-81-02 05:53:00* Test Item Value Reference Range Interpretation Comments Urine Protein (test code = 77675-1) 2+ NEGATIVE H [facility] HospitalUrine Glucose (UA)2018-10-29 05:53:00* Test Item Value Reference Range Interpretation Comments Urine Glucose (UA) (test code = 76922-1) NEGATIVE NEGATIVE [facility] HospitalUrine Tnaaypw9304-72-65 05:53:00* Test Item Value Reference Range Interpretation Comments Urine Ketones (test code = 21239-7) NEGATIVE NEGATIVE [facility] HospitalU[facility] Nainldpiwuyf6601-23-25 05:53:00* Test Item Value Reference Range Interpretation Comments Urine Urobilinogen (test code = 78360-3) 0.2 0.2-1 [facility] HospitalUrine Jfrjfgnno9360-92-96 05:53:00* Test Item Value Reference Range Interpretation Comments Urine Bilirubin (test code = 1977-8) NEGATIVE NEGATIVE [facility] HospitalUrine Gbpuj0924-43-35 05:53:00* Test Item Value Reference Range Interpretation Comments Urine Blood (test code = 07542-2) NEGATIVE NEGATIVE [facility] HospitalAmylase Axsea7420-69-92 05:18:00* Test Item Value Reference Range Interpretation Comments Amylase Level (test code = 1798-8) 51 25-125 [facility] HospitalLipase2019-08-15 05:18:00* Test Item Value Reference Range Interpretation Comments Lipase (test code = 3040-3) 57 8-78 [facility] HospitalAmylase Fqays6957-38-09 05:18:00* Test Item Value Reference Range Interpretation Comments Amylase Level (test code = 1798-8) 51 25-125 [facility] HospitalLipase2019-08-15 05:18:00* Test Item Value Reference Range Interpretation Comments Lipase (test code = 3040-3) 57 8-78 [facility] HospitalAmylase Ifjnk2127-45-74 05:18:00* Test Item Value Reference Range Interpretation Comments Amylase Level (test code = 1798-8) 51 25-125 [facility] HospitalAmylase Zvdpa0646-58-08 05:18:00* Test Item Value Reference Range Interpretation Comments Amylase Level (test code = 1798-8) 51 25-125 [facility] HospitalAmorphous sediment detection in urine sediment by light thgekisdpm1639-78-50 05:15:00* Test Item Value Reference Range Interpretation Comments Urine Amorphous Sediment (test code = 8246-1) FEW FEW [facility] HospitalHyaline casts detection in urine sediment by light zzgxpdqihk7215-66-39 05:15:00* Test Item Value Reference Range Interpretation Comments Urine Hyaline Casts (test code = 16677-1) 6-10 0-1 [facility] HospitalAutomated fine granular casts count in urine sediment by microscopy low power field (number/area)2018-10-29 05:15:00* Test Item Value Reference Range Interpretation Comments Urine Fine Granular Casts (test code = 60087-0) 1-5 >0 [facility] HospitalCreatine Kinase WZ0144-50-71 05:13:00* Test Item Value Reference Range Interpretation Comments Creatine Kinase MB (test code = 08207-7) 5.90 0-5.0 H [facility] HospitalTroponin S3782-81-12 05:13:00* Test Item Value Reference Range Interpretation Comments Troponin I (test code = RLY2558) 0.010 0-0.300 [facility] HospitalLactic Acid Trvrm3553-35-87 05:06:00* Test Item Value Reference Range Interpretation Comments Lactic Acid Level (test code = Lactic Acid Level) 14.5 4.5- 19.8 [facility] HospitalTotal Wrkcwalrf2892-97-60 05:06:00* Test Item Value Reference Range Interpretation Comments Total Bilirubin (test code = 1975-2) 0.8 0.2-1.2 [facility] HospitalAspartate Amino Transf (AST/SGOT) 2018-10-29 05:06:00* Test Item Value Reference Range Interpretation Comments Aspartate Amino Transf (AST/SGOT) (test code = Aspartate Amino Transf (AST/SGOT)) 21 5-34 [facility] HospitalAlanine Aminotransferase (ALT/SGPT) 2018-10-29 05:06:00* Test Item Value Reference Range Interpretation Comments Alanine Aminotransferase (ALT/SGPT) (test code = 1742-6) 23 0-55 [facility] HospitalTotal Eqmqcqu7377-72-75 05:06:00* Test Item Value Reference Range Interpretation Comments Total Protein (test code = 2885-2) 6.6 6.5-8.1 [facility] HospitalAlbumin2019-08-15 05:06:00* Test Item Value Reference Range Interpretation Comments Albumin (test code = 1751-7) 4.0 3.5-5.0 [facility] HospitalGlobulin2019-08-15 05:06:00* Test Item Value Reference Range Interpretation Comments Globulin (test code = 69194-3) 2.6 2.3-3.5 [facility] HospitalAlbumin/Globulin Ttrhs3098-17-81 05:06:00 * Test Item Value Reference Range Interpretation Comments Albumin/Globulin Ratio (test code = 1759-0) 1.5 0.8-2.0 [facility] HospitalAlkaline Jartubzczzp0676-65-70 05:06:00* Test Item Value Reference Range Interpretation Comments Alkaline Phosphatase (test code = 6768-6) 112 40-150 [facility] HospitalCreatine Zciwdc3973-78-17 05:06:00* Test Item Value Reference Range Interpretation Comments Creatine Kinase (test code = 2157-6) 124 30-200 [facility] HospitalLactic Acid Iahck1084-00-03 05:06:00* Test Item Value Reference Range Interpretation Comments Lactic Acid Level (test code = Lactic Acid Level) 14.5 4.5- 19.8 [facility] HospitalLactic Acid Iskrt9625-93-76 05:06:00* Test Item Value Reference Range Interpretation Comments Lactic Acid Level (test code = Lactic Acid Level) 14.5 4.5- 19.8 [facility] HospitalLactic Acid Nkcvr9789-01-75 05:06:00* Test Item Value Reference Range Interpretation Comments Lactic Acid Level (test code = Lactic Acid Level) 14.5 4.5- 19.8 [facility] HospitalFluoroscopic procedure less than one hour gcjuepqa3643-27-58 04:25:00* Test Item Value Reference Range Interpretation Comments Lactic Acid Level (test code = Lactic Acid Level) 14.5 4.5- 19.8 [facility] Irving[facility]um or plasma amylase measurement (enzymatic activity/volume)2018-10-29 04:25:00* Test Item Value Reference Range Interpretation Comments Amylase Level (test code = 1798-8) 51 25-125 [facility] HospitalBedside Sidxidk9517-98-78 15:48:00* Test Item Value Reference Range Interpretation Comments Bedside Glucose (test code = 32852-0) 212 70-120 H Meter ID: [id number] Scott & White Medical Center – Irvingtress Test - Treadmill XQYQ4619-18-46 13:40:00 [facility] [address] [place] [address] Patient Name : KASSI MCNULTY MR #: [id number] : 1955 Age/Sex: 62/M Adm Physician : DIMA WELCH MD Admit Date : 10/30/17 Location : MED/SURG Room/Bed : [facility] REPORT: Cardiolog y Report REFERRING PHYSICIAN: DIMA [...] wall motion abnormalities. DT: 2017 13:55 Job#: [id number] EV cc: DIMA WELCH MD Signature Date Dictated By: NATANAEL MCCALLUM MD Transcribed By: SMEDS on 10/31/17 <Electronically signed by NATANAEL MCCALLUM MD><<Signature on File>>01/28/18 1308 COPY TO: Sodium Tgexd7110-55-47 08:57:00* Test Item Value Reference Range Interpretation Comments Sodium Level (test code = 2951-2) 139 136-145 [facility]Potassium Bmmgg0518-41-30 08:57:00* Test Item Value Reference Range Interpretation Comments Potassium Level (test code = 2823-3) 3.1 3.5-5.1 L [facility] HospitalChloride Iodvw9617-67-43 08:57:00* Test Item Value Reference Range Interpretation Comments Chloride Level (test code = 2075-0) 101 98-107 [facility] HospitalCarbon Dioxide Pzvkx0752-20-40 08:57:00* Test Item Value Reference Range Interpretation Comments Carbon Dioxide Level (test code = 2028-9) 27 -29 [facility] HospitalAnion Smz4715-57-39 08:57:00* Test Item Value Reference Range Interpretation Comments Anion Gap (test code = 12013-3) 14.1 8-16 [facility] HospitalBlood Urea Lacmdpah1494-00-04 08:57:00* Test Item Value Reference Range Interpretation Comments Blood Urea Nitrogen (test code = 3094-0) 12 7-26 [facility] HospitalCreatinine2018-08-17 08:57:00* Test Item Value Reference Range Interpretation Comments Creatinine (test code = 2160-0) 0.76 0.72-1.25 [facility] HospitalBUN/Creatinine Dhrvk1144-33-56 08:57:00* Test Item Value Reference Range Interpretation Comments BUN/Creatinine Ratio (test code = 3097-3) 16 - [facility] HospitalEstimat Glomerular Filtration Rate 2017-10-31 08:57:00* Test Item Value Reference Range Interpretation Comments Estimat Glomerular Filtration Rate (test code = 89196-4) 60- >60 Ranges were taken from the National Kidney Disease Education Program and the [facility] literature.Reference ranges:60 or greater: Helnba30-40 ( for 3 consecutive months): Chronic kidney disease 15 or less: Kidney failureNav[facility] HospitalGlucose Euipy8950-39-73 08:57:00* Test Item Value Reference Range Interpretation Comments Glucose Level (test code = PHP4848) 158 74-118 H [facility] HospitalCalcium Gmycm3519-82-25 08:57:00* Test Item Value Reference Range Interpretation Comments Calcium Level (test code = 59712-5) 9.3 8.4-10.2 [facility] HospitalMagnesium Eskvd8739-04-49 08:57:00* Test Item Value Reference Range Interpretation Comments Magnesium Level (test code = 37152-4) 1.5 1.3-2.1 [facility] HospitalWhite Blood Yrkkd7418-77-37 08:43:00* Test Item Value Reference Range Interpretation Comments White Blood Count (test code = 6690-2) 7.23 4.8-10.8 [facility] HospitalRed Blood Pssvu6214-52-16 08:43:00* Test Item Value Reference Range Interpretation Comments Red Blood Count (test code = 789-8) 4.60 4.3-5.7 [facility] HospitalHemoglobin2018-08-17 08:43:00* Test Item Value Reference Range Interpretation Comments Hemoglobin (test code = 40574-6) 12.5 14.0-18.0 L [facility] HospitalHematocrit2018-08-17 08:43:00* Test Item Value Reference Range Interpretation Comments Hematocrit (test code = 4544-3) 38.3 38.2-49.6 [facility] HospitalMean Corpuscular Wqsjse5409-64-18 08:43:00* Test Item Value Reference Range Interpretation Comments Mean Corpuscular Volume (test code = 787-2) 83.3 81-99 [facility] HospitalMean Corpuscular Ggyjjwmzwp6589-19-06 08:43:00* Test Item Value Reference Range Interpretation Comments Mean Corpuscular Hemoglobin (test code = 785-6) 27.2 28-32 L [facility] HospitalMean Corpuscular Hemoglobin Concent 2017-10-31 08:43:00* Test Item Value Reference Range Interpretation Comments Mean Corpuscular Hemoglobin Concent (test code = 786-4) 32.6 31-35 [facility] HospitalRed Cell Distribution Mugzg5068-89-66 08:43:00* Test Item Value Reference Range Interpretation Comments Red Cell Distribution Width (test code = 13219-4) 14.9 11.7 -14.4 H [facility] HospitalPlatelet Tkfum1312-80-59 08:43:00* Test Item Value Reference Range Interpretation Comments Platelet Count (test code = 777-3) 202 140-360 [facility] HospitalNeutrophils (%) (Auto)2017-10-31 08:43:00 * Test Item Value Reference Range Interpretation Comments Neutrophils (%) (Auto) (test code = 29295-2) 74.4 38.7-80.0 [facility] HospitalLymphocytes (%) (Auto)2017-10-31 08:43:00 * Test Item Value Reference Range Interpretation Comments Lymphocytes (%) (Auto) (test code = 736-9) 12.9 18.0-39.1 L [facility] HospitalMonocytes (%) (Auto)2017-10-31 08:43:00* Test Item Value Reference Range Interpretation Comments Monocytes (%) (Auto) (test code = 5905-5) 8.0 4.4-11.3 [facility] HospitalEosinophils (%) (Auto)2017-10-31 08:43:00 * Test Item Value Reference Range Interpretation Comments Eosinophils (%) (Auto) (test code = 713-8) 3.7 0.0-6.0 [facility] HospitalBasophils (%) (Auto)2017-10-31 08:43:00* Test Item Value Reference Range Interpretation Comments Basophils (%) (Auto) (test code = 706-2) 0.4 0.0-1.0 [facility] HospitalIM GRANULOCYTES %2017-10-31 08:43:00* Test Item Value Reference Range Interpretation Comments IM GRANULOCYTES % (test code = IM GRANULOCYTES %) 0.6 0.0- 1.0 [facility] HospitalNeutrophils # (Auto)2017-10-31 08:43:00* Test Item Value Reference Range Interpretation Comments Neutrophils # (Auto) (test code = 751-8) 5.4 2.1-6.9 [facility] HospitalLymphocytes # (Auto)2017-10-31 08:43:00* Test Item Value Reference Range Interpretation Comments Lymphocytes # (Auto) (test code = 83127-3) 0.9 1.0-3.2 L [facility] HospitalMonocytes # (Auto)2017-10-31 08:43:00* Test Item Value Reference Range Interpretation Comments Monocytes # (Auto) (test code = 742-7) 0.6 0.2-0.8 [facility] HospitalEosinophils # (Auto)2017-10-31 08:43:00* Test Item Value Reference Range Interpretation Comments Eosinophils # (Auto) (test code = 711-2) 0.3 0.0-0.4 [facility] HospitalBasophils # (Auto)2017-10-31 08:43:00* Test Item Value Reference Range Interpretation Comments Basophils # (Auto) (test code = 704-7) 0.0 0.0-0.1 [facility] HospitalAbsolute Immature Granulocyte (auto 2017-10-31 08:43:00* Test Item Value Reference Range Interpretation Comments Absolute Immature Granulocyte (auto (chriss t code = Absolute Immature Granulocyte (auto) 0.04 0-0.1 [facility] HospitalTriglycerides Wtvmx5874-24-58 06:01:00* Test Item Value Reference Range Interpretation Comments Triglycerides Level (test code = 2571-8) 123 0-149 [facility] HospitalCholesterol Cnnmy9859-99-19 06:01:00* Test Item Value Reference Range Interpretation Comments Cholesterol Level (test code = 2093-3) 135 0-199 Less than 200 mg/dL Low Axhg206 - 239 mg/dL Borderline Ijjb814 m g/dl and greater High Risk [facility] HospitalLDL Fkuxpklndnn7388-83-61 06:01:00* Test Item Value Reference Range Interpretation Comments LDL Cholesterol (test code = 2089-1) 66 60-130 [facility] HospitalHDL Htqxqgkivmx5563-58-34 06:01:00* Test Item Value Reference Range Interpretation Comments HDL Cholesterol (test code = 2085-9) 44 40-60 [facility] HospitalCholesterol/HDL Snhyg9936-53-30 06:01:00 * Test Item Value Reference Range Interpretation Comments Cholesterol/HDL Ratio (test code = 9830-1) 3.1 3.9-4.7 L [facility] HospitalCreatine Hwxawg6095-60-08 03:42:00* Test Item Value Reference Range Interpretation Comments Creatine Kinase (test code = 2157-6) 77 30-200 [facility] HospitalCreatine Kinase CX9886-27-79 03:42:00* Test Item Value Reference Range Interpretation Comments Creatine Kinase MB (test code = 32265-9) 2.00 0-5.0 [facility] HospitalTroponin W0869-59-12 03:42:00* Test Item Value Reference Range Interpretation Comments Troponin I (test code = IAN3431) 0.022 0-0.300 [facility] HospitalCHEST SINGLE (PORTABLE)2017-10-30 11:21:00 [facility] [address] [address] Patient Name: KASSI MCNULTY MR #: [id number] : 1955 Age/Sex: 62/M Req #: [id number] Adm Physician: Ordered by: DEBBY SALVADOR MD Report #: [id number] Location: ER Room/Bed: Procedure: [id number] DX/CHEST SINGLE (PORTABLE) Exam Date: 10/30/17 Exam [...] 10/30/17 1121 COPY TO: DEBBY SALVADOR MD Urine OYE5964-89-44 11:17:00* Test Item Value Reference Range Interpretation Comments Urine WBC (test code = 5821-4) 0-5 0-5 [facility] HospitalUrine KCD7473-67-61 11:17:00* Test Item Value Reference Range Interpretation Comments Urine RBC (test code = 49108-2) 0-5 0-5 [facility] HospitalUrine Vegdlupo0669-43-57 11:17:00* Test Item Value Reference Range Interpretation Comments Urine Bacteria (test code = 66127-1) FEW NONE [facility] HospitalUrine Epithelial Rkxqu0442-95-70 11:17:00 * Test Item Value Reference Range Interpretation Comments Urine Epithelial Cells (test code = 77493-9) FEW NONE [facility] HospitalUrine Ulzid4478-89-12 11:12:00* Test Item Value Reference Range Interpretation Comments Urine Color (test code = 5778-6) YELLOW YELLOW [facility] HospitalUrine Lyaczsy1584-11-49 11:12:00* Test Item Value Reference Range Interpretation Comments Urine Clarity (test code = 51738-5) CLEAR CLEAR [facility] HospitalUrine Specific Jsowlcq2189-22-07 11:12:00 * Test Item Value Reference Range Interpretation Comments Urine Specific [place] (test code = 5811-5) 1.005 1.010-1.02 5 L [facility] HospitalUrine [id number] 11:12:00* Test Item Value Reference Range Interpretation Comments Urine pH (test code = 81254-5) 7 5-7 [facility] HospitalU[facility] Leukocyte Bzkdcwli8355-77-01 11:12:00* Test Item Value Reference Range Interpretation Comments Urine Leukocyte Esterase (test code = 5799-2) NEGATIVE NEGATIVE [facility] HospitalU[facility] Gtcckzx1137-26-22 11:12:00* Test Item Value Reference Range Interpretation Comments Urine Nitrite (test code = 31607-9) NEGATIVE NEGATIVE [facility] HospitalU[facility] Nsgieok3441-92-11 11:12:00* Test Item Value Reference Range Interpretation Comments Urine Protein (test code = 5804-0) NEGATIVE NEGATIVE [facility] HospitalUrine Glucose (UA)2017-10-30 11:12:00* Test Item Value Reference Range Interpretation Comments Urine Glucose (UA) (test code = 2349-9) NEGATIVE NEGATIVE [facility] HospitalUrine Jndifat6246-82-13 11:12:00* Test Item Value Reference Range Interpretation Comments Urine Ketones (test code = 06185-5) NEGATIVE NEGATIVE [facility] Yvwubkzlpvzr9645-40-73 11:12:00* Test Item Value Reference Range Interpretation Comments Urine Urobilinogen (test code = 69037-3) 0.2 0.2-1 [facility] Duovuciea8301-13-49 11:12:00* Test Item Value Reference Range Interpretation Comments Urine Bilirubin (test code = 1978-6) NEGATIVE NEGATIVE [facility] HospitalU[facility] Voucv1932-30-84 11:12:00* Test Item Value Reference Range Interpretation Comments Urine Blood (test code = 83445-7) NEGATIVE NEGATIVE [facility] HospitalTotal Ytdvfozcz2726-58-35 10:47:00* Test Item Value Reference Range Interpretation Comments Total Bilirubin (test code = 1975-2) 0.5 0.2-1.2 [facility] HospitalAspartate Amino Transf (AST/SGOT) 2017-10-30 10:47:00* Test Item Value Reference Range Interpretation Comments Aspartate Amino Transf (AST/SGOT) (test code = Aspartate Amino Transf (AST/SGOT)) 14 5-34 [facility] HospitalAlanine Aminotransferase (ALT/SGPT) 2017-10-30 10:47:00* Test Item Value Reference Range Interpretation Comments Alanine Aminotransferase (ALT/SGPT) (test code = 1742-6) 17 0-55 [facility] HospitalTotal Ixvqidk6002-37-06 10:47:00* Test Item Value Reference Range Interpretation Comments Total Protein (test code = 2885-2) 6.6 6.5-8.1 [facility] HospitalAlbumin2018-08-16 10:47:00* Test Item Value Reference Range Interpretation Comments Albumin (test code = 1751-7) 3.8 3.5-5.0 [facility] HospitalGlobulin2018-08-16 10:47:00* Test Item Value Reference Range Interpretation Comments Globulin (test code = 61789-5) 2.8 2.3-3.5 [facility] HospitalAlbumin/Globulin Ysqcr8221-43-86 10:47:00 * Test Item Value Reference Range Interpretation Comments Albumin/Globulin Ratio (test code = 1759-0) 1.4 0.8-2.0 [facility] HospitalAlkaline Cmlorrkahws6931-13-03 10:47:00* Test Item Value Reference Range Interpretation Comments Alkaline Phosphatase (test code = 6768-6) 83 40-150 [facility] HospitalProthrombin Lvjf5296-09-08 10:40:00* Test Item Value Reference Range Interpretation Comments Prothrombin Time (test code = 5902-2) 13.0 11.9-14.5 [facility] HospitalProthromb Time International Ratio 2017-10-30 10:40:00* Test Item Value Reference Range Interpretation Comments Prothromb Time International Ratio (test code = 6301-6) 1.06 Oral Anticoagulant Therapy INR Values:1. Low Intensity Therapy 1.5 - 2.02 . Moderate Intensity Therapy 2.0 - 3.03. High Intensity Therapy(1) 2.5 - 3. 54. High Intensity Therapy(2) 3.0 - 4.05. Panic Value INR > 5.0 [facility] HospitalActivated Partial Thromboplast Time 2017-10-30 10:40:00* Test Item Value Reference Range Interpretation Comments Activated Partial Thromboplast Time (test code = 20933-6) 27.4 23.8-35.5 [facility] HospitalCTA NECK [facility] [address] [place] [address] Patient Name: KASSI MCNULTY MR #: [id number] : 1955 Age/Sex: 62/M Req #: [id number] Adm Physician: Ordered by: PRAVEEN REED MD Report #: [id number] Location: CT Room/Bed: Procedure: CT/CTA NECK Exam Date: 08/20/17 Exam Time: [...]
[2019-08-13] MEDS ORDERED: ASPIRIN 81 MG CHEW TAB PO ONE (16:30)
--- NOTE | 2019-08-13 16:36 | Emergency Department Note ---
History of Present Illnes History of Present Illness History of Present Illness This is a 64 year old male . c/o cp sob nausea for several days HERE FOR CHEST PAIN NAUSEA, AND DIARRHEA. HISTORY OF CHEST PAIN WAS SEEN HERE AND ADMITTED RECENTLY. Onset (how long ago): day(s) (several days) Location: epigastic pain Quality: mod Radiation: non-radiation, back, neck, extremity, abdomen, periumbilical, flank, proximal, distal, other Severity: moderate Duration (how long): day(s) (several days) Timing of current episode: constant Progression: unchanged Context: recent illness, recent surgery, recent immobilization, recent travel, trauma/injury, new medications, hx of DVT/PE, non-compliance w/ medications, other Relieving factors: none Exacerbating factors: none Treatments prior to arrival: none Past Medical/Family History Physician Review I have reviewed the patient's past medical and family history. Any updates have been documented here. Past Medical History Past Medical History: Hypertension, Diabetes, CAD Other Medical History: SBO NEUROPATHY Past Surgical History: Cholecysctectomy Other Surgery: NECK AND PELVIC SURGERIES Social History Smoking Cessation: Never Smoker Alcohol Use: None Any Illegal Drug Use: No TB Exposure/Symptoms: No Physically hurt or threatened: No Family History Family history of heart diseas: No Other Last Tetanus: X4 MONTHS AGO Any Pre-Existing Lines (PICC,: No Review of Systems Review of Systems Constitutional: no symptoms EENTM: no symptoms Cardiovascular: chest pain Respiratory: no symptoms Gastrointestinal: nausea Genitourinary: no symptoms Musculoskeletal: no symptoms Neurological: no symptoms Psychological: no symptoms Endocrine: no symptoms Hematological/Lymphatic: no symptoms Review of other systems All other systems reviewed and negative. Physical Exam Related Data Allergies: Coded Allergies: codeine (Verified Adverse Reaction, Mild, itching, 03/07/19) cannot take synthetic codeine only tramadol (Verified Adverse Reaction, Mild, ITCHING, 03/07/19) can take for a few days then begins to itch Triage Vital Signs Vital Signs Date Time Temp Pulse Resp B/P (MAP) Pulse Ox O2 Delivery O2 Flow Rate FiO2 08/13/19 16:38 98.6 74 16 132/85 96 Vital signs reviewed: Yes Physical Exam CONSTITUTIONAL HENT HENT: normocephalic, atraumatic, oropharynx clear/moist, oropharynx normal, mucosae dry, nose normal, nasal discharge, nasal congestion, rhinorrhea, oropharyngeal exudate, tonsillar excudate, pharynx abnormal, erythema, dentition normal, dental caries, other HENT L/R: left ext ear normal, right ext ear normal EYES Eyes: PERRL, conjunctivae normal NECK Neck: ROM normal PULMONARY Pulmonary: effort normal, breath sounds normal CARDIOVASCULAR Cardiovascular: other (c/o r side cp sob ) GASTROINTESTINAL Abdominal: soft, nontender, bowel sounds normal GENITOURINARY Genitourinary: exam deferred SKIN Skin: warm, dry MUSCULOSKELETAL Musculoskeletal: ROM normal NEUROLOGICAL Neurological: alert, oriented x 3, no gross motor or sensory deficits PSYCHOLOGICAL Psychological: mood/affect normal, judgement normal Results Laboratory Laboratory Laboratory Tests Test 08/13/19 17:08 White Blood Count 12.80 x10e3/uL (4.8-10.8) Red Blood Count 5.74 x10e6/uL (4.3-5.7) Hemoglobin 16.0 g/dL (14.0-18.0) Hematocrit 48.3 % (38.2-49.6) Mean Corpuscular Volume 84.1 fL (81-99) Mean Corpuscular Hemoglobin 27.9 pg (28-32) Mean Corpuscular Hemoglobin Concent 33.1 g/dL (31-35) Red Cell Distribution Width 13.7 % (11.7-14.4) Platelet Count 242 x10e3/uL (140-360) Neutrophils (%) (Auto) 81.2 % (38.7-80.0) Lymphocytes (%) (Auto) 9.1 % (18.0-39.1) Monocytes (%) (Auto) 7.3 % (4.4-11.3) Eosinophils (%) (Auto) 1.5 % (0.0-6.0) Basophils (%) (Auto) 0.4 % (0.0-1.0) Neutrophils # (Auto) 10.4 (2.1-6.9) Lymphocytes # (Auto) 1.2 (1.0-3.2) Monocytes # (Auto) 0.9 (0.2-0.8) Eosinophils # (Auto) 0.2 (0.0-0.4) Basophils # (Auto) 0.1 (0.0-0.1) Absolute Immature Granulocyte (auto 0.07 x10e3/uL (0-0.1) Prothrombin Time 13.4 seconds (11.9-14.5) Prothromb Time International Ratio 0.96 Activated Partial Thromboplast Time 28.0 seconds (23.8-35.5) Sodium Level 136 mmol/L (136-145) Potassium Level 3.3 mmol/L (3.5-5.1) Chloride Level 97 mmol/L (98-107) Carbon Dioxide Level 27 mmol/L (22-29) Anion Gap 15.3 mmol/L (8-16) Blood Urea Nitrogen 12 mg/dL (7-26) Creatinine 1.05 mg/dL (0.72-1.25) Estimat Glomerular Filtration Rate > 60 ML/MIN (60-) BUN/Creatinine Ratio 11 (6-25) Glucose Level 132 mg/dL (74-118) Calcium Level 9.5 mg/dL (8.4-10.2) Total Bilirubin 0.9 mg/dL (0.2-1.2) Aspartate Amino Transf (AST/SGOT) 23 IU/L (5-34) Alanine Aminotransferase (ALT/SGPT) 39 IU/L (0-55) Alkaline Phosphatase 80 IU/L (40-150) Creatine Kinase 101 IU/L (30-200) Creatine Kinase MB 3.10 ng/mL (0-5.0) Troponin I < 0.001 ng/mL (0-0.300) B-Type Natriuretic Peptide 25.6 pg/mL (0-100) Total Protein 6.2 g/dL (6.5-8.1) Albumin 3.5 g/dL (3.5-5.0) Globulin 2.7 g/dL (2.3-3.5) Albumin/Globulin Ratio 1.3 (0.8-2.0) Lab results reviewed: Yes Imaging Impressions ct chest IMPRESSION: Enlargement of the main pulmonary artery can be seen in pulmonary artery hypertension. No pulmonary embolism. Signed by: Dr. Dl Felix M.D. on 08/13/2019 6:26 PM Dictated By: DL FELIX MD 25 Transcribed By: CAROL on 08/13/191825 cxr IMPRESSION: 1. No acute cardiopulmonary abnormalities. Signed by: Dr. Dl Felix M.D. 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 Assessment & Plan Reassessment Reassessment time: 16:49 Reassessment 64y m presented to ed c/o right side cp sob nausea not feeling well sx x 2 days - Dr Torres in eval pt status - lab ekg cxr ordered Assessment & Plan Final Impression: (1) Chest pain Assessment & Plan Dr Torres in re eval pt status - discussed lab ekg cxr ct chest results plan of care and f/u instructions Dr Torres spoke w/ Dr Koehler will consult Dr Torres spoke w/ Dr Castillo will admit Depart Disposition: ADMITTED Home Meds Active Scripts [Atorvastatin] 40 MG TAB No Conflict Check, 80 MG PO HS for 30 Days Prov:HOLLI MOREL DINING SERVICES DIRECTOR 07/31/19 Tramadol Hcl (ULTRAM) 50 Mg Tablet, 50 MG PO TID PRN for pain for 5 Days, #15 TAB Prov:JAISON HINOJOSA MD 03/07/19 Reported Medications Amlodipine Besylate (AMLODIPINE BESYLATE) 5 Mg Tablet, 5 MG PO BID, #30 TAB 12/09/18 Tadalafil (CIALIS) 10 Mg Tablet, 10 MG PO DAILY 10/29/18 [Testosterone ] No Conflict Check, 1.5 ML INJ .[id number] 10/29/18 Metoprolol Succinate (METOPROLOL SUCCINATE) 50 Mg Tab.er.24h, 50 MG PO BID, MG 10/29/18 Liraglutide (VICTOZA 2-MAGDY) 0.6 Mg/0.1 Ml Pen.injctr 10/31/17 Naproxen Sodium (ALEVE) 220 Mg Tablet, 220 MG PO Q12H PRN for PAIN 10/30/17 Clopidogrel Bisulfate (CLOPIDOGREL) 75 Mg Tablet, 75 MG PO DAILY, #30 TAB 10/30/17 Aspirin (ASPIRIN) 81 Mg Tab.chew, 81 MG PO DAILY 10/30/17 Montelukast Sodium (SINGULAIR) 10 Mg Tablet, 10 MG PO HS 10/30/17 Duloxetine Hcl (CYMBALTA) 30 Mg Capsule.dr, 30 MG PO HS, #30 CAP 10/30/17 [Zegrid Otc] No Conflict Check, 20 MG PO HS 10/30/17 Tamsulosin Hcl* (FLOMAX*) 0.4 Mg Cap, 0.8 MG PO HS, #30 CAP 10/30/17 Medications in the ED Aspirin 81 mg PRN ONCE PO ; Start 08/13/19 at 16:30; Stop 08/13/19 at 16:31; Status UNV JULIANNE PAINTING NP August 13, 2019 16:36
[2019-08-13] MEDS ORDERED: NITROGLYCERIN 2% OINT 1 GM PKT TOP ONE (17:00)
[2019-08-13] MEDS ORDERED: ACETAMINOPHEN 325 MG TAB PO ONE ×3 (17:45)
[2019-08-13] MEDS ORDERED: HYDROCODONE/APAP 5MG-325MG TAB PO ONE (17:45)
[2019-08-13 17:55] LABS: BASOPHILS # (AUTO) 0.1 (0.0-0.1); BASOPHILS % 0.4 % (0.0-1.0); EOSINOPHILS # (AUTO) 0.2 (0.0-0.4); EOSINOPHILS % 1.5 % (0.0-6.0); HEMATOCRIT 48.3 % (38.2-49.6); LYMPHOCYTES # (AUTO) 1.2 (1.0-3.2); LYMPHOCYTES % 9.1 % (18.0-39.1); MEAN CORPUSCULAR HEMOGLOBIN 27.9 pg (28-32); MEAN CORPUSCULAR HGB CONC 33.1 g/dL (31-35); MEAN CORPUSCULAR VOLUME 84.1 fL (81-99); MONOCYTES # (AUTO) 0.9 (0.2-0.8); MONOCYTES % 7.3 % (4.4-11.3); NEUTROPHILS # (AUTO) 10.4 (2.1-6.9); NEUTROPHILS % 81.2 % (38.7-80.0); PLATELET COUNT 242 x10e3/uL (140-360); RED BLOOD COUNT 5.74 x10e6/uL (4.3-5.7); RED CELL DISTRIBUTION WIDTH 13.7 % (11.7-14.4)
[2019-08-13] MEDS ORDERED: SODIUM CHLORIDE 0.9% 50ML 50 ML ONE (18:09)
[2019-08-13] MEDS ORDERED: IOPAMIDOL 370 MG/ML 200 ML INFUS..BTL INJ ONE (18:09)
[2019-08-13 18:11] LABS: INR 0.96; PROTHROMBIN TIME 13.4 seconds (11.9-14.5)
[2019-08-13 18:12] LABS: ALANINE AMINOTRANSFERASE 39 IU/L (0-55); ALBUMIN 3.5 g/dL (3.5-5.0); ALBUMIN/GLOBULIN RATIO 1.3 (0.8-2.0); ALKALINE PHOSPHATASE 80 IU/L (40-150); ANION GAP 15.3 mmol/L (8-16); BLOOD UREA NITROGEN 12 mg/dL (7-26); BUN/CREATININE RATIO 11 (6-25); CALCIUM 9.5 mg/dL (8.4-10.2); CARBON DIOXIDE 27 mmol/L (22-29); CHLORIDE 97 mmol/L (98-107); CREATINE KINASE 101 IU/L (30-200); CREATININE, SERUM 1.05 mg/dL (0.72-1.25); EST GLOMERULAR FILTRATION RATE > 60 ML/MIN (60-); GLUCOSE 132 mg/dL (74-118); POTASSIUM 3.3 mmol/L (3.5-5.1); SODIUM 136 mmol/L (136-145)
--- NOTE | 2019-08-13 18:19 | Diagnostic Imaging Report ---
Examination: Single AP view of the chest. COMPARISON: None. INDICATION: Chest pain DISCUSSION: Lines/tubes: None. Lungs: The lungs are well inflated and clear. No pneumonia or pulmonary edema. Pleura: No pleural effusion or pneumothorax. Heart and mediastinum: The heart and the mediastinum are unremarkable. Bones and soft tissues: No acute bony abnormalities. IMPRESSION: 1. No acute cardiopulmonary abnormalities. Signed by: Dr. Tremaine Retana M.D. on 08/13/2019 6:16 PM
--- NOTE | 2019-08-13 18:29 | Diagnostic Imaging Report ---
EXAMINATION: CT scan of the chest with contrast. TECHNIQUE: Helical CT images of the chest were performed from the lung apices to the level of the adrenal glands after the intravenous administration of 100 cc of Isovue 300. Coronal and sagittal reformatted images were obtained. Dose modulation, iterative reconstruction, and/or weight based adjustment of the mA/kV was utilized to reduce the radiation dose to as low as reasonably achievable. COMPARISON: None. CLINICAL HISTORY:Chest pain DISCUSSION: LINES/TUBES: None. LUNGS AND AIRWAYS: Atelectasis in the lung bases. No concerning mass or consolidation. No pulmonary blood. PLEURA: No pneumothorax or pleural effusions. HEART AND MEDIASTINUM: The thyroid gland is normal. The heart is mildly enlarged. The main pulmonary artery is enlarged measuring approximate 4 cm. Aortic calcifications. LYMPH NODES: There is no mediastinal, hilar or axillary lymphadenopathy. ABDOMEN: Simple cyst in the kidneys. BONES AND SOFT TISSUES: No acute bony abnormalities. IMPRESSION: Enlargement of the main pulmonary artery can be seen in pulmonary artery hypertension. No pulmonary embolism. Signed by: Dr. Tremaine Retana M.D. on 08/13/2019 6:26 PM
--- NOTE | 2019-08-13 18:54 | NUR ---
covid 19 test performed.
[2019-08-13] MEDS ORDERED: MORPHINE SULFATE 2 MG/ML SYR 1ML IV PRN (19:00)
[2019-08-13] MEDS ORDERED: FAMOTIDINE 20 MG/2 ML VIAL IV SCH (19:00)
[2019-08-13] MEDS ORDERED: ONDANSETRON HCL INJ 2MG/ML 2ML 2 MG/ML VIAL IV PRN (19:00)
--- NOTE | 2019-08-13 19:03 | NUR ---
Report given to Michael ROBERTS
--- OUTSIDE RECORDS SUMMARY | 2019-08-13 19:06 | XMS REPORT | Clinical Summary ---
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
--- OUTSIDE RECORDS SUMMARY | 2019-08-13 19:07 | XMS REPORT ---
Author Author [facility] Organization [facility] Address [address] [place] [address] Phone Unavailable Care Team Providers Care Electronic News Gathering Editor Name Role Phone Roslyn ARRIAGA M.D. PCP DR AMEYA LEÓN Attphys Unavailable SWEET, A LAIRD Attphys Unavailable DIMA WELCH Attphys Unavailable ZEBALLOS, R JAISON Attphys Unavailable MODESTO, S AMBICA Attphys Unavailable BRIANNA, PRAVEEN Attphys Unavailable DR AMEYA LEÓN Admphys Unavailable DIMA WELCH Admphys Unavailable Payers Payer Name Policy Type Policy Number Effective Date Expiration Date S mallika r o NA 2012 00:00:00 [facility] Problems Condition Name Condition Details Condition Category Status Onset Date Resolution Date Last Treatment Date Treating Clinician Comments Source Uncontrolled type 2 diabetes mellitus with hyperglycem ia Uncontrolled type 2 diabetes mellitus with hyperglycemia Disease Active 2016-08-13 00:00:00 Scott Druze Chest pain Chest pain Problem Active [facility] Partial small bowel obstruction Partial small bowel obstruction Pro blem Active [facility] Urinary tract infection UTI (urinary tract infection) Problem Active [facility] Vomiting Vomiting Problem Active [facility] Abdominal pain Abdominal pain Problem Active [facility] Chest pain due to coronary artery disease Problem Active [facility] Allergies, Adverse Reactions, Alerts Allergy Name Allergy Type Status Severity Reaction(s) Onset Date Inacti ve Date Treating Clinician Comments Source Codeine Propensity to adverse reactions Active Mild itching 2019-03-07 00:00:00 [facility] Tramadol Propensity to adverse reactions Active Mild ITCH ING 2019-03-07 00:00:00 [facility] No Known Allergies DA Active U 2017-11-20 00:00:00 [facility] tramadol DA Active [place] 2017-11-20 00:00:00 [facility] No Known Allergies DA Active U 2017-07-17 00:00:00 [facility] Family History Family Member Diagnosis Comments Start Date Stop Date Source Natural father Emphysema [facility] Natural mother Alzheimer's disease H ernesto Garza Social History Social Habit Start Date Stop Date Quantity Comments Source Sex Assigned At Ryan imani Garza Alcohol intake 2016-08-13 00:00:00 2016-08-13 00:00:00 Current non-drinker of alcohol (finding) Tyler Garza Smoking Status Start Date Stop Date Source Never smoker Tyler koenig Medications Ordered Medication Name Filled Medication Name Start Date Stop Da te Current Medication? Ordering Clinician Indication Dosage Frequency Signature (SIG) Comments Components Source Atorvastatin Atorvastatin 2019-07-31 14:49:00 Yes 80 Bedtime [facility] Tramadol Hcl (Ultram) 50 Mg TABLET Tramadol Hcl (Ultram) 50 Mg TABLET 2019-03-07 12:59:00 Yes 50 Three Times A Day as needed f or Pain [facility] Naproxen (Naprosyn) 500 Mg TABLET Naproxen (Naprosyn) 500 Mg TABLET 2019-03-07 12:59:00 2019-07-31 00:00:00 No 500 Twice A Day as n eeded for Pain [facility] Chlordiazepoxide/Clidinium Br (Librax Capsule) 1 Each CAPSULE Chlordiazepoxide/Clidinium Br (Librax Capsule) 1 Each CAPSULE 2018-11-22 05:16:00 2018-12-09 00:00:00 No 1 Before Meals And At Bedtime [facility] Nifedipine (Nifedipine Er) 30 Mg TAB.ER.24 Nifedipine (Nifedipine Er) 30 Mg TAB.ER.24 2018-11-22 05:16:00 2018-12-09 00:00:00 No 30 Daily [facility] Ciprofloxacin Hcl (Cipro) 500 Mg TABLET Ciprofloxacin Hcl (C ipro) 500 Mg TABLET 2018-11-05 16:22:00 2018-11-19 00:00:00 No 500 Twice A Day [facility] Metronidazole (Flagyl) 500 Mg TABLET Metronidazole (Flagyl) 500 Mg TABLET 2018-11-05 16:22:00 2018-11-19 00:00:00 No 500 Every 8 Hours [facility] VICTOZA 2-MAGDY 0.6 mg/0.1 mL (18 [...] 50 MG tablet 2016-08-13 14:17:08 Yes 50mg Q.[id number] Take 50 mg by mouth 3 (three) [...] ORAL) 2016-08-13 14:17:08 Yes Take by mouth. [facility] fluticasone (FLONASE) 50 mcg/actuation nasal spray 2016-07 [...] Amlodipine Besylate Yes 5 Twice A Day [facility] Aspirin Aspirin Yes 81 Daily [facility] Clopidogrel Bisulfate (Clopidogrel) 75 Mg TABLET Clopi dogrel Bisulfate (Clopidogrel) 75 Mg TABLET Yes 75 Daily [facility] Duloxetine Hcl (Cymbalta) 30 Mg CAPSULE. Duloxetine Hcl (Cymbalta) 30 Mg CAPSULE. Yes 30 Bedtime [facility] Liraglutide (Victoza 2-Magdy) 0.6 Mg/0.1 Ml PEN.INJCTR L iraglutide (Victoza 2-Magdy) 0.6 Mg/0.1 Ml PEN.INJCTR Yes [facility] Metoprolol Succinate Metoprolol Succinate Yes 50 Twice A Day [facility] Montelukast Sodium (Singulair) 10 Mg TABLET Montelukas t Sodium (Singulair) 10 Mg TABLET Yes 10 Bedtime [facility] Naproxen Sodium (Aleve) 220 Mg TABLET Naproxen Sodium (Aleve) 220 M g TABLET Yes 220 Every 12 Hours as needed for Pain [facility] Tadalafil (Cialis) 10 Mg TABLET Tadalafil (Cialis) 10 Mg TABLET Yes 10 Daily [facility] Tamsulosin Hcl (Flomax*) 0.4 Mg CAP Tamsulosin Hcl (Flomax*) 0.4 Mg C AP Yes .8 Bedtime [facility] Testosterone Testosterone Yes 1.5 .r6sxafz [facility] Zegrid Otc Zegrid Otc Yes 20 Bedtime [facility] Atorvastatin Calcium (Lipitor) 20 Mg TABLET Atorvastat in Calcium (Lipitor) 20 Mg TABLET 2019-07-31 00:00:00 No 40 Daily [facility] Amlodipine Besylate Amlodipine Besylate 2018-11-22 00:00:00 No 5 Twice A Day [facility] Carvedilol Carvedilol 2018-10-29 00:00:00 No 12.5 Twi ce A Day [facility] Cranberry Cranberry 2018-10-29 00:00:00 No [facility] Gink Gink 2018-10-29 00:00:00 No [facility] Hydralazine Hcl Hydralazine Hcl 2018-10-29 00:00:00 No 50 Three Times A Day [facility] Isosorbide Mononitrate (Isosorbide Mononitrate Er) 30 Mg TAB.ER.24H Isosorbide Mononitrate (Isosorbide Mononitrate Er) 30 Mg TAB.ER.24H 201 11-22-14 00:00:00 No 30 Daily [facility] Lomotil Lomotil 2018-10-29 00:00:00 No as needed for Diarrhea [facility] Spironolactone Spironolactone 2018-10-29 00:00:00 No 25 Daily [facility] Valsartan/Hydrochlorothiazide (Diovan Hct 160-12.5 Mg Tab) 1 Each TABLET Valsartan/Hydrochlorothiazide (Diovan Hct 160-12.5 Mg Tab) 1 Each TABLET 2018-10-29 00:00:00 No 1 Daily [facility] Metoprolol Tartrate Metoprolol Tartrate 2017-10-31 00:00:00 No 100 Twice A Day [facility] Vital Signs Vital Name Observation Time Observation Value Comments Source Body Temperature 2019-07-31 13:45:00 98.1 [degF] [facility] BMI (Body Mass Index) 2019-07-30 14:18:00 47.5 kg/m2 [facility] Weight 2019-07-30 12:14:00 277 [lb_av] [facility] Procedures Procedure Date / Time Performed Performing Clinician [facility] e COLONOSCOPY AND BIOPSY 2018-12-12 00:00:00 [facility] COLONOSCOPY W/LESION REMOVAL 2018-12-12 00:00:00 [facility] Computed tomography of abdomen and pelvis with contrast 2018 00:00:00 TELMA EHRNANDEZ [facility] Computed tomography of abdomen and pelvis with contrast 2018 00:00:00 SUELLEN TRAORE [facility] Computed tomography of abdomen and pelvis with contrast 2018 00:00:00 VON ACHARYA [facility] Plan of Care Planned Activity Planned Date Details Comments Source Future Scheduled Test 2019-10-16 00:00:00 INFLUENZA VACCINE [code = INFLUENZA VACCINE] [facility] Scheduled Test 2005-06-15 00:00:00 COLONOSCOPY SCREEN ING [code = COLONOSCOPY SCREENING] [facility] Scheduled Test 2005-06-15 00:00:00 SHINGLES VACCINES (#1) [code = SHINGLES VACCINES (#1)] [facility] Future Scheduled Test 1965-06-15 00:00:00 DIABETIC FOOT EXAM [code = DIABETIC FOOT EXAM] [facility] Scheduled Test 1965-06-15 00:00:00 URINE MICROALBUMIN [code = URINE MICROALBUMIN] [facility] Scheduled Test 1955 00:00:00 DIABETIC RETINAL E YE EXAM [code = DIABETIC RETINAL EYE EXAM] [facility] Instructions Angina [facility] Encounters Start Date/Time End Date/Time Encounter Type Admission Type [facility] Facility Care Department Encounter ID Source 2018-09-07 09:00:00 Inpatient Froilan AMEYA LEÓN [facility] [id number] [facility] 2019-07-30 01:55:00 2019-07-31 16:02:00 Discharged Inpatient (obs) 1 RACHELLRENETTA DIMA [facility] [id number] [facility] 2019-03-07 12:32:00 2019-03-07 14:00:00 Departed Emergency Room 1 JAISON HINOJOSA [facility] [id number] [facility] 2018-12-12 08:40:00 2018-12-12 08:40:00 Registered Surgical Day Care [facility] [id number] [facility] 2018-11-19 14:32:00 2018-11-22 13:28:00 Discharged Inpatient 1 DIMA WELCH [facility] [id number] [facility] 2018-11-05 10:12:00 2018-11-05 16:33:00 Departed Emergency Room 1 DEBBY SALVADOR [facility] [id number] [facility] 2018-10-29 06:48:00 2018-10-31 15:50:00 Discharged Inpatient 1 DIMA WELCH [facility] [id number] [facility] 2017-10-30 11:25:00 2017-10-31 19:50:00 Discharged Inpatient (obs) 1 DIMA WELCH [facility] [id number] [facility] 2017-08-20 07:16:00 2017-08-20 07:16:00 Registered Clinic 3 BRIANNAPRAVEEN GAGE [facility] [id number] [facility] Results Test Description Test Time Test Comments Results Result Comments Source CT CHEST W 2019-08-13 18:21:00 [place] [address] Patient Name: KASSI MCNULTY MR #: [id number] : 1955 Age/Sex: 64/M Req #: [id number] Adm Physician: Ordered by: BRIAN PAINTING BACK SIZER Report #: [id number] Location: ER Room/Bed: Procedure: [id number] CT/CT CHEST W Exam Date: 08/13/19 Exam Time: 1806 REPORT STATUS: Signed EXAMINATION: CT scan of the chest with contrast. TECHNIQUE: Helical CT images of the chest were performed from the lung apices to the level of the adrenal glands after the intravenous administration of 100 cc of Isovue 300. Coronal and sagittal reformatted images were obtained. Dose modulation, iterative reconstruction, and/or weight based adjustment of the mA/kV was utilized to reduce the radiation dose to as low as reasonably achievable. COMPARISON: None. CLINICAL HISTORY:Chest pain DISCUSSION: LINES/TUBES: None. LUNGS AND AIRWAYS: Atelectasis in the lung bases. No concerning mass or consolidation. No pulmonary blood. PLEURA: No pneumothorax or pleural effusions. HEART AND MEDIASTINUM: The thyroid gland is normal. The heart is mildly enlarged. The main pulmonary artery is enlarged measuring approximate 4 cm. Aortic calcifications. LYMPH NODES: There is no mediastinal, hilar or axillary lymphadenopathy. ABDOMEN: Simple cyst in the kidneys. BONES AND SOFT TISSUES: No acute bony abnormalities. IMPRESSION: Enlargement of the main pulmonary artery can be seen in pulmonary artery hypertension. No pulmonary embolism. Signed by: Dr. Dl Felix M.D. on 08/13/2019 6:26 PM Dictated By: DL FELIX MD 25 Transcribed By: CAROL on 08/13/191825 COPY TO: BRIAN PAINTING NP CHEST SINGLE (NOT PORTABLE) 2019-08-13 18:15:00 [place] [address] Patient Name: KASSI MCNULTY MR #: [id number] : 1955 Age/Sex: 64/M Req #: [id number] Adm Physician: Ordered by: BRIAN PAINTING BACK SIZER Report #: [id number] Location: ER Room/Bed: Procedure: [id number] DX/CHEST SINGLE (NOT PORTABLE) Exam Date: 08/13/19 Exam Time: 175 REPORT STATUS: Signed Examination: Single AP view of the chest. COMPARISON: None. INDICATION: Chest pain DISCUSSION: Lines/tubes: None. Lungs: The lungs are well inflated and clear. No pneumonia or pulmonary edema. Pleura: No pleural effusion or pneumothorax. Heart and mediastinum: The heart and the mediastinum are unremarkable. Bones and soft tissues: No acute bony abnormalities. IMPRESSION: 1. No acute cardiopulmonary abnormalities. Signed by: Dr. Dl Felix M.D. on 08/13/2019 6:16 PM Dictated By: DL FELIX MD 15 Transcribed By: CAROL on 08/13/191815 COPY TO: BRIAN PAINTING BACK SIZER Capillary blood glucose measurement by glucometer (mas s/volume) 2019-07-31 13:09:00 Test Item Bedside Glucose (test code = 09812-4) 177 70-120 Meter ID: [id number] [facility] HospitalBlood leukocytes automated count (number/volume)2019-07-31 05:00:00* Test Item Value Reference Range Interpretation Comments White Blood Count (test code = 6690-2) 10.01 4.8-10.8 [facility]Bl[facility] erythrocytes automated count (number/volume)2019-07-31 05:00:00* Test Item Value Reference Range Interpretation Comments Red Blood Count (test code = 789-8) 5.36 4.3-5.7 [facility] HospitalBlood hemoglobin measurement (moles/volume)2019-07-31 05:00:00* Test Item Value Reference Range Interpretation Comments Hemoglobin (test code = 39216-0) 15.1 14.0-18.0 [facility] HospitalAutomated blood hematocrit (volume fraction)2019-07-31 05:00:00* Test Item Value Reference Range Interpretation Comments Hematocrit (test code = 4544-3) 47.0 38.2-49.6 [facility] HospitalAutomated erythrocyte mean corpuscular utahsc3955-01-10 05:00:00* Test Item Value Reference Range Interpretation Comments Mean Corpuscular Volume (test code = 787-2) 87.7 81-99 [facility] HospitalAutomated erythrocyte mean corpuscular hemoglobin (mass per erythrocyte)2019-07-31 05:00:00* Test Item Value Reference Range Interpretation Comments Mean Corpuscular Hemoglobin (test code = 785-6) 28.2 28-32 [facility] HospitalAutomated erythrocyte mean corpuscular hemoglobin concentration measurement (mass/volume)2019-07-31 05:00:00* Test Item Value Reference Range Interpretation Comments Mean Corpuscular Hemoglobin Concent (test code = 786-4) 32.1 31-35 [facility] HospitalRDW OwvQc-Pyg2471-88-16 05:00:00* Test Item Value Reference Range Interpretation Comments Red Cell Distribution Width (test code = 42135-0) 14.2 11.7 -14.4 [facility] HospitalAutomated blood platelet count (count/volume)2019-07-31 05:00:00* Test Item Value Reference Range Interpretation Comments Platelet Count (test code = 777-3) 196 140-360 [facility] HospitalAutomated blood segmented neutrophil count as percentage of total jjeoidytie5430-64-03 05:00:00* Test Item Value Reference Range Interpretation Comments Neutrophils (%) (Auto) (test code = 93005-7) 79.4 38.7-80.0 [facility] HospitalAutwakemed cary hospitaled blood lymphocyte count as percentage ot total dopvycbvlc3429-29-99 05:00:00* Test Item Value Reference Range Interpretation Comments Lymphocytes (%) (Auto) (test code = 736-9) 7.2 18.0-39.1 [facility] HospitalAutomated blood monocyte count as percentage of total etajgpzxfx4715-89-76 05:00:00* Test Item Value Reference Range Interpretation Comments Monocytes (%) (Auto) (test code = 5905-5) 10.0 4.4-11.3 [facility] HospitalAutomated blood eosinophil count as percentage of total zdrpbmumto0392-63-02 05:00:00* Test Item Value Reference Range Interpretation Comments Eosinophils (%) (Auto) (test code = 713-8) 2.5 0.0-6.0 [facility] as percentage of total chnwnlfhkl2051-85-34 05:00:00* Test Item Value Reference Range Interpretation Comments Basophils (%) (Auto) (test code = 706-2) 0.5 0.0-1.0 [facility] HospitalFluoroscopic procedure less than one hour nkxngfxz6864-79-58 05:00:00* Test Item Value Reference Range Interpretation Comments IM GRANULOCYTES % (test code = IM GRANULOCYTES %) 0.4 0.0- 1.0 [facility] HospitalAutomated blood neutrophil count 2019-07-31 05:00:00* Test Item Value Reference Range Interpretation Comments Neutrophils # (Auto) (test code = 751-8) 8.0 2.1-6.9 [facility] HospitalBlood lymphocytes count (number/volume) 2019-07-31 05:00:00* Test Item Value Reference Range Interpretation Comments Lymphocytes # (Auto) (test code = 39617-2) 0.7 1.0-3.2 [facility] HospitalBlood monocytes automated count (number/volume)2019-07-31 05:00:00* Test Item Value Reference Range Interpretation Comments Monocytes # (Auto) (test code = 742-7) 1.0 0.2-0.8 [facility] HospitalAutomated blood eosinophil count 2019-07-31 05:00:00* Test Item Value Reference Range Interpretation Comments Eosinophils # (Auto) (test code = 711-2) 0.3 0.0-0.4 [facility] HospitalAutomated blood basophil count (count/volume)2019-07-31 05:00:00* Test Item Value Reference Range Interpretation Comments Basophils # (Auto) (test code = 704-7) 0.1 0.0-0.1 [facility] HospitalFluoroscopic procedure less than one hour [id number] 05:00:00* Test Item Value Reference Range Interpretation Comments Absolute Immature Granulocyte (auto (chriss t code = Absolute Immature Granulocyte (auto) 0.04 0-0.1 [facility] sodium measurement (moles/volume)2019-07-31 05:00:00* Test Item Value Reference Range Interpretation Comments Sodium Level (test code = 2951-2) 138 136-145 [facility] plasma potassium measurement (moles/volume)2019-07-31 05:00:00* Test Item Value Reference Range Interpretation Comments Potassium Level (test code = 2823-3) 3.5 3.5-5.1 [facility] plasma chloride measurement (moles/volume)2019-07-31 05:00:00* Test Item Value Reference Range Interpretation Comments Chloride Level (test code = 2075-0) 101 98-107 [facility] or plasma carbon dioxide, total measurement (moles/volume)2019-07-31 05:00:00* Test Item Value Reference Range Interpretation Comments Carbon Dioxide Level (test code = 2028-9) 28 22-29 [facility] or plasma anion qwd4395-75-68 05:00:00* Test Item Value Reference Range Interpretation Comments Anion Gap (test code = 85246-9) 12.5 8-16 [facility] or plasma urea nitrogen measurement (mass/volume)2019-07-31 05:00:00* Test Item Value Reference Range Interpretation Comments Blood Urea Nitrogen (test code = 3094-0) 9 7-26 [facility] or plasma creatinine measurement (mass/volume)2019-07-31 05:00:00* Test Item Value Reference Range Interpretation Comments Creatinine (test code = 2160-0) 0.77 0.72-1.25 [facility] or plasma urea nitrogen/creatinine mass xgkdd3296-75-55 05:00:00* Test Item Value Reference Range Interpretation Comments BUN/Creatinine Ratio (test code = 3097-3) 12 6-25 [facility] HospitalEstimated glomerular filtration rate (GFR) auxukubepmiio1293-72-10 05:00:00* Test Item Value Reference Range Interpretation Comments Estimat Glomerular Filtration Rate (test code = 932236961) > 60 >60 Ranges were taken from the National Kidney Disease Education Program and the [facility] literature.Reference ranges:60 or greater: Oosqhy32-57 ( for 3 consecutive months): Chronic kidney disease 15 or less: Kidney failureMemorial Hermann Sugar Land HospitalGlucose clnjluarvev7786-08-06 05:00:00* Test Item Value Reference Range Interpretation Comments Glucose Level (test code = WZU6168) 127 74-118 [facility] or plasma calcium measurement (mass/volume)2019-07-31 05:00:00* Test Item Value Reference Range Interpretation Comments Calcium Level (test code = 33608-7) 8.7 8.4-10.2 [facility] HospitalPhosphorus hqohljszlqd1044-40-95 05:00:00 * Test Item Value Reference Range Interpretation Comments Phosphorus Level (test code = AAP1181) 2.5 2.3-4.7 [facility] or plasma magnesium measurement (mass/volume)2019-07-31 05:00:00* Test Item Value Reference Range Interpretation Comments Magnesium Level (test code = 78628-1) 1.4 1.3-2.1 [facility] or plasma triglyceride measurement (mass/volume)2019-07-31 05:00:00* Test Item Value Reference Range Interpretation Comments Triglycerides Level (test code = 2571-8) 51 0-149 [facility] or plasma cholesterol measurement (mass/volume)2019-07-31 05:00:00* Test Item Value Reference Range Interpretation Comments Cholesterol Level (test code = 2093-3) 89 0-199 Less than 200 mg/dL Low Ebuv174 - 239 mg/dL Borderline Kwlb907 m g/dl and greater High Risk [facility] or plasma cholesterol in LDL measurement (mass/volume) 2019-07-31 05:00:00* Test Item Value Reference Range Interpretation Comments LDL Cholesterol (test code = 2089-1) 45 60-130 [facility] or plasma cholesterol in HDL measurement (mass/volume)2019-07-31 05:00:00* Test Item Value Reference Range Interpretation Comments HDL Cholesterol (test code = 2085-9) 34 40-60 [facility] or plasma total cholesterol/cholesterol in HDL mass kyekx1895-73-42 05:00:00* Test Item Value Reference Range Interpretation Comments Cholesterol/HDL Ratio (test code = 9830-1) 2.6 3.9-4.7 [facility] or plasma creatine kinase measurement (enzymatic activity/volume)2019-07-30 16:40:00* Test Item Value Reference Range Interpretation Comments Creatine Kinase (test code = 2157-6) 105 30-200 [facility] or plasma creatine kinase MB measurement (mass/volume)2019-07-30 16:40:00* Test Item Value Reference Range Interpretation Comments Creatine Kinase MB (test code = 19384-5) 3.80 0-5.0 [facility] HospitalTroponin I measurement by highly sensitive enzyme thmngjtmnap7106-09-39 16:40:00* Test Item Value Reference Range Interpretation Comments Troponin I (test code = 44221-3) 0.022 0-0.300 [facility] HospitalCHEST SINGLE (PORTABLE)2019-07-30 01:42:00 [facility] [address] [place] [address] Patient Name: KASSI MCNULTY MR #: [id number] : 1955 Age/Sex: 64/M Req #: [id number] Adm Physician: DIMA WELCH MD Ordered by: VON ACHARYA MD Report #: [id number] Location: MED/SURG Room/Bed: 111-1 Procedure: [id number] DX/CHEST SINGLE (PORTABLE) Exam Date: 07/30/19 Exam [...] (PT) in platelet poor plasma by coagulation apaml0967-81-06 00:35:00* Test Item Value Reference Range Interpretation Comments Prothrombin Time (test code = 5902-2) 13.0 11.9-14.5 [facility] HospitalINR in Platelet poor plasma by Coagulation wkhit1962-31-54 00:35:00* Test Item Value Reference Range Interpretation Comments Prothromb Time International Ratio (test code = 6301-6) 0.93 Oral Anticoagulant Therapy INR Values:1. Low Intensity Therapy 1.5 - 2.02 . Moderate Intensity Therapy 2.0 - 3.03. High Intensity Therapy(1) 2.5 - 3. 54. High Intensity Therapy(2) 3.0 - 4.05. Panic Value INR > 5.0 [facility] HospitalActivated partial thromboplastin time (aPTT) in platelet poor plasma by coagulation ivrbj6630-51-50 00:35:00* Test Item Value Reference Range Interpretation Comments Activated Partial Thromboplast Time (test code = 33481-4) 29.2 23.8-35.5 [facility] plasma total bilirubin measurement (mass/volume)2019-07-30 00:35:00* Test Item Value Reference Range Interpretation Comments Total Bilirubin (test code = 1975-2) 0.9 0.2-1.2 [facility] HospitalFluoroscopic procedure less than one hour lhwjexaj6612-79-85 00:35:00* Test Item Value Reference Range Interpretation Comments Aspartate Amino Transf (AST/SGOT) (test code = Aspartate Amino Transf (AST/SGOT)) 17 5-34 [facility] alanine aminotransferase measurement (enzymatic activity/volume)2019-07-30 00:35:00* Test Item Value Reference Range Interpretation Comments Alanine Aminotransferase (ALT/SGPT) (test code = 1742-6) 26 0-55 [facility] or plasma protein measurement (mass/volume)2019-07-30 00:35:00* Test Item Value Reference Range Interpretation Comments Total Protein (test code = 2885-2) 6.3 6.5-8.1 [facility] or plasma albumin measurement (mass/volume)2019-07-30 00:35:00* Test Item Value Reference Range Interpretation Comments Albumin (test code = 1751-7) 3.4 3.5-5.0 [facility] HospitalPlasma globulin measurement (mass/volume) 2019-07-30 00:35:00* Test Item Value Reference Range Interpretation Comments Globulin (test code = 56218-9) 2.9 2.3-3.5 [facility] or plasma albumin/globulin mass csrqx0137-89-08 00:35:00* Test Item Value Reference Range Interpretation Comments Albumin/Globulin Ratio (test code = 1759-0) 1.2 0.8-2.0 [facility] or plasma alkaline phosphatase measurement (enzymatic activity/volume)2019-07-30 00:35:00* Test Item Value Reference Range Interpretation Comments Alkaline Phosphatase (test code = 6768-6) 81 40-150 [facility] CBTM2243-44-04 14:27:00 [facility] [address] [address] Patient Name: KASSI MCNULTY MR #: [id number] : 1955 Age/Sex: 63/M Req #: [id number] Adm Physician: Ordered by: JAISON HINOJOSA MD Report #: [id number] Location: [facility] Room/Bed: Procedure: [id number] H OPD[facility]FO[facility] 3 V[facility] Ex[facility] Date: 03/07/19 Exam T keenan: 1422 [...] 03/07/191427 COPY TO: JAISON HINOJOSA MD ANKLE 3VIEW - [id number] 14:26:[address] [address] Patient Name: KASSI MCNULTY MR #: [id number] : 1955 Age/Sex: 63/M Req #: [id number] Adm Physician: Ordered by: JAISON HINOJOSA MD Report #: [id number] Location: [facility] Room/Bed: Procedure: [id number] H OPD/ANKLE 3VIEW LT - [facility] Exam Date: 03/07/19 Exam [...] TO: KELECHI HINOJOSA MD Saccharomyces cerevisiae IgG Ce0470-74-85 21:57:00* Test Item Value Reference Range Interpretation Comments Saccharomyces cerevisiae IgG Ab (test code = 6713-2) 33.4 0 .0-24.9 H Negative <20.0 Equivocal 20.1 - 24.9 Positive >or= 25.0[facility]iscoaccharomyces cerevisiae IgA Ab 2018-12-16 21:57:00* Test Item Value Reference Range Interpretation Comments Saccharomyces cerevisiae IgA Ab (test code = 12743-3) 28.0 0.0-24.9 H Negative <20.0 Equivocal 20.1 [...] and no healthy controls had antib odyfor both.[facility] HospitalAtypical o-[id number] 21:57:00* Test Item Value Reference Range Interpretation Comments Atypical p-ANCA (test code = 54885-9) <1:20 Neg:<1:20 The atypical pANCA pattern has been observed in asignificant percentage of patie nts with ulcerative colitis,primary sclerosing cholangitis and autoimmune hepati tis. ASCA+/PANCA- Suggestive of Crohn's disease ASCA-/PANCA+ S uggestive of Ulcerative colitisPerformed at: [facility] [address] [place], [place] [id number] Director: Veronica Wilson MD, Phone: [phone]iscotool Kdordtzxdnrk3741-72-10 05:24:00 * Test Item Value Reference Range Interpretation Comments Stool Calprotectin (test code = 81970-1) <16 0-120 Concentration Interpretation Follow-Up<16 - 50 ug/g Normal None>50 -120 ug/g Borderline Re-evaluate in 4-6 weeks >120 ug/g Abnormal Repeat as clinically indicatedPerformed at: [facility] [address] [place], [place] [id number] Director: Veronica Wilson MD, Phone: [phone] Hermann Sugar Land HospitalC-Reactive Qpvbjyq5788-97-85 00:36:00* Test Item Value Reference Range Interpretation Comments C-Reactive Protein (test code = 1988-5) 2 0-10 Performed at: [facility] [address] [place], [place] [id number] Director: Jorge Granda MD, Phone: [phone] Hermann Sugar Land HospitalClostridium Difficile Toxin A & J5054-08-51 12:29:00* Test Item Value Reference Range Interpretation Comments Clostridium Difficile Toxin A & B (test code = 717191110) POSI TIVE NEGATIVE H Results faxed to Dr. Hernandez at 1228 on 12/13/18 by Josh Molina. RB OK.Results f axed to infection control at 1228 on 12/13/18 by Josh Molina.Testing on stool a spirate specimens is outside urology teacher claims since specimen type not validat ed on this assay.[facility] HospitalErythrocyte Sedimentation Sszv2530-12-84 15:11:00* Test Item Value Reference Range Interpretation Comments Erythrocyte Sedimentation Rate (test code = 4537-7) 7 0- 13 [facility] HospitalErythrocyte sedimentation rate by Westergren qeqioj7595-13-21 14:15:00* Test Item Value Reference Range Interpretation Comments Erythrocyte Sedimentation Rate (test code = 4537-7) 7 0- 13 [facility]iscoerum combs's yeast IgG antibody assay (units/volume)2018-12-12 14:15:00* Test Item Value Reference Range Interpretation Comments Saccharomyces cerevisiae IgG Ab (test code = 6713-2) 33.4 0 .0-24.9 Negative <20.0 Equivocal 20.1 - 24.9 Positive >or= 25.0[facility]iscoerum combs's yeast IgA antibody assay (units/volume)2018-12-12 14:15:00* Test Item Value Reference Range Interpretation Comments Saccharomyces cerevisiae IgA Ab (test code = 57183-2) 28.0 0.0-24.9 Negative <20.0 Equivocal 20.1 - [...] and no healthy controls had antib odyfor both.[facility]iscoerum atypical perinuclear neutrophil cytoplasmic antibody titer by oqypjelxfksuawmtej5325-66-39 14:15:00* Test Item Value Reference Range Interpretation Comments Atypical p-ANCA (test code = 81995-7) <1:20 Neg:<1:20 The atypical pANCA pattern has been observed in asignificant percentage of patie nts with ulcerative colitis,primary sclerosing cholangitis and autoimmune hepati tis. ASCA+/PANCA- Suggestive of Crohn's disease ASCA-/PANCA+ S uggestive of Ulcerative colitisPerformed at: - [facility] [id number] Director: Veronica Wilson MD, Phone: [phone]iscoerum or plasma C reactive protein measurement (mass/volume)2018-12-12 14:15:00* Test Item Value Reference Range Interpretation Comments C-Reactive Protein (test code = 1988-5) 2 0-10 Performed at: - [facility] [address] [id number] Director: Jorge Granda MD, Phone: [phone] Health Friscotool Lactoferrin (LAB)2018-12-12 13:44:00* Test Item Value Reference Range Interpretation Comments Stool Lactoferrin (LAB) (test code = 32333-7) NEGATIVE NEGATIVE Testing on stool aspirate specimens is outside urology teacher claims since specime n type not validated on this assay.[facility] Bedside Peripjy1089-12-31 13:32:00* Test Item Value Reference Range Interpretation Comments Bedside Glucose (test code = 69006-7) 118 70-120 Meter ID: [id number] Health Friscotool lactoferrin biwajixga6163-16-23 12:21:00* Test Item Value Reference Range Interpretation Comments Stool Lactoferrin (LAB) (test code = 40951-7) NEGATIVE NEGATIVE Testing on stool aspirate specimens is outside urology teacher claims since specime n type not validated on this assay.[facility]otool calprotectin measurement (mass/mass)2018-12-12 12:21:00* Test Item Value Reference Range Interpretation Comments Stool Calprotectin (test code = 88607-6) <16 0-120 Concentration Interpretation Follow-Up<16 - 50 ug/g Normal None>50 -120 ug/g Borderline Re-evaluate in 4-6 weeks >120 ug/g Abnormal Repeat as clinically indicatedPerformed at: [facility] [address] [id number] Director: Veronica Wilson MD, Phone: [phone] Hermann [facility] HospitalClostridium difficile A and B toxin bvrdk8638-73-52 12:21:00* Test Item Value Reference Range Interpretation Comments Clostridium Difficile Toxin A & B (test code = 382393090) POSI TIVE NEGATIVE Results faxed to Dr. Hernandez at 1228 on 12/13/18 by Josh Molina. RB OK.Results f axed to infection control at 1228 on 12/13/18 by Josh Molina.Testing on stool a spirate specimens is outside urology teacher claims since specimen type not validat ed on this assay.[facility] HospitalWhite Blood Count 2018-11-22 03:23:00* Test Item Value Reference Range Interpretation Comments White Blood Count (test code = 6690-2) 6.03 4.8-10.8 [facility] HospitalRed Blood Xkznj5647-24-97 03:23:00* Test Item Value Reference Range Interpretation Comments Red Blood Count (test code = 789-8) 5.14 4.3-5.7 [facility] HospitalHemoglobin2019-09-08 03:23:00* Test Item Value Reference Range Interpretation Comments Hemoglobin (test code = 08371-9) 13.3 14.0-18.0 L [facility] HospitalHematocrit2019-09-08 03:23:00* Test Item Value Reference Range Interpretation Comments Hematocrit (test code = 4544-3) 41.5 38.2-49.6 [facility] HospitalMean Corpuscular Flgtnh9611-74-17 03:23:00* Test Item Value Reference Range Interpretation Comments Mean Corpuscular Volume (test code = 787-2) 80.7 81-99 L [facility] HospitalMean Corpuscular Pjlglrkvwz6047-79-72 03:23:00* Test Item Value Reference Range Interpretation Comments Mean Corpuscular Hemoglobin (test code = 785-6) 25.9 28-32 L [facility] HospitalMean Corpuscular Hemoglobin Concent 2018-11-22 03:23:00* Test Item Value Reference Range Interpretation Comments Mean Corpuscular Hemoglobin Concent (test code = 786-4) 32.0 31-35 [facility] HospitalRed Cell Distribution Jxxgl2008-21-85 03:23:00* Test Item Value Reference Range Interpretation Comments Red Cell Distribution Width (test code = 59081-4) 14.0 11.7 -14.4 [facility] HospitalPlatelet Kqbca0130-87-25 03:23:00* Test Item Value Reference Range Interpretation Comments Platelet Count (test code = 777-3) 260 140-360 [facility] HospitalNeutrophils (%) (Auto)2018-11-22 03:23:00 * Test Item Value Reference Range Interpretation Comments Neutrophils (%) (Auto) (test code = 77312-1) 67.1 38.7-80.0 [facility] HospitalLymphocytes (%) (Auto)2018-11-22 03:23:00 * Test Item Value Reference Range Interpretation Comments Lymphocytes (%) (Auto) (test code = 736-9) 15.3 18.0-39.1 L [facility] HospitalMonocytes (%) (Auto)2018-11-22 03:23:00* Test Item Value Reference Range Interpretation Comments Monocytes (%) (Auto) (test code = 5905-5) 13.6 4.4-11.3 H [facility] HospitalEosinophils (%) (Auto)2018-11-22 03:23:00 * Test Item Value Reference Range Interpretation Comments Eosinophils (%) (Auto) (test code = 713-8) 3.2 0.0-6.0 [facility] HospitalBasophils (%) (Auto)2018-11-22 03:23:00* Test Item Value Reference Range Interpretation Comments Basophils (%) (Auto) (test code = 706-2) 0.5 0.0-1.0 [facility] HospitalIM GRANULOCYTES %2018-11-22 03:23:00* Test Item Value Reference Range Interpretation Comments IM GRANULOCYTES % (test code = IM GRANULOCYTES %) 0.3 0.0- 1.0 [facility] HospitalNeutrophils # (Auto)2018-11-22 03:23:00* Test Item Value Reference Range Interpretation Comments Neutrophils # (Auto) (test code = 751-8) 4.1 2.1-6.9 [facility] HospitalLymphocytes # (Auto)2018-11-22 03:23:00* Test Item Value Reference Range Interpretation Comments Lymphocytes # (Auto) (test code = 06116-1) 0.9 1.0-3.2 L [facility] HospitalMonocytes # (Auto)2018-11-22 03:23:00* Test Item Value Reference Range Interpretation Comments Monocytes # (Auto) (test code = 742-7) 0.8 0.2-0.8 [facility] HospitalEosinophils # (Auto)2018-11-22 03:23:00* Test Item Value Reference Range Interpretation Comments Eosinophils # (Auto) (test code = 711-2) 0.2 0.0-0.4 [facility] HospitalBasophils # (Auto)2018-11-22 03:23:00* Test Item Value Reference Range Interpretation Comments Basophils # (Auto) (test code = 704-7) 0.0 0.0-0.1 [facility] HospitalAbsolute Immature Granulocyte (auto 2018-11-22 03:23:00* Test Item Value Reference Range Interpretation Comments Absolute Immature Granulocyte (auto (chriss t code = Absolute Immature Granulocyte (auto) 0.02 0-0.1 [facility] HospitalWhite Blood Rhvdv7948-54-12 03:23:00* Test Item Value Reference Range Interpretation Comments White Blood Count (test code = 6690-2) 6.03 4.8-10.8 [facility] HospitalRed Blood Inbuj2177-81-03 03:23:00* Test Item Value Reference Range Interpretation Comments Red Blood Count (test code = 789-8) 5.14 4.3-5.7 [facility] HospitalHemoglobin2019-09-08 03:23:00* Test Item Value Reference Range Interpretation Comments Hemoglobin (test code = 90951-0) 13.3 14.0-18.0 L [facility] HospitalHematocrit2019-09-08 03:23:00* Test Item Value Reference Range Interpretation Comments Hematocrit (test code = 4544-3) 41.5 38.2-49.6 [facility] HospitalMean Corpuscular Xkpykm3624-64-88 03:23:00* Test Item Value Reference Range Interpretation Comments Mean Corpuscular Volume (test code = 787-2) 80.7 81-99 L [facility] HospitalMean Corpuscular Uclannmbiw9051-05-85 03:23:00* Test Item Value Reference Range Interpretation Comments Mean Corpuscular Hemoglobin (test code = 785-6) 25.9 28-32 L [facility] HospitalMean Corpuscular Hemoglobin Concent 2018-11-22 03:23:00* Test Item Value Reference Range Interpretation Comments Mean Corpuscular Hemoglobin Concent (test code = 786-4) 32.0 31-35 [facility] HospitalRed Cell Distribution Pmmrt9176-52-49 03:23:00* Test Item Value Reference Range Interpretation Comments Red Cell Distribution Width (test code = 14256-3) 14.0 11.7 -14.4 [facility] HospitalPlatelet Botmo8864-10-15 03:23:00* Test Item Value Reference Range Interpretation Comments Platelet Count (test code = 777-3) 260 140-360 [facility] HospitalNeutrophils (%) (Auto)2018-11-22 03:23:00 * Test Item Value Reference Range Interpretation Comments Neutrophils (%) (Auto) (test code = 07518-3) 67.1 38.7-80.0 [facility] HospitalLymphocytes (%) (Auto)2018-11-22 03:23:00 * Test Item Value Reference Range Interpretation Comments Lymphocytes (%) (Auto) (test code = 736-9) 15.3 18.0-39.1 L [facility] HospitalMonocytes (%) (Auto)2018-11-22 03:23:00* Test Item Value Reference Range Interpretation Comments Monocytes (%) (Auto) (test code = 5905-5) 13.6 4.4-11.3 H [facility] HospitalEosinophils (%) (Auto)2018-11-22 03:23:00 * Test Item Value Reference Range Interpretation Comments Eosinophils (%) (Auto) (test code = 713-8) 3.2 0.0-6.0 [facility] HospitalBasophils (%) (Auto)2018-11-22 03:23:00* Test Item Value Reference Range Interpretation Comments Basophils (%) (Auto) (test code = 706-2) 0.5 0.0-1.0 [facility] HospitalIM GRANULOCYTES %2018-11-22 03:23:00* Test Item Value Reference Range Interpretation Comments IM GRANULOCYTES % (test code = IM GRANULOCYTES %) 0.3 0.0- 1.0 [facility] HospitalNeutrophils # (Auto)2018-11-22 03:23:00* Test Item Value Reference Range Interpretation Comments Neutrophils # (Auto) (test code = 751-8) 4.1 2.1-6.9 [facility] HospitalLymphocytes # (Auto)2018-11-22 03:23:00* Test Item Value Reference Range Interpretation Comments Lymphocytes # (Auto) (test code = 40732-1) 0.9 1.0-3.2 L [facility] HospitalMonocytes # (Auto)2018-11-22 03:23:00* Test Item Value Reference Range Interpretation Comments Monocytes # (Auto) (test code = 742-7) 0.8 0.2-0.8 [facility] HospitalEosinophils # (Auto)2018-11-22 03:23:00* Test Item Value Reference Range Interpretation Comments Eosinophils # (Auto) (test code = 711-2) 0.2 0.0-0.4 [facility] HospitalBasophils # (Auto)2018-11-22 03:23:00* Test Item Value Reference Range Interpretation Comments Basophils # (Auto) (test code = 704-7) 0.0 0.0-0.1 [facility] HospitalAbsolute Immature Granulocyte (auto 2018-11-22 03:23:00* Test Item Value Reference Range Interpretation Comments Absolute Immature Granulocyte (auto (chriss t code = Absolute Immature Granulocyte (auto) 0.02 0-0.1 [facility] Pbqqt6840-51-88 03:22:00* Test Item Value Reference Range Interpretation Comments Sodium Level (test code = 2951-2) 141 136-145 [facility] HospitalPotassium Ldhsb9125-94-33 03:22:00* Test Item Value Reference Range Interpretation Comments Potassium Level (test code = 2823-3) 3.2 3.5-5.1 L [facility] HospitalChloride Kuenv3682-72-55 03:22:00* Test Item Value Reference Range Interpretation Comments Chloride Level (test code = 2075-0) 105 98-107 [facility] HospitalCarbon Dioxide Pdxbm2601-76-88 03:22:00* Test Item Value Reference Range Interpretation Comments Carbon Dioxide Level (test code = 2028-9) 24 22-29 [facility] HospitalAnion Aac3160-31-87 03:22:00* Test Item Value Reference Range Interpretation Comments Anion Gap (test code = 64109-4) 15.2 8-16 [facility] HospitalBlood Urea Mgobjnec5333-51-62 03:22:00* Test Item Value Reference Range Interpretation Comments Blood Urea Nitrogen (test code = 3094-0) < 5 7-26 L [facility] HospitalCreatinine2019-09-08 03:22:00* Test Item Value Reference Range Interpretation Comments Creatinine (test code = 2160-0) 0.68 0.72-1.25 L [facility] HospitalBUN/Creatinine Dkgjx7233-71-98 03:22:00* Test Item Value Reference Range Interpretation Comments BUN/Creatinine Ratio (test code = 3097-3) 7 6-25 [facility] HospitalEstimat Glomerular Filtration Rate 2018-11-22 03:22:00* Test Item Value Reference Range Interpretation Comments Estimat Glomerular Filtration Rate (test code = 447961827) > 60 >60 Ranges were taken from the National Kidney Disease Education Program and the [facility] Foundation literature.Reference ranges:60 or greater: Anvcxp33-77 ( for 3 consecutive months): Chronic kidney disease 15 or less: Kidney failureMemorial Hermann Sugar Land HospitalGlucose Ddbut3964-90-31 03:22:00* Test Item Value Reference Range Interpretation Comments Glucose Level (test code = FMF8799) 110 74-118 [facility] HospitalCalcium Zklat0285-40-30 03:22:00* Test Item Value Reference Range Interpretation Comments Calcium Level (test code = 90014-4) 8.6 8.4-10.2 [facility] Hthxe3684-10-25 03:22:00* Test Item Value Reference Range Interpretation Comments Sodium Level (test code = 2951-2) 141 136-145 [facility] HospitalPotassium Scinu0494-58-53 03:22:00* Test Item Value Reference Range Interpretation Comments Potassium Level (test code = 2823-3) 3.2 3.5-5.1 L [facility] HospitalChloride Olmqa5894-22-77 03:22:00* Test Item Value Reference Range Interpretation Comments Chloride Level (test code = 2075-0) 105 98-107 [facility] HospitalCarbon Dioxide Anqtz3910-41-17 03:22:00* Test Item Value Reference Range Interpretation Comments Carbon Dioxide Level (test code = 2028-9) 24 22-29 [facility] HospitalAnion Uxq4252-68-64 03:22:00* Test Item Value Reference Range Interpretation Comments Anion Gap (test code = 57229-9) 15.2 8-16 [facility] HospitalBlood Urea Wimjivcb8628-39-17 03:22:00* Test Item Value Reference Range Interpretation Comments Blood Urea Nitrogen (test code = 3094-0) < 5 7-26 L [facility] HospitalCreatinine2019-09-08 03:22:00* Test Item Value Reference Range Interpretation Comments Creatinine (test code = 2160-0) 0.68 0.72-1.25 L [facility] HospitalBUN/Creatinine Rlmsn7105-08-18 03:22:00* Test Item Value Reference Range Interpretation Comments BUN/Creatinine Ratio (test code = 3097-3) 7 6-25 [facility] HospitalEstimat Glomerular Filtration Rate 2018-11-22 03:22:00* Test Item Value Reference Range Interpretation Comments Estimat Glomerular Filtration Rate (test code = 886585000) > 60 >60 Ranges were taken from the National Kidney Disease Education Program and the [facility] literature.Reference ranges:60 or greater: Sjnzig95-86 ( for 3 consecutive months): Chronic kidney disease 15 or less: Kidney failureMemorial Hermann Sugar Land HospitalGlucose Qusfz8180-87-53 03:22:00* Test Item Value Reference Range Interpretation Comments Glucose Level (test code = XXQ0024) 110 74-118 [facility] HospitalCalcium Lviek2353-13-06 03:22:00* Test Item Value Reference Range Interpretation Comments Calcium Level (test code = 64711-4) 8.6 8.4-10.2 [facility] HospitalBedside Zlorcze3915-45-83 20:14:00* Test Item Value Reference Range Interpretation Comments Bedside Glucose (test code = 65051-5) 115 70-120 Meter ID: [id number] Hermann Sugar Land HospitalCT ABDOMEN/PELVIS W 2018-11-21 13:28:00 [address] [address] Patient Name: KASSI MCNULTY MR #: [id number] : 1955 Age/Sex: 63/M Req #: [id number] Adm Physician: DIMA WELCH MD Ordered by: TELMA HERNANDEZ MD Report #: [id number] Location: [facility] Room/Bed: 107-1 Procedure: [id number] CT/ CT ABDOMEN/PELVIS W Exam Date: 11/21/18 [...] 0919 Transcribe d By: CAROL on 11/21/18 1213 COPY TO: TELMA HERNANDEZ MD B-Type Natriuretic Mwkkjgv7962-36-55 03:46:00* Test Item Value Reference Range Interpretation Comments B-Type Natriuretic Peptide (test code = 57738-8) 53.5 0-100 [facility] HospitalB-Type Natriuretic Cjjhlrh7712-93-88 03:46:00* Test Item Value Reference Range Interpretation Comments B-Type Natriuretic Peptide (test code = 54691-9) 53.5 0-100 [facility] HospitalHemoglobin A1c Efthpqa1948-48-35 03:25:00 * Test Item Value Reference Range Interpretation Comments Hemoglobin A1c Percent (test code = Hemoglobin A1c Percent) 6.4 4.0-7.0 [facility] HospitalMagnesium Ugvoj3635-89-98 03:25:00* Test Item Value Reference Range Interpretation Comments Magnesium Level (test code = 40568-2) 1.4 1.3-2.1 [facility] HospitalThyroid Stimulating Hormone (TSH) 2018-11-21 03:25:00* Test Item Value Reference Range Interpretation Comments Thyroid Stimulating Hormone (TSH) (test code = 67960-6) 0.656 0.350-4.940 [facility] HospitalHemoglobin A1c Hridekf0351-91-64 03:25:00 * Test Item Value Reference Range Interpretation Comments Hemoglobin A1c Percent (test code = Hemoglobin A1c Percent) 6.4 4.0-7.0 [facility] HospitalMagnesium Cqyac4458-83-32 03:25:00* Test Item Value Reference Range Interpretation Comments Magnesium Level (test code = 87637-6) 1.4 1.3-2.1 [facility] HospitalThyroid Stimulating Hormone (TSH) 2018-11-21 03:25:00* Test Item Value Reference Range Interpretation Comments Thyroid Stimulating Hormone (TSH) (test code = 09693-6) 0.656 0.350-4.940 [facility] HospitalFluoroscopic procedure less than one hour dwbicfab9661-33-33 02:12:00* Test Item Value Reference Range Interpretation Comments Hemoglobin A1c Percent (test code = Hemoglobin A1c Percent) 6.4 4.0-7.0 [facility] HospitalBNP Pgd-mSzu7025-17-07 02:12:00* Test Item Value Reference Range Interpretation Comments B-Type Natriuretic Peptide (test code = 29266-6) 53.5 0-100 [facility]iscoerum or plasma thyrotropin measurement by detection limit <= 0.005 miu/l (units/volume)2018-11-21 02:12:00* Test Item Value Reference Range Interpretation Comments Thyroid Stimulating Hormone (TSH) (test code = 14374-8) 0.656 0.350-4.940 [facility] HospitalCreatine Kinase HE5295-59-50 06:42:00* Test Item Value Reference Range Interpretation Comments Creatine Kinase MB (test code = 29073-9) 2.20 0-5.0 [facility] HospitalTroponin X9068-64-62 06:42:00* Test Item Value Reference Range Interpretation Comments Troponin I (test code = CRA3443) 0.016 0-0.300 [facility] HospitalCreatine Kinase GI9178-00-85 06:42:00* Test Item Value Reference Range Interpretation Comments Creatine Kinase MB (test code = 05002-3) 2.20 0-5.0 [facility] HospitalTroponin D3435-62-04 06:42:00* Test Item Value Reference Range Interpretation Comments Troponin I (test code = ZFO2549) 0.016 0-0.300 [facility] HospitalTotal Bgzsnxyjf1931-70-21 06:41:00* Test Item Value Reference Range Interpretation Comments Total Bilirubin (test code = 1975-2) 0.8 0.2-1.2 [facility] HospitalAspartate Amino Transf (AST/SGOT) 2018-11-20 06:41:00* Test Item Value Reference Range Interpretation Comments Aspartate Amino Transf (AST/SGOT) (test code = Aspartate Amino Transf (AST/SGOT)) 25 5-34 [facility] HospitalAlanine Aminotransferase (ALT/SGPT) 2018-11-20 06:41:00* Test Item Value Reference Range Interpretation Comments Alanine Aminotransferase (ALT/SGPT) (test code = 1742-6) 26 0-55 [facility] HospitalTotal Ejzhcnz5142-47-21 06:41:00* Test Item Value Reference Range Interpretation Comments Total Protein (test code = 2885-2) 5.9 6.5-8.1 L [facility] HospitalAlbumin2019-09-06 06:41:00* Test Item Value Reference Range Interpretation Comments Albumin (test code = 1751-7) 3.5 3.5-5.0 [facility] HospitalGlobulin2019-09-06 06:41:00* Test Item Value Reference Range Interpretation Comments Globulin (test code = 03550-4) 2.4 2.3-3.5 [facility] HospitalAlbumin/Globulin Uunsb4267-47-52 06:41:00 * Test Item Value Reference Range Interpretation Comments Albumin/Globulin Ratio (test code = 1759-0) 1.5 0.8-2.0 [facility] HospitalAlkaline Tpapejoeovm2104-21-46 06:41:00* Test Item Value Reference Range Interpretation Comments Alkaline Phosphatase (test code = 6768-6) 76 40-150 [facility] HospitalTriglycerides Gtkgq8926-28-31 06:41:00* Test Item Value Reference Range Interpretation Comments Triglycerides Level (test code = 2571-8) 89 0-149 [facility] HospitalCholesterol Clocb6717-71-01 06:41:00* Test Item Value Reference Range Interpretation Comments Cholesterol Level (test code = 2093-3) 91 0-199 Less than 200 mg/dL Low Cfpd042 - 239 mg/dL Borderline Rtcz131 m g/dl and greater High Risk [facility] HospitalLDL Avywmqoignm1916-40-97 06:41:00* Test Item Value Reference Range Interpretation Comments LDL Cholesterol (test code = 2089-1) 46 60-130 L [facility] HospitalHDL Yqwseekusrc0995-53-18 06:41:00* Test Item Value Reference Range Interpretation Comments HDL Cholesterol (test code = 2085-9) 27 40-60 L [facility] HospitalCholesterol/HDL Mfpxz1671-75-62 06:41:00 * Test Item Value Reference Range Interpretation Comments Cholesterol/HDL Ratio (test code = 9830-1) 3.4 3.9-4.7 L [facility] HospitalTotal Ghlgnuavj2997-00-17 06:41:00* Test Item Value Reference Range Interpretation Comments Total Bilirubin (test code = 1975-2) 0.8 0.2-1.2 [facility] HospitalAspartate Amino Transf (AST/SGOT) 2018-11-20 06:41:00* Test Item Value Reference Range Interpretation Comments Aspartate Amino Transf (AST/SGOT) (test code = Aspartate Amino Transf (AST/SGOT)) 25 5-34 [facility] HospitalAlanine Aminotransferase (ALT/SGPT) 2018-11-20 06:41:00* Test Item Value Reference Range Interpretation Comments Alanine Aminotransferase (ALT/SGPT) (test code = 1742-6) 26 0-55 [facility] HospitalTotal Eyjhyqu6280-39-62 06:41:00* Test Item Value Reference Range Interpretation Comments Total Protein (test code = 2885-2) 5.9 6.5-8.1 L [facility] HospitalAlbumin2019-09-06 06:41:00* Test Item Value Reference Range Interpretation Comments Albumin (test code = 1751-7) 3.5 3.5-5.0 [facility] HospitalGlobulin2019-09-06 06:41:00* Test Item Value Reference Range Interpretation Comments Globulin (test code = 71400-4) 2.4 2.3-3.5 [facility] HospitalAlbumin/Globulin Jvele9547-90-11 06:41:00 * Test Item Value Reference Range Interpretation Comments Albumin/Globulin Ratio (test code = 1759-0) 1.5 0.8-2.0 [facility] HospitalAlkaline Nevqzkkkkhr1872-01-27 06:41:00* Test Item Value Reference Range Interpretation Comments Alkaline Phosphatase (test code = 6768-6) 76 40-150 [facility] HospitalTriglycerides Ydemm5563-59-97 06:41:00* Test Item Value Reference Range Interpretation Comments Triglycerides Level (test code = 2571-8) 89 0-149 [facility] HospitalCholesterol Vfmlp5828-76-06 06:41:00* Test Item Value Reference Range Interpretation Comments Cholesterol Level (test code = 2093-3) 91 0-199 Less than 200 mg/dL Low Jsxd624 - 239 mg/dL Borderline Wowv440 m g/dl and greater High Risk [facility] HospitalLDL Lbtuccjicxy5066-06-60 06:41:00* Test Item Value Reference Range Interpretation Comments LDL Cholesterol (test code = 2089-1) 46 60-130 L [facility] HospitalHDL Nxtrenwclzt7702-37-56 06:41:00* Test Item Value Reference Range Interpretation Comments HDL Cholesterol (test code = 2085-9) 27 40-60 L [facility] HospitalCholesterol/HDL Ydstd7521-46-00 06:41:00 * Test Item Value Reference Range Interpretation Comments Cholesterol/HDL Ratio (test code = 9830-1) 3.4 3.9-4.7 L [facility] HospitalCreatine Noyajg7419-11-59 06:39:00* Test Item Value Reference Range Interpretation Comments Creatine Kinase (test code = 2157-6) 80 30-200 [facility] HospitalCreatine Gmabvd3064-56-26 06:39:00* Test Item Value Reference Range Interpretation Comments Creatine Kinase (test code = 2157-6) 80 30-200 [facility] HospitalCT ABDOMEN/PELVIS C7094-51-15 15:53:00 [facility] [address] [address] Patient Name: KASSI MCNULTY MR #: [id number] : 1955 Age/Sex: 63/M Req #: [id number] Adm Physician: DIMA WELCH MD Ordered by: SUELLEN TRAORE MD Report #: [id number] Location: [facility] Room/Bed: [place] [address] Procedure: [id number] CT/C T ABDOMEN/PELVIS W Exam Date: 11/19/18 Exam Time: 14 42 REPORT STATUS: Signed EXAM: C T Abdomen and Pelvis WITH intravenous contrast INDICATION: Abdominal dist ention COMPARISON: Abdominal radiograph of 10/31/2018, abdomen and pelvis CT of 10/29/2018 TECHNIQUE: Abdomen and pelvis were scanned utilizing a [employer] helical scanner from the lung base to [...] 1638 COPY TO: PAULINA TRAORE MD Urine ARJ8083-25-19 14:16:00* Test Item Value Reference Range Interpretation Comments Urine WBC (test code = 5821-4) NONE 0-5 [facility] HospitalUrine SZH4988-81-20 14:16:00* Test Item Value Reference Range Interpretation Comments Urine RBC (test code = 22464-2) NONE 0-5 [facility] HospitalUrine Fokvysju3303-89-86 14:16:00* Test Item Value Reference Range Interpretation Comments Urine Bacteria (test code = 49282-0) FEW NONE [facility] HospitalUrine Epithelial Fcnlh4800-14-41 14:16:00 * Test Item Value Reference Range Interpretation Comments Urine Epithelial Cells (test code = 62038-7) FEW NONE [facility] HospitalUrine Transitional Epithelial Cells 2018-11-19 14:16:00* Test Item Value Reference Range Interpretation Comments Urine Transitional Epithelial Cells (test code = 8249-5) RARE NONE [facility] HospitalUrine FTU0020-21-56 14:16:00* Test Item Value Reference Range Interpretation Comments Urine WBC (test code = 5821-4) NONE 0-5 [facility] HospitalUrine YOF8754-97-27 14:16:00* Test Item Value Reference Range Interpretation Comments Urine RBC (test code = 00037-2) NONE 0-5 [facility] HospitalUrine Pevthnfn2456-41-26 14:16:00* Test Item Value Reference Range Interpretation Comments Urine Bacteria (test code = 48127-9) FEW NONE [facility] HospitalUrine Epithelial Cgihz4661-39-85 14:16:00 * Test Item Value Reference Range Interpretation Comments Urine Epithelial Cells (test code = 75872-7) FEW NONE [facility] HospitalUrine Transitional Epithelial Cells 2018-11-19 14:16:00* Test Item Value Reference Range Interpretation Comments Urine Transitional Epithelial Cells (test code = 8249-5) RARE NONE [facility] HospitalLipase2019-09-05 14:15:00* Test Item Value Reference Range Interpretation Comments Lipase (test code = 3040-3) 71 8-78 [facility] HospitalLipase2019-09-05 14:15:00* Test Item Value Reference Range Interpretation Comments Lipase (test code = 3040-3) 71 8-78 [facility] HospitalProthrombin Ewxs6506-37-11 14:00:00* Test Item Value Reference Range Interpretation Comments Prothrombin Time (test code = 5902-2) 13.5 11.9-14.5 [facility] HospitalProthromb Time International Ratio 2018-11-19 14:00:00* Test Item Value Reference Range Interpretation Comments Prothromb Time International Ratio (test code = 6301-6) 0.98 Oral Anticoagulant Therapy INR Values:1. Low Intensity Therapy 1.5 - 2.02 . Moderate Intensity Therapy 2.0 - 3.03. High Intensity Therapy(1) 2.5 - 3. 54. High Intensity Therapy(2) 3.0 - 4.05. Panic Value INR > 5.0 [facility] HospitalActivated Partial Thromboplast Time 2018-11-19 14:00:00* Test Item Value Reference Range Interpretation Comments Activated Partial Thromboplast Time (test code = 95844-0) 30.8 23.8-35.5 [facility] HospitalProthrombin Hczz1205-70-91 14:00:00* Test Item Value Reference Range Interpretation Comments Prothrombin Time (test code = 5902-2) 13.5 11.9-14.5 [facility] HospitalProthromb Time International Ratio 2018-11-19 14:00:00* Test Item Value Reference Range Interpretation Comments Prothromb Time International Ratio (test code = 6301-6) 0.98 Oral Anticoagulant Therapy INR Values:1. Low Intensity Therapy 1.5 - 2.02 . Moderate Intensity Therapy 2.0 - 3.03. High Intensity Therapy(1) 2.5 - 3. 54. High Intensity Therapy(2) 3.0 - 4.05. Panic Value INR > 5.0 [facility] HospitalActivated Partial Thromboplast Time 2018-11-19 14:00:00* Test Item Value Reference Range Interpretation Comments Activated Partial Thromboplast Time (test code = 37673-6) 30.8 23.8-35.5 [facility] HospitalUrine Oolpy2448-76-44 13:59:00* Test Item Value Reference Range Interpretation Comments Urine Color (test code = 5778-6) BROWN YELLOW H [facility] HospitalUrine Hyburji3330-99-74 13:59:00* Test Item Value Reference Range Interpretation Comments Urine Clarity (test code = 19351-9) SL CLOUDY CLEAR H [facility] HospitalUrine Specific Qmjdwmy8967-76-12 13:59:00 * Test Item Value Reference Range Interpretation Comments Urine Specific [place] (test code = 5811-5) >=1.030 1.010-1.02 5 [facility] HospitalUrine aR3165-81-48 13:59:00* Test Item Value Reference Range Interpretation Comments Urine pH (test code = 19572-6) 5.5 5-7 [facility] HospitalUrine Leukocyte Ineksobq0477-64-94 13:59:00* Test Item Value Reference Range Interpretation Comments Urine Leukocyte Esterase (test code = 61282-2) NEGATIVE NEGATIV E [facility] HospitalUrine Haktldo0108-32-21 13:59:00* Test Item Value Reference Range Interpretation Comments Urine Nitrite (test code = 45933-3) POSITIVE NEGATIVE H [facility] Evdfdqe8519-47-05 13:59:00* Test Item Value Reference Range Interpretation Comments Urine Protein (test code = 85596-7) 1+ NEGATIVE H [facility] Glucose (UA)2018-11-19 13:59:00* Test Item Value Reference Range Interpretation Comments Urine Glucose (UA) (test code = 23550-1) NEGATIVE NEGATIVE [facility] HospitalUrine Hiobknh8622-71-66 13:59:00* Test Item Value Reference Range Interpretation Comments Urine Ketones (test code = 70571-2) TRACE NEGATIVE H [facility] Uijytdrpnctz9787-54-73 13:59:00* Test Item Value Reference Range Interpretation Comments Urine Urobilinogen (test code = 15782-5) 0.2 0.2-1 [facility] HospitalUrine Ioqnxxbde4124-05-83 13:59:00* Test Item Value Reference Range Interpretation Comments Urine Bilirubin (test code = 1977-8) MODERATE NEGATIVE [facility] HospitalUrine Qqjzw5764-57-97 13:59:00* Test Item Value Reference Range Interpretation Comments Urine Blood (test code = 03663-3) NEGATIVE NEGATIVE [facility] HospitalUrine Tbtzv5932-66-79 13:59:00* Test Item Value Reference Range Interpretation Comments Urine Color (test code = 5778-6) BROWN YELLOW H [facility] HospitalUrine Chbvxxh7170-86-84 13:59:00* Test Item Value Reference Range Interpretation Comments Urine Clarity (test code = 54889-8) SL CLOUDY CLEAR H [facility] HospitalUrine Specific Ssewloa0909-28-37 13:59:00 * Test Item Value Reference Range Interpretation Comments Urine Specific [place] (test code = 5811-5) >=1.030 1.010-1.02 5 [facility] HospitalUrine jK8755-53-62 13:59:00* Test Item Value Reference Range Interpretation Comments Urine pH (test code = 30243-7) 5.5 5-7 [facility] HospitalU[facility] Leukocyte Xwwotuvy2373-55-85 13:59:00* Test Item Value Reference Range Interpretation Comments Urine Leukocyte Esterase (test code = 61480-1) NEGATIVE NEGATIV E [facility] HospitalUrine Uapjfhq4046-11-83 13:59:00* Test Item Value Reference Range Interpretation Comments Urine Nitrite (test code = 85103-7) POSITIVE NEGATIVE H [facility] HospitalUrine Zpdxxax4725-45-01 13:59:00* Test Item Value Reference Range Interpretation Comments Urine Protein (test code = 49825-1) 1+ NEGATIVE H [facility] HospitalUrine Glucose (UA)2018-11-19 13:59:00* Test Item Value Reference Range Interpretation Comments Urine Glucose (UA) (test code = 58604-4) NEGATIVE NEGATIVE [facility] HospitalUrine Okclrmc3894-27-78 13:59:00* Test Item Value Reference Range Interpretation Comments Urine Ketones (test code = 03529-5) TRACE NEGATIVE H [facility] HospitalUrine Brwnwcfpuzqj0443-27-97 13:59:00* Test Item Value Reference Range Interpretation Comments Urine Urobilinogen (test code = 72173-3) 0.2 0.2-1 [facility] HospitalUrine Izzbgpuqs8324-35-57 13:59:00* Test Item Value Reference Range Interpretation Comments Urine Bilirubin (test code = 1977-8) MODERATE NEGATIVE [facility] HospitalU[facility] Tybpa1395-39-63 13:59:00* Test Item Value Reference Range Interpretation Comments Urine Blood (test code = 30798-6) NEGATIVE NEGATIVE [facility] HospitalCHEST SINGLE (PORTABLE)2018-11-19 13:27:00 [facility] [address] [address] Patient Name: KASSI MCNULTY MR #: [id number] : 1955 Age/Sex: 63/M Req #: [id number] Adm Physician: Ordered by: SUELLEN TRAORE MD Report #: [id number] Location: ER Room/Bed: Procedure: [id number] DX/CH EST SINGLE (PORTABLE) Exam Date: 11/19/18 [...] COPY TO: SUELLEN TRAORE MD Urine color oebpralovwklc1101-18-47 12:55:00* Test Item Value Reference Range Interpretation Comments Urine Color (test code = 5778-6) BROWN YELLOW [facility] gwhcwma8114-19-20 12:55:00* Test Item Value Reference Range Interpretation Comments Urine Clarity (test code = 57917-4) SL CLOUDY CLEAR [facility] by Test strip 2018-11-19 12:55:00* Test Item Value Reference Range Interpretation Comments Urine Specific [place] (test code = 5811-5) >=1.030 1.010-1.02 5 [facility] HospitalUrine pH measurement by automated test ycqbz2652-29-49 12:55:00* Test Item Value Reference Range Interpretation Comments Urine pH (test code = 56464-9) 5.5 5-7 [facility] HospitalUrine leukocyte esterase detection by automated test hmgcs7779-15-50 12:55:00* Test Item Value Reference Range Interpretation Comments Urine Leukocyte Esterase (test code = 03375-1) NEGATIVE NEGATIV E [facility] HospitalUrine nitrite detection by automated test vjlhp5547-39-59 12:55:00* Test Item Value Reference Range Interpretation Comments Urine Nitrite (test code = 60963-4) POSITIVE NEGATIVE [facility] HospitalUrine protein detection by automated test bxcsj5227-24-06 12:55:00* Test Item Value Reference Range Interpretation Comments Urine Protein (test code = 05581-5) 1+ NEGATIVE [facility] HospitalUrine glucose detection by automated test noqor6540-49-27 12:55:00* Test Item Value Reference Range Interpretation Comments Urine Glucose (UA) (test code = 60969-3) NEGATIVE NEGATIVE [facility] HospitalUrine ketones detection by automated test rdpop6685-30-37 12:55:00* Test Item Value Reference Range Interpretation Comments Urine Ketones (test code = 02386-5) TRACE NEGATIVE [facility] HospitalUrine urobilinogen measurement by test strip (mass/volume)2018-11-19 12:55:00* Test Item Value Reference Range Interpretation Comments Urine Urobilinogen (test code = 10273-3) 0.2 0.2-1 [facility] HospitalU[facility] total bilirubin krnrupezj2914-18-18 12:55:00* Test Item Value Reference Range Interpretation Comments Urine Bilirubin (test code = 1977-8) MODERATE NEGATIVE [facility] HospitalUrine erythrocytes zrhkizywe2068-21-27 12:55:00* Test Item Value Reference Range Interpretation Comments Urine Blood (test code = 12822-0) NEGATIVE NEGATIVE [facility] HospitalAutomated urine sediment leukocyte count by microscopy (number/high power field)2018-11-19 12:55:00* Test Item Value Reference Range Interpretation Comments Urine WBC (test code = 5821-4) NONE 0-5 [facility] HospitalErythrocytes detection in urine sediment by light aqraobwopm6097-24-37 12:55:00* Test Item Value Reference Range Interpretation Comments Urine RBC (test code = 47163-8) NONE 0-5 [facility] HospitalBacteria detection in urine sediment by light mcybxstnzq7464-40-37 12:55:00* Test Item Value Reference Range Interpretation Comments Urine Bacteria (test code = 99036-9) FEW NONE [facility] HospitalEpithelial cells detection in urine sediment by light etobxprxyq3281-86-44 12:55:00* Test Item Value Reference Range Interpretation Comments Urine Epithelial Cells (test code = 94390-2) FEW NONE [facility] HospitalTransitional cells detection in urine sediment by light oaowsteykj3457-55-56 12:55:00* Test Item Value Reference Range Interpretation Comments Urine Transitional Epithelial Cells (test code = 8249-5) RARE NONE [facility]isco[facility]um or plasma lipase measurement (enzymatic activity/volume)2018-11-19 12:55:00* Test Item Value Reference Range Interpretation Comments Lipase (test code = 3040-3) 71 8-[address] (KUB)2018-11-05 14:29:00 [facility] [address] [place] [address] Patient Name: KASSI MCNULTY MR #: [id number] : 1955 Age/Sex: 63/M Req #: [id number] Adm Physician: Ordered by: DEBBY SALVADOR MD Report #: [id number] Location: ER Room/Bed: Procedure: [id number] DX/ ABDOMEN-1VIEW (KUB) Exam Date: 11/05/18 Exam [...] 1434 COPY TO: DEBBY SALVADOR MD Urine UXC5548-32-13 12:34:00* Test Item Value Reference Range Interpretation Comments Urine WBC (test code = 5821-4) 0-5 0-5 [facility] HospitalUrine JRT2147-86-50 12:34:00* Test Item Value Reference Range Interpretation Comments Urine RBC (test code = 34941-6) 0-5 0-5 [facility] HospitalUrine Nqbzbmdt1135-71-63 12:34:00* Test Item Value Reference Range Interpretation Comments Urine Bacteria (test code = 07606-3) MODERATE NONE H [facility] HospitalUrine Epithelial Tqpeo4475-73-09 12:34:00 * Test Item Value Reference Range Interpretation Comments Urine Epithelial Cells (test code = 42804-1) MODERATE NONE [facility] HospitalUrine Gqygy5594-95-37 12:34:00* Test Item Value Reference Range Interpretation Comments Urine Mucus (test code = 8247-9) FEW RARE H [facility] HospitalUrine Wwzlk9419-06-86 12:34:00* Test Item Value Reference Range Interpretation Comments Urine Mucus (test code = 8247-9) FEW RARE H [facility] HospitalUrine Rqqnk4514-72-88 12:34:00* Test Item Value Reference Range Interpretation Comments Urine Mucus (test code = 8247-9) FEW RARE H [facility] HospitalUrine Znikj7666-77-36 12:19:00* Test Item Value Reference Range Interpretation Comments Urine Color (test code = 5778-6) YELLOW YELLOW [facility] HospitalUrine Afrdagv4770-12-08 12:19:00* Test Item Value Reference Range Interpretation Comments Urine Clarity (test code = 53915-1) CLEAR CLEAR [facility] Specific Lnjuprm1142-73-89 12:19:00 * Test Item Value Reference Range Interpretation Comments Urine Specific [place] (test code = 5811-5) >=1.030 1.010-1.02 5 [facility] HospitalUrine wR1635-45-55 12:19:00* Test Item Value Reference Range Interpretation Comments Urine pH (test code = 83041-1) 5.5 5-7 [facility] HospitalUrine Leukocyte Sheziknq9392-85-09 12:19:00* Test Item Value Reference Range Interpretation Comments Urine Leukocyte Esterase (test code = 58806-2) NEGATIVE NEGATIV E [facility] HospitalUrine Julllxe8909-27-55 12:19:00* Test Item Value Reference Range Interpretation Comments Urine Nitrite (test code = 93299-0) NEGATIVE NEGATIVE [facility] HospitalUrine Nccrzgt6821-04-65 12:19:00* Test Item Value Reference Range Interpretation Comments Urine Protein (test code = 76300-8) 1+ NEGATIVE H [facility] HospitalUrine Glucose (UA)2018-11-05 12:19:00* Test Item Value Reference Range Interpretation Comments Urine Glucose (UA) (test code = 84652-7) NEGATIVE NEGATIVE [facility] HospitalUrine Acdkkpg7047-51-86 12:19:00* Test Item Value Reference Range Interpretation Comments Urine Ketones (test code = 37889-1) NEGATIVE NEGATIVE [facility] HospitalUrine Fnqffbigdgwe1876-35-68 12:19:00* Test Item Value Reference Range Interpretation Comments Urine Urobilinogen (test code = 84891-0) 1 0.2-1 [facility] HospitalUrine Blaquxpyg8920-23-89 12:19:00* Test Item Value Reference Range Interpretation Comments Urine Bilirubin (test code = 1977-8) SMALL NEGATIVE [facility] HospitalUrine Krxui0951-11-58 12:19:00* Test Item Value Reference Range Interpretation Comments Urine Blood (test code = 56295-4) NEGATIVE NEGATIVE [facility] HospitalCreatine Kinase BZ7607-95-43 12:11:00* Test Item Value Reference Range Interpretation Comments Creatine Kinase MB (test code = 59905-1) 2.20 0-5.0 [facility] HospitalTroponin J1582-85-94 12:11:00* Test Item Value Reference Range Interpretation Comments Troponin I (test code = EVP8587) 0.014 0-0.300 [facility] Fqnvg3075-28-18 12:00:00* Test Item Value Reference Range Interpretation Comments Sodium Level (test code = 2951-2) 132 136-145 L [facility] HospitalPotassium Ewuqr2463-08-60 12:00:00* Test Item Value Reference Range Interpretation Comments Potassium Level (test code = 2823-3) 3.4 3.5-5.1 L [facility] HospitalChloride Fsnao6596-41-71 12:00:00* Test Item Value Reference Range Interpretation Comments Chloride Level (test code = 2075-0) 96 98-107 L [facility] HospitalCarbon Dioxide Ebkfi7127-50-14 12:00:00* Test Item Value Reference Range Interpretation Comments Carbon Dioxide Level (test code = 2028-9) 29 22-29 [facility] HospitalAnion Gja9101-35-29 12:00:00* Test Item Value Reference Range Interpretation Comments Anion Gap (test code = 23172-8) 10.4 8-16 [facility] HospitalBlood Urea Pbtvidjn3075-26-29 12:00:00* Test Item Value Reference Range Interpretation Comments Blood Urea Nitrogen (test code = 3094-0) 22 7-26 [facility] HospitalCreatinine2019-08-22 12:00:00* Test Item Value Reference Range Interpretation Comments Creatinine (test code = 2160-0) 0.99 0.72-1.25 [facility] [facility]/Creatinine Oiitn9802-73-80 12:00:00* Test Item Value Reference Range Interpretation Comments BUN/Creatinine Ratio (test code = 3097-3) 22 6-25 [facility] HospitalEstimat Glomerular Filtration Rate 2018-11-05 12:00:00* Test Item Value Reference Range Interpretation Comments Estimat Glomerular Filtration Rate (test code = 914487722) > 60 >60 Ranges were taken from the National Kidney Disease Education Program and the [facility] literature.Reference ranges:60 or greater: Nyxntl75-62 ( for 3 consecutive months): Chronic kidney disease 15 or less: Kidney failureMemorial Hermann Sugar [facility] HospitalGlucose Bxtuh3799-16-63 12:00:00* Test Item Value Reference Range Interpretation Comments Glucose Level (test code = IGT0620) 112 74-118 [facility] HospitalCalcium Jvnqr9346-46-64 12:00:00* Test Item Value Reference Range Interpretation Comments Calcium Level (test code = 84316-7) 8.7 8.4-10.2 [facility] HospitalTotal Qlpqnwivp5443-86-77 12:00:00* Test Item Value Reference Range Interpretation Comments Total Bilirubin (test code = 1975-2) 1.1 0.2-1.2 [facility] HospitalAspartate Amino Transf (AST/SGOT) 2018-11-05 12:00:00* Test Item Value Reference Range Interpretation Comments Aspartate Amino Transf (AST/SGOT) (test code = Aspartate Amino Transf (AST/SGOT)) 16 5-34 [facility] HospitalAlanine Aminotransferase (ALT/SGPT) 2018-11-05 12:00:00* Test Item Value Reference Range Interpretation Comments Alanine Aminotransferase (ALT/SGPT) (test code = 1742-6) 15 0-55 [facility] HospitalTotal Jduaipg4576-42-29 12:00:00* Test Item Value Reference Range Interpretation Comments Total Protein (test code = 2885-2) 6.1 6.5-8.1 L [facility] HospitalAlbumin2019-08-22 12:00:00* Test Item Value Reference Range Interpretation Comments Albumin (test code = 1751-7) 3.7 3.5-5.0 [facility] HospitalGlobulin2019-08-22 12:00:00* Test Item Value Reference Range Interpretation Comments Globulin (test code = 19202-3) 2.4 2.3-3.5 [facility] HospitalAlbumin/Globulin Djyxl6691-43-51 12:00:00 * Test Item Value Reference Range Interpretation Comments Albumin/Globulin Ratio (test code = 1759-0) 1.5 0.8-2.0 [facility] HospitalAlkaline Bphnqjnieio5255-50-30 12:00:00* Test Item Value Reference Range Interpretation Comments Alkaline Phosphatase (test code = 6768-6) 94 40-150 [facility] HospitalCreatine Cblpbh4303-65-52 12:00:00* Test Item Value Reference Range Interpretation Comments Creatine Kinase (test code = 2157-6) 63 30-200 [facility] HospitalWhite Blood Yepnd2493-47-93 11:45:00* Test Item Value Reference Range Interpretation Comments White Blood Count (test code = 6690-2) 9.38 4.8-10.8 [facility] HospitalRed Blood Srzta2161-38-02 11:45:00* Test Item Value Reference Range Interpretation Comments Red Blood Count (test code = 789-8) 4.79 4.3-5.7 [facility] HospitalHemoglobin2019-08-22 11:45:00* Test Item Value Reference Range Interpretation Comments Hemoglobin (test code = 57981-4) 12.4 14.0-18.0 L [facility] HospitalHematocrit2019-08-22 11:45:00* Test Item Value Reference Range Interpretation Comments Hematocrit (test code = 4544-3) 40.0 38.2-49.6 [facility] HospitalMean Corpuscular Nwnwhs8670-13-77 11:45:00* Test Item Value Reference Range Interpretation Comments Mean Corpuscular Volume (test code = 787-2) 83.5 81-99 [facility] HospitalMean Corpuscular Jccrvekhgw4253-33-92 11:45:00* Test Item Value Reference Range Interpretation Comments Mean Corpuscular Hemoglobin (test code = 785-6) 25.9 28-32 L [facility] HospitalMean Corpuscular Hemoglobin Concent 2018-11-05 11:45:00* Test Item Value Reference Range Interpretation Comments Mean Corpuscular Hemoglobin Concent (test code = 786-4) 31.0 31-35 [facility] HospitalRed Cell Distribution Dwcpc0968-66-57 11:45:00* Test Item Value Reference Range Interpretation Comments Red Cell Distribution Width (test code = 13242-4) 13.8 11.7 -14.4 [facility] HospitalPlatelet Hflwc1756-28-50 11:45:00* Test Item Value Reference Range Interpretation Comments Platelet Count (test code = 777-3) 245 140-360 [facility] HospitalNeutrophils (%) (Auto)2018-11-05 11:45:00 * Test Item Value Reference Range Interpretation Comments Neutrophils (%) (Auto) (test code = 45456-0) 82.7 38.7-80.0 H [facility] HospitalLymphocytes (%) (Auto)2018-11-05 11:45:00 * Test Item Value Reference Range Interpretation Comments Lymphocytes (%) (Auto) (test code = 736-9) 8.4 18.0-39.1 L [facility] HospitalMonocytes (%) (Auto)2018-11-05 11:45:00* Test Item Value Reference Range Interpretation Comments Monocytes (%) (Auto) (test code = 5905-5) 6.6 4.4-11.3 [facility] HospitalEosinophils (%) (Auto)2018-11-05 11:45:00 * Test Item Value Reference Range Interpretation Comments Eosinophils (%) (Auto) (test code = 713-8) 1.7 0.0-6.0 [facility] HospitalBasophils (%) (Auto)2018-11-05 11:45:00* Test Item Value Reference Range Interpretation Comments Basophils (%) (Auto) (test code = 706-2) 0.2 0.0-1.0 [facility] HospitalIM GRANULOCYTES %2018-11-05 11:45:00* Test Item Value Reference Range Interpretation Comments IM GRANULOCYTES % (test code = IM GRANULOCYTES %) 0.4 0.0- 1.0 [facility] HospitalNeutrophils # (Auto)2018-11-05 11:45:00* Test Item Value Reference Range Interpretation Comments Neutrophils # (Auto) (test code = 751-8) 7.8 2.1-6.9 H [facility] HospitalLymphocytes # (Auto)2018-11-05 11:45:00* Test Item Value Reference Range Interpretation Comments Lymphocytes # (Auto) (test code = 41577-5) 0.8 1.0-3.2 L [facility] HospitalMonocytes # (Auto)2018-11-05 11:45:00* Test Item Value Reference Range Interpretation Comments Monocytes # (Auto) (test code = 742-7) 0.6 0.2-0.8 [facility] HospitalEosinophils # (Auto)2018-11-05 11:45:00* Test Item Value Reference Range Interpretation Comments Eosinophils # (Auto) (test code = 711-2) 0.2 0.0-0.4 [facility] HospitalBasophils # (Auto)2018-11-05 11:45:00* Test Item Value Reference Range Interpretation Comments Basophils # (Auto) (test code = 704-7) 0.0 0.0-0.1 [facility] HospitalAbsolute Immature Granulocyte (auto 2018-11-05 11:45:00* Test Item Value Reference Range Interpretation Comments Absolute Immature Granulocyte (auto (chriss t code = Absolute Immature Granulocyte (auto) 0.04 0-0.1 [facility] HospitalMucus detection in urine sediment by light hkepemmaxb5599-40-74 10:39:00* Test Item Value Reference Range Interpretation Comments Urine Mucus (test code = 8247-9) FEW RARE [facility] Hvtxkzh3741-15-39 15:32:00* Test Item Value Reference Range Interpretation Comments Bedside Glucose (test code = 37182-6) 222 70-120 H Meter ID: [id number] [facility] Glucose 2018-10-31 15:32:00* Test Item Value Reference Range Interpretation Comments Bedside Glucose (test code = 14526-3) 222 70-120 H Meter ID: [id number] [facility] 2018-10-31 07:19:00 [place] [address] Patient Name: KASSI MCNULTY MR #: [id number] : 1955 Age/Sex: 63/M Req #: [id number] Adm Physician: DIMA WELCH MD Ordered by: Holli Morel BACK SIZER Report #: [id number] Location: MED/SURG Room/Bed: [facility] Procedure: [id number] DX/ ABDOMEN-1VIEW (KUB) Exam Date: Exam Time: [...] y: CHANTELL EDWARDS MD 2 Transcribed By: ACROL on 10/31/18722 COPY TO: HOLLI MOREL BACK SIZER Sodium Puclh3540-01-56 04:28:00* Test Item Value Reference Range Interpretation Comments Sodium Level (test code = 2951-2) 141 136-145 [facility] HospitalPotassium Qbwzn1596-17-23 04:28:00* Test Item Value Reference Range Interpretation Comments Potassium Level (test code = 2823-3) 3.4 3.5-5.1 L [facility] HospitalChloride Fzzfy6540-71-91 04:28:00* Test Item Value Reference Range Interpretation Comments Chloride Level (test code = 2075-0) 107 98-107 [facility] HospitalCarbon Dioxide Vmkbk8860-03-13 04:28:00* Test Item Value Reference Range Interpretation Comments Carbon Dioxide Level (test code = 2028-9) 27 22-29 [facility] HospitalAnion Qlv7272-21-35 04:28:00* Test Item Value Reference Range Interpretation Comments Anion Gap (test code = 87894-1) 10.4 8-16 [facility] HospitalBlood Urea Wbekuwyi4444-86-54 04:28:00* Test Item Value Reference Range Interpretation Comments Blood Urea Nitrogen (test code = 3094-0) 8 7-26 [facility] HospitalCreatinine2019-08-17 04:28:00* Test Item Value Reference Range Interpretation Comments Creatinine (test code = 2160-0) 0.71 0.72-1.25 L [facility] HospitalBUN/Creatinine Ibgkr0193-08-02 04:28:00* Test Item Value Reference Range Interpretation Comments BUN/Creatinine Ratio (test code = 3097-3) 11 6-25 [facility] HospitalEstimat Glomerular Filtration Rate 2018-10-31 04:28:00* Test Item Value Reference Range Interpretation Comments Estimat Glomerular Filtration Rate (test code = 985612749) > 60 >60 Ranges were taken from the National Kidney Disease Education Program and the [facility] Kid[facility] Foundation literature.Reference ranges:60 or greater: Zbqgxd58-61 ( for 3 consecutive months): Chronic kidney disease 15 or less: Kidney failureMemorial Hermann Sugar [facility] HospitalGlucose Ntlbo5663-55-64 04:28:00* Test Item Value Reference Range Interpretation Comments Glucose Level (test code = HMR8772) 129 74-118 H [facility] HospitalCalcium Rhkrc5758-97-29 04:28:00* Test Item Value Reference Range Interpretation Comments Calcium Level (test code = 73287-1) 7.9 8.4-10.2 L [facility] HospitalWhite Blood Uojxl5675-18-88 04:15:00* Test Item Value Reference Range Interpretation Comments White Blood Count (test code = 6690-2) 7.21 4.8-10.8 [facility] HospitalRed Blood Uages9852-64-65 04:15:00* Test Item Value Reference Range Interpretation Comments Red Blood Count (test code = 789-8) 4.71 4.3-5.7 [facility] HospitalHemoglobin2019-08-17 04:15:00* Test Item Value Reference Range Interpretation Comments Hemoglobin (test code = 96469-9) 12.3 14.0-18.0 L [facility] HospitalHematocrit2019-08-17 04:15:00* Test Item Value Reference Range Interpretation Comments Hematocrit (test code = 4544-3) 39.7 38.2-49.6 [facility] HospitalMean Corpuscular Izwrxw9771-21-33 04:15:00* Test Item Value Reference Range Interpretation Comments Mean Corpuscular Volume (test code = 787-2) 84.3 81-99 [facility] HospitalMean Corpuscular Vjfoonkutt5099-96-56 04:15:00* Test Item Value Reference Range Interpretation Comments Mean Corpuscular Hemoglobin (test code = 785-6) 26.1 28-32 L [facility] HospitalMean Corpuscular Hemoglobin Concent 2018-10-31 04:15:00* Test Item Value Reference Range Interpretation Comments Mean Corpuscular Hemoglobin Concent (test code = 786-4) 31.0 31-35 [facility] HospitalRed Cell Distribution Iguks6724-58-16 04:15:00* Test Item Value Reference Range Interpretation Comments Red Cell Distribution Width (test code = 23079-2) 13.7 11.7 -14.4 [facility] HospitalPlatelet Pbifb9092-64-78 04:15:00* Test Item Value Reference Range Interpretation Comments Platelet Count (test code = 777-3) 173 140-360 [facility] HospitalNeutrophils (%) (Auto)2018-10-31 04:15:00 * Test Item Value Reference Range Interpretation Comments Neutrophils (%) (Auto) (test code = 99350-1) 73.7 38.7-80.0 [facility] HospitalLymphocytes (%) (Auto)2018-10-31 04:15:00 * Test Item Value Reference Range Interpretation Comments Lymphocytes (%) (Auto) (test code = 736-9) 13.5 18.0-39.1 L [facility] HospitalMonocytes (%) (Auto)2018-10-31 04:15:00* Test Item Value Reference Range Interpretation Comments Monocytes (%) (Auto) (test code = 5905-5) 8.2 4.4-11.3 [facility] HospitalEosinophils (%) (Auto)2018-10-31 04:15:00 * Test Item Value Reference Range Interpretation Comments Eosinophils (%) (Auto) (test code = 713-8) 3.6 0.0-6.0 [facility] HospitalBasophils (%) (Auto)2018-10-31 04:15:00* Test Item Value Reference Range Interpretation Comments Basophils (%) (Auto) (test code = 706-2) 0.4 0.0-1.0 [facility] HospitalIM GRANULOCYTES %2018-10-31 04:15:00* Test Item Value Reference Range Interpretation Comments IM GRANULOCYTES % (test code = IM GRANULOCYTES %) 0.6 0.0- 1.0 [facility] HospitalNeutrophils # (Auto)2018-10-31 04:15:00* Test Item Value Reference Range Interpretation Comments Neutrophils # (Auto) (test code = 751-8) 5.3 2.1-6.9 [facility] HospitalLymphocytes # (Auto)2018-10-31 04:15:00* Test Item Value Reference Range Interpretation Comments Lymphocytes # (Auto) (test code = 25118-6) 1.0 1.0-3.2 [facility] HospitalMonocytes # (Auto)2018-10-31 04:15:00* Test Item Value Reference Range Interpretation Comments Monocytes # (Auto) (test code = 742-7) 0.6 0.2-0.8 [facility] HospitalEosinophils # (Auto)2018-10-31 04:15:00* Test Item Value Reference Range Interpretation Comments Eosinophils # (Auto) (test code = 711-2) 0.3 0.0-0.4 [facility] HospitalBasophils # (Auto)2018-10-31 04:15:00* Test Item Value Reference Range Interpretation Comments Basophils # (Auto) (test code = 704-7) 0.0 0.0-0.1 [facility] HospitalAbsolute Immature Granulocyte (auto 2018-10-31 04:15:00* Test Item Value Reference Range Interpretation Comments Absolute Immature Granulocyte (auto (chriss t code = Absolute Immature Granulocyte (auto) 0.04 0-0.1 [facility] HospitalABDOMEN ACUTE SERIES W/MINOR DOF7321-11-53 15:28:00 [place] [address] Patient Name: KASSI MCNULTY MR #: [id number] : 1955 Age/Sex: 63/M Req #: [id number] Adm Physician: DIMA WELCH MD Ordered by: AL WELLS MD Report #: [id number] Location: MED/SURG Room/Bed: 109-1 Procedure: [id number] DX/ABDOMEN ACUTE SERIES W/PA CXR Exam Date: [...] TO: AL WELLS MD ABDOMEN-1VIEW (KUB)2018-10-30 06:34:00 [place] [address] Patient Name: KASSI MCNULTY MR #: [id number] : 1955 Age/Sex: 63/M Req #: [id number] Adm Physician: DIMA WELCH MD Ordered by: Holli Morel NP Report #: [id number] Location: MED/SURG Room/Bed: 109-1 Procedure: DX/ ABDOMEN-1VIEW (KUB) Exam Date: 10/30/18 [...] TO: Jayson MOREL NP ABDOMEN ACUTE SERIES W/MINOR TYQ0716-07-53 14:48:00 [place] [address] Patient Name: KASSI MCNULTY MR #: [id number] : 1955 Age/Sex: 63/M Req #: [id number] Adm Physician: DIMA WELCH MD Ordered by: AL WELLS MD Report #: [id number] Location: MED/SURG Room/Bed: [facility] Procedure: DX/ABDOMEN ACUTE SERIES W/PA CXR Exam [...] COPY TO: AL WELLS MD CT ABDOMEN/PELVIS N0465-91-40 06:13:00 [place] [address] Patient Name: KASSI MCNULTY MR #: [id number] : 1955 Age/Sex: 63/M Req #: [id number] Adm Physician: Ordered by: VON ACHARYA MD Report #: [id number] Location: ER Room/Bed: Procedure: 0815-[address]/CT [...] nonspecific inflammation. 3. Coronary atherosclerosis. Signed by: Dioni ErwinO., M.M.M. on 10/29/2018 6:31 AM Dictated By: LLOYD NGO DO 0 T ranscribed By: CAROL on 10/29/18630 COPY TO: VON ACHARYA MD Urine FGG2527-42-12 06:04:00* Test Item Value Reference Range Interpretation Comments Urine WBC (test code = 5821-4) 11-20 0-5 H [facility] HospitalUrine YGL8781-71-85 06:04:00* Test Item Value Reference Range Interpretation Comments Urine RBC (test code = 27016-9) 0-5 0-5 [facility] HospitalUrine Jatudfbi2646-43-50 06:04:00* Test Item Value Reference Range Interpretation Comments Urine Bacteria (test code = 77141-0) MANY NONE H [facility] HospitalUrine Epithelial Wwpif1682-76-95 06:04:00 * Test Item Value Reference Range Interpretation Comments Urine Epithelial Cells (test code = 62922-2) MODERATE NONE [facility] Amorphous Wstopbjm2395-79-00 06:04:00* Test Item Value Reference Range Interpretation Comments Urine Amorphous Sediment (test code = 8246-1) FEW FEW [facility] Hyaline Tphah1422-51-68 06:04:00* Test Item Value Reference Range Interpretation Comments Urine Hyaline Casts (test code = 87280-2) 6-10 0-1 H [facility] Fine Granular Fiofr7775-41-29 06:04:00* Test Item Value Reference Range Interpretation Comments Urine Fine Granular Casts (test code = 15901-0) 1-5 >0 H [facility] Caltp6772-87-91 06:04:00* Test Item Value Reference Range Interpretation Comments Urine Mucus (test code = 8247-9) MODERATE RARE H [facility] Amorphous Kyqfaifp6610-76-43 06:04:00* Test Item Value Reference Range Interpretation Comments Urine Amorphous Sediment (test code = 8246-1) FEW FEW [facility] Hyaline Ahwmp8858-27-04 06:04:00* Test Item Value Reference Range Interpretation Comments Urine Hyaline Casts (test code = 94474-5) 6-10 0-1 H [facility] Fine Granular Knqno8190-09-13 06:04:00* Test Item Value Reference Range Interpretation Comments Urine Fine Granular Casts (test code = 77503-6) 1-5 >0 H [facility] Amorphous Yxtbjlyg8964-17-69 06:04:00* Test Item Value Reference Range Interpretation Comments Urine Amorphous Sediment (test code = 8246-1) FEW FEW [facility] Hyaline Bzkvz5231-11-33 06:04:00* Test Item Value Reference Range Interpretation Comments Urine Hyaline Casts (test code = 91007-4) 6-10 0-1 H [facility] HospitalUrine Fine Granular Wwple6189-24-73 06:04:00* Test Item Value Reference Range Interpretation Comments Urine Fine Granular Casts (test code = 55246-9) 1-5 >0 H [facility] HospitalUrine Amorphous Mpanmxkr6104-07-21 06:04:00* Test Item Value Reference Range Interpretation Comments Urine Amorphous Sediment (test code = 8246-1) FEW FEW [facility] HospitalUrine Hyaline Erdry6892-13-09 06:04:00* Test Item Value Reference Range Interpretation Comments Urine Hyaline Casts (test code = 85211-5) 6-10 0-1 H [facility] HospitalUrine Fine Granular Qdgis2320-29-56 06:04:00* Test Item Value Reference Range Interpretation Comments Urine Fine Granular Casts (test code = 18239-9) 1-5 >0 H [facility] HospitalUrine Qvphj0990-85-71 05:53:00* Test Item Value Reference Range Interpretation Comments Urine Color (test code = 5778-6) YELLOW YELLOW [facility] HospitalUrine Asuxylp9854-51-60 05:53:00* Test Item Value Reference Range Interpretation Comments Urine Clarity (test code = 14034-7) SL CLOUDY CLEAR H [facility] HospitalUrine Specific Eptouow5446-30-95 05:53:00 * Test Item Value Reference Range Interpretation Comments Urine Specific [place] (test code = 5811-5) 1.025 1.010-1.02 5 [facility] HospitalUrine wL1194-81-45 05:53:00* Test Item Value Reference Range Interpretation Comments Urine pH (test code = 14318-8) 6 5-7 [facility] HospitalUrine Leukocyte Lgpoqgkq2203-98-83 05:53:00* Test Item Value Reference Range Interpretation Comments Urine Leukocyte Esterase (test code = 93510-3) NEGATIVE NEGATIV E [facility] HospitalUrine Disphla5102-93-75 05:53:00* Test Item Value Reference Range Interpretation Comments Urine Nitrite (test code = 27460-5) NEGATIVE NEGATIVE [facility] HospitalUrine Gqkdjzq0689-86-35 05:53:00* Test Item Value Reference Range Interpretation Comments Urine Protein (test code = 06839-1) 2+ NEGATIVE H [facility] HospitalUrine Glucose (UA)2018-10-29 05:53:00* Test Item Value Reference Range Interpretation Comments Urine Glucose (UA) (test code = 12672-8) NEGATIVE NEGATIVE [facility] HospitalUrine Tzmuutl7950-38-40 05:53:00* Test Item Value Reference Range Interpretation Comments Urine Ketones (test code = 03629-7) NEGATIVE NEGATIVE [facility] HospitalUrine Ojhkyddgxkfo2238-45-37 05:53:00* Test Item Value Reference Range Interpretation Comments Urine Urobilinogen (test code = 43914-7) 0.2 0.2-1 [facility] HospitalUrine Jwekvoznr8183-45-82 05:53:00* Test Item Value Reference Range Interpretation Comments Urine Bilirubin (test code = 1977-8) NEGATIVE NEGATIVE [facility] HospitalUrine Qjioa5487-88-04 05:53:00* Test Item Value Reference Range Interpretation Comments Urine Blood (test code = 74811-3) NEGATIVE NEGATIVE [facility] HospitalAmylase Sgogx8194-02-15 05:18:00* Test Item Value Reference Range Interpretation Comments Amylase Level (test code = 1798-8) 51 25-125 [facility] HospitalLipase2019-08-15 05:18:00* Test Item Value Reference Range Interpretation Comments Lipase (test code = 3040-3) 57 8-78 [facility] HospitalAmylase Olhal7309-43-69 05:18:00* Test Item Value Reference Range Interpretation Comments Amylase Level (test code = 1798-8) 51 25-125 [facility] HospitalLipase2019-08-15 05:18:00* Test Item Value Reference Range Interpretation Comments Lipase (test code = 3040-3) 57 8-78 [facility] HospitalAmylase Qxxje3480-95-38 05:18:00* Test Item Value Reference Range Interpretation Comments Amylase Level (test code = 1798-8) 51 25-125 [facility] HospitalAmylase Fossl9793-70-17 05:18:00* Test Item Value Reference Range Interpretation Comments Amylase Level (test code = 1798-8) 51 25-125 [facility] HospitalAmorphous sediment detection in urine sediment by light lwaqgdymjg5230-88-75 05:15:00* Test Item Value Reference Range Interpretation Comments Urine Amorphous Sediment (test code = 8246-1) FEW FEW [facility] HospitalHyaline casts detection in urine sediment by light krzrnxgjxe3634-49-38 05:15:00* Test Item Value Reference Range Interpretation Comments Urine Hyaline Casts (test code = 27958-3) 6-10 0-1 [facility] HospitalAutomated fine granular casts count in urine sediment by microscopy low power field (number/area)2018-10-29 05:15:00* Test Item Value Reference Range Interpretation Comments Urine Fine Granular Casts (test code = 68454-5) 1-5 >0 [facility] HospitalCreatine Kinase ZE2922-96-03 05:13:00* Test Item Value Reference Range Interpretation Comments Creatine Kinase MB (test code = 54064-2) 5.90 0-5.0 H [facility] HospitalTroponin X9990-65-37 05:13:00* Test Item Value Reference Range Interpretation Comments Troponin I (test code = ILQ4846) 0.010 0-0.300 [facility] HospitalLactic Acid Arhgu4950-02-08 05:06:00* Test Item Value Reference Range Interpretation Comments Lactic Acid Level (test code = Lactic Acid Level) 14.5 4.5- 19.8 [facility] HospitalTotal Fxbkzjnrb8687-65-29 05:06:00* Test Item Value Reference Range Interpretation Comments Total Bilirubin (test code = 1975-2) 0.8 0.2-1.2 [facility] HospitalAspartate Amino Transf (AST/SGOT) 2018-10-29 05:06:00* Test Item Value Reference Range Interpretation Comments Aspartate Amino Transf (AST/SGOT) (test code = Aspartate Amino Transf (AST/SGOT)) 21 5-34 [facility] HospitalAlanine Aminotransferase (ALT/SGPT) 2018-10-29 05:06:00* Test Item Value Reference Range Interpretation Comments Alanine Aminotransferase (ALT/SGPT) (test code = 1742-6) 23 0-55 [facility] HospitalTotal Lusyfbr9780-48-58 05:06:00* Test Item Value Reference Range Interpretation Comments Total Protein (test code = 2885-2) 6.6 6.5-8.1 [facility] HospitalAlbumin2019-08-15 05:06:00* Test Item Value Reference Range Interpretation Comments Albumin (test code = 1751-7) 4.0 3.5-5.0 [facility] HospitalGlobulin2019-08-15 05:06:00* Test Item Value Reference Range Interpretation Comments Globulin (test code = 41775-6) 2.6 2.3-3.5 [facility] HospitalAlbumin/Globulin Foour4321-46-57 05:06:00 * Test Item Value Reference Range Interpretation Comments Albumin/Globulin Ratio (test code = 1759-0) 1.5 0.8-2.0 [facility] HospitalAlkaline Lyedgiwroot1986-79-40 05:06:00* Test Item Value Reference Range Interpretation Comments Alkaline Phosphatase (test code = 6768-6) 112 40-150 [facility] HospitalCreatine Wzwgie1457-03-16 05:06:00* Test Item Value Reference Range Interpretation Comments Creatine Kinase (test code = 2157-6) 124 30-200 [facility] HospitalLactic Acid Sltbt7320-68-65 05:06:00* Test Item Value Reference Range Interpretation Comments Lactic Acid Level (test code = Lactic Acid Level) 14.5 4.5- 19.8 [facility] HospitalLactic Acid Hlfez1155-75-50 05:06:00* Test Item Value Reference Range Interpretation Comments Lactic Acid Level (test code = Lactic Acid Level) 14.5 4.5- 19.8 [facility] HospitalLactic Acid Esfap6682-45-87 05:06:00* Test Item Value Reference Range Interpretation Comments Lactic Acid Level (test code = Lactic Acid Level) 14.5 4.5- 19.8 [facility] HospitalFluoroscopic procedure less than one hour gapxolfw9558-37-58 04:25:00* Test Item Value Reference Range Interpretation Comments Lactic Acid Level (test code = Lactic Acid Level) 14.5 4.5- 19.8 [facility] or plasma amylase measurement (enzymatic activity/volume)2018-10-29 04:25:00* Test Item Value Reference Range Interpretation Comments Amylase Level (test code = 1798-8) 51 25-125 [facility] HospitalBedside Uuclzuv0481-51-64 15:48:00* Test Item Value Reference Range Interpretation Comments Bedside Glucose (test code = 44372-0) 212 70-120 H Meter ID: [id number] Health Friscotress Test - Treadmill RMCX5357-84-03 13:40:00 [place] [address] Patient Name : KASSI MCNULTY MR #: [id number] : 1955 Age/Sex: 62/M Adm Physician : DIMA WELCH MD Admit Date : 10/30/17 Location : MED/SURG Room/Bed : [facility] REPORT: Cardiolog y Report REFERRING PHYSICIAN: [...] wall motion abnormalities. DT: 2017 13:55 Job#: [id number] EV cc: DIMA WELCH MD Signature Date Dictated By: NATANAEL MCCALLUM MD Transcribed By: EDS on 10/31/17 <Electronically signed by NATANAEL MCCALLUM MD><<Signature on File>>01/28/18 1308 COPY TO: Sodium Ekpnv4555-13-24 08:57:00* Test Item Value Reference Range Interpretation Comments Sodium Level (test code = 2951-2) 139 136-145 [facility] HospitalPotassium Hzmjv4163-27-04 08:57:00* Test Item Value Reference Range Interpretation Comments Potassium Level (test code = 2823-3) 3.1 3.5-5.1 L [facility] HospitalChloride Fjrpv0122-19-58 08:57:00* Test Item Value Reference Range Interpretation Comments Chloride Level (test code = 2075-0) 101 98-107 [facility] HospitalCarbon Dioxide Bnzhm1595-85-10 08:57:00* Test Item Value Reference Range Interpretation Comments Carbon Dioxide Level (test code = 2028-9) 27 22-29 [facility] HospitalAnion Wto7702-76-30 08:57:00* Test Item Value Reference Range Interpretation Comments Anion Gap (test code = 36330-8) 14.1 8-16 [facility] HospitalBlood Urea Ihefpxpr0430-52-67 08:57:00* Test Item Value Reference Range Interpretation Comments Blood Urea Nitrogen (test code = 3094-0) 12 7-26 [facility] HospitalCreatinine2018-08-17 08:57:00* Test Item Value Reference Range Interpretation Comments Creatinine (test code = 2160-0) 0.76 0.72-1.25 [facility] HospitalBUN/Creatinine Xvbmp7888-82-50 08:57:00* Test Item Value Reference Range Interpretation Comments BUN/Creatinine Ratio (test code = 3097-3) 16 09-08 [facility] HospitalEstimat Glomerular Filtration Rate 2017-10-31 08:57:00* Test Item Value Reference Range Interpretation Comments Estimat Glomerular Filtration Rate (test code = 57656-8) 60- >60 Ranges were taken from the National Kidney Disease Education Program and the [employer] literature.Reference ranges:60 or greater: Lojdrg15-94 ( for 3 consecutive months): Chronic kidney disease 15 or less: Kidney failureMemorial Hermann Sugar [facility] HospitalGlucose Tbqbx0062-29-85 08:57:00* Test Item Value Reference Range Interpretation Comments Glucose Level (test code = JQY7670) 158 74-118 H [facility] HospitalCalcium Aihpt6509-59-10 08:57:00* Test Item Value Reference Range Interpretation Comments Calcium Level (test code = 99002-1) 9.3 8.4-10.2 [facility] HospitalMagnesium Ukecn6763-48-36 08:57:00* Test Item Value Reference Range Interpretation Comments Magnesium Level (test code = 22563-6) 1.5 1.3-2.1 [facility] HospitalWhite Blood Mpxec8107-36-65 08:43:00* Test Item Value Reference Range Interpretation Comments White Blood Count (test code = 6690-2) 7.23 4.8-10.8 [facility] HospitalRed Blood Dgakz2645-87-56 08:43:00* Test Item Value Reference Range Interpretation Comments Red Blood Count (test code = 789-8) 4.60 4.3-5.7 [facility] HospitalHemoglobin2018-08-17 08:43:00* Test Item Value Reference Range Interpretation Comments Hemoglobin (test code = 70173-4) 12.5 14.0-18.0 L [facility] HospitalHematocrit2018-08-17 08:43:00* Test Item Value Reference Range Interpretation Comments Hematocrit (test code = 4544-3) 38.3 38.2-49.6 [facility] HospitalMean Corpuscular Gcfeie0713-65-24 08:43:00* Test Item Value Reference Range Interpretation Comments Mean Corpuscular Volume (test code = 787-2) 83.3 81-99 [facility] HospitalMean Corpuscular Osdtzbclmk5060-62-38 08:43:00* Test Item Value Reference Range Interpretation Comments Mean Corpuscular Hemoglobin (test code = 785-6) 27.2 28-32 L [facility] HospitalMean Corpuscular Hemoglobin Concent 2017-10-31 08:43:00* Test Item Value Reference Range Interpretation Comments Mean Corpuscular Hemoglobin Concent (test code = 786-4) 32.6 31-35 [facility] HospitalRed Cell Distribution Udefw7517-35-46 08:43:00* Test Item Value Reference Range Interpretation Comments Red Cell Distribution Width (test code = 58291-7) 14.9 11.7 -14.4 H [facility] HospitalPlatelet Lqlib6269-23-66 08:43:00* Test Item Value Reference Range Interpretation Comments Platelet Count (test code = 777-3) 202 140-360 [facility] HospitalNeutrophils (%) (Auto)2017-10-31 08:43:00 * Test Item Value Reference Range Interpretation Comments Neutrophils (%) (Auto) (test code = 15017-3) 74.4 38.7-80.0 [facility] HospitalLymphocytes (%) (Auto)2017-10-31 08:43:00 * Test Item Value Reference Range Interpretation Comments Lymphocytes (%) (Auto) (test code = 736-9) 12.9 18.0-39.1 L [facility] HospitalMonocytes (%) (Auto)2017-10-31 08:43:00* Test Item Value Reference Range Interpretation Comments Monocytes (%) (Auto) (test code = 5905-5) 8.0 4.4-11.3 [facility] HospitalEosinophils (%) (Auto)2017-10-31 08:43:00 * Test Item Value Reference Range Interpretation Comments Eosinophils (%) (Auto) (test code = 713-8) 3.7 0.0-6.0 [facility] HospitalBasophils (%) (Auto)2017-10-31 08:43:00* Test Item Value Reference Range Interpretation Comments Basophils (%) (Auto) (test code = 706-2) 0.4 0.0-1.0 [facility] HospitalIM GRANULOCYTES %2017-10-31 08:43:00* Test Item Value Reference Range Interpretation Comments IM GRANULOCYTES % (test code = IM GRANULOCYTES %) 0.6 0.0- 1.0 [facility] HospitalNeutrophils # (Auto)2017-10-31 08:43:00* Test Item Value Reference Range Interpretation Comments Neutrophils # (Auto) (test code = 751-8) 5.4 2.1-6.9 [facility] HospitalLymphocytes # (Auto)2017-10-31 08:43:00* Test Item Value Reference Range Interpretation Comments Lymphocytes # (Auto) (test code = 88924-1) 0.9 1.0-3.2 L [facility] HospitalMonocytes # (Auto)2017-10-31 08:43:00* Test Item Value Reference Range Interpretation Comments Monocytes # (Auto) (test code = 742-7) 0.6 0.2-0.8 [facility] HospitalEosinophils # (Auto)2017-10-31 08:43:00* Test Item Value Reference Range Interpretation Comments Eosinophils # (Auto) (test code = 711-2) 0.3 0.0-0.4 [facility] HospitalBasophils # (Auto)2017-10-31 08:43:00* Test Item Value Reference Range Interpretation Comments Basophils # (Auto) (test code = 704-7) 0.0 0.0-0.1 [facility] HospitalAbsolute Immature Granulocyte (auto 2017-10-31 08:43:00* Test Item Value Reference Range Interpretation Comments Absolute Immature Granulocyte (auto (chriss t code = Absolute Immature Granulocyte (auto) 0.04 0-0.1 [facility] HospitalTriglycerides Ntdep6426-04-95 06:01:00* Test Item Value Reference Range Interpretation Comments Triglycerides Level (test code = 2571-8) 123 0-149 [facility] HospitalCholesterol Ucupp5050-52-87 06:01:00* Test Item Value Reference Range Interpretation Comments Cholesterol Level (test code = 2093-3) 135 0-199 Less than 200 mg/dL Low Fbhl622 - 239 mg/dL Borderline Qvms588 m g/dl and greater High Risk [facility] HospitalLDL Bhsiisnrwfa1583-31-57 06:01:00* Test Item Value Reference Range Interpretation Comments LDL Cholesterol (test code = 2089-1) 66 60-130 [facility] HospitalHDL Wumtlsmakrt0661-75-15 06:01:00* Test Item Value Reference Range Interpretation Comments HDL Cholesterol (test code = 2085-9) 44 40-60 [facility] HospitalCholesterol/HDL Atfje9438-75-93 06:01:00 * Test Item Value Reference Range Interpretation Comments Cholesterol/HDL Ratio (test code = 9830-1) 3.1 3.9-4.7 L [facility] HospitalCreatine Kzmpkl0326-18-05 03:42:00* Test Item Value Reference Range Interpretation Comments Creatine Kinase (test code = 2157-6) 77 30-200 [facility] HospitalCreatine Kinase KX8875-46-01 03:42:00* Test Item Value Reference Range Interpretation Comments Creatine Kinase MB (test code = 83338-5) 2.00 0-5.0 [facility] HospitalTroponin N5998-54-17 03:42:00* Test Item Value Reference Range Interpretation Comments Troponin I (test code = BUJ0396) 0.022 0-0.300 [facility] SINGLE (PORTABLE)2017-10-30 11:21:00 [facility] [address] [address] Patient Name: KASSI MCNULTY MR #: [id number] : 1955 Age/Sex: 62/M Req #: [id number] Adm Physician: Ordered by: DEBBY SALVADOR MD Report #: [id number] Location: ER Room/Bed: Procedure: [id number] DX/CHEST SINGLE (PORTABLE) Exam Date: 10/30/17 Exam [...] 1121 COPY TO: DEBBY SALVADOR MD Urine DLH0580-51-32 11:17:00* Test Item Value Reference Range Interpretation Comments Urine WBC (test code = 5821-4) 0-5 0-5 [facility] HospitalUrine QEE0028-80-11 11:17:00* Test Item Value Reference Range Interpretation Comments Urine RBC (test code = 00559-2) 0-5 0-5 [facility] HospitalUrine Kfxsjplk5703-27-33 11:17:00* Test Item Value Reference Range Interpretation Comments Urine Bacteria (test code = 79902-8) FEW NONE [facility] HospitalUrine Epithelial Gxrsb0238-83-50 11:17:00 * Test Item Value Reference Range Interpretation Comments Urine Epithelial Cells (test code = 03794-7) FEW NONE [facility] HospitalUrine Uupsu4543-70-03 11:12:00* Test Item Value Reference Range Interpretation Comments Urine Color (test code = 5778-6) YELLOW YELLOW [facility] HospitalUrine Kizhmgc8779-24-58 11:12:00* Test Item Value Reference Range Interpretation Comments Urine Clarity (test code = 77160-3) CLEAR CLEAR [facility] HospitalUrine Specific Eirckpl5221-13-55 11:12:00 * Test Item Value Reference Range Interpretation Comments Urine Specific [place] (test code = 5811-5) 1.005 1.010-1.02 5 L [facility] HospitalUrine fJ8849-31-14 11:12:00* Test Item Value Reference Range Interpretation Comments Urine pH (test code = 83700-3) 7 5-7 [facility] HospitalUrine Leukocyte Nsyroqao1716-28-73 11:12:00* Test Item Value Reference Range Interpretation Comments Urine Leukocyte Esterase (test code = 5799-2) NEGATIVE NEGATIVE [facility] HospitalUrine Yhonmkp4114-23-58 11:12:00* Test Item Value Reference Range Interpretation Comments Urine Nitrite (test code = 25586-1) NEGATIVE NEGATIVE [facility] HospitalUrine Ecxowog3577-36-57 11:12:00* Test Item Value Reference Range Interpretation Comments Urine Protein (test code = 5804-0) NEGATIVE NEGATIVE [facility] HospitalUrine Glucose (UA)2017-10-30 11:12:00* Test Item Value Reference Range Interpretation Comments Urine Glucose (UA) (test code = 2349-9) NEGATIVE NEGATIVE [facility] HospitalUrine Harvmvw7584-49-73 11:12:00* Test Item Value Reference Range Interpretation Comments Urine Ketones (test code = 99255-6) NEGATIVE NEGATIVE [facility] HospitalUrine Qeiroxbvxfju1931-63-79 11:12:00* Test Item Value Reference Range Interpretation Comments Urine Urobilinogen (test code = 07440-7) 0.2 0.2-1 [facility] HospitalUrine Udrxdzabp0891-64-53 11:12:00* Test Item Value Reference Range Interpretation Comments Urine Bilirubin (test code = 1978-6) NEGATIVE NEGATIVE [facility] Zaznl7122-44-70 11:12:00* Test Item Value Reference Range Interpretation Comments Urine Blood (test code = 21231-0) NEGATIVE NEGATIVE [facility] HospitalTotal Lilutjtmd0403-64-89 10:47:00* Test Item Value Reference Range Interpretation Comments Total Bilirubin (test code = 1975-2) 0.5 0.2-1.2 [facility] HospitalAspartate Amino Transf (AST/SGOT) 2017-10-30 10:47:00* Test Item Value Reference Range Interpretation Comments Aspartate Amino Transf (AST/SGOT) (test code = Aspartate Amino Transf (AST/SGOT)) 14 5-34 [facility] HospitalAlanine Aminotransferase (ALT/SGPT) 2017-10-30 10:47:00* Test Item Value Reference Range Interpretation Comments Alanine Aminotransferase (ALT/SGPT) (test code = 1742-6) 17 0-55 [facility] HospitalTotal Nacbjiw7533-46-87 10:47:00* Test Item Value Reference Range Interpretation Comments Total Protein (test code = 2885-2) 6.6 6.5-8.1 [facility] HospitalAlbumin2018-08-16 10:47:00* Test Item Value Reference Range Interpretation Comments Albumin (test code = 1751-7) 3.8 3.5-5.0 [facility] HospitalGlobulin2018-08-16 10:47:00* Test Item Value Reference Range Interpretation Comments Globulin (test code = 80762-0) 2.8 2.3-3.5 [facility] HospitalAlbumin/Globulin Bqcdn1720-85-71 10:47:00 * Test Item Value Reference Range Interpretation Comments Albumin/Globulin Ratio (test code = 1759-0) 1.4 0.8-2.0 [facility] HospitalAlkaline Sytgvqimrwu3107-63-92 10:47:00* Test Item Value Reference Range Interpretation Comments Alkaline Phosphatase (test code = 6768-6) 83 40-150 [facility] HospitalProthrombin Nqjr5479-89-55 10:40:00* Test Item Value Reference Range Interpretation Comments Prothrombin Time (test code = 5902-2) 13.0 11.9-14.5 [facility] HospitalProthromb Time International Ratio 2017-10-30 10:40:00* Test Item Value Reference Range Interpretation Comments Prothromb Time International Ratio (test code = 6301-6) 1.06 Oral Anticoagulant Therapy INR Values:1. Low Intensity Therapy 1.5 - 2.02 . Moderate Intensity Therapy 2.0 - 3.03. High Intensity Therapy(1) 2.5 - 3. 54. High Intensity Therapy(2) 3.0 - 4.05. Panic Value INR > 5.0 [facility] HospitalActivated Partial Thromboplast Time 2017-10-30 10:40:00* Test Item Value Reference Range Interpretation Comments Activated Partial Thromboplast Time (test code = 78830-8) 27.4 23.8-35.5 [facility] HospitalCTA NECK [facility] [address] [place] [address] Patient Name: KASSI MCNULTY MR #: [id number] : 1955 Age/Sex: 62/M Req #: [id number] Adm Physician: Ordered by: PRAVEEN REED MD Report #: [id number] Location: CT Room/Bed: Procedure: [id number] CT/CTA NECK Exam Date: 08/20/17 Exam Time: [...]
[2019-08-13] MEDS ORDERED: TRAMADOL HCL 50 MG TAB PO PRN (19:15)
[2019-08-13] MEDS ORDERED: ACETAMINOPHEN 325 MG TAB PO PRN (19:15)
[2019-08-13] MEDS ORDERED: METOPROLOL TARTRATE INJ 1 MG/ML VIAL IV PRN (19:15)
[2019-08-13] MEDS ORDERED: DEXTROSE 50% SYRINGE 50 ML IV PRN (19:15)
[2019-08-13 21:00] VITALS: BP 152/80
[2019-08-13] MEDS: INSULIN LISPRO 100 UNIT/1 ML 3ML VIAL SQ SCH (21:00)
--- NOTE | 2019-08-13 21:05 | NUR ---
Report received from ER nurse. Nurse states he will call [facility] to make them aware that CT with can not be done. Will f/u.
--- NOTE | 2019-08-13 21:53 | NUR ---
Patient to floor via w/c.
[2019-08-13] MEDS: ATORVASTATIN 40 MG TAB PO SCH (22:30)
[2019-08-13] MEDS: TAMSULOSIN HCL 0.4 MG CAP PO SCH (22:30)
[2019-08-13] MEDS: DULOXETINE HCL 30 MG DELAYED RELEASE PO SCH (22:30)
[2019-08-13] MEDS: MONTELUKAST SODIUM 10 MG TAB PO SCH (22:30)
[2019-08-13 23:47] VITALS: BP 133/83
[2019-08-14] VITALS (8 sets, daily range): BP systolic 129–163; BP diastolic 70–92
--- NOTE | 2019-08-14 01:00 | NUR ---
Patient had CT of chx with contract. Hitesh with Dr Castillo wrote order for CT of abd/pelvis. Unable to do CT for 24 hours. Informed Jorge. Jorge states to call in Hitesh in AM. Will follow up.
--- NOTE | 2019-08-14 03:01 | NUR ---
urine sample sent to lab.
[2019-08-14 03:48] LABS: CREATINE KINASE 88 IU/L (30-200)
[2019-08-14 04:03] LABS: BACTERIA,URINE FEW /HPF; BILIRUBIN,URINE NEGATIVE (NEGATIVE); CLARITY,URINE CLEAR (CLEAR); COLOR,URINE YELLOW (YELLOW); KETONES,URINE NEGATIVE (NEGATIVE); LEUKOCYTE ESTERASE ,URINE NEGATIVE (NEGATIVE); NITRITE,URINE NEGATIVE (NEGATIVE); PROTEIN,URINE DIPSTICK NEGATIVE (NEGATIVE); URINE UROBILINOGEN 0.2 mg/dL (0.2 - 1); WBC,URINE (MAN) 0-5 /HPF (0-5)
[2019-08-14 04:04] LABS: EPITHELIAL CELLS,URINE FEW /LPF
[2019-08-14 06:00] LABS: BASOPHILS % 0.5 % (0.0-1.0); EOSINOPHILS # (AUTO) 0.3 (0.0-0.4); HEMATOCRIT 50.6 % (38.2-49.6); HEMOGLOBIN 16.5 g/dL (14.0-18.0); LYMPHOCYTES % 12.3 % (18.0-39.1); MEAN CORPUSCULAR HEMOGLOBIN 28.3 pg (28-32); MEAN CORPUSCULAR HGB CONC 32.6 g/dL (31-35); MEAN CORPUSCULAR VOLUME 86.6 fL (81-99); MONOCYTES # (AUTO) 0.8 (0.2-0.8); MONOCYTES % 9.4 % (4.4-11.3); NEUTROPHILS # (AUTO) 6.1 (2.1-6.9); NEUTROPHILS % 73.4 % (38.7-80.0); PLATELET COUNT 205 x10e3/uL (140-360); RED BLOOD COUNT 5.84 x10e6/uL (4.3-5.7); RED CELL DISTRIBUTION WIDTH 13.6 % (11.7-14.4)
[2019-08-14 06:11] LABS: ALANINE AMINOTRANSFERASE 38 IU/L (0-55); ALBUMIN 3.6 g/dL (3.5-5.0); ALBUMIN/GLOBULIN RATIO 1.4 (0.8-2.0); ALKALINE PHOSPHATASE 79 IU/L (40-150); ANION GAP 11.2 mmol/L (8-16); BLOOD UREA NITROGEN 10 mg/dL (7-26); BUN/CREATININE RATIO 10 (6-25); CALCIUM 9.7 mg/dL (8.4-10.2); CARBON DIOXIDE 33 mmol/L (22-29); CHLORIDE 100 mmol/L (98-107); CREATININE, SERUM 1.02 mg/dL (0.72-1.25); EST GLOMERULAR FILTRATION RATE > 60 ML/MIN (60-); GLUCOSE 126 mg/dL (74-118); POTASSIUM 3.2 mmol/L (3.5-5.1); SODIUM 141 mmol/L (136-145)
[2019-08-14 06:27] LABS: CREATINE KINASE MB 3.1 ng/mL (0-5.0)
[2019-08-14] MEDS: INSULIN LISPRO 100 UNIT/1 ML 3ML VIAL SQ SCH ×4 (07:30→21:02)
[2019-08-14] MEDS ORDERED: TADALAFIL 10 MG PO SCH (09:00)
[2019-08-14] MEDS ORDERED: CLOPIDOGREL BISULFATE 75 MG TAB PO SCH (09:00)
[2019-08-14] MEDS ORDERED: ASPIRIN 81 MG ENTERIC COATED PO SCH (09:00)
[2019-08-14] MEDS: AMLODIPINE BESYLATE 5 MG TAB PO SCH ×2 (09:15→17:48)
[2019-08-14] MEDS: METOPROLOL SUCCINATE 50 MG TAB XL PO SCH ×2 (09:15→17:48)
[2019-08-14] MEDS: FAMOTIDINE 20 MG/2 ML VIAL IV SCH ×2 (09:15→17:48)
[2019-08-14] MEDS: ASPIRIN 81 MG CHEW TAB PO SCH (09:15)
[2019-08-14] MEDS: CLOPIDOGREL BISULFATE 75 MG TAB PO SCH (09:15)
[2019-08-14] MEDS ORDERED: POTASSIUM CHLORIDE 20 MEQ TAB CR PO NR (09:15)
--- NOTE | 2019-08-14 12:20 | NUR ---
Clarified to Dr. Koehler' office regarding the consult. The senior account clerk states they received the call and is aware of the consult at 6:30 am today.
[2019-08-14 14:26] LABS: BASOPHILS % 0.3 % (0.0-1.0); EOSINOPHILS # (AUTO) 0.2 (0.0-0.4); EOSINOPHILS % 2.3 % (0.0-6.0); HEMATOCRIT 52.2 % (38.2-49.6); HEMOGLOBIN 16.9 g/dL (14.0-18.0); LYMPHOCYTES # (AUTO) 0.9 (1.0-3.2); LYMPHOCYTES % 9.9 % (18.0-39.1); MEAN CORPUSCULAR HEMOGLOBIN 27.8 pg (28-32); MEAN CORPUSCULAR HGB CONC 32.4 g/dL (31-35); MEAN CORPUSCULAR VOLUME 85.9 fL (81-99); MONOCYTES # (AUTO) 0.7 (0.2-0.8); MONOCYTES % 8.1 % (4.4-11.3); NEUTROPHILS # (AUTO) 6.8 (2.1-6.9); NEUTROPHILS % 78.9 % (38.7-80.0); PLATELET COUNT 215 x10e3/uL (140-360); RED BLOOD COUNT 6.08 x10e6/uL (4.3-5.7); RED CELL DISTRIBUTION WIDTH 13.8 % (11.7-14.4)
[2019-08-14 14:52] LABS: CREATINE KINASE MB 2.9 ng/mL (0-5.0)
[2019-08-14 15:12] LABS: ALANINE AMINOTRANSFERASE 41 IU/L (0-55); ALBUMIN 3.4 g/dL (3.5-5.0); ALBUMIN/GLOBULIN RATIO 1.2 (0.8-2.0); ALKALINE PHOSPHATASE 77 IU/L (40-150); ANION GAP 13.7 mmol/L (8-16); BLOOD UREA NITROGEN 11 mg/dL (7-26); BUN/CREATININE RATIO 11 (6-25); CALCIUM 9.1 mg/dL (8.4-10.2); CARBON DIOXIDE 29 mmol/L (22-29); CHLORIDE 100 mmol/L (98-107); CREATININE, SERUM 0.96 mg/dL (0.72-1.25); EST GLOMERULAR FILTRATION RATE > 60 ML/MIN (60-); GLUCOSE 126 mg/dL (74-118); POTASSIUM 3.7 mmol/L (3.5-5.1); SODIUM 139 mmol/L (136-145)
[2019-08-14] MEDS ORDERED: DONNATAL/LIDOCAINE/MAALOX 30 ML SUSP PO ONE (17:30)
[2019-08-14] MEDS: ISOSORBIDE MONONITRATE 30 MG TAB CR PO SCH (17:50)
[2019-08-14] MEDS ORDERED: IOPAMIDOL 370 MG/ML 200 ML INFUS..BTL INJ ONE (18:22)
[2019-08-14] MEDS ORDERED: SODIUM CHLORIDE 0.9% 50ML 50 ML ONE (18:22)
--- NOTE | 2019-08-14 19:49 | Diagnostic Imaging Report ---
EXAM: CT Abdomen and Pelvis WITH contrast INDICATION: Abdominal pain COMPARISON: Abdominal CT 10/29/2018. TECHNIQUE: Abdomen and pelvis were scanned utilizing a multidetector helical scanner from the lung base to the pubic symphysis after administration of IV contrast. Coronal and sagittal reformations were obtained. Routine protocol was performed. Scan was performed when during portal venous phase. IV CONTRAST: 100 mL of Isovue 370 ORAL CONTRAST: None COMPLICATIONS: None RADIATION DOSE: Total DLP: 881 mGy*cm Estimated effective dose: (DLP x 0.015 x size factor) mSv CTDIvol has been reviewed. It is below the limits set by the Radiation Protocol Committee (RPC). Dose modulation, iterative reconstruction, and/or weight based adjustment of the mA/kV was utilized to reduce the radiation dose to as low as reasonably achievable. FINDINGS: LINES and TUBES: None. LOWER THORAX: Dense triple vessel coronary artery calcific atherosclerosis and mitral valve calcific disease. Borderline cardiomegaly. HEPATOBILIARY: No focal hepatic lesions. No biliary ductal dilation. GALLBLADDER: There are cholecystectomy clips. SPLEEN: No splenomegaly. PANCREAS: No focal masses or ductal dilatation. A 1.1 cm pancreatic body round hypodensity (series 2 image 35) similar compared to 10/29/2018. ADRENALS: No adrenal nodules KIDNEYS/URETERS: Kidneys enhance symmetrically. No hydronephrosis. No solid mass lesions. No stones. Simple bilateral renal cysts, similar compared to a 2018. GI TRACT: No abnormal distention, wall thickening, or evidence of bowel obstruction. Appendix is not seen, no evidence of appendicitis. PELVIC ORGANS/BLADDER: Increased radiodensity of contents within the urinary bladder lumen is likely due to urinary contrast excretion from recent contrast-enhanced CT. Mild prostatomegaly. LYMPH NODES: No lymphadenopathy. VESSELS: Vascular calcifications. PERITONEUM / RETROPERITONEUM: No free air or fluid. BONES: Fixation screws in the left pelvis appear intact.. Degenerative changes. SOFT TISSUES: There are fat containing inguinal hernias. IMPRESSION: 1. Dense triple vessel coronary artery calcific atherosclerosis and mitral valve calcific disease. 2. An indeterminate 1.1 cm pancreatic body round hypodensity could be an intraductal pancreatic mucinous neoplasm. Recommend follow-up contrast enhanced pancreas MRI/MRCP in 3 months. Signed by: Fred Nunez DO on 08/14/2019 7:46 PM
--- NOTE | 2019-08-14 19:51 | Progress Note ---
DATE: 08/14/2019 Cardiology Consultation REASON FOR CONSULTATION: Chest pain. HISTORY OF PRESENT ILLNESS: A 64-year-old man with history of coronary artery disease, status post recent coronary stents, has multivessel CAD, hypertension, severe and uncontrolled with LVH and hypertensive heart disease, dyslipidemia, morbid obesity, and type 2 diabetes mellitus, presents with complaints of upper abdominal discomfort turning to the mid chest, felt like pressure radiating to the right side of chest, occurred following lunch, lasted several hours, constant and unrelenting at the time. Serial troponins negative x3. He has remained somewhat hypertensive during the hospital stay. Symptoms have since improved somewhat, however, has had couple of recurrent spells earlier this morning. There is no clear exertional component or worsening with inspiration or position, however, but there was some relationship with meals. He has no other complaints. REVIEW OF SYSTEMS: A 12-system review negative except for as noted above. PAST MEDICAL HISTORY: As per HPI. ALLERGIES: TO TRAMADOL AND CODEINE. FAMILY HISTORY: Noncontributory. PHYSICAL EXAMINATION: VITAL SIGNS: Temperature 98 degrees, heart rate 73, blood pressure 158/72, respiratory rate 20, and O2 saturation 97%. BMI 33.7. GENERAL: No acute distress. Alert. NECK: No JVD. CHEST: Clear to auscultation. CARDIOVASCULAR: Regular rate and rhythm. Normal S1 and S2. No S3. No S4. No murmurs. No rubs. ABDOMEN: Soft. Bowel sounds positive. EXTREMITIES: No edema. Warm extremities. CARDIOVASCULAR MEDICATIONS: Reviewed. Amlodipine 5 mg b.i.d., aspirin 81 mg daily, metoprolol tartrate 2.5 mg IV q.6 hours p.r.n., metoprolol succinate 50 mg b.i.d., clopidogrel 75 mg daily, and atorvastatin 80 mg at bedtime. STUDIES: Reviewed. Sodium 139, potassium 3.7, chloride 100, bicarbonate 29, BUN 11, creatinine 0.96, and glucose 126. White blood cells 8.6, hemoglobin 16.9, and platelets 215. PT 13.4, PTT 28, and INR 0.96. AST 29, ALT 41, alkaline phosphatase 77, and total bilirubin 0.8. ASSESSMENT AND PLAN: A 64-year-old man with coronary artery disease and previous coronary stents, presents with chest discomfort, atypical with relationship following meals and sitting of uncontrolled hypertension. He has hypertensive heart disease, type 2 diabetes mellitus, hyperlipidemia, morbid obesity. Differential diagnoses includes esophageal spasm/gastroesophageal reflux disease, other GI etiology, less likely angina, particularly symptoms lasted for several hours without any elevation in cardiac biomarkers or changes on EKG. RECOMMEND: 1. GI cocktail. 2. Add Imdur to optimize management of CAD and blood pressure. 3. Observe on telemetry overnight and continue rest of cardiovascular medications, assess response and follow closely with you. Echocardiogram reveals preserved left ventricular systolic function, severe ventricular hypertrophy, and normal regional wall motion. Shine Pollock MD AFV/MODL /[id number]
--- NOTE | 2019-08-14 20:00 | NUR ---
Refused bed alarm.
[2019-08-14] MEDS: TAMSULOSIN HCL 0.4 MG CAP PO SCH (21:00)
[2019-08-14] MEDS: MONTELUKAST SODIUM 10 MG TAB PO SCH (21:00)
[2019-08-14] MEDS: DULOXETINE HCL 30 MG DELAYED RELEASE PO SCH (21:00)
[2019-08-14] MEDS: ATORVASTATIN 40 MG TAB PO SCH (21:01)
[2019-08-15 00:52] VITALS: BP 162/90
[2019-08-15 04:00] VITALS: BP 141/64
[2019-08-15 05:52] LABS: BASOPHILS % 0.4 % (0.0-1.0); EOSINOPHILS # (AUTO) 0.3 (0.0-0.4); HEMOGLOBIN 15.9 g/dL (14.0-18.0); LYMPHOCYTES % 10.1 % (18.0-39.1); MEAN CORPUSCULAR HEMOGLOBIN 28.8 pg (28-32); MEAN CORPUSCULAR HGB CONC 32.4 g/dL (31-35); MEAN CORPUSCULAR VOLUME 88.8 fL (81-99); MONOCYTES # (AUTO) 0.7 (0.2-0.8); MONOCYTES % 7.5 % (4.4-11.3); NEUTROPHILS # (AUTO) 7.4 (2.1-6.9); NEUTROPHILS % 78.6 % (38.7-80.0); PLATELET COUNT 207 x10e3/uL (140-360); RED BLOOD COUNT 5.52 x10e6/uL (4.3-5.7)
[2019-08-15 06:39] LABS: ALANINE AMINOTRANSFERASE 36 IU/L (0-55); ALBUMIN 3.5 g/dL (3.5-5.0); ALBUMIN/GLOBULIN RATIO 1.5 (0.8-2.0); ALKALINE PHOSPHATASE 78 IU/L (40-150); ANION GAP 13.3 mmol/L (8-16); BLOOD UREA NITROGEN 10 mg/dL (7-26); BUN/CREATININE RATIO 12 (6-25); CARBON DIOXIDE 28 mmol/L (22-29); CHLORIDE 101 mmol/L (98-107); CREATININE, SERUM 0.84 mg/dL (0.72-1.25); EST GLOMERULAR FILTRATION RATE > 60 ML/MIN (60-); GLUCOSE 113 mg/dL (74-118); MAGNESIUM 1.4 MG/DL (1.3-2.1); POTASSIUM 3.3 mmol/L (3.5-5.1); SODIUM 139 mmol/L (136-145)
--- NOTE | 2019-08-15 07:08 | NUR ---
Received patient lying in bed with eyes closed. Respiration even and unlabored without SOB. Call light in reach.
[2019-08-15] MEDS: INSULIN LISPRO 100 UNIT/1 ML 3ML VIAL SQ SCH ×2 (07:30→12:58)
--- NOTE | 2019-08-15 07:42 | NUR ---
SPOKE TO HOLLI MOREL NP. SHE IS ROUNDING NOW, AND PLANS TO DC PT HOME TODAY.
[2019-08-15] MEDS ORDERED: POTASSIUM CHLORIDE 20 MEQ TAB CR PO STA (07:50)
[2019-08-15] MEDS ORDERED: PANTOPRAZOLE SO40 MG PO (07:56)
[2019-08-15] MEDS ORDERED: Isosorbide Mononitrate PO (07:56)
[2019-08-15 08:11] VITALS: BP 158/72
[2019-08-15] MEDS: FAMOTIDINE 20 MG/2 ML VIAL IV SCH (08:37)
[2019-08-15] MEDS: ASPIRIN 81 MG CHEW TAB PO SCH (08:37)
[2019-08-15] MEDS: AMLODIPINE BESYLATE 5 MG TAB PO SCH (08:38)
[2019-08-15] MEDS: ISOSORBIDE MONONITRATE 30 MG TAB CR PO SCH (08:38)
[2019-08-15] MEDS: CLOPIDOGREL BISULFATE 75 MG TAB PO SCH (08:38)
[2019-08-15] MEDS: METOPROLOL SUCCINATE 50 MG TAB XL PO SCH (08:38)
[2019-08-15 09:29] VITALS: BP 158/72
[2019-08-15 11:46] VITALS: BP 136/67
--- NOTE | 2019-08-15 15:10 | NUR ---
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 Discharge packet with CT result given. Verbalized understanding. Prescription medications given. PIV to right RA discontinued, catheter tip intact, no bleeding noted. Transported via wheelchair to private vehicle with all personal belongings taken.
--- NOTE | 2019-08-15 18:54 | Progress Note ---
DATE: 08/15/2019 Cardiology Progress Note. SUBJECTIVE: Denies any chest pain or shortness of breath. OBJECTIVE: VITAL SIGNS: Temperature 98.7, heart rate 70, blood pressure 136/67, respiratory rate 20, O2 saturation 96%. GENERAL: No acute distress, alert. NECK: No JVD. CHEST: Clear to auscultation. CARDIOVASCULAR: Regular rate and rhythm. Normal S1, S2. ABDOMEN: Soft. Bowel sounds positive. EXTREMITIES: No edema. CARDIOVASCULAR MEDICATIONS: Reviewed: 1. Amlodipine 5 mg b.i.d. 2. Aspirin 81 mg daily. 3. Metoprolol succinate 50 mg b.i.d. 4. Atorvastatin 80 mg at bedtime. 5. Clopidogrel 75 mg daily. 6. Isosorbide mononitrate 60 mg daily. STUDIES: Reviewed: Sodium 139, potassium 3.3, chloride 101, bicarbonate 28, BUN 10, creatinine 0.8, glucose 113. White blood cells 9.3, hemoglobin 13.9, platelets 207, INR 0.9. CT chest and CT abdomen reviewed and discussed the results with the patient. ASSESSMENT AND PLAN: 1. A 64-year-old man presents with atypical chest pain. History of coronary artery disease with previous coronary stents, hypertension with hypertensive heart disease and ventricular hypertrophy, preserved left ventricular systolic function. 2. Pancreatic lesion, pending further workup. 3. Hypertension. 4. Diabetes. 5. Dyslipidemia. 6. Obesity with a BMI of 33.7. RECOMMENDATIONS: 1. Close outpatient followup advised. Added Imdur to current regimen as well as p.r.n. Lasix, given dilated pulmonary arteries, LVH, and suspected component of diastolic heart failure that may be contributing to patient's symptoms. Optimize blood pressure control also encouraged. 2. Concern about the CT abdomen findings. GI evaluation advised and discussed recommendation with the patient. He is encouraged to have outpatient followup with GI [facility] for further evaluation. Shine Pollock MD [facility]/MODL /[id number]
--- NOTE | 2019-08-16 04:05 | Discharge Summary ---
ADMISSION DIAGNOSES: 1. Chest pain. 2. Type 2 diabetes. 3. Hypertension. 4. Hyperlipidemia. 5. Gastroesophageal reflux disease. 6. Coronary artery disease with percutaneous coronary intervention. DISCHARGE DIAGNOSES: 1. Chest pain. 2. Type 2 diabetes. 3. Hypertension. 4. Hyperlipidemia. 5. Gastroesophageal reflux disease. 6. Coronary artery disease with percutaneous coronary intervention. 7. Rule out acute coronary syndrome. HISTORY: Type 2 diabetes, hypertension, hyperlipidemia, CAD with PCI, GERD, BPH, prostate cancer with radiation, nonsustained V-tach, neuropathy, seasonal allergies. SURGICAL HISTORY: Cholecystectomy, cervical fusion, pelvic fracture, tonsillectomy, branchial cleft cyst removal. FAMILY HISTORY: The patient's mother had diabetes and stroke. SOCIAL HISTORY: Noncontributory. HOSPITAL COURSE: A 64-year-old male, admits with complaints of right-sided chest pain that radiated to his back. The pain is sharp and constant. Symptoms worsened with exertion and improves with rest and nitroglycerin. He had associated shortness of breath, but denies dizziness, diaphoresis. He has chronic diarrhea and nausea. The patient recently had a heart catheterization with stent with Cardiology. He was resumed on aspirin, Lipitor, and Plavix. The patient's troponins were negative x3. Chest x-ray was negative. Echo showed an EF of 60% to 65%. CT of the chest showed no PE. CT of the abdomen and pelvis showed dense triple-vessel coronary artery calcific atherosclerosis and mitral valve calcific disease and indeterminate 1.1 cm pancreatic body round hypodensity. The patient was advised to follow up with an MRI with contrast in 3 months of the pancreas. C difficile was negative. Blood pressure was controlled after Cardiology added Imdur. The patient will start taking Protonix as Cardiology believes the symptoms are related to acid reflux and not his heart. He will follow up with primary care in 1 to 2 weeks and Cardiology in 1 to 2 weeks. The patient understands discharge instructions and agrees to plan. Vital signs stable and the patient afebrile. Dictated by Sheri Proctor NP MD KRARIE Phillips/MODL /[id number]
== END 2019-08-15 15:10 | disposition home or self-care (01) ==
LOC: ER 15:57 → ERHOLD 18:55 → MED/SURG 22:09
PROVIDERS: ADMIT Internal Medicine; ATTEND Internal Medicine
DX: R07.9 Chest pain, unspecified (principal); E11.9 Type 2 diabetes mellitus without complications; I10 Essential (primary) hypertension; E78.5 Hyperlipidemia, unspecified; K21.9 Gastro-esophageal reflux disease without esophagitis; I25.10 Atherosclerotic heart disease of native coronary artery without angina pectoris; Z95.5 Presence of coronary angioplasty implant and graft
CPT/HCPCS: 36415 ×3; 71045; 71260; 74177; 80053 ×3; 81001; 82550 ×2; 82553 ×2; 82948 ×3; 83036; 83690; 83735; 83880; 84443; 84484 ×2; 85025 ×3; 85610; 85730; 87045; 87086; 87493; 87635; 93005; 93306; 99284; G0378 ×3; Q9967 ×2

== ENCOUNTER → 2019-11-08 | Outpatient (CLI) | payer OTHER ==
[~2019-11-08] MED LIST changes: +GADOBENATE DIMEGLUMINE 1 ML IV ONE; +Isosorbide Mononitrate PO; +PANTOPRAZOLE SO40 MG PO; +PROAIR HFA INH8.5 GM INH; +SODIUM CHLORIDE 0.9% 50ML 50 ML ONE
[2019-11-08 09:15] LABS: BLOOD UREA NITROGEN 16 mg/dL (7-26); BUN/CREATININE RATIO 15 (6-25); CREATININE, SERUM 1.06 mg/dL (0.72-1.25); EST GLOMERULAR FILTRATION RATE > 60 ML/MIN (60-)
--- NOTE | 2019-11-08 13:09 | Diagnostic Imaging Report ---
EXAM: MRI of the abdomen with and without contrast with MRCP INDICATION: Pancreatic cyst,. COMPARISON: CT abdomen pelvis 08/14/2019. TECHNIQUE: Multiplanar and multisequence imaging was performed of the abdomen. T1 and T2-weighted images were obtained with and without contrast. T1-weighted in and teq-dz-nealt , Dynamic, post gadolinium T1-weighted spoiled gradient echo scans. 20 cc of gadolinium were administered intravenously. M.R.C.P. technique: Multiplanar, multisequence MRCP was performed, with sequences including coronal turbo spin-echo T1-weighted scans, [facility] MRCP scans, coronal spin, coronal MPR 2, [facility], [facility] MRCP JEFFERS. Discussion: Exam is limited secondary to motion artifact. LOWER THORAX: Unremarkable. HEPATOBILIARY: Heart is mildly enlarged. There is mild left lower lobe atelectasis. No focal hepatic lesions. No biliary ductal dilation. GALLBLADDER: Status post cholecystectomy. SPLEEN: No splenomegaly. PANCREAS: Pancreas demonstrates normal T1 signal intensity and enhancement. There is no main pancreatic ductal dilation. In the proximal pancreatic body there is a 1.5 cm nonenhancing cystic focus. It is indeterminate whether this lesion communicates with the main pancreatic duct. ADRENALS: No adrenal nodules KIDNEYS/URETERS: Kidneys enhance symmetrically. No hydronephrosis. Multiple bilateral renal cortical cysts measuring up to 4.6 cm in the lower pole of the left kidney. No stones. GI TRACT: No abnormal distention, wall thickening, or evidence of bowel obstruction. LYMPH NODES: No lymphadenopathy. VESSELS: Metastatic changes are noted in the abdominal aorta and branch vessels. No evidence of intimal dilation. Portal vein, splenic vein and screw mesenteric vein are patent. PERITONEUM / RETROPERITONEUM: No free air or fluid. BONES: Unremarkable. SOFT TISSUES: Unremarkable. IMPRESSION: Exam limited due to motion artifact. 1.5 cm indeterminate cystic focus in the pancreatic body. Follow-up MRI/MRCP in one year suggested to evaluate stability. Bilateral renal cysts. Signed by: Hector Monzon MD on 11/08/2019 1:05 PM
== END ==
LOC: MRI 07:35
PROVIDERS: ATTEND Internal Medicine Gastroenterology
DX: D49.0 Neoplasm of unspecified behavior of digestive system (principal)
CPT/HCPCS: 36415; 74183; 82565; 84520

== ENCOUNTER 2020-01-30 14:59 | Emergency (ER) | payer OTHER ==
[~2020-01-30] VITALS: Ht 185.4 cm; Wt 113.4 kg
[~2020-01-30 14:59] MED LIST changes: -GADOBENATE DIMEGLUMINE 1 ML IV ONE; -SODIUM CHLORIDE 0.9% 50ML 50 ML ONE
[2020-01-30] MEDS ORDERED: LIDOCAINE VISC 2% SOLN 15 ML UDC PO ONE (15:30)
--- OUTSIDE RECORDS SUMMARY | 2020-01-30 15:49 | XMS REPORT | Clinical Summary ---
Author Author [facility] Address Unknown Phone Unavailable Care Team Providers Care Tank Builder Helper Name Role Phone Geovanni Areraga MD PCP Allergies No Known Active Allergies Medications End Date Status Medication Sig [...] 2 diabetes mellitus with hyperglyce tonya 08/13/2016 Surgical History Surgery Date Site/Laterality Comments TONSILECTOMY, ADENOIDECTOMY, BILATERAL MYRINGOTOMY AND TUBES CHOLECYSTECTOMY Medical History Medical History Date Comments Fibromyalgia Hypertension Diabetes (HCC) Heart disease Family History Medical History Relation Name Comments Emphysema Father Alzheimer's disease Mother Relation Name Status Comments Father Mother Social History Date Tobacco Use Types Packs/Day Years Used Never Smoker Smokeless Tobacco: Never Used Drinks/Week oz/Week Comments Alcohol Use No Sex Assigned at Date Recorded Not on file Last Filed Vital Signs Not on file Plan of Treatment Health Maintenance Due Date Last Done Comments COLONOSCOPY SCREENING 06/15/2005 SHINGLES VACCINES (#1) 06/15/2005 INFLUENZA VACCINE 10/16/2019 Results Not on fileafter 01/29/2019 Insurance Type Payer Benefit Subscriber ID Effective Phone Address Plan / Dates Group [facility] [id number] [id number] [id number] resent PPO- [employer] Advance Directives For more information, please contact: [phone] 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
--- OUTSIDE RECORDS SUMMARY | 2020-01-30 15:51 | XMS REPORT | Continuity of Care Document ---
Author Author [facility] t Organization [facility] Address [address] [place] [address] Phone Unavailable Care Team Providers Care Real Estate Account Executive Name Role Phone Roslyn ARRIAGA M.D. PCP DR AMEYA LEÓN Attphys Unavailable HERNANDEZ, TELMA Attphys Unavailable DIMA WELCH Attphys Unavailable ZEBALLOS, Florina BLACKWOOD Attphys Unavailable MODESTO, S JENNYICA Attphys Unavailable BRIANNAPRAVEEN Attphys Unavailable DR AMEYA LEÓN Admphys Unavailable DIMA WELCH Admphys Unavailable Payers Payer Name Policy Type Policy Number Effective Date Expiration Date Negro tena [facility] [id number] 2012 00:00:00 [facility] Problems Condition Name Condition Details Condition Category Status Onset Date Resolution Date Last Treatment Date Treating Clinician Comments Source Uncontrolled type 2 diabetes mellitus with hyperglycem ia Uncontrolled type 2 diabetes mellitus with hyperglycemia Disease Active 2016-08-13 00:00:00 [facility] Chest pain Chest pain Problem Active [facility] Partial small bowel obstruction Partial small bowel obstruction Pro blem Active [facility] Urinary tract infection UTI (urinary tract infection) Problem Active [facility] Vomiting Vomiting Problem Active [facility] Abdominal pain Abdominal pain Problem Active [facility] Chest pain due to coronary artery disease Problem Active [facility] Dyspnea Problem Active [facility] Allergies, Adverse Reactions, Alerts Allergy Name Allergy Type Status Severity Reaction(s) Onset Date Inacti ve Date Treating Clinician Comments Source Codeine Propensity to adverse reactions Active Mild itching 2019-08-22 00:00:00 [facility] Tramadol Propensity to adverse reactions Active Mild ITCH ING 2019-08-22 00:00:00 [facility] No Known Allergies DA Active U 2017-11-20 00:00:00 [facility] tramadol DA Active AR 2017-11-20 00:00:00 [facility] No Known Allergies DA Active U 2017-07-17 00:00:00 [facility] Family History Family Member Diagnosis Comments Start Date Stop Date Source Natural father Emphysema [facility] Natural mother Alzheimer's disease [place] [facility] Social History Social Habit Start Date Stop Date Quantity Comments Source Tobacco use and exposure 2016-08-13 00:00:00 2016-08-13 00:00:00 Neve r used Tyler Garza Alcohol intake 2016-08-13 00:00:00 2016-08-13 00:00:00 Current non-drinker of alcohol (finding) Tyler Garza Sex Assigned At 1955 00:00:00 1955 00:00:00 Male [facility] Smoking Status Start Date Stop Date Source Never smoker Tyler koenig Medications Ordered Medication Name Filled Medication Name Start Date Stop Da te Current Medication? Ordering Clinician Indication Dosage Frequency Signature (SIG) Comments Components Source Albuterol Sulfate (Proair Hfa Inhaler*) 8.5 Gm INH Alb uterol Sulfate (Proair Hfa Inhaler*) 8.5 Gm INH 2019-08-24 13:16:00 Yes 1 Every 6 Hours as needed for Shortness Of Breath [facility] Isosorbide Mononitrate Isosorbide Mononitrate 2019-08-15 07:56:00 Yes 60 Daily [facility] Pantoprazole Sodium (Protonix) 40 Mg TABLET. Pantopr azole Sodium (Protonix) 40 Mg TABLET. 2019-08-15 07:56:00 Yes 40 Before [place] kfast [facility] Atorvastatin Atorvastatin 2019-07-31 14:49:00 Yes 80 Bedtime [facility] Tramadol Hcl (Ultram) 50 Mg TABLET Tramadol Hcl (Ultram) 50 Mg TABLET 2019-03-07 12:59:00 Yes 50 Three Times A Day as needed f or Pain [facility] Naproxen (Naprosyn) 500 Mg TABLET Naproxen (Naprosyn) 500 Mg TABLET 2019-03-07 12:59:00 2019-07-31 00:00:00 No 500 Twice A Day as n eeded for Pain [facility] Chlordiazepoxide/Clidinium Br (Librax Capsule) 1 Each CAPSULE Chlordiazepoxide/Clidinium Br (Librax Capsule) 1 Each CAPSULE 2018-11-22 05:16:00 2018-12-09 00:00:00 No 1 Before Meals And At Bedtime [facility] Nifedipine (Nifedipine Er) 30 Mg TAB.ER.24 Nifedipine (Nifedipine Er) 30 Mg TAB.ER.24 2018-11-22 05:16:00 2018-12-09 00:00:00 No 30 Daily [facility] Ciprofloxacin Hcl (Cipro) 500 Mg TABLET Ciprofloxacin Hcl (C ipro) 500 Mg TABLET 2018-11-05 16:22:00 2018-11-19 00:00:00 No 500 Twice A Day [facility] Metronidazole (Flagyl) 500 Mg TABLET Metronidazole (Flagyl) 500 Mg TABLET 2018-11-05 16:22:00 2018-11-19 00:00:00 No 500 Every 8 Hours [facility] VICTOZA 2-MAGDY 0.6 mg/0.1 mL [...] 50 MG tablet 2016-08-13 14:17:08 Yes 50mg [id number] Take 50 mg by mouth 3 (three) [...] Amlodipine Besylate Yes 5 Twice A Day [facility] Aspirin Aspirin Yes 81 Daily [facility] Clopidogrel Bisulfate (Clopidogrel) 75 Mg TABLET Clopi dogrel Bisulfate (Clopidogrel) 75 Mg TABLET Yes 75 Daily [facility] Duloxetine Hcl (Cymbalta) 30 Mg CAPSULE. Duloxetine Hcl (Cymbalta) 30 Mg CAPSULE. Yes 30 Bedtime [facility] Liraglutide (Victoza 2-Magdy) 0.6 Mg/0.1 Ml PEN.INJCTR L iraglutide (Victoza 2-Magdy) 0.6 Mg/0.1 Ml PEN.INJCTR Yes [facility] Metoprolol Succinate Metoprolol Succinate Yes 50 Twice A Day [facility] Montelukast Sodium (Singulair) 10 Mg TABLET Montelukas t Sodium (Singulair) 10 Mg TABLET Yes 10 Bedtime [facility] Tadalafil (Cialis) 10 Mg TABLET Tadalafil (Cialis) 10 Mg TABLET Yes 10 Daily [facility] Tamsulosin Hcl (Flomax*) 0.4 Mg CAP Tamsulosin Hcl (Flomax*) 0.4 Mg C AP Yes .[address] [facility] Testosterone Testosterone Yes 1.5 .k8htedg [facility] Naproxen Sodium (Aleve) 220 Mg TABLET Naproxen Sodium (Aleve) 22 0 Mg TABLET 2019-08-15 00:00:00 No 220 Every 12 Hours as ne eded for Pain [facility] Zegrid Otc Zegrid Otc 2019-08-15 00:00:00 No 20 Bed time [facility] Atorvastatin Calcium (Lipitor) 20 Mg TABLET Atorvastat in Calcium (Lipitor) 20 Mg TABLET 2019-07-31 00:00:00 No 40 Daily [facility] Amlodipine Besylate Amlodipine Besylate 2018-11-22 00:00:00 No [address] [facility] Carvedilol Carvedilol 2018-10-29 00:00:00 No 12.5 Twi ce A Day [facility] Cranberry Cranberry 2018-10-29 00:00:00 No [facility] Gink Gink 2018-10-29 00:00:00 No [facility] Hydralazine Hcl Hydralazine Hcl 2018-10-29 00:00:00 No [address] [facility] Isosorbide Mononitrate (Isosorbide Mononitrate Er) 30 Mg TAB.ER.24H Isosorbide Mononitrate (Isosorbide Mononitrate Er) 30 Mg TAB.ER.24H 201 11-22-14 00:00:00 No 30 Daily [facility] Lomotil Lomotil 2018-10-29 00:00:00 No as needed for Diarrhea [facility] Spironolactone Spironolactone 2018-10-29 00:00:00 No 25 Daily [facility] Valsartan/Hydrochlorothiazide (Diovan Hct 160-12.5 Mg Tab) 1 Each TABLET Valsartan/Hydrochlorothiazide (Diovan Hct 160-12.5 Mg Tab) 1 Each TABLET 2018-10-29 00:00:00 No 1 Daily [facility] Metoprolol Tartrate Metoprolol Tartrate 2017-10-31 00:00:00 No [address] [facility] Vital Signs Vital Name Observation Time Observation Value Comments Source Body Temperature 2019-08-24 12:20:00 97.7 [degF] [facility] BMI (Body Mass Index) 2019-08-22 20:00:00 30.7 kg/m2 [facility] Weight 2019-08-22 16:25:00 252 [lb_av] [facility] Body Temperature 2019-08-15 11:46:00 98.7 [degF] [facility] BMI (Body Mass Index) 2019-08-13 23:22:00 33.7 kg/m2 [facility] Weight 2019-08-13 16:38:00 277 [lb_av] [facility] Body Temperature 2019-07-31 13:45:00 98.1 [degF] [facility] BMI (Body Mass Index) 2019-07-30 14:18:00 47.5 kg/m2 [facility] Weight 2019-07-30 12:14:00 277 [lb_av] [facility] Procedures Procedure Date / Time Performed Performing Clinician [facility] e Computed tomography of chest with contrast 2019-08-22 00:00:00 [facility] Computed tomography of abdomen and pelvis with contrast 00:00:00 [facility] Computed tomography of chest with contrast 2019-08-13 00:00:00 [facility] X-ray of chest, single view 2019-08-13 00:00:00 [facility] PRQ CARD STENT W/ANGIO 1 VSL 2019-07-30 00:00:00 [facility] L HRT ARTERY/VENTRICLE ANGIO 2019-07-30 00:00:00 [facility] COLONOSCOPY AND BIOPSY 2018-12-12 00:00:00 [facility] COLONOSCOPY W/LESION REMOVAL 2018-12-12 00:00:00 [facility] Computed tomography of abdomen and pelvis with contrast 2018 00:00:00 TELMA HERNANDEZ [facility] Computed tomography of abdomen and pelvis with contrast 2018 00:00:00 SUELLEN TRAORE [facility] Computed tomography of abdomen and pelvis with contrast 2018 00:00:00 VON ACHARYA [facility] Plan of Care Planned Activity Planned Date Details Comments Source Future Scheduled Test 2019-10-16 00:00:00 INFLUENZA VACCINE [code = INFLUENZA VACCINE] [facility] Future Scheduled Test 2005-06-15 00:00:00 COLONOSCOPY SCREEN ING [code = COLONOSCOPY SCREENING] [facility] Scheduled Test 2005-06-15 00:00:00 SHINGLES VACCINES (#1) [code = SHINGLES VACCINES (#1)] [facility] Instructions Chest Pain - Chest Wall [facility] Instructions Dyspnea [facility] Instructions Infection Control [facility] Encounters Start Date/Time End Date/Time Encounter Type Admission Type Attendi [facility] Care Department Encounter ID Source 2018-09-07 09:00:00 Inpatient Froilan LEÓN AMEYA [facility] [id number] [facility] 2019-08-13 18:55:00 2019-08-15 15:10:00 Discharged Inpatient (obs) 1 DIMA WELCH [facility] [id number] [facility] 2019-07-30 01:55:00 2019-07-31 16:02:00 Discharged Inpatient (obs) 1 DIMA WELCH [facility] [id number] [facility] 2019-03-07 12:32:00 2019-03-07 14:00:00 Departed Emergency Room 1 JAISON HINOJOSA [facility] [id number] [facility] 2018-12-12 08:40:00 2018-12-12 08:40:00 [facility] [id number] [facility] 2018-11-19 14:32:00 2018-11-22 13:28:00 Discharged Inpatient 1 DIMA WELCH [facility] [id number] [facility] 2018-11-05 10:12:00 2018-11-05 16:33:00 Departed Emergency Room 1 DEBBY SALVADOR [facility] [id number] [facility] 2018-10-29 06:48:00 2018-10-31 15:50:00 Discharged Inpatient 1 [facility] [id number] [facility] 2017-10-30 11:25:00 2017-10-31 19:50:00 Discharged Inpatient (obs) 1 DIMA WELCH [facility] [id number] [facility] 2017-08-20 07:16:00 2017-08-20 07:16:00 Registered Clinic 3 PRAVEEN REED [facility] [id number] [facility] Results Test Description Test Time Test Comments Results Result Comments Source [facility] 2019-11-08 12:45:00 [facility] [place] [address] Patient Name: KASSI MCNULTY MR #: [id number] : 1955 Age/Sex: 64/M Req #: [id number] Adm Physician: Ordered by: TELMA HERNANDEZ MD Report #: [id number] Location: MRI Room/Bed: Procedure: [id number] MRI/MRI MRCP [facility]WO Exam Date: Exam Time: REPORT STATUS: Signed EXAM: MRI of the abdomen with and without contrast with MRCP INDICATION: Pancreatic cyst,. COMPARISON: CT abdomen pelvis 08/14/2019. TECHNIQUE: Multiplanar and multisequence imaging was performed of the abdomen. T1 and T2-weighted images were obtained with and without c ontrast. T1-weighted in and epu-at-unphg , Dynamic, post gadolinium T1- weighted spoiled gradient echo scans. 20 cc of gadolinium were administered intravenously. M.R.C.P. technique: Multiplanar, multisequence MRCP was performed, with sequences including coronal turbo spin-echo T1-weighted scans, [facility] MRCP scans, coronal spin, coronal MPR 2, [facility] HR, [facility] MRCP JEFFERS. Discussion: Exam is limited secondary to motion artifact. LOWER THORAX: Unremarkable. HEPATOBILIARY: Heart is mildly enlarged. There is mild left lower lobe atelectasis. No focal hepatic lesions. No biliary ductal dilation. GALLBLADDER: Status post cholecystectomy. SPLEEN: No splenomegaly. PANCREAS: Pancreas demonstrates normal T1 signal intensity and enhancement. There is no main pancreatic ductal dilation. In the proximal pancreatic body there is a 1.5 cm nonenhancing cystic focus. It is indeterminate whether this lesion communicates with the main pancreatic duct. ADRENALS: No adrenal nodules KIDNEYS/URETERS: Kidneys enhance symmetrically. No hydronephrosis. Multiple bilateral renal cortical cysts measuring up to 4.6 cm in the lower pole of the left kidney. No stones. GI TRACT: No abnormal distention, wall thickening, or evidence of bowel obstruction. LYMPH NODES: No lymphadenopathy. VESSELS: Metastatic changes are noted in the abdominal aorta and branch vessels. No evidence of intimal dilation. Portal vein, splenic vein and screw mesenteric vein are patent. PERITONEUM / RETROPERITONEUM: No free air or fluid. BONES: Unremarkable. SOFT TISSUES: Unremarkable. IMPRESSION: Exam limited due to motion artifact. 1.5 cm indeterminate cystic focus in the pancreatic body. Follow-up MRI/MRCP in one year suggested to evaluate stability. Bilateral renal cysts. Signed by: Hector Hardy MD on 11/08/2019 1:05 PM Dictated By: ABDIEL HARDY MD 1305 Transcribed By: CAROL on 11/08/19 1305 COPY TO: TELMA HERNANDEZ MD Capillary blood glucose measurement by glucometer (mas s/volume) 2019-08-24 07:41:00 Test Item Bedside Glucose (test code = 95358-7) 144 70-120 Meter ID: [id number] leukocytes automated count (number/volume)2019-08-24 05:05:00* Test Item Value Reference Range Interpretation Comments White Blood Count (test code = 6690-2) 10.56 4.8-10.8 [facility] automated count (number/volume)2019-08-24 05:05:00* Test Item Value Reference Range Interpretation Comments Red Blood Count (test code = 789-8) 5.93 4.3-5.7 [facility] hemoglobin measurement (moles/volume)2019-08-24 05:05:00* Test Item Value Reference Range Interpretation Comments Hemoglobin (test code = 01411-9) 16.6 14.0-18.0 [facility] hematocrit (volume fraction)2019-08-24 05:05:00* Test Item Value Reference Range Interpretation Comments Hematocrit (test code = 4544-3) 50.7 38.2-49.6 [facility] erythrocyte mean corpuscular lwalkq7830-32-64 05:05:00* Test Item Value Reference Range Interpretation Comments Mean Corpuscular Volume (test code = 787-2) 85.5 81-99 [facility] eryth[facility] mean corpuscular hemoglobin (mass per erythrocyte)2019-08-24 05:05:00* Test Item Value Reference Range Interpretation Comments Mean Corpuscular Hemoglobin (test code = 785-6) 28.0 28-32 [facility] erythrocyte mean corpuscular hemoglobin concentration measurement (mass/volume)2019-08-24 05:05:00* Test Item Value Reference Range Interpretation Comments Mean Corpuscular Hemoglobin Concent (test code = 786-4) 32.7 31-35 [facility] HospitalRDW BrfMh-Sbq5064-45-09 05:05:00* Test Item Value Reference Range Interpretation Comments Red Cell Distribution Width (test code = 55390-7) 13.5 11.7 -14.4 [facility] Hospital[facility] blood platelet count (count/volume)2019-08-24 05:05:00* Test Item Value Reference Range Interpretation Comments Platelet Count (test code = 777-3) 209 140-360 [facility] count as percentage of total npmqayuqwi4057-55-86 05:05:00* Test Item Value Reference Range Interpretation Comments Neutrophils (%) (Auto) (test code = 16723-4) 92.2 38.7-80.0 [facility] lymphocyte count as percentage ot total hqqawmknfq7920-10-35 05:05:00* Test Item Value Reference Range Interpretation Comments Lymphocytes (%) (Auto) (test code = 736-9) 4.3 18.0-39.1 [facility] monocyte count as percentage of total byulovgtzg6530-59-29 05:05:00* Test Item Value Reference Range Interpretation Comments Monocytes (%) (Auto) (test code = 5905-5) 2.8 4.4-11.3 [facility] blood eosinophil count as percentage of total ryuxqbjgmj8748-04-29 05:05:00* Test Item Value Reference Range Interpretation Comments Eosinophils (%) (Auto) (test code = 713-8) 0.0 0.0-6.0 [facility] HospitalAutunc health nashed blood basophil count as percentage of total cyreoivhnc6666-86-52 05:05:00* Test Item Value Reference Range Interpretation Comments Basophils (%) (Auto) (test code = 706-2) 0.2 0.0-1.0 [facility] HospitalFluoroscopic procedure less than one hour yhofozjp0414-48-39 05:05:00* Test Item Value Reference Range Interpretation Comments IM GRANULOCYTES % (test code = IM GRANULOCYTES %) 0.5 0.0- 1.0 [facility]Aut[facility] nashed blood neutrophil count 2019-08-24 05:05:00* Test Item Value Reference Range Interpretation Comments Neutrophils # (Auto) (test code = 751-8) 9.7 2.1-6.9 [facility] lymphocytes count (number/volume) 2019-08-24 05:05:00* Test Item Value Reference Range Interpretation Comments Lymphocytes # (Auto) (test code = 83323-0) 0.5 1.0-3.2 [facility]Blood monocytes automated count (number/volume)2019-08-24 05:05:00* Test Item Value Reference Range Interpretation Comments Monocytes # (Auto) (test code = 742-7) 0.3 0.2-0.8 [facility] Hospital[facility] blood eosinophil count 2019-08-24 05:05:00* Test Item Value Reference Range Interpretation Comments Eosinophils # (Auto) (test code = 711-2) 0.0 0.0-0.4 [facility] HospitalAutom[facility] blood basophil count (count/volume)2019-08-24 05:05:00* Test Item Value Reference Range Interpretation Comments Basophils # (Auto) (test code = 704-7) 0.0 0.0-0.1 [facility] HospitalFluoroscopic procedure less than one hour tplsvomi7005-56-66 05:05:00* Test Item Value Reference Range Interpretation Comments Absolute Immature Granulocyte (auto (chriss t code = Absolute Immature Granulocyte (auto) 0.05 0-0.1 [facility] sodium measurement (moles/volume)2019-08-24 05:05:00* Test Item Value Reference Range Interpretation Comments Sodium Level (test code = 2951-2) 136 136-145 [facility] plasma potassium measurement (moles/volume)2019-08-24 05:05:00* Test Item Value Reference Range Interpretation Comments Potassium Level (test code = 2823-3) 3.5 3.5-5.1 [facility] plasma chloride measurement (moles/volume)2019-08-24 05:05:00* Test Item Value Reference Range Interpretation Comments Chloride Level (test code = 2075-0) 99 98-107 [facility] or plasma carbon dioxide, total measurement (moles/volume)2019-08-24 05:05:00* Test Item Value Reference Range Interpretation Comments Carbon Dioxide Level (test code = 2028-9) 24 22-29 [facility] or plasma anion wyy5099-11-38 05:05:00* Test Item Value Reference Range Interpretation Comments Anion Gap (test code = 11217-6) 16.5 8-16 [facility] plasma urea nitrogen measurement (mass/volume)2019-08-24 05:05:00* Test Item Value Reference Range Interpretation Comments Blood Urea Nitrogen (test code = 3094-0) 12 7-26 [facility] plasma creatinine measurement (mass/volume)2019-08-24 05:05:00* Test Item Value Reference Range Interpretation Comments Creatinine (test code = 2160-0) 0.97 0.72-1.25 [facility] plasma urea nitrogen/creatinine mass nkkkq4634-32-27 05:05:00* Test Item Value Reference Range Interpretation Comments BUN/Creatinine Ratio (test code = 3097-3) 12 6-25 [facility] HospitalEstimated glomerular filtration rate (GFR) bbqwldsoivmwr7405-17-71 05:05:00* Test Item Value Reference Range Interpretation Comments Estimat Glomerular Filtration Rate (test code = 325336028) > 60 >60 Ranges were taken from the National Kidney Disease Education Program and the [facility] literature.Reference ranges:60 or greater: Fvcjwc23-21 ( for 3 consecutive months): Chronic kidney disease 15 or less: Kidney failureRio Grande Regional HospitalGlucose yliawsnqvyr8695-42-78 05:05:00* Test Item Value Reference Range Interpretation Comments Glucose Level (test code = VBB7213) 222 74-118 [facility] or plasma calcium measurement (mass/volume)2019-08-24 05:05:00* Test Item Value Reference Range Interpretation Comments Calcium Level (test code = 62559-2) 9.0 8.4-10.2 [facility] plasma total bilirubin measurement (mass/volume)2019-08-24 05:05:00* Test Item Value Reference Range Interpretation Comments Total Bilirubin (test code = 1975-2) 0.7 0.2-1.2 [facility] HospitalFluoroscopic procedure less than one hour zecpmmma5133-70-17 05:05:00* Test Item Value Reference Range Interpretation Comments Aspartate Amino Transf (AST/SGOT) (test code = Aspartate Amino Transf (AST/SGOT)) 20 5-34 [facility] or plasma alanine aminotransferase measurement (enzymatic activity/volume)2019-08-24 05:05:00* Test Item Value Reference Range Interpretation Comments Alanine Aminotransferase (ALT/SGPT) (test code = 1742-6) 34 0-55 [facility] or plasma protein measurement (mass/volume)2019-08-24 05:05:00* Test Item Value Reference Range Interpretation Comments Total Protein (test code = 2885-2) 6.5 6.5-8.1 [facility] plasma albumin measurement (mass/volume)2019-08-24 05:05:00* Test Item Value Reference Range Interpretation Comments Albumin (test code = 1751-7) 3.6 3.5-5.0 [facility] HospitalPlasma globulin measurement (mass/volume) 2019-08-24 05:05:00* Test Item Value Reference Range Interpretation Comments Globulin (test code = 70991-9) 2.9 2.3-3.5 [facility] or plasma albumin/globulin mass rauwy2671-27-29 05:05:00* Test Item Value Reference Range Interpretation Comments Albumin/Globulin Ratio (test code = 1759-0) 1.2 0.8-2.0 [facility] or plasma alkaline phosphatase measurement (enzymatic activity/volume)2019-08-24 05:05:00* Test Item Value Reference Range Interpretation Comments Alkaline Phosphatase (test code = 6768-6) 83 40-150 [facility] or plasma creatine kinase measurement (enzymatic activity/volume)2019-08-23 14:11:00* Test Item Value Reference Range Interpretation Comments Creatine Kinase (test code = 2157-6) 53 30-200 [facility] or plasma creatine kinase MB measurement (mass/volume)2019-08-23 14:11:00* Test Item Value Reference Range Interpretation Comments Creatine Kinase MB (test code = 81947-5) 2.40 0-5.0 [facility] I measurement by highly sensitive enzyme pdgssjyizws8493-53-03 14:11:00* Test Item Value Reference Range Interpretation Comments Troponin I (test code = 00073-7) 0.025 0-0.300 [facility]CT CHEST [id number] 23:44:00 [place] [address] Patient Name: KASSI MCNULTY MR #: [id number] : 1955 Age/Sex: 64/M Req #: [id number] Adm Physician: DIMA WELCH MD Ordered by: Holli Morel FILER FINISH Report #: [id number] Location: MED/SURG2 Room/Bed: [facility] Procedure: [id number] CT/CT CHEST W Exam Date: 08/22/19 Exam Time: 2315 REPORT STATUS: Signed CT chest pulmonary embolism protocol CPT code: 72816 INDICATION: pain, sob [id number] TECHNIQUE: Thin collimation axial images obtained through the level of the pulmonary arteries with additional imaging through the chest following the uneventful administration of 100 cc of low osmolar, nonionic intravenous c ontrast. Images reconstructed into coronal and sagittal MIPs for complete dash luation of the tortuous and overlapping pulmonary vascular structures and to r educe patient radiation dose. RADIATION DOSE: Total DLP: 621.8 mGy* cm Estimated effective dose: (DLP x 0.015 x size factor) mSv CTDIv ol has been reviewed. It is below the limits set by the Radiation Protocol Com mittee (RP). Dose reduction techniques used: Automated exposure control, a djustment of the mAs and/or kVp according to patient size, standardized low-do se protocol, and/or iterative reconstruction technique. COMPARISON: CTA c hest 08/13/2019. FINDINGS: Images are motion degraded. Pulmonary adrian ry: Main pulmonary artery measures 3.4 cm in diameter. No filling defects in t he main, left, right, lobar, or visualized segmental arteries to suggest embol us. Aorta: The thoracic aorta is not aneurysmal. There are calcifications throughout. Lymph nodes: No enlarged axillary, supraclavicular, mediasti nal, or hilar lymph nodes. There are calcified right hilar lymph nodes. T hyroid: Visualized portions are normal. Mediastinum: The heart is top pedro l in size. There are calcifications of the mitral valve and coronary arteries. No pericardial effusion. There is suggestion of a stent in the RCA. The esop hagus is collapsed. Lungs: Right Lung: Diffuse air trapping. No infil trates or soft tissue nodules. Calcified granulomata in the middle lobe. Trace amount of subsegmental atelectasis in the posterior costophrenic angle. Left Lung: Diffuse infiltrates. No infiltrates or nodules. Subsegmental atele ctasis in the lingula and posterior lower lobe. Airways: Mild tracheobronch omalacia. Pleura: No pleural effusion or pleural-based mass. Abdomen: The gallbladder is absent. A cyst in the body of the pancreas measures 1.1 cm and is stable. Cysts in the right kidney are stable. Low attenuating intracort ical lesion in the left kidney measures 5 Hounsfield units and 2.9 cm, suggest kanchan of a cyst. The spleen measures 14 cm in length. The attenuation is normal. Bones: Mild degenerative changes of the spine. Fusion hardware in the lower thoracic spine is partially imaged. No focal osseous lesions. IMPRESSION: 1. No evidence of pulmonary embolus. Enlarged main pulmonary artery sug gestive of pulmonary artery hypertension. 2. Diffuse air trapping sugges tive of COPD. Mild tracheobronchomalacia. 3. Stable pancreas and renal cyst s. 4. Splenomegaly. Signed by: Dr. Devi Mcnulty MD on 08/22/2019 1 1:56 PM Dictated By: DEVI MCNULTY MD 55 Transcribed By: CAROL on 08/22/192355 COPY TO: HOLLI MOREL NP Fluoroscopic procedure less than one hour hiygmvhs2904-11-40 17:53:00* Test Item Value Reference Range Interpretation Comments Coronavirus (PCR) (test code = Coronavirus (PCR)) NOT DETECTED NOTD ETECTED SARS-COV-2 (COVID19), HIGHRISK, RT-PCRNegative results do not preclude SARS-CoV- 2 infection and should not be used as the sole basis for patient management deci sions. Negative results must be combined with clinical observations, patient his tory, and epidemiological information. Optimum specimen types and timing for pea k viral levels during infections caused by SARS-CoV-2 have not been determined. Collection of multiple specimens ot types of specimens may be necessary to detec t virus. Improper specimen collection and handling, sequence variability under p rimers/probes, or organism present below the limit of detection may lead to fals e negative results. Positive and negative predictive values of testing are highl y dependent on prevalance. False negative test results are more likely when prev alence is high.The expected result is negative (not detected).The SARS-CoV-2 chriss t is intended for the qualitative detection of nucleic acid from SARS-CoV-2 in n asopharyngeal and oropharyngeal swab samples from patients who meet COVID-19 cli nical and or epidemiological criteria. For lower respiratory tract specimens, th e assay is submitted for authoriztion by FDA under an Emergency Use Authorizatio n (EUA). Testing methodology is real time RT-PCR. If received as separate collec tion devices, nasopharygeal and oropharyngeal specimens are combined for analysi s. Additional specimens may be split to a separate accession for analysi and rep orting as this test includes a single unit of service.Test results must be corre lated with clinical presentation and evaluated in the context of other laborator y and epidemiologic data. Test performance can be affected because the epidemiol ogy and clinical spectrum of infection caused by SARS-CoV-2 is not fully known. For example, the optimum types of specimens to collect and when during the cours e of infection these specimens are most likely to contain detectable viral RNA m ay not be known.This test has not been Food and Drug Administration (FDA) cleare d or approved and has been authorized by FDA under an Emergency Use Authorizatio n (EUA). The test is only authorized for the duration of the declaration that ci rcumstances exist justifying the authorization of emergency use of in vitro diag nostic tests for detection and/or diagnosis of SARS-CoV-2 under section 564(b) o f the Act, 21 U.S.C. section 360bbb-3(b)(1), unless the authorization is termina lester or revoked sooner. [facility] are certified under the C linical Laboratory Improvement Amendments of 1988 (CLIA), 42 U.S.C. section 263a , to perform high complexity tests.Testing performed by [facility] [id number] [place], [place] [phone] Director: Francis Bird M.D.CLIA # [id number] [facility] SINGLE (PORTABLE)2019-08-22 17:27:00 [place] [address] Patient Name: KASSI MCNULTY MR #: [id number] : 1955 Age/Sex: 64/M Req #: [id number] Adm Physician: DIMA WELCH MD Ordered by: SUELLEN TRAORE MD Report #: [id number] Location: MED/SURG2 Room/Bed: [facility] Procedure: [id number] DX/CHEST SINGLE (PORTABLE) Exam Date: 08/22/19 Exam Time: 1627 REPORT STATUS: Signed EXAMINATION: C HEST SINGLE (PORTABLE) INDICATION: SOB CP COMPARISON: CT chest and chest radiograph 08/13/2019. FINDINGS: TUBES and LINES: None. LUNGS: Lungs are moderately inflated. Mild patchy bibasilar opacitie s. No evidence of lobar consolidation or pulmonary edema. PLEURA: No ple ural effusion or pneumothorax. HEART AND MEDIASTINUM: The cardiomediastin al silhouette is unremarkable. There are atherosclerotic calcifications within the aorta. BONES AND SOFT TISSUES: No acute osseous lesion. Soft tissues are unremarkable. UPPER ABDOMEN: No free air under the diaphragm. IMPRESSION: Mild patchy bibasilar opacities, which may represent atelectasis or infection in the appropriate clinical setting. Signed by: Dr. Ghada Alexander MD on 08/22/2019 5:29 PM Dictated By: GHADA ALEXANDER MD [id number] Transcribed By: CAROL on 08/22/19 1 729 COPY TO: SUELLEN TRAORE MD Prothrombin time (PT) in platelet poor plasma by coagulation jkqjk7162-93-90 16:30:00* Test Item Value Reference Range Interpretation Comments Prothrombin Time (test code = 5902-2) 12.7 11.9-14.5 [facility]IN[facility] in Platelet poor plasma by Coagulation swygo9409-77-04 16:30:00* Test Item Value Reference Range Interpretation Comments Prothromb Time International Ratio (test code = 6301-6) 0.90 Oral Anticoagulant Therapy INR Values:1. Low Intensity Therapy 1.5 - 2.02 . Moderate Intensity Therapy 2.0 - 3.03. High Intensity Therapy(1) 2.5 - 3. 54. High Intensity Therapy(2) 3.0 - 4.05. Panic Value INR > 5.0 [facility] HospitalActivated partial thromboplastin time (aPTT) in platelet poor plasma by coagulation gglar0150-96-44 16:30:00* Test Item Value Reference Range Interpretation Comments Activated Partial Thromboplast Time (test code = 37382-8) 27.2 23.8-35.5 [facility] HospitalFibrin D-dimer DDU measurement in platelet poor plasma (mass/volume)2019-08-22 16:30:00* Test Item Value Reference Range Interpretation Comments D-Dimer Quantitative (PE/DVT) (test code = 75306-0) < 100 0- 400 The Triage D-Dimer Test has not been evaluated for use as sole evidence for the presence or absence of PE or DVT. As with all in vitro diagnostic tests, the te st results should be interpreted by the physician in conjunction with clinical f indings and other test results.Test results are reported in D-dimer units.[facility] magnesium measurement (mass/volume)2019-08-22 16:30:00* Test Item Value Reference Range Interpretation Comments Magnesium Level (test code = 58051-1) 1.4 1.3-2.1 [facility] HospitalBNP Yda-sFgm9490-03-07 16:30:00* Test Item Value Reference Range Interpretation Comments B-Type Natriuretic Peptide (test code = 99768-1) 58.4 0-100 [facility] HospitalCapillary blood glucose measurement by glucometer (mass/volume)2019-08-15 10:50:00* Test Item Value Reference Range Interpretation Comments Bedside Glucose (test code = 39004-0) 156 70-120 Meter ID: [id number] [facility] HospitalBlood leukocytes automated count (number/volume)2019-08-15 05:20:00* Test Item Value Reference Range Interpretation Comments White Blood Count (test code = 6690-2) 9.38 4.8-10.8 [facility] HospitalBlood erythrocytes automated count (number/volume)2019-08-15 05:20:00* Test Item Value Reference Range Interpretation Comments Red Blood Count (test code = 789-8) 5.52 4.3-5.7 [facility] HospitalBlood hemoglobin measurement (moles/volume)2019-08-15 05:20:00* Test Item Value Reference Range Interpretation Comments Hemoglobin (test code = 34494-4) 15.9 14.0-18.0 [facility] HospitalAutomated blood hematocrit (volume fraction)2019-08-15 05:20:00* Test Item Value Reference Range Interpretation Comments Hematocrit (test code = 4544-3) 49.0 38.2-49.6 [facility] HospitalAutomated erythrocyte mean corpuscular qrzxps2207-04-47 05:20:00* Test Item Value Reference Range Interpretation Comments Mean Corpuscular Volume (test code = 787-2) 88.8 81-99 [facility] HospitalAutomated erythrocyte mean corpuscular hemoglobin (mass per erythrocyte)2019-08-15 05:20:00* Test Item Value Reference Range Interpretation Comments Mean Corpuscular Hemoglobin (test code = 785-6) 28.8 28-32 [facility] HospitalAutomated erythrocyte mean corpuscular hemoglobin concentration measurement (mass/volume)2019-08-15 05:20:00* Test Item Value Reference Range Interpretation Comments Mean Corpuscular Hemoglobin Concent (test code = 786-4) 32.4 31-35 [facility] HospitalRDW RhqBh-Syv0636-42-31 05:20:00* Test Item Value Reference Range Interpretation Comments Red Cell Distribution Width (test code = 35953-3) 14.0 11.7 -14.4 [facility] HospitalAutomated blood platelet count (count/volume)2019-08-15 05:20:00* Test Item Value Reference Range Interpretation Comments Platelet Count (test code = 777-3) 207 140-360 [facility] HospitalAutomated blood segmented neutrophil count as percentage of total nrrtxunnqh9610-59-26 05:20:00* Test Item Value Reference Range Interpretation Comments Neutrophils (%) (Auto) (test code = 83073-1) 78.6 38.7-80.0 [facility] HospitalAutomated blood lymphocyte count as percentage ot total izrulmhtku6767-29-76 05:20:00* Test Item Value Reference Range Interpretation Comments Lymphocytes (%) (Auto) (test code = 736-9) 10.1 18.0-39.1 [facility] HospitalAutomated blood monocyte count as percentage of total lapkbcrpee8020-64-54 05:20:00* Test Item Value Reference Range Interpretation Comments Monocytes (%) (Auto) (test code = 5905-5) 7.5 4.4-11.3 [facility] HospitalAutomated blood eosinophil count as percentage of total iplfdfpxqo2642-60-22 05:20:00* Test Item Value Reference Range Interpretation Comments Eosinophils (%) (Auto) (test code = 713-8) 3.0 0.0-6.0 [facility] HospitalAutomated blood basophil count as percentage of total fcmazcyafi4807-46-40 05:20:00* Test Item Value Reference Range Interpretation Comments Basophils (%) (Auto) (test code = 706-2) 0.4 0.0-1.0 [facility] HospitalFluoroscopic procedure less than one hour ausngvxy7882-14-49 05:20:00* Test Item Value Reference Range Interpretation Comments IM GRANULOCYTES % (test code = IM GRANULOCYTES %) 0.4 0.0- 1.0 [facility] HospitalAutomated blood neutrophil count 2019-08-15 05:20:00* Test Item Value Reference Range Interpretation Comments Neutrophils # (Auto) (test code = 751-8) 7.4 2.1-6.9 [facility] HospitalBlood lymphocytes count (number/volume) 2019-08-15 05:20:00* Test Item Value Reference Range Interpretation Comments Lymphocytes # (Auto) (test code = 77020-3) 1.0 1.0-3.2 [facility] HospitalBlood monocytes automated count (number/volume)2019-08-15 05:20:00* Test Item Value Reference Range Interpretation Comments Monocytes # (Auto) (test code = 742-7) 0.7 0.2-0.8 [facility] HospitalAutomated blood eosinophil count 2019-08-15 05:20:00* Test Item Value Reference Range Interpretation Comments Eosinophils # (Auto) (test code = 711-2) 0.3 0.0-0.4 [facility] HospitalAutomated blood basophil count (count/volume)2019-08-15 05:20:00* Test Item Value Reference Range Interpretation Comments Basophils # (Auto) (test code = 704-7) 0.0 0.0-0.1 [facility] HospitalFluoroscopic procedure less than one hour dypqjwya9308-74-67 05:20:00* Test Item Value Reference Range Interpretation Comments Absolute Immature Granulocyte (auto (chriss t code = Absolute Immature Granulocyte (auto) 0.04 0-0.1 [facility] sodium measurement (moles/volume)2019-08-15 05:20:00* Test Item Value Reference Range Interpretation Comments Sodium Level (test code = 2951-2) 139 136-145 [facility] potassium measurement (moles/volume)2019-08-15 05:20:00* Test Item Value Reference Range Interpretation Comments Potassium Level (test code = 2823-3) 3.3 3.5-5.1 [facility] chloride measurement (moles/volume)2019-08-15 05:20:00* Test Item Value Reference Range Interpretation Comments Chloride Level (test code = 2075-0) 101 98-107 [facility] plasma carbon dioxide, total measurement (moles/volume)2019-08-15 05:20:00* Test Item Value Reference Range Interpretation Comments Carbon Dioxide Level (test code = 2028-9) 28 22-29 [facility] plasma anion iqg8535-21-38 05:20:00* Test Item Value Reference Range Interpretation Comments Anion Gap (test code = 06438-3) 13.3 8-16 [facility] plasma urea nitrogen measurement (mass/volume)2019-08-15 05:20:00* Test Item Value Reference Range Interpretation Comments Blood Urea Nitrogen (test code = 3094-0) 10 7-26 [facility] plasma creatinine measurement (mass/volume)2019-08-15 05:20:00* Test Item Value Reference Range Interpretation Comments Creatinine (test code = 2160-0) 0.84 0.72-1.25 [facility] plasma urea nitrogen/creatinine mass mebpt0677-97-08 05:20:00* Test Item Value Reference Range Interpretation Comments BUN/Creatinine Ratio (test code = 3097-3) 12 6- [facility] HospitalEstimated glomerular filtration rate (GFR) dfagmjidlgfdj6085-37-19 05:20:00* Test Item Value Reference Range Interpretation Comments Estimat Glomerular Filtration Rate (test code = 030853589) > 60 >60 Ranges were taken from the National Kidney Disease Education Program and the [facility] literature.Reference ranges:60 or greater: Eokhzy63-85 ( for 3 consecutive months): Chronic kidney disease 15 or less: Kidney failureRio Grande Regional HospitalGlucose gctgpbzfgwf9445-85-12 05:20:00* Test Item Value Reference Range Interpretation Comments Glucose Level (test code = BKM2180) 113 74-118 [facility] plasma calcium measurement (mass/volume)2019-08-15 05:20:00* Test Item Value Reference Range Interpretation Comments Calcium Level (test code = 09966-6) 9.0 8.4-10.2 [facility] magnesium measurement (mass/volume)2019-08-15 05:20:00* Test Item Value Reference Range Interpretation Comments Magnesium Level (test code = 63696-4) 1.4 1.3-2.1 [facility] plasma total bilirubin measurement (mass/volume)2019-08-15 05:20:00* Test Item Value Reference Range Interpretation Comments Total Bilirubin (test code = 1975-2) 0.9 0.2-1.2 [facility] HospitalFluoroscopic procedure less than one hour xlzktfcw8728-98-35 05:20:00* Test Item Value Reference Range Interpretation Comments Aspartate Amino Transf (AST/SGOT) (test code = Aspartate Amino Transf (AST/SGOT)) 22 5-34 [facility] plasma alanine aminotransferase measurement (enzymatic activity/volume)2019-08-15 05:20:00* Test Item Value Reference Range Interpretation Comments Alanine Aminotransferase (ALT/SGPT) (test code = 1742-6) 36 0-55 [facility] plasma protein measurement (mass/volume)2019-08-15 05:20:00* Test Item Value Reference Range Interpretation Comments Total Protein (test code = 2885-2) 5.9 6.5-8.1 [facility] albumin measurement (mass/volume)2019-08-15 05:20:00* Test Item Value Reference Range Interpretation Comments Albumin (test code = 1751-7) 3.5 3.5-5.0 [facility] HospitalPlasma globulin measurement (mass/volume) 2019-08-15 05:20:00* Test Item Value Reference Range Interpretation Comments Globulin (test code = 46756-3) 2.4 2.3-3.5 [facility] plasma albumin/globulin mass sjcwk1214-93-49 05:20:00* Test Item Value Reference Range Interpretation Comments Albumin/Globulin Ratio (test code = 1759-0) 1.5 0.8-2.0 [facility] alkaline phosphatase measurement (enzymatic activity/volume)2019-08-15 05:20:00* Test Item Value Reference Range Interpretation Comments Alkaline Phosphatase (test code = 6768-6) 78 40-150 [facility] HospitalCT ABDOMEN/PELVIS Y4796-13-87 19:37:00 [facility] [address] [place] [address] Patient Name: KASSI MCNULTY MR #: [id number] : 1955 Age/Sex: 64/M Req #: [id number] Adm Physician: DIMA WELCH MD Ordered by: Holli Morel NP Report #: [id number] Location: MED/SURG Room/Bed: [facility] Procedure: [id number] CT/CT ABDOMEN/P LIZZY W Exam Date: 08/14/19 Exam Time: 1825 REPORT STATUS: Signed EXAM: CT Abdomen a nd Pelvis WITH contrast INDICATION: Abdominal pain COMPARISON: Abdom inal CT 10/29/2018. TECHNIQUE: Abdomen and pelvis were scanned utilizing a Flare3dt Say-Heytector helical scanner from the lung base to the pubic symphysis after admi nistration of IV contrast. Coronal and sagittal reformations were obtained. Ro utine protocol was performed. Scan was performed when during portal venous pha se. IV CONTRAST: 100 mL of Isovue 370 ORAL CONTRAST: None COMPLICATIONS: None RADIATION DOSE: Total DLP: 881 mGy* cm Estimated effective dose: (DLP x 0.015 x size factor) mSv CTDIv ol has been reviewed. It is below the limits set by the Radiation Protocol Com mittee (RPC). Dose modulation, iterative reconstruction, and/or weight ba sed adjustment of the mA/kV was utilized to reduce the radiation dose to as lo w as reasonably achievable. FINDINGS: LINES and TUBES: None. L OWER THORAX: Dense triple vessel coronary artery calcific atherosclerosis and mitral valve calcific disease. Borderline cardiomegaly. HEPATOBILIARY: No focal hepatic lesions. No biliary ductal dilation. GALLBLADDER: There are cholecystectomy clips. SPLEEN: No splenomegaly. PANCREAS: No focal masses or ductal dilatation. A 1.1 cm pancreatic body round hypodensity (seri es 2 image 35) similar compared to 10/29/2018. ADRENALS: No adrenal nodules KIDNEYS/URETERS: Kidneys enhance symmetrically. No hydronephrosis. No solid mass lesions. No stones. Simple bilateral renal cysts, similar compared to a 2018. GI TRACT: No abnormal distention, wall thickening, or ev idence of bowel obstruction. Appendix is not seen, no evidence of append icitis. PELVIC ORGANS/BLADDER: Increased radiodensity of contents withi n the urinary bladder lumen is likely due to urinary contrast excretion from r ecent contrast-enhanced CT. Mild prostatomegaly. LYMPH NODES: No lymphade nopathy. VESSELS: Vascular calcifications. PERITONEUM / RETROPERIT ONEUM: No free air or fluid. BONES: Fixation screws in the left pelvis appe ar intact.. Degenerative changes. SOFT TISSUES: There are fat containing in guinal hernias. IMPRESSION: 1. Dense triple vessel coron delfina artery calcific atherosclerosis and mitral valve calcific disease. 2. 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 Recommend follow-up contrast enhanced panc reas MRI/MRCP in 3 months. Signed by: Fred Gipson DO on 08/14/2019 7:46 PM Dictated By: FRED GIPSON DO 45 Transcribed By: CAROL on 08/14/191945 COPY TO: HOLLI MOREL NP Serum or plasma creatine kinase measurement (enzymatic activity/volume)2019-08-14 14:20:00* Test Item Value Reference Range Interpretation Comments Creatine Kinase (test code = 2157-6) 69 30-200 [facility] creatine kinase MB measurement (mass/volume)2019-08-14 14:20:00* Test Item Value Reference Range Interpretation Comments Creatine Kinase MB (test code = 13252-1) 2.90 0-5.0 [facility] HospitalTroponin I measurement by highly sensitive enzyme dcgljpuryda4313-55-09 14:20:00* Test Item Value Reference Range Interpretation Comments Troponin I (test code = 13411-9) 0.035 0-0.300 [facility] HospitalClostridium difficile A and B toxin assay 2019-08-14 11:40:00* Test Item Value Reference Range Interpretation Comments Clostridium Difficile Toxin A & B (test code = 706135101) NEGATIVE NEGATIVE Testing on stool aspirate specimens is outside gamer claims since specime n type not validated on this assay.[facility] Clostridium difficile A and B toxin xtjau7312-11-48 11:40:00* Test Item Value Reference Range Interpretation Comments Clostridium Difficile Toxin A & B (test code = 716579482) NEGATIVE NEGATIVE Testing on stool aspirate specimens is outside gamer claims since specime n type not validated on this assay.[facility] Fluoroscopic procedure less than one hour nkkrujks0655-72-22 05:45:00* Test Item Value Reference Range Interpretation Comments Hemoglobin A1c Percent (test code = Hemoglobin A1c Percent) 6.2 4.0-7.0 [facility] plasma thyrotropin measurement by detection limit <= 0.005 miu/l (units/volume)2019-08-14 05:45:00* Test Item Value Reference Range Interpretation Comments Thyroid Stimulating Hormone (TSH) (test code = 78331-5) 0.860 0.350-4.940 [facility] HospitalFluoroscopic procedure less than one hour mgnyklwe8624-16-86 05:45:00* Test Item Value Reference Range Interpretation Comments Hemoglobin A1c Percent (test code = Hemoglobin A1c Percent) 6.2 4.0-7.0 [facility] plasma thyrotropin measurement by detection limit <= 0.005 miu/l (units/volume)2019-08-14 05:45:00* Test Item Value Reference Range Interpretation Comments Thyroid Stimulating Hormone (TSH) (test code = 50550-0) 0.860 0.350-4.940 [facility] color kapmfgsrarrdk5132-45-68 01:32:00* Test Item Value Reference Range Interpretation Comments Urine Color (test code = 5778-6) YELLOW YELLOW [facility] vbpkpdg8943-90-93 01:32:00* Test Item Value Reference Range Interpretation Comments Urine Clarity (test code = 59583-6) CLEAR CLEAR [facility] gravity of Urine by Test strip 2019-08-14 01:32:00* Test Item Value Reference Range Interpretation Comments Urine Specific [place] (test code = 5811-5) 1.020 1.010-1.02 5 [facility] pH measurement by automated test mnmji3380-75-01 01:32:00* Test Item Value Reference Range Interpretation Comments Urine pH (test code = 13923-7) 7 5-7 [facility] leukocyte esterase detection by qtfzjmxl8579-71-55 01:32:00* Test Item Value Reference Range Interpretation Comments Urine Leukocyte Esterase (test code = 5799-2) NEGATIVE NEGATIVE [facility] nitrite hlbnkzzcq7536-76-66 01:32:00* Test Item Value Reference Range Interpretation Comments Urine Nitrite (test code = 87029-7) NEGATIVE NEGATIVE [facility] protein measurement by test strip (mass/volume)2019-08-14 01:32:00* Test Item Value Reference Range Interpretation Comments Urine Protein (test code = 5804-0) NEGATIVE NEGATIVE [facility] glucose liqdcihzk9691-90-89 01:32:00* Test Item Value Reference Range Interpretation Comments Urine Glucose (UA) (test code = 2349-9) NEGATIVE NEGATIVE [facility] ketones detection by automated test vcaxh3338-09-12 01:32:00* Test Item Value Reference Range Interpretation Comments Urine Ketones (test code = 79108-7) NEGATIVE NEGATIVE [facility] urobilinogen measurement by test strip (mass/volume)2019-08-14 01:32:00* Test Item Value Reference Range Interpretation Comments Urine Urobilinogen (test code = 09416-0) 0.2 0.2-1 [facility] total bilirubin measurement (mass/volume)2019-08-14 01:32:00* Test Item Value Reference Range Interpretation Comments Urine Bilirubin (test code = 1978-6) NEGATIVE NEGATIVE [facility] erythrocytes gxjqhyiwm1957-60-50 01:32:00* Test Item Value Reference Range Interpretation Comments Urine Blood (test code = 88113-0) NEGATIVE NEGATIVE [facility] HospitalAutomated urine sediment leukocyte count by microscopy (number/high power field)2019-08-14 01:32:00* Test Item Value Reference Range Interpretation Comments Urine WBC (test code = 5821-4) 0-5 0-5 [facility] HospitalErythrocytes detection in urine sediment by light jqfphbfsjd1540-97-69 01:32:00* Test Item Value Reference Range Interpretation Comments Urine RBC (test code = 34501-2) NONE 0-5 [facility] HospitalBacteria detection in urine sediment by light rsynwokjkb5333-03-92 01:32:00* Test Item Value Reference Range Interpretation Comments Urine Bacteria (test code = 28679-6) FEW NONE [facility] HospitalEpithelial cells detection in urine sediment by light pqjmvoyxgg3960-91-98 01:32:00* Test Item Value Reference Range Interpretation Comments Urine Epithelial Cells (test code = 66509-2) FEW NONE [facility] HospitalU[facility] color etwyjgcufnejt6572-52-98 01:32:00* Test Item Value Reference Range Interpretation Comments Urine Color (test code = 5778-6) YELLOW YELLOW [facility] Hospital[facility] ephgxjm5059-24-87 01:32:00* Test Item Value Reference Range Interpretation Comments Urine Clarity (test code = 29720-3) CLEAR CLEAR [facility] of Urine by Test strip 2019-08-14 01:32:00* Test Item Value Reference Range Interpretation Comments Urine Specific [place] (test code = 5811-5) 1.020 1.010-1.02 5 [facility] pH measurement by automated test mldxk9900-92-02 01:32:00* Test Item Value Reference Range Interpretation Comments Urine pH (test code = 60582-6) 7 5-7 [facility] leukocyte esterase detection by esuqpwzo1502-35-29 01:32:00* Test Item Value Reference Range Interpretation Comments Urine Leukocyte Esterase (test code = 5799-2) NEGATIVE NEGATIVE [facility] nitrite sjcvxzhkn0989-83-98 01:32:00* Test Item Value Reference Range Interpretation Comments Urine Nitrite (test code = 96161-7) NEGATIVE NEGATIVE [facility] protein measurement by test strip (mass/volume)2019-08-14 01:32:00* Test Item Value Reference Range Interpretation Comments Urine Protein (test code = 5804-0) NEGATIVE NEGATIVE [facility] glucose qgeihiipw0427-66-76 01:32:00* Test Item Value Reference Range Interpretation Comments Urine Glucose (UA) (test code = 2349-9) NEGATIVE NEGATIVE [facility] ketones detection by automated test pzhrn0157-67-11 01:32:00* Test Item Value Reference Range Interpretation Comments Urine Ketones (test code = 66736-9) NEGATIVE NEGATIVE [facility] urobilinogen measurement by test strip (mass/volume)2019-08-14 01:32:00* Test Item Value Reference Range Interpretation Comments Urine Urobilinogen (test code = 40744-3) 0.2 0.2-1 [facility] total bilirubin measurement (mass/volume)2019-08-14 01:32:00* Test Item Value Reference Range Interpretation Comments Urine Bilirubin (test code = 1978-6) NEGATIVE NEGATIVE [facility] HospitalU[facility] erythrocytes oidktxnhx5276-45-97 01:32:00* Test Item Value Reference Range Interpretation Comments Urine Blood (test code = 18006-5) NEGATIVE NEGATIVE [facility] HospitalAutomated urine sediment leukocyte count by microscopy (number/high power field)2019-08-14 01:32:00* Test Item Value Reference Range Interpretation Comments Urine WBC (test code = 5821-4) 0-5 0-5 [facility] HospitalErythrocytes detection in urine sediment by light icjodcyfhe8258-94-21 01:32:00* Test Item Value Reference Range Interpretation Comments Urine RBC (test code = 96590-8) NONE 0-5 [facility] HospitalBacteria detection in urine sediment by light queulpqyeq9124-01-87 01:32:00* Test Item Value Reference Range Interpretation Comments Urine Bacteria (test code = 44589-8) FEW NONE [facility] HospitalEpithelial cells detection in urine sediment by light tgwvdpyvsw9387-06-78 01:32:00* Test Item Value Reference Range Interpretation Comments Urine Epithelial Cells (test code = 93834-0) FEW NONE [facility] HospitalCT CHEST Z6573-06-64 18:21:00 [facility] [address] [place] [address] Patient Name: KASSI MCNULTY MR #: [id number] : 1955 Age/Sex: 64/M Req #: [id number] Adm Physician: Ordered by: BRIAN PAINTING FILER FINISH Report #: [id number] Location: ER Room/Bed: Procedure: [id number] CT/CT CHEST W Exam Date: 08/13/19 Exam Time: 1807 REPORT STATUS: Signed EXAMINATION: CT scan of the chest with contrast. TECHNIQUE: Helical CT images of the chest were perf ormed from the lung apices to the level of the adrenal glands after the intrav enous administration of 100 cc of Isovue 300. Coronal and sagittal reformatte d images were obtained. Dose modulation, iterative reconstruction, and/or weig ht based adjustment of the mA/kV was utilized to reduce the radiation dose to as low as reasonably achievable. COMPARISON: None. CLINICAL HISTORY :Chest pain DISCUSSION: LINES/TUBES: None. LUNGS AND AIRWAYS: A telectasis in the lung bases. No concerning mass or consolidation. No pulmona ry blood. PLEURA: No pneumothorax or pleural effusions. HEART AND ME DIASTINUM: The thyroid gland is normal. The heart is mildly enlarged. The ma in pulmonary artery is enlarged measuring approximate 4 cm. Aortic calcificati ons. LYMPH NODES: There is no mediastinal, hilar or axillary lymphadenopath y. ABDOMEN: Simple cyst in the kidneys. BONES AND SOFT TISSUES: No acu te bony abnormalities. IMPRESSION: Enlargement of the main pulmonary artery can be seen in pulmonary artery hypertension. No pulmonary embolis m. Signed by: Dr. Dl Felix M.D. on 08/13/2019 6:26 PM Dictated By: DL FELIX MD 25 COPY TO: IVIS PAINTING NP CHEST SINGLE (NOT PORTABLE)2019-08-13 18:15:00 [facility] [address] [place] [address] Patient Name: KASSI MCNULTY MR #: [id number] : 1955 Age/Sex: 64/M Req #: [id number] Adm Physician: Ordered by: BRIAN PAINTING FILER FINISH Report #: [id number] Location: ER Room/Bed: Procedure: [id number] DX/CHEST SINGL E (NOT PORTABLE) Exam Date: 08/13/19 Exam Time: 1755 REPORT STATUS: Signed Examinati on: Single AP view of the chest. COMPARISON: None. INDICATION: Chest p ain DISCUSSION: Lines/tubes: None. Lungs: The lungs are we ll inflated and clear. No pneumonia or pulmonary edema. Pleura: No pleural effusion or pneumothorax. Heart and mediastinum: The heart and the medias tinum are unremarkable. Bones and soft tissues: No acute bony abnormalitie s. IMPRESSION: 1. No acute cardiopulmonary abnormalities. Signed by: Dr. Dl Felix M.D. on 08/13/2019 6:16 PM Dictated By: AMEE FELIX MD Transcribed By: CAROL on 08/13/191815 COPY TO: BRIAN PAINTING NP Prothrombin time (PT) in platelet poor plasma by coagulation assay 2019-08-13 17:08:00* Test Item Value Reference Range Interpretation Comments Prothrombin Time (test code = 5902-2) 13.4 11.9-14.5 [facility] poor plasma by Coagulation wthwp7355-07-05 17:08:00* Test Item Value Reference Range Interpretation Comments Prothromb Time International Ratio (test code = 6301-6) 0.96 Oral Anticoagulant Therapy INR Values:1. Low Intensity Therapy 1.5 - 2.02 . Moderate Intensity Therapy 2.0 - 3.03. High Intensity Therapy(1) 2.5 - 3. 54. High Intensity Therapy(2) 3.0 - 4.05. Panic Value INR > 5.0 [facility] HospitalActivated partial thromboplastin time (aPTT) in platelet poor plasma by coagulation vccbq3900-31-61 17:08:00* Test Item Value Reference Range Interpretation Comments Activated Partial Thromboplast Time (test code = 01622-4) 28.0 23.8-35.5 [facility] HospitalBNP Pzu-uMcl2871-09-29 17:08:00* Test Item Value Reference Range Interpretation Comments B-Type Natriuretic Peptide (test code = 87935-7) 25.6 0-100 [facility] lipase measurement (enzymatic activity/volume)2019-08-13 17:08:00* Test Item Value Reference Range Interpretation Comments Lipase (test code = 3040-3) 69 8-78 [facility] plasma lipase measurement (enzymatic activity/volume)2019-08-13 17:08:00* Test Item Value Reference Range Interpretation Comments Lipase (test code = 3040-3) 69 8-78 [facility] HospitalCapillary blood glucose measurement by glucometer (mass/volume)2019-07-31 13:09:00* Test Item Value Reference Range Interpretation Comments Bedside Glucose (test code = 32237-4) 177 70-120 Meter ID: [id number] Grande [facility] HospitalBlood leukocytes automated count (number/volume)2019-07-31 05:00:00* Test Item Value Reference Range Interpretation Comments White Blood Count (test code = 6690-2) 10.01 4.8-10.8 [facility] HospitalBlood erythrocytes automated count (number/volume)2019-07-31 05:00:00* Test Item Value Reference Range Interpretation Comments Red Blood Count (test code = 789-8) 5.36 4.3-5.7 [facility] HospitalBlood hemoglobin measurement (moles/volume)2019-07-31 05:00:00* Test Item Value Reference Range Interpretation Comments Hemoglobin (test code = 92392-7) 15.1 14.0-18.0 [facility] HospitalAutomated blood hematocrit (volume fraction)2019-07-31 05:00:00* Test Item Value Reference Range Interpretation Comments Hematocrit (test code = 4544-3) 47.0 38.2-49.6 [facility] HospitalAutomated erythrocyte mean corpuscular tnbyki6831-01-79 05:00:00* Test Item Value Reference Range Interpretation Comments Mean Corpuscular Volume (test code = 787-2) 87.7 81-99 [facility] HospitalAutomated erythrocyte mean corpuscular hemoglobin (mass per erythrocyte)2019-07-31 05:00:00* Test Item Value Reference Range Interpretation Comments Mean Corpuscular Hemoglobin (test code = 785-6) 28.2 28-32 [facility] HospitalAutomated erythrocyte mean corpuscular hemoglobin concentration measurement (mass/volume)2019-07-31 05:00:00* Test Item Value Reference Range Interpretation Comments Mean Corpuscular Hemoglobin Concent (test code = 786-4) 32.1 31-35 [facility] HospitalRDW KpiCi-Baq5342-21-16 05:00:00* Test Item Value Reference Range Interpretation Comments Red Cell Distribution Width (test code = 60742-8) 14.2 11.7 -14.4 [facility] HospitalAutomated blood platelet count (count/volume)2019-07-31 05:00:00* Test Item Value Reference Range Interpretation Comments Platelet Count (test code = 777-3) 196 140-360 [facility] count as percentage of total osywjswysb5697-02-85 05:00:00* Test Item Value Reference Range Interpretation Comments Neutrophils (%) (Auto) (test code = 72732-5) 79.4 38.7-80.0 [facility] HospitalAutomated blood lymphocyte count as percentage ot total nfrqrzhrmd0354-44-92 05:00:00* Test Item Value Reference Range Interpretation Comments Lymphocytes (%) (Auto) (test code = 736-9) 7.2 18.0-39.1 [facility] HospitalAutomated blood monocyte count as percentage of total okjwengpcx8132-87-11 05:00:00* Test Item Value Reference Range Interpretation Comments Monocytes (%) (Auto) (test code = 5905-5) 10.0 4.4-11.3 [facility] HospitalAutomated blood eosinophil count as percentage of total aqsbdklzrp2612-27-87 05:00:00* Test Item Value Reference Range Interpretation Comments Eosinophils (%) (Auto) (test code = 713-8) 2.5 0.0-6.0 [facility] HospitalAutomated blood basophil count as percentage of total flomlmmcca2079-16-34 05:00:00* Test Item Value Reference Range Interpretation Comments Basophils (%) (Auto) (test code = 706-2) 0.5 0.0-1.0 [facility] HospitalFluoroscopic procedure less than one hour hndvoypf6882-31-47 05:00:00* Test Item Value Reference Range Interpretation Comments IM GRANULOCYTES % (test code = IM GRANULOCYTES %) 0.4 0.0- 1.0 [facility] HospitalAutomated blood neutrophil count 2019-07-31 05:00:00* Test Item Value Reference Range Interpretation Comments Neutrophils # (Auto) (test code = 751-8) 8.0 2.1-6.9 [facility] HospitalBlood lymphocytes count (number/volume) 2019-07-31 05:00:00* Test Item Value Reference Range Interpretation Comments Lymphocytes # (Auto) (test code = 45383-2) 0.7 1.0-3.2 [facility] HospitalBlood monocytes automated count (number/volume)2019-07-31 05:00:00* Test Item Value Reference Range Interpretation Comments Monocytes # (Auto) (test code = 742-7) 1.0 0.2-0.8 [facility] HospitalAutomated blood eosinophil count 2019-07-31 05:00:00* Test Item Value Reference Range Interpretation Comments Eosinophils # (Auto) (test code = 711-2) 0.3 0.0-0.4 [facility] HospitalAutomated blood basophil count (count/volume)2019-07-31 05:00:00* Test Item Value Reference Range Interpretation Comments Basophils # (Auto) (test code = 704-7) 0.1 0.0-0.1 [facility] HospitalFluoroscopic procedure less than one hour vchgeakk7806-10-19 05:00:00* Test Item Value Reference Range Interpretation Comments Absolute Immature Granulocyte (auto (chrsis t code = Absolute Immature Granulocyte (auto) 0.04 0-0.1 [facility] plasma sodium measurement (moles/volume)2019-07-31 05:00:00* Test Item Value Reference Range Interpretation Comments Sodium Level (test code = 2951-2) 138 136-145 [facility] plasma potassium measurement (moles/volume)2019-07-31 05:00:00* Test Item Value Reference Range Interpretation Comments Potassium Level (test code = 2823-3) 3.5 3.5-5.1 [facility] or plasma chloride measurement (moles/volume)2019-07-31 05:00:00* Test Item Value Reference Range Interpretation Comments Chloride Level (test code = 2075-0) 101 98-107 [facility] or plasma carbon dioxide, total measurement (moles/volume)2019-07-31 05:00:00* Test Item Value Reference Range Interpretation Comments Carbon Dioxide Level (test code = 2028-9) 28 22-29 [facility] or plasma anion lik1069-81-66 05:00:00* Test Item Value Reference Range Interpretation Comments Anion Gap (test code = 28035-8) 12.5 8-16 [facility] or plasma urea nitrogen measurement (mass/volume)2019-07-31 05:00:00* Test Item Value Reference Range Interpretation Comments Blood Urea Nitrogen (test code = 3094-0) 9 7-26 [facility] or plasma creatinine measurement (mass/volume)2019-07-31 05:00:00* Test Item Value Reference Range Interpretation Comments Creatinine (test code = 2160-0) 0.77 0.72-1.25 [facility] or plasma urea nitrogen/creatinine mass upvot4281-09-92 05:00:00* Test Item Value Reference Range Interpretation Comments BUN/Creatinine Ratio (test code = 3097-3) 12 6-25 [facility] HospitalEstimated glomerular filtration rate (GFR) brktlgvxyztwa1818-05-57 05:00:00* Test Item Value Reference Range Interpretation Comments Estimat Glomerular Filtration Rate (test code = 349629038) > 60 >60 Ranges were taken from the National Kidney Disease Education Program and the [facility] literature.Reference ranges:60 or greater: Vlfjoo50-13 ( for 3 consecutive months): Chronic kidney disease 15 or less: Kidney failureRio Grande Regional HospitalGlucose zkhnapvhmui6893-57-17 05:00:00* Test Item Value Reference Range Interpretation Comments Glucose Level (test code = LDA0988) 127 74-118 [facility] or plasma calcium measurement (mass/volume)2019-07-31 05:00:00* Test Item Value Reference Range Interpretation Comments Calcium Level (test code = 91381-6) 8.7 8.4-10.2 [facility] HospitalPhosphorus ytirvsnbojd4313-52-52 05:00:00 * Test Item Value Reference Range Interpretation Comments Phosphorus Level (test code = OVM3854) 2.5 2.3-4.7 [facility] or plasma magnesium measurement (mass/volume)2019-07-31 05:00:00* Test Item Value Reference Range Interpretation Comments Magnesium Level (test code = 96276-7) 1.4 1.3-2.1 [facility] or plasma triglyceride measurement (mass/volume)2019-07-31 05:00:00* Test Item Value Reference Range Interpretation Comments Triglycerides Level (test code = 2571-8) 51 0-149 [facility] or plasma cholesterol measurement (mass/volume)2019-07-31 05:00:00* Test Item Value Reference Range Interpretation Comments Cholesterol Level (test code = 2093-3) 89 0-199 Less than 200 mg/dL Low Txmt644 - 239 mg/dL Borderline Wijq312 m g/dl and greater High Risk [facility] or plasma cholesterol in LDL measurement (mass/volume) 2019-07-31 05:00:00* Test Item Value Reference Range Interpretation Comments LDL Cholesterol (test code = 2089-1) 45 60-130 [facility] or plasma cholesterol in HDL measurement (mass/volume)2019-07-31 05:00:00* Test Item Value Reference Range Interpretation Comments HDL Cholesterol (test code = 2085-9) 34 40-60 [facility] or plasma total cholesterol/cholesterol in HDL mass mmsqt8051-80-25 05:00:00* Test Item Value Reference Range Interpretation Comments Cholesterol/HDL Ratio (test code = 9830-1) 2.6 3.9-4.7 [facility] HospitalPhosphorus ohflluhmtgi5764-21-24 05:00:00 * Test Item Value Reference Range Interpretation Comments Phosphorus Level (test code = HZO2022) 2.5 2.3-4.7 [facility] plasma triglyceride measurement (mass/volume)2019-07-31 05:00:00* Test Item Value Reference Range Interpretation Comments Triglycerides Level (test code = 2571-8) 51 0-149 [facility] or plasma cholesterol measurement (mass/volume)2019-07-31 05:00:00* Test Item Value Reference Range Interpretation Comments Cholesterol Level (test code = 2093-3) 89 0-199 Less than 200 mg/dL Low Oyxr801 - 239 mg/dL Borderline Mqbi925 m g/dl and greater High Risk [facility] cholesterol in LDL measurement (mass/volume) 2019-07-31 05:00:00* Test Item Value Reference Range Interpretation Comments LDL Cholesterol (test code = 2089-1) 45 60-130 [facility] or plasma cholesterol in HDL measurement (mass/volume)2019-07-31 05:00:00* Test Item Value Reference Range Interpretation Comments HDL Cholesterol (test code = 2085-9) 34 40-60 [facility] plasma total cholesterol/cholesterol in HDL mass hwugx4258-08-59 05:00:00* Test Item Value Reference Range Interpretation Comments Cholesterol/HDL Ratio (test code = 9830-1) 2.6 3.9-4.7 [facility] HospitalPhosphorus zyiedvsmhog6405-72-27 05:00:00 * Test Item Value Reference Range Interpretation Comments Phosphorus Level (test code = UFW4354) 2.5 2.3-4.7 [facility] plasma triglyceride measurement (mass/volume)2019-07-31 05:00:00* Test Item Value Reference Range Interpretation Comments Triglycerides Level (test code = 2571-8) 51 0-149 [facility] or plasma cholesterol measurement (mass/volume)2019-07-31 05:00:00* Test Item Value Reference Range Interpretation Comments Cholesterol Level (test code = 2093-3) 89 0-199 Less than 200 mg/dL Low Yjrp914 - 239 mg/dL Borderline Khjr789 m g/dl and greater High Risk [facility] cholesterol in LDL measurement (mass/volume) 2019-07-31 05:00:00* Test Item Value Reference Range Interpretation Comments LDL Cholesterol (test code = 2089-1) 45 60-130 [facility] or plasma cholesterol in HDL measurement (mass/volume)2019-07-31 05:00:00* Test Item Value Reference Range Interpretation Comments HDL Cholesterol (test code = 2085-9) 34 40-60 [facility] or plasma total cholesterol/cholesterol in HDL mass hznyi0237-15-49 05:00:00* Test Item Value Reference Range Interpretation Comments Cholesterol/HDL Ratio (test code = 9830-1) 2.6 3.9-4.7 [facility] plasma creatine kinase measurement (enzymatic activity/volume)2019-07-30 16:40:00* Test Item Value Reference Range Interpretation Comments Creatine Kinase (test code = 2157-6) 105 30-200 [facility] or plasma creatine kinase MB measurement (mass/volume)2019-07-30 16:40:00* Test Item Value Reference Range Interpretation Comments Creatine Kinase MB (test code = 37171-9) 3.80 0-5.0 [facility] HospitalTroponin I measurement by highly sensitive enzyme iczqaymanhr0723-00-98 16:40:00* Test Item Value Reference Range Interpretation Comments Troponin I (test code = 85336-0) 0.022 0-0.300 [facility] HospitalCHES SINGLE (PORTABLE)2019-07-30 01:42:00 [facility] [address] [place] [address] Patient Name: KASSI MCNULTY MR #: [id number] : 1955 Age/Sex: 64/M Req #: [id number] Adm Physician: DIMA WELCH MD Ordered by: VON ACHARYA MD Report #: [id number] Location: MED/SURG Room/Bed: [facility] Procedure: [id number] DX/CHEST SINGLE (PORTABLE) Exam Date: 07/30/19 Exam [...] (PT) in platelet poor plasma by coagulation wuvrr0424-45-86 00:35:00* Test Item Value Reference Range Interpretation Comments Prothrombin Time (test code = 5902-2) 13.0 11.9-14.5 [facility] HospitalINR in Platelet poor plasma by Coagulation kmcnw6193-68-88 00:35:00* Test Item Value Reference Range Interpretation Comments Prothromb Time International Ratio (test code = 6301-6) 0.93 Oral Anticoagulant Therapy INR Values:1. Low Intensity Therapy 1.5 - 2.02 . Moderate Intensity Therapy 2.0 - 3.03. High Intensity Therapy(1) 2.5 - 3. 54. High Intensity Therapy(2) 3.0 - 4.05. Panic Value INR > 5.0 [facility] HospitalActivated partial thromboplastin time (aPTT) in platelet poor plasma by coagulation pgnaj0316-73-46 00:35:00* Test Item Value Reference Range Interpretation Comments Activated Partial Thromboplast Time (test code = 58274-8) 29.2 23.8-35.5 [facility] total bilirubin measurement (mass/volume)2019-07-30 00:35:00* Test Item Value Reference Range Interpretation Comments Total Bilirubin (test code = 1975-2) 0.9 0.2-1.2 [facility] HospitalFluoroscopic procedure less than one hour pstqymmx2910-17-76 00:35:00* Test Item Value Reference Range Interpretation Comments Aspartate Amino Transf (AST/SGOT) (test code = Aspartate Amino Transf (AST/SGOT)) 17 5-34 [facility] or plasma alanine aminotransferase measurement (enzymatic activity/volume)2019-07-30 00:35:00* Test Item Value Reference Range Interpretation Comments Alanine Aminotransferase (ALT/SGPT) (test code = 1742-6) 26 0-55 [facility] or plasma protein measurement (mass/volume)2019-07-30 00:35:00* Test Item Value Reference Range Interpretation Comments Total Protein (test code = 2885-2) 6.3 6.5-8.1 [facility] plasma albumin measurement (mass/volume)2019-07-30 00:35:00* Test Item Value Reference Range Interpretation Comments Albumin (test code = 1751-7) 3.4 3.5-5.0 [facility] HospitalPlasma globulin measurement (mass/volume) 2019-07-30 00:35:00* Test Item Value Reference Range Interpretation Comments Globulin (test code = 98000-4) 2.9 2.3-3.5 [facility] or plasma albumin/globulin mass hmoed7743-99-39 00:35:00* Test Item Value Reference Range Interpretation Comments Albumin/Globulin Ratio (test code = 1759-0) 1.2 0.8-2.0 [facility] or plasma alkaline phosphatase measurement (enzymatic activity/volume)2019-07-30 00:35:00* Test Item Value Reference Range Interpretation Comments Alkaline Phosphatase (test code = 6768-6) 81 40-150 [facility] HospitalFOOT [facility] VIEW LT - RHGI4957-70-89 14:27:00 [facility] [address] [address] Patient Name: KASSI MCNULTY MR #: [id number] : 1955 Age/Sex: 63/M Req #: [id number] Adm Physician: Ordered by: JAISON HINOJOSA MD Report #: [id number] Location: [facility] Room/Bed: Procedure: [id number] H OPD/FOOT 3 VIEW LT - HOPD Exam Date: [...] COPY TO: JAISON HINOJOSA MD [facility]KLE [facility] 14:26:[address] [address] Patient Name: KASSI MCNULTY MR #: [id number] : 1955 Age/Sex: 63/M Req #: [id number] [facility] Physician: Ordered by: JAISON HINOJOSA MD Report #: [id number] Location: [facility] Room/Bed: Procedure: [id number] H OPD/ANKLE 3VIEW LT - HOPD Exam [...] TO: KELECHI HINOJOSA MD Saccharomyces cerevisiae IgG [id number] 21:57:00* Test Item Value Reference Range Interpretation Comments Saccharomyces cerevisiae IgG Ab (test code = 6713-2) 33.4 0 .0-24.9 H Negative <20.0 Equivocal 20.1 - 24.9 Positive >or= 25.0[facility] Americaaccharomyces cerevisiae IgA Ab 2018-12-16 21:57:00* Test Item Value Reference Range Interpretation Comments Saccharomyces cerevisiae IgA Ab (test code = 40235-0) 28.0 0.0-24.9 H Negative <20.0 Equivocal 20.1 [...] and no healthy controls had antib odyfor both.[facility] HospitalAtypical p-SYIY2091-74JHRL5595-40-30 21:57:00* Test Item Value Reference Range Interpretation Comments Atypical p-ANCA (test code = 97386-4) <1:20 Neg:<1:20 The atypical pANCA pattern has been observed in asignificant percentage of patie nts with ulcerative colitis,primary sclerosing cholangitis and autoimmune hepati tis. ASCA+/PANCA- Suggestive of Crohn's disease ASCA-/PANCA+ S uggestive of Ulcerative colitisPerformed at: [facility] [address] [place], [place] [id number] Director: Veronica Wilson MD, Phone: [phone]burgtool Updvnloepqxn1858-64-45 05:24:00 * Test Item Value Reference Range Interpretation Comments Stool Calprotectin (test code = 56478-7) <16 0-120 Concentration Interpretation Follow-Up<16 - 50 ug/g Normal None>50 -120 ug/g Borderline Re-evaluate in 4-6 weeks >120 ug/g Abnormal Repeat as clinically indicatedPerformed at: [facility] [id number] Director: Veronica Wilson MD, Phone: [phone] Grande Regional HospitalC-Reactive Ecnitzo4659-48-53 00:36:00* Test Item Value Reference Range Interpretation Comments C-Reactive Protein (test code = 1988-5) 2 0-10 Performed at: [facility] [id number] Director: Jorge Granda MD, Phone: [phone] Grande Regional HospitalClostridium Difficile Toxin A & [id number] 12:29:00* Test Item Value Reference Range Interpretation Comments Clostridium Difficile Toxin A & B (test code = 080535166) POSI TIVE NEGATIVE H Results faxed to Dr. Hernandez at 1228 on 12/13/18 by Josh Molina. RB OK.Results f axed to infection control at 1228 on 12/13/18 by Josh Molina.Testing on stool a spirate specimens is outside gamer claims since specimen type not validat ed on this assay.[facility] HospitalErythrocyte Sedimentation Oqqt9210-12-13 15:11:00* Test Item Value Reference Range Interpretation Comments Erythrocyte Sedimentation Rate (test code = 4537-7) 7 0- 13 [facility] HospitalErythrocyte sedimentation rate by Westergren qpklfl2669-70-28 14:15:00* Test Item Value Reference Range Interpretation Comments Erythrocyte Sedimentation Rate (test code = 4537-7) 7 0- 13 [facility]gerum combs's yeast IgG antibody assay (units/volume)2018-12-12 14:15:00* Test Item Value Reference Range Interpretation Comments Saccharomyces cerevisiae IgG Ab (test code = 6713-2) 33.4 0 .0-24.9 Negative <20.0 Equivocal 20.1 - 24.9 Positive >or= 25.0[facility]gerum combs's yeast IgA antibody assay (units/volume)2018-12-12 14:15:00* Test Item Value Reference Range Interpretation Comments Saccharomyces cerevisiae IgA Ab (test code = 50225-7) 28.0 0.0-24.9 Negative <20.0 Equivocal 20.1 - [...] and no healthy controls had antib odyfor both.[facility] atypical perinuclear neutrophil cytoplasmic antibody titer by tgtzrgvddfdgceusom5087-34-14 14:15:00* Test Item Value Reference Range Interpretation Comments Atypical p-ANCA (test code = 18535-2) <1:20 Neg:<1:20 The atypical pANCA pattern has been observed in asignificant percentage of patie nts with ulcerative colitis,primary sclerosing cholangitis and autoimmune hepati tis. ASCA+/PANCA- Suggestive of Crohn's disease ASCA-/PANCA+ S uggestive of Ulcerative colitisPerformed at: - [facility] [id number] Director: Veronica Wilson MD, Phone: [phone]inburgerum or plasma C reactive protein measurement (mass/volume)2018-12-12 14:15:00* Test Item Value Reference Range Interpretation Comments C-Reactive Protein (test code = 1988-5) 2 0-10 Performed at: - [facility] [address] [place], [place] [id number] Director: Jorge Granda MD, Phone: [phone] Grande Regional HospitalErythrocyte sedimentation rate by Westergren rbnxgh3345-97-66 14:15:00* Test Item Value Reference Range Interpretation Comments Erythrocyte Sedimentation Rate (test code = 4537-7) 7 0- 13 [facility] combs's yeast IgG antibody assay (units/volume)2018-12-12 14:15:00* Test Item Value Reference Range Interpretation Comments Saccharomyces cerevisiae IgG Ab (test code = 6713-2) 33.4 0 .0-24.9 Negative <20.0 Equivocal 20.1 - 24.9 Positive >or= 25.0[facility]gerum combs's yeast IgA antibody assay (units/volume)2018-12-12 14:15:00* Test Item Value Reference Range Interpretation Comments Saccharomyces cerevisiae IgA Ab (test code = 77550-3) 28.0 0.0-24.9 Negative <20.0 Equivocal 20.1 - [...] and no healthy controls had antib odyfor both.[facility] atypical perinuclear neutrophil cytoplasmic antibody titer by bswcexpsdaeeyfxrhw9919-02-71 14:15:00* Test Item Value Reference Range Interpretation Comments Atypical p-ANCA (test code = 96599-2) <1:20 Neg:<1:20 The atypical pANCA pattern has been observed in asignificant percentage of patie nts with ulcerative colitis,primary sclerosing cholangitis and autoimmune hepati tis. ASCA+/PANCA- Suggestive of Crohn's disease ASCA-/PANCA+ S uggestive of Ulcerative colitisPerformed at: - [facility] [address] [id number] Director: Veronica Wilson MD, Phone: [phone]inburgerum or plasma C reactive protein measurement (mass/volume)2018-12-12 14:15:00* Test Item Value Reference Range Interpretation Comments C-Reactive Protein (test code = 1988-5) 2 0-10 Performed at: [facility] [address] [place] [id number] Director: Jorge Granda MD, Phone: [phone] Grande Regional HospitalErythrocyte sedimentation rate by Westergren jxownh2582-80-72 14:15:00* Test Item Value Reference Range Interpretation Comments Erythrocyte Sedimentation Rate (test code = 4537-7) 7 0- 13 [facility] combs's yeast IgG antibody assay (units/volume)2018-12-12 14:15:00* Test Item Value Reference Range Interpretation Comments Saccharomyces cerevisiae IgG Ab (test code = 6713-2) 33.4 0 .0-24.9 Negative <20.0 Equivocal 20.1 - 24.9 Positive >or= 25.0[facility]gerum combs's yeast IgA antibody assay (units/volume)2018-12-12 14:15:00* Test Item Value Reference Range Interpretation Comments Saccharomyces cerevisiae IgA Ab (test code = 09505-9) 28.0 0.0-24.9 Negative <20.0 Equivocal 20.1 - [...] and no healthy controls had antib odyfor both.[facility] atypical perinuclear neutrophil cytoplasmic antibody titer by iapgccxdnqrgutlxxv0678-60-20 14:15:00* Test Item Value Reference Range Interpretation Comments Atypical p-ANCA (test code = 00097-0) <1:20 Neg:<1:20 The atypical pANCA pattern has been observed in asignificant percentage of patie nts with ulcerative colitis,primary sclerosing cholangitis and autoimmune hepati tis. ASCA+/PANCA- Suggestive of Crohn's disease ASCA-/PANCA+ S uggestive of Ulcerative colitisPerformed at: [employer] [facility] [address] [place], [place] [id number] Director: Veronica Wilson MD, Phone: [phone] Edinburgerum or plasma C reactive protein measurement (mass/volume)2018-12-12 14:15:00* Test Item Value Reference Range Interpretation Comments C-Reactive Protein (test code = 1988-5) 2 0-10 Performed at: - [facility] [id number] Director: Jorge Granda MD, Phone: [phone] Texas Health System Edinburgtool Lactoferrin (LAB)2018-12-12 13:44:00* Test Item Value Reference Range Interpretation Comments Stool Lactoferrin (LAB) (test code = 16411-4) NEGATIVE NEGATIVE Testing on stool aspirate specimens is outside gamer claims since specime n type not validated on this assay.[facility] Bedside Lsgyfne4422-19-35 13:32:00* Test Item Value Reference Range Interpretation Comments Bedside Glucose (test code = 09621-8) 118 70-120 Meter ID: [id number] [facility] Health System Edinburgtool lactoferrin kfuoneejw4771-26-04 12:21:00* Test Item Value Reference Range Interpretation Comments Stool Lactoferrin (LAB) (test code = 17895-9) NEGATIVE NEGATIVE Testing on stool aspirate specimens is outside gamer claims since specime n type not validated on this assay.[facility]burg[facility] calprotectin measurement (mass/mass)2018-12-12 12:21:00* Test Item Value Reference Range Interpretation Comments Stool Calprotectin (test code = 23096-5) <16 0-120 Concentration Interpretation Follow-Up<16 - 50 ug/g Normal None>50 -120 ug/g Borderline Re-evaluate in 4-6 weeks >120 ug/g Abnormal Repeat as clinically indicatedPerformed at: [employer] [facility] [address] [place], [place] [id number] Director: Veronica Wilson MD, Phone: [phone] [facility] HospitalClostridium difficile A and B toxin rtwft1837-99-55 12:21:00* Test Item Value Reference Range Interpretation Comments Clostridium Difficile Toxin A & B (test code = 547540532) POSI TIVE NEGATIVE Results faxed to Dr. Hernandez at 1228 on 12/13/18 by Josh Molina. RB OK.Results f axed to infection control at 1228 on 12/13/18 by Josh Molina.Testing on stool a spirate specimens is outside gamer claims since specimen type not validat ed on this assay.[facility]burgto lactoferrin lraaxpphz5474-30-78 12:21:00* Test Item Value Reference Range Interpretation Comments Stool Lactoferrin (LAB) (test code = 51216-4) NEGATIVE NEGATIVE Testing on stool aspirate specimens is outside gamer claims since specime n type not validated on this assay.[facility]burgto calprotectin measurement (mass/mass)2018-12-12 12:21:00* Test Item Value Reference Range Interpretation Comments Stool Calprotectin (test code = 72319-0) <16 0-120 Concentration Interpretation Follow-Up<16 - 50 ug/g Normal None>50 -120 ug/g Borderline Re-evaluate in 4-6 weeks >120 ug/g Abnormal Repeat as clinically indicatedPerformed at: [address] [id number] Director: Veronica Wilson MD, Phone: [phone] Texas Health System Edinburgtool lactoferrin pumfcqqas8257-95-26 12:21:00* Test Item Value Reference Range Interpretation Comments Stool Lactoferrin (LAB) (test code = 98296-1) NEGATIVE NEGATIVE Testing on stool aspirate specimens is outside gamer claims since specime n type not validated on this assay.[facility] calprotectin measurement (mass/mass)2018-12-12 12:21:00* Test Item Value Reference Range Interpretation Comments Stool Calprotectin (test code = 20070-1) <16 0-120 Concentration Interpretation Follow-Up<16 - 50 ug/g Normal None>50 -120 ug/g Borderline Re-evaluate in 4-6 weeks >120 ug/g Abnormal Repeat as clinically indicatedPerformed at: [facility] [id number] Director: Veronica Wilson MD, Phone: [phone] Grande Regional HospitalWhite Blood Amynb4704-31-83 03:23:00* Test Item Value Reference Range Interpretation Comments White Blood Count (test code = 6690-2) 6.03 4.8-10.8 [facility] HospitalRed Blood Xsiml5715-32-25 03:23:00* Test Item Value Reference Range Interpretation Comments Red Blood Count (test code = 789-8) 5.14 4.3-5.7 [facility] HospitalHemoglobin2019-09-08 03:23:00* Test Item Value Reference Range Interpretation Comments Hemoglobin (test code = 94700-6) 13.3 14.0-18.0 L [facility] HospitalHematocrit2019-09-08 03:23:00* Test Item Value Reference Range Interpretation Comments Hematocrit (test code = 4544-3) 41.5 38.2-49.6 [facility] HospitalMean Corpuscular Beajdo5642-94-66 03:23:00* Test Item Value Reference Range Interpretation Comments Mean Corpuscular Volume (test code = 787-2) 80.7 81-99 L [facility] HospitalMean Corpuscular Rtvwpciudp8962-80-09 03:23:00* Test Item Value Reference Range Interpretation Comments Mean Corpuscular Hemoglobin (test code = 785-6) 25.9 28-32 L [facility] HospitalMean Corpuscular Hemoglobin Concent 2018-11-22 03:23:00* Test Item Value Reference Range Interpretation Comments Mean Corpuscular Hemoglobin Concent (test code = 786-4) 32.0 31-35 [facility] HospitalRed Cell Distribution Dffhc1111-35-98 03:23:00* Test Item Value Reference Range Interpretation Comments Red Cell Distribution Width (test code = 64758-6) 14.0 11.7 -14.4 [facility] HospitalPlatelet Eoloy0490-26-18 03:23:00* Test Item Value Reference Range Interpretation Comments Platelet Count (test code = 777-3) 260 140-360 [facility] HospitalNeutrophils (%) (Auto)2018-11-22 03:23:00 * Test Item Value Reference Range Interpretation Comments Neutrophils (%) (Auto) (test code = 65118-0) 67.1 38.7-80.0 [facility] HospitalLymphocytes (%) (Auto)2018-11-22 03:23:00 * Test Item Value Reference Range Interpretation Comments Lymphocytes (%) (Auto) (test code = 736-9) 15.3 18.0-39.1 L [facility] HospitalMonocytes (%) (Auto)2018-11-22 03:23:00* Test Item Value Reference Range Interpretation Comments Monocytes (%) (Auto) (test code = 5905-5) 13.6 4.4-11.3 H [facility] HospitalEosinophils (%) (Auto)2018-11-22 03:23:00 * Test Item Value Reference Range Interpretation Comments Eosinophils (%) (Auto) (test code = 713-8) 3.2 0.0-6.0 [facility] HospitalBasophils (%) (Auto)2018-11-22 03:23:00* Test Item Value Reference Range Interpretation Comments Basophils (%) (Auto) (test code = 706-2) 0.5 0.0-1.0 [facility] HospitalIM GRANULOCYTES %2018-11-22 03:23:00* Test Item Value Reference Range Interpretation Comments IM GRANULOCYTES % (test code = IM GRANULOCYTES %) 0.3 0.0- 1.0 [facility] HospitalNeutrophils # (Auto)2018-11-22 03:23:00* Test Item Value Reference Range Interpretation Comments Neutrophils # (Auto) (test code = 751-8) 4.1 2.1-6.9 [facility] HospitalLymphocytes # (Auto)2018-11-22 03:23:00* Test Item Value Reference Range Interpretation Comments Lymphocytes # (Auto) (test code = 33219-7) 0.9 1.0-3.2 L [facility] HospitalMonocytes # (Auto)2018-11-22 03:23:00* Test Item Value Reference Range Interpretation Comments Monocytes # (Auto) (test code = 742-7) 0.8 0.2-0.8 [facility] HospitalEosinophils # (Auto)2018-11-22 03:23:00* Test Item Value Reference Range Interpretation Comments Eosinophils # (Auto) (test code = 711-2) 0.2 0.0-0.4 [facility] HospitalBasophils # (Auto)2018-11-22 03:23:00* Test Item Value Reference Range Interpretation Comments Basophils # (Auto) (test code = 704-7) 0.0 0.0-0.1 [facility] HospitalAbsolute Immature Granulocyte (auto 2018-11-22 03:23:00* Test Item Value Reference Range Interpretation Comments Absolute Immature Granulocyte (auto (chriss t code = Absolute Immature Granulocyte (auto) 0.02 0-0.1 [facility] HospitalWhite Blood Klfhv2233-66-99 03:23:00* Test Item Value Reference Range Interpretation Comments White Blood Count (test code = 6690-2) 6.03 4.8-10.8 [facility] HospitalRed Blood Ewuah0713-76-13 03:23:00* Test Item Value Reference Range Interpretation Comments Red Blood Count (test code = 789-8) 5.14 4.3-5.7 [facility] HospitalHemoglobin2019-09-08 03:23:00* Test Item Value Reference Range Interpretation Comments Hemoglobin (test code = 36601-8) 13.3 14.0-18.0 L [facility] HospitalHematocrit2019-09-08 03:23:00* Test Item Value Reference Range Interpretation Comments Hematocrit (test code = 4544-3) 41.5 38.2-49.6 [facility] HospitalMean Corpuscular Fyqeep9469-78-35 03:23:00* Test Item Value Reference Range Interpretation Comments Mean Corpuscular Volume (test code = 787-2) 80.7 81-99 L [facility] HospitalMean Corpuscular Imgckqhmjx2087-58-40 03:23:00* Test Item Value Reference Range Interpretation Comments Mean Corpuscular Hemoglobin (test code = 785-6) 25.9 28-32 L [facility] HospitalMean Corpuscular Hemoglobin Concent 2018-11-22 03:23:00* Test Item Value Reference Range Interpretation Comments Mean Corpuscular Hemoglobin Concent (test code = 786-4) 32.0 31-35 [facility] HospitalRed Cell Distribution Zrbts2015-53-60 03:23:00* Test Item Value Reference Range Interpretation Comments Red Cell Distribution Width (test code = 88951-8) 14.0 11.7 -14.4 [facility] HospitalPlatelet Hckds5668-58-10 03:23:00* Test Item Value Reference Range Interpretation Comments Platelet Count (test code = 777-3) 260 140-360 [facility] HospitalNeutrophils (%) (Auto)2018-11-22 03:23:00 * Test Item Value Reference Range Interpretation Comments Neutrophils (%) (Auto) (test code = 08422-2) 67.1 38.7-80.0 [facility] HospitalLymphocytes (%) (Auto)2018-11-22 03:23:00 * Test Item Value Reference Range Interpretation Comments Lymphocytes (%) (Auto) (test code = 736-9) 15.3 18.0-39.1 L [facility] HospitalMonocytes (%) (Auto)2018-11-22 03:23:00* Test Item Value Reference Range Interpretation Comments Monocytes (%) (Auto) (test code = 5905-5) 13.6 4.4-11.3 H [facility] HospitalEosinophils (%) (Auto)2018-11-22 03:23:00 * Test Item Value Reference Range Interpretation Comments Eosinophils (%) (Auto) (test code = 713-8) 3.2 0.0-6.0 [facility] HospitalBasophils (%) (Auto)2018-11-22 03:23:00* Test Item Value Reference Range Interpretation Comments Basophils (%) (Auto) (test code = 706-2) 0.5 0.0-1.0 [facility] HospitalIM GRANULOCYTES %2018-11-22 03:23:00* Test Item Value Reference Range Interpretation Comments IM GRANULOCYTES % (test code = IM GRANULOCYTES %) 0.3 0.0- 1.0 [facility] HospitalNeutrophils # (Auto)2018-11-22 03:23:00* Test Item Value Reference Range Interpretation Comments Neutrophils # (Auto) (test code = 751-8) 4.1 2.1-6.9 [facility] HospitalLymphocytes # (Auto)2018-11-22 03:23:00* Test Item Value Reference Range Interpretation Comments Lymphocytes # (Auto) (test code = 46501-8) 0.9 1.0-3.2 L [facility] HospitalMonocytes # (Auto)2018-11-22 03:23:00* Test Item Value Reference Range Interpretation Comments Monocytes # (Auto) (test code = 742-7) 0.8 0.2-0.8 [facility] HospitalEosinophils # (Auto)2018-11-22 03:23:00* Test Item Value Reference Range Interpretation Comments Eosinophils # (Auto) (test code = 711-2) 0.2 0.0-0.4 [facility] HospitalBasophils # (Auto)2018-11-22 03:23:00* Test Item Value Reference Range Interpretation Comments Basophils # (Auto) (test code = 704-7) 0.0 0.0-0.1 [facility] HospitalAbsolute Immature Granulocyte (auto 2018-11-22 03:23:00* Test Item Value Reference Range Interpretation Comments Absolute Immature Granulocyte (auto (chriss t code = Absolute Immature Granulocyte (auto) 0.02 0-0.1 [facility] Cdjxt7157-79-08 03:22:00* Test Item Value Reference Range Interpretation Comments Sodium Level (test code = 2951-2) 141 136-145 [facility] HospitalPotassium Umbpi4255-70-81 03:22:00* Test Item Value Reference Range Interpretation Comments Potassium Level (test code = 2823-3) 3.2 3.5-5.1 L [facility] HospitalChloride Zcdtj4772-61-46 03:22:00* Test Item Value Reference Range Interpretation Comments Chloride Level (test code = 2075-0) 105 98-107 [facility] HospitalCarbon Dioxide Cwots8022-04-42 03:22:00* Test Item Value Reference Range Interpretation Comments Carbon Dioxide Level (test code = 2028-9) 24 22-29 [facility] HospitalAnion Rnx2352-45-84 03:22:00* Test Item Value Reference Range Interpretation Comments Anion Gap (test code = 59555-5) 15.2 8-16 [facility] HospitalBlood Urea Zpjeefui9176-13-96 03:22:00* Test Item Value Reference Range Interpretation Comments Blood Urea Nitrogen (test code = 3094-0) < 5 7-26 L [facility] HospitalCreatinine2019-09-08 03:22:00* Test Item Value Reference Range Interpretation Comments Creatinine (test code = 2160-0) 0.68 0.72-1.25 L [facility] HospitalBUN/Creatinine Synah7175-32-34 03:22:00* Test Item Value Reference Range Interpretation Comments BUN/Creatinine Ratio (test code = 3097-3) 7 6-25 [facility] HospitalEstimat Glomerular Filtration Rate 2018-11-22 03:22:00* Test Item Value Reference Range Interpretation Comments Estimat Glomerular Filtration Rate (test code = 270878935) > 60 >60 Ranges were taken from the National Kidney Disease Education Program and the [facility] Kid[facility] Foundation literature.Reference ranges:60 or greater: Muxmio10-41 ( for 3 consecutive months): Chronic kidney disease 15 or less: Kidney failureRio Grande Regional HospitalGlucose Tikfd8491-60-55 03:22:00* Test Item Value Reference Range Interpretation Comments Glucose Level (test code = ZYD5364) 110 74-118 [facility] HospitalCalcium Ngume0704-75-11 03:22:00* Test Item Value Reference Range Interpretation Comments Calcium Level (test code = 51033-8) 8.6 8.4-10.2 [facility]burg[facility] Jwrxi9993-19-17 03:22:00* Test Item Value Reference Range Interpretation Comments Sodium Level (test code = 2951-2) 141 136-145 [facility] HospitalPotassium Zgfqn8563-84-24 03:22:00* Test Item Value Reference Range Interpretation Comments Potassium Level (test code = 2823-3) 3.2 3.5-5.1 L [facility] HospitalChloride Clqje8759-78-99 03:22:00* Test Item Value Reference Range Interpretation Comments Chloride Level (test code = 2075-0) 105 98-107 [facility] HospitalCarbon Dioxide Ayqtn6431-51-44 03:22:00* Test Item Value Reference Range Interpretation Comments Carbon Dioxide Level (test code = 2028-9) 24 22-29 [facility] HospitalAnion Ksw3506-25-03 03:22:00* Test Item Value Reference Range Interpretation Comments Anion Gap (test code = 47732-0) 15.2 8-16 [facility] HospitalBlood Urea Cvbcsont5319-87-50 03:22:00* Test Item Value Reference Range Interpretation Comments Blood Urea Nitrogen (test code = 3094-0) < 5 7-26 L [facility] HospitalCreatinine2019-09-08 03:22:00* Test Item Value Reference Range Interpretation Comments Creatinine (test code = 2160-0) 0.68 0.72-1.25 L [facility] HospitalBUN/Creatinine Rmmni5408-00-05 03:22:00* Test Item Value Reference Range Interpretation Comments BUN/Creatinine Ratio (test code = 3097-3) 7 6-25 [facility] HospitalEstimat Glomerular Filtration Rate 2018-11-22 03:22:00* Test Item Value Reference Range Interpretation Comments Estimat Glomerular Filtration Rate (test code = 710894684) > 60 >60 Ranges were taken from the National Kidney Disease Education Program and the [employer] [facility] [employer] literature.Reference ranges:60 or greater: Zyheko83-49 ( for 3 consecutive months): Chronic kidney disease 15 or less: Kidney failureR[facility] HospitalGlucose Fzywb5190-60-51 03:22:00* Test Item Value Reference Range Interpretation Comments Glucose Level (test code = WVV0070) 110 74-118 [facility] HospitalCalcium Uviku6245-64-84 03:22:00* Test Item Value Reference Range Interpretation Comments Calcium Level (test code = 10442-4) 8.6 8.4-10.2 [facility] HospitalBedside Vmraxgm5985-32-76 20:14:00* Test Item Value Reference Range Interpretation Comments Bedside Glucose (test code = 56187-7) 115 70-120 Meter ID: [id number] [facility] HospitalCT ABDOMEN/PELVIS W 2018-11-21 13:28:00 [place] [address] Patient Name: KASSI MCNULTY MR #: [id number] : 1955 Age/Sex: 63/M Req #: [id number] Adm Physician: DIMA WELCH MD Ordered by: TELMA HERNANDEZ MD Report #: [id number] Location: MED/SURG Room/Bed: [facility] Procedure: [id number] CT/ CT ABDOMEN/PELVIS W Exam Date: 11/21/18 [...] 0919 Transcribe d By: CAROL on 11/21/18 1390 COPY TO: TELMA HERNANDEZ MD B-Type Natriuretic Daqwekp5275-72-17 03:46:00* Test Item Value Reference Range Interpretation Comments B-Type Natriuretic Peptide (test code = 56953-6) 53.5 0-100 [facility] HospitalB-Type Natriuretic Zalowgd4132-94-58 03:46:00* Test Item Value Reference Range Interpretation Comments B-Type Natriuretic Peptide (test code = 88826-4) 53.5 0-100 [facility] HospitalHemoglobin A1c Hjhksym7777-13-68 03:25:00 * Test Item Value Reference Range Interpretation Comments Hemoglobin A1c Percent (test code = Hemoglobin A1c Percent) 6.4 4.0-7.0 [facility] HospitalMagnesium Dsuuw6968-40-76 03:25:00* Test Item Value Reference Range Interpretation Comments Magnesium Level (test code = 16187-8) 1.4 1.3-2.1 [facility] HospitalThyroid Stimulating Hormone (TSH) 2018-11-21 03:25:00* Test Item Value Reference Range Interpretation Comments Thyroid Stimulating Hormone (TSH) (test code = 59719-1) 0.656 0.350-4.940 [facility] HospitalHemoglobin A1c Kocqtvp3387-89-59 03:25:00 * Test Item Value Reference Range Interpretation Comments Hemoglobin A1c Percent (test code = Hemoglobin A1c Percent) 6.4 4.0-7.0 [facility] Sjgaf2417-36-12 03:25:00* Test Item Value Reference Range Interpretation Comments Magnesium Level (test code = 59747-5) 1.4 1.3-2.1 [facility] HospitalThyroid Stimulating Hormone (TSH) 2018-11-21 03:25:00* Test Item Value Reference Range Interpretation Comments Thyroid Stimulating Hormone (TSH) (test code = 14242-3) 0.656 0.350-4.940 [facility] HospitalFluoroscopic procedure less than one hour uxisdmck5087-58-37 02:12:00* Test Item Value Reference Range Interpretation Comments Hemoglobin A1c Percent (test code = Hemoglobin A1c Percent) 6.4 4.0-7.0 [facility] HospitalBNP Qez-dZek0681-66-07 02:12:00* Test Item Value Reference Range Interpretation Comments B-Type Natriuretic Peptide (test code = 84391-3) 53.5 0-100 [facility] or plasma thyrotropin measurement by detection limit <= 0.005 miu/l (units/volume)2018-11-21 02:12:00* Test Item Value Reference Range Interpretation Comments Thyroid Stimulating Hormone (TSH) (test code = 90707-4) 0.656 0.350-4.940 [facility] HospitalCreatine Kinase UB8975-46-86 06:42:00* Test Item Value Reference Range Interpretation Comments Creatine Kinase MB (test code = 95473-4) 2.20 0-5.0 [facility] HospitalTroponin L2660-46-43 06:42:00* Test Item Value Reference Range Interpretation Comments Troponin I (test code = LOJ1876) 0.016 0-0.300 [facility] HospitalCreatine Kinase BD7134-07-07 06:42:00* Test Item Value Reference Range Interpretation Comments Creatine Kinase MB (test code = 75956-0) 2.20 0-5.0 [facility] HospitalTroponin M0621-06-69 06:42:00* Test Item Value Reference Range Interpretation Comments Troponin I (test code = AOP2552) 0.016 0-0.300 [facility] HospitalTotal Zdtyhlzpv6930-15-11 06:41:00* Test Item Value Reference Range Interpretation Comments Total Bilirubin (test code = 1975-2) 0.8 0.2-1.2 [facility] HospitalAspartate Amino Transf (AST/SGOT) 2018-11-20 06:41:00* Test Item Value Reference Range Interpretation Comments Aspartate Amino Transf (AST/SGOT) (test code = Aspartate Amino Transf (AST/SGOT)) 25 5-34 [facility] HospitalAlanine Aminotransferase (ALT/SGPT) 2018-11-20 06:41:00* Test Item Value Reference Range Interpretation Comments Alanine Aminotransferase (ALT/SGPT) (test code = 1742-6) 26 0-55 [facility] HospitalTotal Jynajlm5065-59-97 06:41:00* Test Item Value Reference Range Interpretation Comments Total Protein (test code = 2885-2) 5.9 6.5-8.1 L [facility] HospitalAlbumin2019-09-06 06:41:00* Test Item Value Reference Range Interpretation Comments Albumin (test code = 1751-7) 3.5 3.5-5.0 [facility] HospitalGlobulin2019-09-06 06:41:00* Test Item Value Reference Range Interpretation Comments Globulin (test code = 43922-0) 2.4 2.3-3.5 [facility] HospitalAlbumin/Globulin Ckjwb6647-21-63 06:41:00 * Test Item Value Reference Range Interpretation Comments Albumin/Globulin Ratio (test code = 1759-0) 1.5 0.8-2.0 [facility] HospitalAlkaline Izmxfhivjrf1468-87-18 06:41:00* Test Item Value Reference Range Interpretation Comments Alkaline Phosphatase (test code = 6768-6) 76 40-150 [facility] HospitalTriglycerides Ugyyl1678-30-14 06:41:00* Test Item Value Reference Range Interpretation Comments Triglycerides Level (test code = 2571-8) 89 0-149 [facility] HospitalCholesterol Jriho2453-43-15 06:41:00* Test Item Value Reference Range Interpretation Comments Cholesterol Level (test code = 2093-3) 91 0-199 Less than 200 mg/dL Low Mccj083 - 239 mg/dL Borderline Ovsk626 m g/dl and greater High Risk [facility] HospitalLDL Nlutcaftxef7768-07-66 06:41:00* Test Item Value Reference Range Interpretation Comments LDL Cholesterol (test code = 2089-1) 46 60-130 L [facility] HospitalHDL Jtbenvtxecs1369-44-60 06:41:00* Test Item Value Reference Range Interpretation Comments HDL Cholesterol (test code = 2085-9) 27 40-60 L [facility] HospitalCholesterol/HDL Gvjml7109-88-62 06:41:00 * Test Item Value Reference Range Interpretation Comments Cholesterol/HDL Ratio (test code = 9830-1) 3.4 3.9-4.7 L [facility] HospitalTotal Aqmmlvgsv1799-19-43 06:41:00* Test Item Value Reference Range Interpretation Comments Total Bilirubin (test code = 1975-2) 0.8 0.2-1.2 [facility] HospitalAspartate Amino Transf (AST/SGOT) 2018-11-20 06:41:00* Test Item Value Reference Range Interpretation Comments Aspartate Amino Transf (AST/SGOT) (test code = Aspartate Amino Transf (AST/SGOT)) 25 5-34 [facility] HospitalAlanine Aminotransferase (ALT/SGPT) 2018-11-20 06:41:00* Test Item Value Reference Range Interpretation Comments Alanine Aminotransferase (ALT/SGPT) (test code = 1742-6) 26 0-55 [facility] HospitalTotal Cgdtnhd6210-22-47 06:41:00* Test Item Value Reference Range Interpretation Comments Total Protein (test code = 2885-2) 5.9 6.5-8.1 L [facility] HospitalAlbumin2019-09-06 06:41:00* Test Item Value Reference Range Interpretation Comments Albumin (test code = 1751-7) 3.5 3.5-5.0 [facility] HospitalGlobulin2019-09-06 06:41:00* Test Item Value Reference Range Interpretation Comments Globulin (test code = 07145-8) 2.4 2.3-3.5 [facility] HospitalAlbumin/Globulin Vmfgs0043-96-77 06:41:00 * Test Item Value Reference Range Interpretation Comments Albumin/Globulin Ratio (test code = 1759-0) 1.5 0.8-2.0 [facility] HospitalAlkaline Pohtpovhcfo1074-64-22 06:41:00* Test Item Value Reference Range Interpretation Comments Alkaline Phosphatase (test code = 6768-6) 76 40-150 [facility] HospitalTriglycerides Ugnsd4277-79-40 06:41:00* Test Item Value Reference Range Interpretation Comments Triglycerides Level (test code = 2571-8) 89 0-149 [facility] HospitalCholesterol Ysgbf4904-94-17 06:41:00* Test Item Value Reference Range Interpretation Comments Cholesterol Level (test code = 2093-3) 91 0-199 Less than 200 mg/dL Low Nxwm287 - 239 mg/dL Borderline Uzsk430 m g/dl and greater High Risk [facility] HospitalLDL Cwzajtconpj3244-60-06 06:41:00* Test Item Value Reference Range Interpretation Comments LDL Cholesterol (test code = 2089-1) 46 60-130 L [facility] HospitalHDL Gqpcwyfzfxm9593-72-51 06:41:00* Test Item Value Reference Range Interpretation Comments HDL Cholesterol (test code = 2085-9) 27 40-60 L [facility] HospitalCholesterol/HDL Yeljp5847-71-23 06:41:00 * Test Item Value Reference Range Interpretation Comments Cholesterol/HDL Ratio (test code = 9830-1) 3.4 3.9-4.7 L [facility] HospitalCreatine Cdbpza0478-49-40 06:39:00* Test Item Value Reference Range Interpretation Comments Creatine Kinase (test code = 2157-6) 80 30-200 [facility] HospitalCreatine Rpzivw2585-46-16 06:39:00* Test Item Value Reference Range Interpretation Comments Creatine Kinase (test code = 2157-6) 80 30-200 [facility] HospitalCT ABDOMEN/PELVIS B8560-96-91 15:53:00 [place] [address] Patient Name: KASSI MCNULTY MR #: [id number] : 1955 Age/Sex: 63/M Req #: [id number] [facility] Physician: DIMA WELCH MD Ordered by: SUELLEN TRAORE MD Report #: [id number] Location: [facility] Room/Bed: [place] [address] Procedure: [id number] CT/C T ABDOMEN/PELVIS W Exam Date: 11/19/18 Exam Time: 14 42 REPORT STATUS: Signed EXAM: C T Abdomen and Pelvis WITH intravenous contrast INDICATION: Abdominal dist ention COMPARISON: Abdominal radiograph of 10/31/2018, abdomen and pelvis CT of 10/29/2018 TECHNIQUE: Abdomen and pelvis were scanned utilizing a [employer] helical scanner from the lung base to [...] 1638 COPY TO: PAULINA TRAORE MD Urine TXX0719-20-56 14:16:00* Test Item Value Reference Range Interpretation Comments Urine WBC (test code = 5821-4) NONE 0-5 [facility] HospitalUrine FJU6645-04-38 14:16:00* Test Item Value Reference Range Interpretation Comments Urine RBC (test code = 20107-3) NONE 0-5 [facility] HospitalUrine Jfaylcfd7603-52-53 14:16:00* Test Item Value Reference Range Interpretation Comments Urine Bacteria (test code = 25121-4) FEW NONE [facility] HospitalUrine Epithelial Xizrs0938-83-37 14:16:00 * Test Item Value Reference Range Interpretation Comments Urine Epithelial Cells (test code = 04859-0) FEW NONE [facility] HospitalUrine Transitional Epithelial Cells 2018-11-19 14:16:00* Test Item Value Reference Range Interpretation Comments Urine Transitional Epithelial Cells (test code = 8249-5) RARE NONE [facility] HospitalUrine VDG6298-59-43 14:16:00* Test Item Value Reference Range Interpretation Comments Urine WBC (test code = 5821-4) NONE 0-5 [facility] HospitalUrine CPV3466-86-85 14:16:00* Test Item Value Reference Range Interpretation Comments Urine RBC (test code = 41734-0) NONE 0-5 [facility] HospitalUrine Bfocdycn5080-82-11 14:16:00* Test Item Value Reference Range Interpretation Comments Urine Bacteria (test code = 08605-3) FEW NONE [facility] HospitalUrine Epithelial Ofian5738-82-92 14:16:00 * Test Item Value Reference Range Interpretation Comments Urine Epithelial Cells (test code = 46560-8) FEW NONE [facility] HospitalUrine Transitional Epithelial Cells 2018-11-19 14:16:00* Test Item Value Reference Range Interpretation Comments Urine Transitional Epithelial Cells (test code = 8249-5) RARE NONE [facility] HospitalLipase2019-09-05 14:15:00* Test Item Value Reference Range Interpretation Comments Lipase (test code = 3040-3) [facility] HospitalLipase2019-09-05 14:15:00* Test Item Value Reference Range Interpretation Comments Lipase (test code = 3040-3) [facility] HospitalProthrombin Nlcy0877-50-02 14:00:00* Test Item Value Reference Range Interpretation Comments Prothrombin Time (test code = 5902-2) 13.5 11.9-14.5 [facility] HospitalProthromb Time International Ratio 2018-11-19 14:00:00* Test Item Value Reference Range Interpretation Comments Prothromb Time International Ratio (test code = 6301-6) 0.98 Oral Anticoagulant Therapy INR Values:1. Low Intensity Therapy 1.5 - 2.02 . Moderate Intensity Therapy 2.0 - 3.03. High Intensity Therapy(1) 2.5 - 3. 54. High Intensity Therapy(2) 3.0 - 4.05. Panic Value INR > 5.0 [facility] HospitalActivated Partial Thromboplast Time 2018-11-19 14:00:00* Test Item Value Reference Range Interpretation Comments Activated Partial Thromboplast Time (test code = 93476-8) 30.8 23.8-35.5 [facility] HospitalProthrombin Neti2413-22-22 14:00:00* Test Item Value Reference Range Interpretation Comments Prothrombin Time (test code = 5902-2) 13.5 11.9-14.5 [facility] HospitalProthromb Time International Ratio 2018-11-19 14:00:00* Test Item Value Reference Range Interpretation Comments Prothromb Time International Ratio (test code = 6301-6) 0.98 Oral Anticoagulant Therapy INR Values:1. Low Intensity Therapy 1.5 - 2.02 . Moderate Intensity Therapy 2.0 - 3.03. High Intensity Therapy(1) 2.5 - 3. 54. High Intensity Therapy(2) 3.0 - 4.05. Panic Value INR > 5.0 [facility] HospitalActivated Partial Thromboplast Time 2018-11-19 14:00:00* Test Item Value Reference Range Interpretation Comments Activated Partial Thromboplast Time (test code = 33758-4) 30.8 23.8-35.5 [facility] HospitalUrine Xmisx8547-70-82 13:59:00* Test Item Value Reference Range Interpretation Comments Urine Color (test code = 5778-6) BROWN YELLOW H [facility] HospitalUrine Tytporo8329-33-97 13:59:00* Test Item Value Reference Range Interpretation Comments Urine Clarity (test code = 72142-5) SL CLOUDY CLEAR H [facility] HospitalUrine Specific Dewfzom9673-12-35 13:59:00 * Test Item Value Reference Range Interpretation Comments Urine Specific [place] (test code = 5811-5) >=1.030 1.010-1.02 5 [facility] HospitalUrine tZ0925-68-53 13:59:00* Test Item Value Reference Range Interpretation Comments Urine pH (test code = 43573-9) 5.5 5-7 [facility] HospitalU[facility] Leukocyte Wguhihjk9217-47-77 13:59:00* Test Item Value Reference Range Interpretation Comments Urine Leukocyte Esterase (test code = 68182-0) NEGATIVE NEGATIV E [facility] HospitalUrine Fknlpar8945-48-07 13:59:00* Test Item Value Reference Range Interpretation Comments Urine Nitrite (test code = 24125-5) POSITIVE NEGATIVE H [facility] HospitalUrine Fiohoef0612-15-83 13:59:00* Test Item Value Reference Range Interpretation Comments Urine Protein (test code = 87415-9) 1+ NEGATIVE H [facility] HospitalUrine Glucose (UA)2018-11-19 13:59:00* Test Item Value Reference Range Interpretation Comments Urine Glucose (UA) (test code = 87994-1) NEGATIVE NEGATIVE [facility] HospitalU[facility] Vbjodkl6920-69-13 13:59:00* Test Item Value Reference Range Interpretation Comments Urine Ketones (test code = 36621-2) TRACE NEGATIVE H [facility] HospitalUrine Ixzetwmcdruz8843-48-50 13:59:00* Test Item Value Reference Range Interpretation Comments Urine Urobilinogen (test code = 10025-8) 0.2 0.2-1 [facility] HospitalUrine Sgcjszxqc3379-55-30 13:59:00* Test Item Value Reference Range Interpretation Comments Urine Bilirubin (test code = 1977-8) MODERATE NEGATIVE [facility] Zuxqj3937-02-89 13:59:00* Test Item Value Reference Range Interpretation Comments Urine Blood (test code = 13105-5) NEGATIVE NEGATIVE [facility] HospitalU[facility] Oukqy9481-55-22 13:59:00* Test Item Value Reference Range Interpretation Comments Urine Color (test code = 5778-6) BROWN YELLOW H [facility] HospitalUrine Afgmfon1524-47-32 13:59:00* Test Item Value Reference Range Interpretation Comments Urine Clarity (test code = 49659-6) SL CLOUDY CLEAR H [facility] HospitalUrine Specific Asoexxs9071-30-49 13:59:00 * Test Item Value Reference Range Interpretation Comments Urine Specific [place] (test code = 5811-5) >=1.030 1.010-1.02 5 [facility] HospitalUrine wM9428-10-13 13:59:00* Test Item Value Reference Range Interpretation Comments Urine pH (test code = 82803-3) 5.5 5-7 [facility] HospitalUrine Leukocyte Oxwqmbst9459-49-08 13:59:00* Test Item Value Reference Range Interpretation Comments Urine Leukocyte Esterase (test code = 42342-1) NEGATIVE NEGATIV E [facility] HospitalUrine Lmuokgu3081-86-58 13:59:00* Test Item Value Reference Range Interpretation Comments Urine Nitrite (test code = 49271-4) POSITIVE NEGATIVE [facility] Iktidkf5188-31-05 13:59:00* Test Item Value Reference Range Interpretation Comments Urine Protein (test code = 46927-1) 1+ NEGATIVE H [facility] HospitalUrine Glucose (UA)2018-11-19 13:59:00* Test Item Value Reference Range Interpretation Comments Urine Glucose (UA) (test code = 46463-4) NEGATIVE NEGATIVE [facility] HospitalU[facility] Pkvbrku3000-55-94 13:59:00* Test Item Value Reference Range Interpretation Comments Urine Ketones (test code = 13187-2) TRACE NEGATIVE H [facility] HospitalUrine Wipiqvhybimb3009-44-81 13:59:00* Test Item Value Reference Range Interpretation Comments Urine Urobilinogen (test code = 39479-2) 0.2 0.2-1 [facility] HospitalUrine Nzeaaiiiz8407-30-77 13:59:00* Test Item Value Reference Range Interpretation Comments Urine Bilirubin (test code = 1977-8) MODERATE NEGATIVE [facility] HospitalU[facility] Xuomq1141-67-70 13:59:00* Test Item Value Reference Range Interpretation Comments Urine Blood (test code = 23794-9) NEGATIVE NEGATIVE [facility] HospitalCHEST SINGLE (PORTABLE)2018-11-19 13:27:00 [place] [address] Patient Name: KASSI MCNULTY MR #: [id number] : 1955 Age/Sex: 63/M Req #: [id number] Adm Physician: Ordered by: SUELLEN TRAORE MD Report #: [id number] Location: ER Room/Bed: Procedure: [id number] DX/CH EST SINGLE (PORTABLE) Exam Date: 11/19/18 [...] 1:28 PM Dictated By: AI BUSCH MD Transcribed By: CAROL on 11/19/18 1328 COPY TO: SUELLEN TRAORE MD Urine color wecsgobgpbmdb8241-00-17 12:55:00* Test Item Value Reference Range Interpretation Comments Urine Color (test code = 5778-6) BROWN YELLOW [facility] HospitalUrine kumkluk3964-17-52 12:55:00* Test Item Value Reference Range Interpretation Comments Urine Clarity (test code = 57871-8) SL CLOUDY CLEAR [facility] gravity of Urine by Test strip 2018-11-19 12:55:00* Test Item Value Reference Range Interpretation Comments Urine Specific [place] (test code = 5811-5) >=1.030 1.010-1.02 5 [facility] HospitalUrine pH measurement by automated test bvzwf7582-57-51 12:55:00* Test Item Value Reference Range Interpretation Comments Urine pH (test code = 89691-2) 5.5 5-7 [facility] HospitalUrine leukocyte esterase detection by automated test njjwm1994-42-74 12:55:00* Test Item Value Reference Range Interpretation Comments Urine Leukocyte Esterase (test code = 67667-5) NEGATIVE NEGATIV E [facility] HospitalUrine nitrite detection by automated test nvpqm5390-36-53 12:55:00* Test Item Value Reference Range Interpretation Comments Urine Nitrite (test code = 96449-6) POSITIVE NEGATIVE [facility] HospitalUrine protein detection by automated test gnsbr9918-42-08 12:55:00* Test Item Value Reference Range Interpretation Comments Urine Protein (test code = 40211-3) 1+ NEGATIVE [facility] HospitalUrine glucose detection by automated test mghxi9198-31-55 12:55:00* Test Item Value Reference Range Interpretation Comments Urine Glucose (UA) (test code = 91851-4) NEGATIVE NEGATIVE [facility] HospitalUrine ketones detection by automated test bgint1413-80-74 12:55:00* Test Item Value Reference Range Interpretation Comments Urine Ketones (test code = 89899-6) TRACE NEGATIVE [facility] HospitalUrine urobilinogen measurement by test strip (mass/volume)2018-11-19 12:55:00* Test Item Value Reference Range Interpretation Comments Urine Urobilinogen (test code = 20669-5) 0.2 0.2-1 [facility] HospitalUrine total bilirubin yzsnpxlwx1606-33-22 12:55:00* Test Item Value Reference Range Interpretation Comments Urine Bilirubin (test code = 1977-8) MODERATE NEGATIVE [facility] HospitalUrine erythrocytes zajwevpkp6492-27-49 12:55:00* Test Item Value Reference Range Interpretation Comments Urine Blood (test code = 40489-0) NEGATIVE NEGATIVE [facility] HospitalAutomated urine sediment leukocyte count by microscopy (number/high power field)2018-11-19 12:55:00* Test Item Value Reference Range Interpretation Comments Urine WBC (test code = 5821-4) NONE 0-5 [facility] HospitalErythrocytes detection in urine sediment by light mgoshbsdeu1539-79-66 12:55:00* Test Item Value Reference Range Interpretation Comments Urine RBC (test code = 58791-5) NONE 0-5 [facility] HospitalBacteria detection in urine sediment by light okwafoiqxt5516-06-58 12:55:00* Test Item Value Reference Range Interpretation Comments Urine Bacteria (test code = 71529-0) FEW NONE [facility] HospitalEpithelial cells detection in urine sediment by light pfxkujcbeq7802-52-71 12:55:00* Test Item Value Reference Range Interpretation Comments Urine Epithelial Cells (test code = 82383-4) FEW NONE [facility] HospitalTransitional cells detection in urine sediment by light bwuniscgwt1426-67-37 12:55:00* Test Item Value Reference Range Interpretation Comments Urine Transitional Epithelial Cells (test code = 8249-5) RARE NONE [facility] or plasma lipase measurement (enzymatic activity/volume)2018-11-19 12:55:00* Test Item Value Reference Range Interpretation Comments Lipase (test code = 3040-3) 71 8-78 [facility] HospitalTransitional cells detection in urine sediment by light xwnkfevhzg8029-56-79 12:55:00* Test Item Value Reference Range Interpretation Comments Urine Transitional Epithelial Cells (test code = 8249-5) RARE NONE [facility] HospitalTransitional cells detection in urine sediment by light hymbcnypct1767-89-27 12:55:00* Test Item Value Reference Range Interpretation Comments Urine Transitional Epithelial Cells (test code = 8249-5) RARE NONE [facility] HospitalABDOMEN-1VIEW (KUB)2018-11-05 14:29:00 [facility] [address] [place] [address] Patient Name: KASSI MCNULTY MR #: [id number] : 1955 Age/Sex: 63/M Req #: [id number] Adm Physician: Ordered by: DEBBY SALVADOR MD Report #: [id number] Location: ER Room/Bed: Procedure: [id number] DX/ ABDOMEN-1VIEW (KUB) Exam Date: 11/05/18 Exam [...] 1434 COPY TO: DEBBY SALVADOR MD Urine BWL7664-35-93 12:34:00* Test Item Value Reference Range Interpretation Comments Urine WBC (test code = 5821-4) 0-5 0-5 [facility] BOL8938-17-37 12:34:00* Test Item Value Reference Range Interpretation Comments Urine RBC (test code = 30208-4) 0-5 0-5 [facility] Weudfryh3832-97-34 12:34:00* Test Item Value Reference Range Interpretation Comments Urine Bacteria (test code = 81400-6) MODERATE NONE H [facility] Epithelial Dlwju6906-60-58 12:34:00 * Test Item Value Reference Range Interpretation Comments Urine Epithelial Cells (test code = 58247-2) MODERATE NONE [facility] Qjvzg7127-02-96 12:34:00* Test Item Value Reference Range Interpretation Comments Urine Mucus (test code = 8247-9) FEW RARE H [facility] Dfgjw0524-38-72 12:34:00* Test Item Value Reference Range Interpretation Comments Urine Mucus (test code = 8247-9) FEW RARE H [facility] Sflov8099-93-62 12:34:00* Test Item Value Reference Range Interpretation Comments Urine Mucus (test code = 8247-9) [facility] Xeugq2357-40-00 12:19:00* Test Item Value Reference Range Interpretation Comments Urine Color (test code = 5778-6) YELLOW YELLOW [facility] Dnyacqn1422-50-32 12:19:00* Test Item Value Reference Range Interpretation Comments Urine Clarity (test code = 06194-7) CLEAR CLEAR [facility] Specific Hbrpojm0535-26-21 12:19:00 * Test Item Value Reference Range Interpretation Comments Urine Specific [place] (test code = 5811-5) >=1.030 1.010-1.02 5 [facility] mZ8433-87-94 12:19:00* Test Item Value Reference Range Interpretation Comments Urine pH (test code = 40845-2) 5.5 5-7 [facility] Leukocyte Mbcoihlc2369-31-18 12:19:00* Test Item Value Reference Range Interpretation Comments Urine Leukocyte Esterase (test code = 69907-4) NEGATIVE NEGATIV E [facility] Aerqlma7658-31-13 12:19:00* Test Item Value Reference Range Interpretation Comments Urine Nitrite (test code = 70071-2) NEGATIVE NEGATIVE [facility] Bvknzsf2103-23-30 12:19:00* Test Item Value Reference Range Interpretation Comments Urine Protein (test code = 52100-7) 1+ NEGATIVE H [facility] Glucose (UA)2018-11-05 12:19:00* Test Item Value Reference Range Interpretation Comments Urine Glucose (UA) (test code = 86009-7) NEGATIVE NEGATIVE [facility] Mxaxnnc0530-35-79 12:19:00* Test Item Value Reference Range Interpretation Comments Urine Ketones (test code = 27625-6) NEGATIVE NEGATIVE [facility] Bgnobiyvhnyd8989-66-71 12:19:00* Test Item Value Reference Range Interpretation Comments Urine Urobilinogen (test code = 07950-3) 1 0.2-1 [facility] Synqadrxl6484-45-86 12:19:00* Test Item Value Reference Range Interpretation Comments Urine Bilirubin (test code = 1977-8) SMALL NEGATIVE [facility] Kkvxr6275-82-16 12:19:00* Test Item Value Reference Range Interpretation Comments Urine Blood (test code = 32271-0) NEGATIVE NEGATIVE [facility] HospitalCreatine Kinase SI3620-66-75 12:11:00* Test Item Value Reference Range Interpretation Comments Creatine Kinase MB (test code = 24210-9) 2.20 0-5.0 [facility] HospitalTroponin H5534-35-94 12:11:00* Test Item Value Reference Range Interpretation Comments Troponin I (test code = MZG6675) 0.014 0-0.300 [facility] Lpnmg3171-90-39 12:00:00* Test Item Value Reference Range Interpretation Comments Sodium Level (test code = 2951-2) 132 136-145 L [facility]Potassium Njofe9119-08-31 12:00:00* Test Item Value Reference Range Interpretation Comments Potassium Level (test code = 2823-3) 3.4 3.5-5.1 L [facility] HospitalChloride Zlaug9669-61-03 12:00:00* Test Item Value Reference Range Interpretation Comments Chloride Level (test code = 2075-0) 96 98-107 L [facility] HospitalCarbon Dioxide Pibkw9564-45-30 12:00:00* Test Item Value Reference Range Interpretation Comments Carbon Dioxide Level (test code = 2028-9) 29 22-29 [facility] HospitalAnion Thx3433-37-61 12:00:00* Test Item Value Reference Range Interpretation Comments Anion Gap (test code = 97569-7) 10.4 8-16 [facility] HospitalBlood Urea Dgpipkkk9375-55-52 12:00:00* Test Item Value Reference Range Interpretation Comments Blood Urea Nitrogen (test code = 3094-0) 22 7-26 [facility] HospitalCreatinine2019-08-22 12:00:00* Test Item Value Reference Range Interpretation Comments Creatinine (test code = 2160-0) 0.99 0.72-1.25 [facility] HospitalBUN/Creatinine Tgets1233-22-82 12:00:00* Test Item Value Reference Range Interpretation Comments BUN/Creatinine Ratio (test code = 3097-3) 22 6-25 [facility] HospitalEstimat Glomerular Filtration Rate 2018-11-05 12:00:00* Test Item Value Reference Range Interpretation Comments Estimat Glomerular Filtration Rate (test code = 634144884) > 60 >60 Ranges were taken from the National Kidney Disease Education Program and the [facility] Foundation literature.Reference ranges:60 or greater: Wbzotl17-86 ( for 3 consecutive months): Chronic kidney disease 15 or less: Kidney failureR[facility] HospitalGlucose Kxutl8641-81-97 12:00:00* Test Item Value Reference Range Interpretation Comments Glucose Level (test code = JPW8087) 112 74-118 [facility] HospitalCalcium Zkjir7727-62-51 12:00:00* Test Item Value Reference Range Interpretation Comments Calcium Level (test code = 67772-7) 8.7 8.4-10.2 [facility] HospitalTotal Cuzxwntcb4691-15-54 12:00:00* Test Item Value Reference Range Interpretation Comments Total Bilirubin (test code = 1975-2) 1.1 0.2-1.2 [facility] HospitalAspartate Amino Transf (AST/SGOT) 2018-11-05 12:00:00* Test Item Value Reference Range Interpretation Comments Aspartate Amino Transf (AST/SGOT) (test code = Aspartate Amino Transf (AST/SGOT)) 16 5-34 [facility] HospitalAlanine Aminotransferase (ALT/SGPT) 2018-11-05 12:00:00* Test Item Value Reference Range Interpretation Comments Alanine Aminotransferase (ALT/SGPT) (test code = 1742-6) 15 0-55 [facility] HospitalTotal Hyyxmxn3472-92-25 12:00:00* Test Item Value Reference Range Interpretation Comments Total Protein (test code = 2885-2) 6.1 6.5-8.1 L [facility] HospitalAlbumin2019-08-22 12:00:00* Test Item Value Reference Range Interpretation Comments Albumin (test code = 1751-7) 3.7 3.5-5.0 [facility] HospitalGlobulin2019-08-22 12:00:00* Test Item Value Reference Range Interpretation Comments Globulin (test code = 95412-1) 2.4 2.3-3.5 [facility] HospitalAlbumin/Globulin Atgot9411-63-99 12:00:00 * Test Item Value Reference Range Interpretation Comments Albumin/Globulin Ratio (test code = 1759-0) 1.5 0.8-2.0 [facility] HospitalAlkaline Wmpnridmblz4355-31-61 12:00:00* Test Item Value Reference Range Interpretation Comments Alkaline Phosphatase (test code = 6768-6) 94 40-150 [facility] HospitalCreatine Ggcfoy0802-00-03 12:00:00* Test Item Value Reference Range Interpretation Comments Creatine Kinase (test code = 2157-6) 63 30-200 [facility] HospitalWhite Blood Nmlpy8188-98-73 11:45:00* Test Item Value Reference Range Interpretation Comments White Blood Count (test code = 6690-2) 9.38 4.8-10.8 [facility] HospitalRed Blood Dqqoz0448-11-91 11:45:00* Test Item Value Reference Range Interpretation Comments Red Blood Count (test code = 789-8) 4.79 4.3-5.7 [facility] HospitalHemoglobin2019-08-22 11:45:00* Test Item Value Reference Range Interpretation Comments Hemoglobin (test code = 05465-2) 12.4 14.0-18.0 L [facility] HospitalHematocrit2019-08-22 11:45:00* Test Item Value Reference Range Interpretation Comments Hematocrit (test code = 4544-3) 40.0 38.2-49.6 [facility] HospitalMean Corpuscular Eztiec4840-69-80 11:45:00* Test Item Value Reference Range Interpretation Comments Mean Corpuscular Volume (test code = 787-2) 83.5 81-99 [facility] HospitalMean Corpuscular Qjhjzkacti5347-19-98 11:45:00* Test Item Value Reference Range Interpretation Comments Mean Corpuscular Hemoglobin (test code = 785-6) 25.9 28-32 L [facility] HospitalMean Corpuscular Hemoglobin Concent 2018-11-05 11:45:00* Test Item Value Reference Range Interpretation Comments Mean Corpuscular Hemoglobin Concent (test code = 786-4) 31.0 31-35 [facility] HospitalRed Cell Distribution Goifo5671-83-08 11:45:00* Test Item Value Reference Range Interpretation Comments Red Cell Distribution Width (test code = 03424-4) 13.8 11.7 -14.4 [facility] HospitalPlatelet Tmftk2063-80-15 11:45:00* Test Item Value Reference Range Interpretation Comments Platelet Count (test code = 777-3) 245 140-360 [facility] HospitalNeutrophils (%) (Auto)2018-11-05 11:45:00 * Test Item Value Reference Range Interpretation Comments Neutrophils (%) (Auto) (test code = 53122-2) 82.7 38.7-80.0 H [facility] HospitalLymphocytes (%) (Auto)2018-11-05 11:45:00 * Test Item Value Reference Range Interpretation Comments Lymphocytes (%) (Auto) (test code = 736-9) 8.4 18.0-39.1 L [facility] HospitalMonocytes (%) (Auto)2018-11-05 11:45:00* Test Item Value Reference Range Interpretation Comments Monocytes (%) (Auto) (test code = 5905-5) 6.6 4.4-11.3 [facility] HospitalEosinophils (%) (Auto)2018-11-05 11:45:00 * Test Item Value Reference Range Interpretation Comments Eosinophils (%) (Auto) (test code = 713-8) 1.7 0.0-6.0 [facility] HospitalBasophils (%) (Auto)2018-11-05 11:45:00* Test Item Value Reference Range Interpretation Comments Basophils (%) (Auto) (test code = 706-2) 0.2 0.0-1.0 [facility] HospitalIM GRANULOCYTES %2018-11-05 11:45:00* Test Item Value Reference Range Interpretation Comments IM GRANULOCYTES % (test code = IM GRANULOCYTES %) 0.4 0.0- 1.0 [facility] HospitalNeutrophils # (Auto)2018-11-05 11:45:00* Test Item Value Reference Range Interpretation Comments Neutrophils # (Auto) (test code = 751-8) 7.8 2.1-6.9 H [facility] HospitalLymphocytes # (Auto)2018-11-05 11:45:00* Test Item Value Reference Range Interpretation Comments Lymphocytes # (Auto) (test code = 58399-6) 0.8 1.0-3.2 L [facility] HospitalMonocytes # (Auto)2018-11-05 11:45:00* Test Item Value Reference Range Interpretation Comments Monocytes # (Auto) (test code = 742-7) 0.6 0.2-0.8 [facility] HospitalEosinophils # (Auto)2018-11-05 11:45:00* Test Item Value Reference Range Interpretation Comments Eosinophils # (Auto) (test code = 711-2) 0.2 0.0-0.4 [facility] HospitalBasophils # (Auto)2018-11-05 11:45:00* Test Item Value Reference Range Interpretation Comments Basophils # (Auto) (test code = 704-7) 0.0 0.0-0.1 [facility] HospitalAbsolute Immature Granulocyte (auto 2018-11-05 11:45:00* Test Item Value Reference Range Interpretation Comments Absolute Immature Granulocyte (auto (chriss t code = Absolute Immature Granulocyte (auto) 0.04 0-0.1 [facility] HospitalMucus detection in urine sediment by light jfpndurwhe2880-39-72 10:39:00* Test Item Value Reference Range Interpretation Comments Urine Mucus (test code = 8247-9) FEW RARE [facility] HospitalMucus detection in urine sediment by light aybyvwlimn3306-54-85 10:39:00* Test Item Value Reference Range Interpretation Comments Urine Mucus (test code = 8247-9) [facility] by light wniffdkgjz4172-06-95 10:39:00* Test Item Value Reference Range Interpretation Comments Urine Mucus (test code = 8247-9) [facility] Zlxgsvq0123-67-65 15:32:00* Test Item Value Reference Range Interpretation Comments Bedside Glucose (test code = 56356-3) 222 70-120 H Meter ID: [id number] [facility] Glucose 2018-10-31 15:32:00* Test Item Value Reference Range Interpretation Comments Bedside Glucose (test code = 95132-6) 222 70-120 H Meter ID: [id number] [facility] 2018-10-31 07:19:00 [place] [address] Patient Name: KASSI MCNULTY MR #: [id number] : 1955 Age/Sex: 63/M Req #: [id number] Adm Physician: DIMA WELCH MD Ordered by: Holli Morel FILER FINISH Report #: [id number] Location: MED/SURG Room/Bed: [facility] Procedure: [id number] DX/ ABDOMEN-1VIEW (KUB) Exam Date: Exam Time: [...] CAROL on 10/31/18722 COPY TO: HOLLI MOREL FILER FINISH Sodium Zewjj7561-86-29 04:28:00* Test Item Value Reference Range Interpretation Comments Sodium Level (test code = 2951-2) 141 136-145 [facility] HospitalPotassium Vkjfm6915-20-03 04:28:00* Test Item Value Reference Range Interpretation Comments Potassium Level (test code = 2823-3) 3.4 3.5-5.1 L [facility] HospitalChloride Nehda4305-16-08 04:28:00* Test Item Value Reference Range Interpretation Comments Chloride Level (test code = 2075-0) 107 98-107 [facility] HospitalCarbon Dioxide Hismj8232-53-97 04:28:00* Test Item Value Reference Range Interpretation Comments Carbon Dioxide Level (test code = 2028-9) 27 22-29 [facility] HospitalAnion Plm7085-30-56 04:28:00* Test Item Value Reference Range Interpretation Comments Anion Gap (test code = 52566-5) 10.4 8-16 [facility] HospitalBlood Urea Mdlzwimf6757-78-14 04:28:00* Test Item Value Reference Range Interpretation Comments Blood Urea Nitrogen (test code = 3094-0) 8 7-26 [facility] HospitalCreatinine2019-08-17 04:28:00* Test Item Value Reference Range Interpretation Comments Creatinine (test code = 2160-0) 0.71 0.72-1.25 L [facility] HospitalBUN/Creatinine Gxyia6089-37-23 04:28:00* Test Item Value Reference Range Interpretation Comments BUN/Creatinine Ratio (test code = 3097-3) 11 6-25 [facility] HospitalEstimat Glomerular Filtration Rate 2018-10-31 04:28:00* Test Item Value Reference Range Interpretation Comments Estimat Glomerular Filtration Rate (test code = 848385307) > 60 >60 Ranges were taken from the National Kidney Disease Education Program and the [facility] literature.Reference ranges:60 or greater: Iaqpmn74-50 ( for 3 consecutive months): Chronic kidney disease 15 or less: Kidney failureR[facility] HospitalGlucose Oribv0246-20-07 04:28:00* Test Item Value Reference Range Interpretation Comments Glucose Level (test code = LTI5493) 129 74-118 H [facility] HospitalCalcium Dxxrs7494-57-02 04:28:00* Test Item Value Reference Range Interpretation Comments Calcium Level (test code = 57735-1) 7.9 8.4-10.2 L [facility] HospitalWhite Blood Ouovu1771-29-00 04:15:00* Test Item Value Reference Range Interpretation Comments White Blood Count (test code = 6690-2) 7.21 4.8-10.8 [facility] HospitalRed Blood Zoekf0764-01-40 04:15:00* Test Item Value Reference Range Interpretation Comments Red Blood Count (test code = 789-8) 4.71 4.3-5.7 [facility] HospitalHemoglobin2019-08-17 04:15:00* Test Item Value Reference Range Interpretation Comments Hemoglobin (test code = 79172-5) 12.3 14.0-18.0 L [facility] HospitalHematocrit2019-08-17 04:15:00* Test Item Value Reference Range Interpretation Comments Hematocrit (test code = 4544-3) 39.7 38.2-49.6 [facility] HospitalMean Corpuscular Xpykkm1810-11-53 04:15:00* Test Item Value Reference Range Interpretation Comments Mean Corpuscular Volume (test code = 787-2) 84.3 81-99 [facility] HospitalMean Corpuscular Qzizdudxxh4164-04-40 04:15:00* Test Item Value Reference Range Interpretation Comments Mean Corpuscular Hemoglobin (test code = 785-6) 26.1 28-32 L [facility] HospitalMean Corpuscular Hemoglobin Concent 2018-10-31 04:15:00* Test Item Value Reference Range Interpretation Comments Mean Corpuscular Hemoglobin Concent (test code = 786-4) 31.0 31-35 [facility] HospitalRed Cell Distribution Atrmk4253-76-38 04:15:00* Test Item Value Reference Range Interpretation Comments Red Cell Distribution Width (test code = 67561-4) 13.7 11.7 -14.4 [facility] HospitalPlatelet Hidpa0740-85-53 04:15:00* Test Item Value Reference Range Interpretation Comments Platelet Count (test code = 777-3) 173 140-360 [facility] HospitalNeutrophils (%) (Auto)2018-10-31 04:15:00 * Test Item Value Reference Range Interpretation Comments Neutrophils (%) (Auto) (test code = 44465-9) 73.7 38.7-80.0 [facility] HospitalLymphocytes (%) (Auto)2018-10-31 04:15:00 * Test Item Value Reference Range Interpretation Comments Lymphocytes (%) (Auto) (test code = 736-9) 13.5 18.0-39.1 L [facility] HospitalMonocytes (%) (Auto)2018-10-31 04:15:00* Test Item Value Reference Range Interpretation Comments Monocytes (%) (Auto) (test code = 5905-5) 8.2 4.4-11.3 [facility] HospitalEosinophils (%) (Auto)2018-10-31 04:15:00 * Test Item Value Reference Range Interpretation Comments Eosinophils (%) (Auto) (test code = 713-8) 3.6 0.0-6.0 [facility] HospitalBasophils (%) (Auto)2018-10-31 04:15:00* Test Item Value Reference Range Interpretation Comments Basophils (%) (Auto) (test code = 706-2) 0.4 0.0-1.0 [facility] HospitalIM GRANULOCYTES %2018-10-31 04:15:00* Test Item Value Reference Range Interpretation Comments IM GRANULOCYTES % (test code = IM GRANULOCYTES %) 0.6 0.0- 1.0 [facility] HospitalNeutrophils # (Auto)2018-10-31 04:15:00* Test Item Value Reference Range Interpretation Comments Neutrophils # (Auto) (test code = 751-8) 5.3 2.1-6.9 [facility] HospitalLymphocytes # (Auto)2018-10-31 04:15:00* Test Item Value Reference Range Interpretation Comments Lymphocytes # (Auto) (test code = 37783-6) 1.0 1.0-3.2 [facility] HospitalMonocytes # (Auto)2018-10-31 04:15:00* Test Item Value Reference Range Interpretation Comments Monocytes # (Auto) (test code = 742-7) 0.6 0.2-0.8 [facility] HospitalEosinophils # (Auto)2018-10-31 04:15:00* Test Item Value Reference Range Interpretation Comments Eosinophils # (Auto) (test code = 711-2) 0.3 0.0-0.4 [facility] HospitalBasophils # (Auto)2018-10-31 04:15:00* Test Item Value Reference Range Interpretation Comments Basophils # (Auto) (test code = 704-7) 0.0 0.0-0.1 [facility] HospitalAbsolute Immature Granulocyte (auto 2018-10-31 04:15:00* Test Item Value Reference Range Interpretation Comments Absolute Immature Granulocyte (auto (chriss t code = Absolute Immature Granulocyte (auto) 0.04 0-0.1 [facility] HospitalABDOMEN ACUTE SERIES W/PA NNF3498-92-34 15:28:00 [place] [address] Patient Name: KASSI MCNULTY MR #: [id number] : 1955 Age/Sex: 63/M Req #: [id number] Adm Physician: DIMA WELCH MD Ordered by: AL WELLS MD Report #: [id number] Location: MED/SURG Room/Bed: 109-1 Procedure: [id number] DX/ABDOMEN ACUTE SERIES W/PA CXR Exam Date: [...] 1531 COPY TO: AL WELLS MD ABDOMEN-1VIEW (KU)2018-10-30 06:34:00 [place] [address] Patient Name: KASSI MCNULTY MR #: [id number] : 1955 Age/Sex: 63/M Req #: [id number] Adm Physician: DIMA WELCH MD Ordered by: Holli Morel NP Report #: [id number] Location: MED/SURG Room/Bed: 109-1 Procedure: DX/ ABDOMEN-1VIEW [...] Jayson MOREL NP ABDOMEN ACUTE SERIES W/MINOR HEX0338-44-82 14:48:00 [place] [address] Patient Name: KASSI MCNULTY MR #: [id number] : 1955 Age/Sex: 63/M Req #: [id number] Adm Physician: DIMA WELCH MD Ordered by: AL WELLS MD Report #: [id number] Location: MED/SURG Room/Bed: [facility] Procedure: DX/ABDOMEN ACUTE SERIES W/PA CXR Exam [...] COPY TO: AL WELLS MD CT ABDOMEN/PELVIS K9754-52-13 06:13:00 [place] [address] Patient Name: KASSI MCNULTY MR #: [id number] : 1955 Age/Sex: 63/M Req #: [id number] Adm Physician: Ordered by: VON ACHARYA MD Report #: [id number] Location: ER Room/Bed: Procedure: [id number]/CT [...] 10/29/18630 COPY TO: VON ACHARYA MD Urine UFR2545-21-44 06:04:00* Test Item Value Reference Range Interpretation Comments Urine WBC (test code = 5821-4) 11-20 0-5 [facility] VIG1798-00-00 06:04:00* Test Item Value Reference Range Interpretation Comments Urine RBC (test code = 49119-4) 0-5 0-5 [facility] HospitalU[facility] Jnlyjcah2727-65-81 06:04:00* Test Item Value Reference Range Interpretation Comments Urine Bacteria (test code = 01306-6) MANY NONE H [facility] HospitalUrine Epithelial Lenxw6217-49-77 06:04:00 * Test Item Value Reference Range Interpretation Comments Urine Epithelial Cells (test code = 67351-6) MODERATE NONE [facility] HospitalUrine Amorphous Tsgnvfvg2376-79-52 06:04:00* Test Item Value Reference Range Interpretation Comments Urine Amorphous Sediment (test code = 8246-1) FEW FEW [facility] Hyaline Qcpau4947-54-78 06:04:00* Test Item Value Reference Range Interpretation Comments Urine Hyaline Casts (test code = 20380-7) 6-10 0-1 H [facility] Fine Granular Tfkdi9178-27-45 06:04:00* Test Item Value Reference Range Interpretation Comments Urine Fine Granular Casts (test code = 52900-1) 1-5 >0 H [facility] HospitalUrine Epenc9838-69-96 06:04:00* Test Item Value Reference Range Interpretation Comments Urine Mucus (test code = 8247-9) MODERATE RARE H [facility] HospitalUrine Amorphous Paxnahue4522-66-44 06:04:00* Test Item Value Reference Range Interpretation Comments Urine Amorphous Sediment (test code = 8246-1) FEW FEW [facility] HospitalU[facility] Hyaline Zyizm5618-36-16 06:04:00* Test Item Value Reference Range Interpretation Comments Urine Hyaline Casts (test code = 35995-5) 6-10 0-1 H [facility] Fine Granular Uosib4664-52-70 06:04:00* Test Item Value Reference Range Interpretation Comments Urine Fine Granular Casts (test code = 39107-6) 1-5 >0 H [facility] Amorphous Zdbrxwlx7048-66-99 06:04:00* Test Item Value Reference Range Interpretation Comments Urine Amorphous Sediment (test code = 8246-1) FEW FEW [facility] Hyaline Lwyom7303-35-74 06:04:00* Test Item Value Reference Range Interpretation Comments Urine Hyaline Casts (test code = 86620-1) 6-10 0-1 H [facility] HospitalU[facility] Fine Granular Gfqyz9742-37-52 06:04:00* Test Item Value Reference Range Interpretation Comments Urine Fine Granular Casts (test code = 85784-7) 1-5 >0 H [facility] HospitalUrine Amorphous Rornrabg6697-36-75 06:04:00* Test Item Value Reference Range Interpretation Comments Urine Amorphous Sediment (test code = 8246-1) FEW FEW [facility] HospitalU[facility] Hyaline Tfoac2342-74-99 06:04:00* Test Item Value Reference Range Interpretation Comments Urine Hyaline Casts (test code = 86005-7) 6-10 0-1 H [facility] HospitalU[facility] Fine Granular Ulzpb2362-31-30 06:04:00* Test Item Value Reference Range Interpretation Comments Urine Fine Granular Casts (test code = 76451-7) 1-5 >0 H [facility] HospitalUrine Rwipx0492-23-07 05:53:00* Test Item Value Reference Range Interpretation Comments Urine Color (test code = 5778-6) YELLOW YELLOW [facility] HospitalUrine Dzvkcmw7442-77-50 05:53:00* Test Item Value Reference Range Interpretation Comments Urine Clarity (test code = 55611-0) SL CLOUDY CLEAR H [facility] HospitalUrine Specific Lyfkzzb5770-11-35 05:53:00 * Test Item Value Reference Range Interpretation Comments Urine Specific [place] (test code = 5811-5) 1.025 1.010-1.02 5 [facility] HospitalUrine mE6701-54-22 05:53:00* Test Item Value Reference Range Interpretation Comments Urine pH (test code = 70364-3) 6 5-7 [facility] Leukocyte Ralwpvub0561-60-69 05:53:00* Test Item Value Reference Range Interpretation Comments Urine Leukocyte Esterase (test code = 82676-5) NEGATIVE NEGATIV E [facility] Icisntw6769-47-47 05:53:00* Test Item Value Reference Range Interpretation Comments Urine Nitrite (test code = 64154-5) NEGATIVE NEGATIVE [facility] Kshsgux4080-87-32 05:53:00* Test Item Value Reference Range Interpretation Comments Urine Protein (test code = 95573-4) 2+ NEGATIVE H [facility] HospitalU[facility] Glucose (UA)2018-10-29 05:53:00* Test Item Value Reference Range Interpretation Comments Urine Glucose (UA) (test code = 92295-7) NEGATIVE NEGATIVE [facility] Tsjinwd8121-87-97 05:53:00* Test Item Value Reference Range Interpretation Comments Urine Ketones (test code = 09025-6) NEGATIVE NEGATIVE [facility] Lznzndgxrsvm8535-35-45 05:53:00* Test Item Value Reference Range Interpretation Comments Urine Urobilinogen (test code = 18089-8) 0.2 0.2-1 [facility] Merazxaiw9945-89-09 05:53:00* Test Item Value Reference Range Interpretation Comments Urine Bilirubin (test code = 1977-8) NEGATIVE NEGATIVE [facility] Wbmnj5638-03-63 05:53:00* Test Item Value Reference Range Interpretation Comments Urine Blood (test code = 73583-9) NEGATIVE NEGATIVE [facility] HospitalAmylase Zowpp0005-23-95 05:18:00* Test Item Value Reference Range Interpretation Comments Amylase Level (test code = 1798-8) 51 25-125 [facility] HospitalLipase2019-08-15 05:18:00* Test Item Value Reference Range Interpretation Comments Lipase (test code = 3040-3) 57 8-78 [facility] HospitalAmylase Wucgc7596-59-03 05:18:00* Test Item Value Reference Range Interpretation Comments Amylase Level (test code = 1798-8) 51 25-125 [facility] HospitalLipase2019-08-15 05:18:00* Test Item Value Reference Range Interpretation Comments Lipase (test code = 3040-3) 57 8-78 [facility] HospitalAmylase Ufepm4629-86-57 05:18:00* Test Item Value Reference Range Interpretation Comments Amylase Level (test code = 1798-8) 51 25-125 [facility] HospitalAmylase Vcpzz9533-52-09 05:18:00* Test Item Value Reference Range Interpretation Comments Amylase Level (test code = 1798-8) 51 25-125 [facility] HospitalAmorphous sediment detection in urine sediment by light ramftzujzs0844-60-50 05:15:00* Test Item Value Reference Range Interpretation Comments Urine Amorphous Sediment (test code = 8246-1) FEW FEW [facility] HospitalHyaline casts detection in urine sediment by light uritsqtcxi0866-92-15 05:15:00* Test Item Value Reference Range Interpretation Comments Urine Hyaline Casts (test code = 72353-0) 6-10 0-1 [facility] HospitalAutomated fine granular casts count in urine sediment by microscopy low power field (number/area)2018-10-29 05:15:00* Test Item Value Reference Range Interpretation Comments Urine Fine Granular Casts (test code = 67603-5) 1-5 >0 [facility] HospitalAmorphous sediment detection in urine sediment by light gmvhscsqnl7596-50-93 05:15:00* Test Item Value Reference Range Interpretation Comments Urine Amorphous Sediment (test code = 8246-1) FEW FEW [facility] HospitalHyaline casts detection in urine sediment by light ezbbrbanvh4758-18-64 05:15:00* Test Item Value Reference Range Interpretation Comments Urine Hyaline Casts (test code = 56517-3) 6-10 0-1 [facility] HospitalAutomated fine granular casts count in urine sediment by microscopy low power field (number/area)2018-10-29 05:15:00* Test Item Value Reference Range Interpretation Comments Urine Fine Granular Casts (test code = 77079-4) 1-5 >0 [facility] HospitalAmorphous sediment detection in urine sediment by light vdlvtgakoe6809-53-43 05:15:00* Test Item Value Reference Range Interpretation Comments Urine Amorphous Sediment (test code = 8246-1) FEW FEW [facility] HospitalHyaline casts detection in urine sediment by light svrmsuvsku9288-40-51 05:15:00* Test Item Value Reference Range Interpretation Comments Urine Hyaline Casts (test code = 09141-2) 6-10 0-1 [facility] HospitalAutomated fine granular casts count in urine sediment by microscopy low power field (number/area)2018-10-29 05:15:00* Test Item Value Reference Range Interpretation Comments Urine Fine Granular Casts (test code = 16305-4) 1-5 >0 [facility] HospitalCreatine Kinase DZ5717-84-44 05:13:00* Test Item Value Reference Range Interpretation Comments Creatine Kinase MB (test code = 91045-8) 5.90 0-5.0 H [facility] HospitalTroponin Y9350-64-37 05:13:00* Test Item Value Reference Range Interpretation Comments Troponin I (test code = JNA3909) 0.010 0-0.300 [facility] HospitalLactic Acid Woaxk4759-80-21 05:06:00* Test Item Value Reference Range Interpretation Comments Lactic Acid Level (test code = Lactic Acid Level) 14.5 4.5- 19.8 [facility] HospitalTotal Xtetwezyn6352-37-64 05:06:00* Test Item Value Reference Range Interpretation Comments Total Bilirubin (test code = 1975-2) 0.8 0.2-1.2 [facility] HospitalAspartate Amino Transf (AST/SGOT) 2018-10-29 05:06:00* Test Item Value Reference Range Interpretation Comments Aspartate Amino Transf (AST/SGOT) (test code = Aspartate Amino Transf (AST/SGOT)) 21 5-34 [facility] HospitalAlanine Aminotransferase (ALT/SGPT) 2018-10-29 05:06:00* Test Item Value Reference Range Interpretation Comments Alanine Aminotransferase (ALT/SGPT) (test code = 1742-6) 23 0-55 [facility] HospitalTotal Drbkhro5459-40-42 05:06:00* Test Item Value Reference Range Interpretation Comments Total Protein (test code = 2885-2) 6.6 6.5-8.1 [facility] HospitalAlbumin2019-08-15 05:06:00* Test Item Value Reference Range Interpretation Comments Albumin (test code = 1751-7) 4.0 3.5-5.0 [facility] HospitalGlobulin2019-08-15 05:06:00* Test Item Value Reference Range Interpretation Comments Globulin (test code = 48923-0) 2.6 2.3-3.5 [facility] HospitalAlbumin/Globulin Ehtap5147-07-21 05:06:00 * Test Item Value Reference Range Interpretation Comments Albumin/Globulin Ratio (test code = 1759-0) 1.5 0.8-2.0 [facility] HospitalAlkaline Lhwagrlzufd7156-14-35 05:06:00* Test Item Value Reference Range Interpretation Comments Alkaline Phosphatase (test code = 6768-6) 112 40-150 [facility] HospitalCreatine Wzftxf1528-54-19 05:06:00* Test Item Value Reference Range Interpretation Comments Creatine Kinase (test code = 2157-6) 124 30-200 [facility] HospitalLactic Acid Djjxs8998-57-23 05:06:00* Test Item Value Reference Range Interpretation Comments Lactic Acid Level (test code = Lactic Acid Level) 14.5 4.5- 19.8 [facility] HospitalLactic Acid Ekeke4006-50-73 05:06:00* Test Item Value Reference Range Interpretation Comments Lactic Acid Level (test code = Lactic Acid Level) 14.5 4.5- 19.8 [facility] HospitalLactic Acid Vvyez8372-38-75 05:06:00* Test Item Value Reference Range Interpretation Comments Lactic Acid Level (test code = Lactic Acid Level) 14.5 4.5- 19.8 [facility] HospitalFluoroscopic procedure less than one hour psjuwxwe2775-15-09 04:25:00* Test Item Value Reference Range Interpretation Comments Lactic Acid Level (test code = Lactic Acid Level) 14.5 4.5- 19.8 [facility] or plasma amylase measurement (enzymatic activity/volume)2018-10-29 04:25:00* Test Item Value Reference Range Interpretation Comments Amylase Level (test code = 1798-8) 51 25-125 [facility] HospitalFluoroscopic procedure less than one hour siusekqt6576-26-31 04:25:00* Test Item Value Reference Range Interpretation Comments Lactic Acid Level (test code = Lactic Acid Level) 14.5 4.5- 19.8 [facility] or plasma amylase measurement (enzymatic activity/volume)2018-10-29 04:25:00* Test Item Value Reference Range Interpretation Comments Amylase Level (test code = 1798-8) 51 25-125 [facility] HospitalFluoroscopic procedure less than one hour myiwitca2661-72-11 04:25:00* Test Item Value Reference Range Interpretation Comments Lactic Acid Level (test code = Lactic Acid Level) 14.5 4.5- 19.8 [facility] or plasma amylase measurement (enzymatic activity/volume)2018-10-29 04:25:00* Test Item Value Reference Range Interpretation Comments Amylase Level (test code = 1798-8) 51 25-125 [facility] HospitalBedside Erugsbz1872-30-52 15:48:00* Test Item Value Reference Range Interpretation Comments Bedside Glucose (test code = 66543-7) 212 70-120 H Meter ID: [id number] [facility] Edinburgtress Test - Treadmill OOUY8325-12-19 13:40:00 [place] [address] Patient Name : KASSI MCNULTY MR #: [id number] : 1955 Age/Sex: 62/M Adm Physician : DIMA WELCH MD Admit Date : 10/30/17 Location : MED/SURG Room/Bed : [facility] REPORT: Cardiolog y Report REFERRING PHYSICIAN: [...] wall motion abnormalities. DT: 2017 13:55 Job#: [id number] EV cc: DIMA WELCH MD Signature Date Dictated By: NATANAEL MCCALLUM MD Transcribed By: EDS on 10/31/17 <Electronically signed by NATANAEL MCCALLUM MD><<Signature on File>>01/28/18 1308 COPY TO: Sodium Jbgrq2986-52-86 08:57:00* Test Item Value Reference Range Interpretation Comments Sodium Level (test code = 2951-2) 139 136-145 [facility] HospitalPotassium Tqjpa2410-59-71 08:57:00* Test Item Value Reference Range Interpretation Comments Potassium Level (test code = 2823-3) 3.1 3.5-5.1 L [facility] HospitalChloride Toaqq9347-55-75 08:57:00* Test Item Value Reference Range Interpretation Comments Chloride Level (test code = 2075-0) 101 98-107 [facility] HospitalCarbon Dioxide Rtyqd7906-68-34 08:57:00* Test Item Value Reference Range Interpretation Comments Carbon Dioxide Level (test code = 2028-9) 27 -29 [facility] HospitalAnion Nof5376-87-99 08:57:00* Test Item Value Reference Range Interpretation Comments Anion Gap (test code = 28064-7) 14.1 8-16 [facility] HospitalBlood Urea Dbfrojii4988-60-85 08:57:00* Test Item Value Reference Range Interpretation Comments Blood Urea Nitrogen (test code = 3094-0) 12 7-26 [facility] HospitalCreatinine2018-08-17 08:57:00* Test Item Value Reference Range Interpretation Comments Creatinine (test code = 2160-0) 0.76 0.72-1.25 [facility] HospitalBUN/Creatinine Jtldq9670-08-40 08:57:00* Test Item Value Reference Range Interpretation Comments BUN/Creatinine Ratio (test code = 3097-3) 16 - [facility] HospitalEstimat Glomerular Filtration Rate 2017-10-31 08:57:00* Test Item Value Reference Range Interpretation Comments Estimat Glomerular Filtration Rate (test code = 98506-3) 60- >60 Ranges were taken from the National Kidney Disease Education Program and the [facility] Foundation literature.Reference ranges:60 or greater: Pbnchs07-52 ( for 3 consecutive months): Chronic kidney disease 15 or less: Kidney failureR[facility] HospitalGlucose Hmuny1407-78-29 08:57:00* Test Item Value Reference Range Interpretation Comments Glucose Level (test code = RYD9838) 158 74-118 H [facility] HospitalCalcium Jdpoo5966-35-98 08:57:00* Test Item Value Reference Range Interpretation Comments Calcium Level (test code = 06531-7) 9.3 8.4-10.2 [facility] HospitalMagnesium Tymji7402-51-12 08:57:00* Test Item Value Reference Range Interpretation Comments Magnesium Level (test code = 06013-7) 1.5 1.3-2.1 [facility] HospitalWhite Blood Mqset5994-63-88 08:43:00* Test Item Value Reference Range Interpretation Comments White Blood Count (test code = 6690-2) 7.23 4.8-10.8 [facility] HospitalRed Blood Icrmn1093-34-83 08:43:00* Test Item Value Reference Range Interpretation Comments Red Blood Count (test code = 789-8) 4.60 4.3-5.7 [facility] HospitalHemoglobin2018-08-17 08:43:00* Test Item Value Reference Range Interpretation Comments Hemoglobin (test code = 71912-9) 12.5 14.0-18.0 L [facility] HospitalHematocrit2018-08-17 08:43:00* Test Item Value Reference Range Interpretation Comments Hematocrit (test code = 4544-3) 38.3 38.2-49.6 [facility] HospitalMean Corpuscular Wkrjpo5847-98-91 08:43:00* Test Item Value Reference Range Interpretation Comments Mean Corpuscular Volume (test code = 787-2) 83.3 81-99 [facility] HospitalMean Corpuscular Eayefixwdy7409-86-29 08:43:00* Test Item Value Reference Range Interpretation Comments Mean Corpuscular Hemoglobin (test code = 785-6) 27.2 28-32 L [facility] HospitalMean Corpuscular Hemoglobin Concent 2017-10-31 08:43:00* Test Item Value Reference Range Interpretation Comments Mean Corpuscular Hemoglobin Concent (test code = 786-4) 32.6 31-35 [facility] HospitalRed Cell Distribution Rmkob4753-30-35 08:43:00* Test Item Value Reference Range Interpretation Comments Red Cell Distribution Width (test code = 05606-0) 14.9 11.7 -14.4 H [facility] HospitalPlatelet Wmdzo7710-32-57 08:43:00* Test Item Value Reference Range Interpretation Comments Platelet Count (test code = 777-3) 202 140-360 [facility] HospitalNeutrophils (%) (Auto)2017-10-31 08:43:00 * Test Item Value Reference Range Interpretation Comments Neutrophils (%) (Auto) (test code = 00689-7) 74.4 38.7-80.0 [facility] HospitalLymphocytes (%) (Auto)2017-10-31 08:43:00 * Test Item Value Reference Range Interpretation Comments Lymphocytes (%) (Auto) (test code = 736-9) 12.9 18.0-39.1 L [facility] HospitalMonocytes (%) (Auto)2017-10-31 08:43:00* Test Item Value Reference Range Interpretation Comments Monocytes (%) (Auto) (test code = 5905-5) 8.0 4.4-11.3 [facility] HospitalEosinophils (%) (Auto)2017-10-31 08:43:00 * Test Item Value Reference Range Interpretation Comments Eosinophils (%) (Auto) (test code = 713-8) 3.7 0.0-6.0 [facility] HospitalBasophils (%) (Auto)2017-10-31 08:43:00* Test Item Value Reference Range Interpretation Comments Basophils (%) (Auto) (test code = 706-2) 0.4 0.0-1.0 [facility] HospitalIM GRANULOCYTES %2017-10-31 08:43:00* Test Item Value Reference Range Interpretation Comments IM GRANULOCYTES % (test code = IM GRANULOCYTES %) 0.6 0.0- 1.0 [facility] HospitalNeutrophils # (Auto)2017-10-31 08:43:00* Test Item Value Reference Range Interpretation Comments Neutrophils # (Auto) (test code = 751-8) 5.4 2.1-6.9 [facility] HospitalLymphocytes # (Auto)2017-10-31 08:43:00* Test Item Value Reference Range Interpretation Comments Lymphocytes # (Auto) (test code = 97789-0) 0.9 1.0-3.2 L [facility] HospitalMonocytes # (Auto)2017-10-31 08:43:00* Test Item Value Reference Range Interpretation Comments Monocytes # (Auto) (test code = 742-7) 0.6 0.2-0.8 [facility] HospitalEosinophils # (Auto)2017-10-31 08:43:00* Test Item Value Reference Range Interpretation Comments Eosinophils # (Auto) (test code = 711-2) 0.3 0.0-0.4 [facility] HospitalBasophils # (Auto)2017-10-31 08:43:00* Test Item Value Reference Range Interpretation Comments Basophils # (Auto) (test code = 704-7) 0.0 0.0-0.1 [facility] HospitalAbsolute Immature Granulocyte (auto 2017-10-31 08:43:00* Test Item Value Reference Range Interpretation Comments Absolute Immature Granulocyte (auto (chriss t code = Absolute Immature Granulocyte (auto) 0.04 0-0.1 [facility] HospitalTriglycerides Pwhcr8422-02-34 06:01:00* Test Item Value Reference Range Interpretation Comments Triglycerides Level (test code = 2571-8) 123 0-149 [facility] HospitalCholesterol Kmfib9856-68-47 06:01:00* Test Item Value Reference Range Interpretation Comments Cholesterol Level (test code = 2093-3) 135 0-199 Less than 200 mg/dL Low Pibl901 - 239 mg/dL Borderline Tdbl420 m g/dl and greater High Risk [facility] HospitalLDL Hehrsvwgudl9900-60-05 06:01:00* Test Item Value Reference Range Interpretation Comments LDL Cholesterol (test code = 2089-1) 66 60-130 [facility] HospitalHDL Ciaxcyivrpl5573-54-25 06:01:00* Test Item Value Reference Range Interpretation Comments HDL Cholesterol (test code = 2085-9) 44 40-60 [facility] HospitalCholesterol/HDL Icbid7113-97-33 06:01:00 * Test Item Value Reference Range Interpretation Comments Cholesterol/HDL Ratio (test code = 9830-1) 3.1 3.9-4.7 L [facility] HospitalCreatine Zcuwli6316-49-07 03:42:00* Test Item Value Reference Range Interpretation Comments Creatine Kinase (test code = 2157-6) 77 30-200 [facility] HospitalCreatine Kinase TQ4093-77-37 03:42:00* Test Item Value Reference Range Interpretation Comments Creatine Kinase MB (test code = 31486-0) 2.00 0-5.0 [facility] HospitalTroponin X4104-50-44 03:42:00* Test Item Value Reference Range Interpretation Comments Troponin I (test code = GHS8172) 0.022 0-0.300 [facility] HospitalCHEST SINGLE (PORTABLE)2017-10-30 11:21:00 [facility] [address] [place] [address] Patient Name: KSASI MCNULTY MR #: [id number] : 1955 Age/Sex: 62/M Req #: [id number] Adm Physician: Ordered by: DEBBY SALVADOR MD Report #: [id number] Location: ER Room/Bed: Procedure: [id number] DX/CHEST SINGLE (PORTABLE) Exam Date: 10/30/17 Exam [...] 1121 COPY TO: DEBBY SALVADOR MD Urine RIY9154-60-88 11:17:00* Test Item Value Reference Range Interpretation Comments Urine WBC (test code = 5821-4) 0-5 0-5 [facility] HospitalUrine QEU3105-34-46 11:17:00* Test Item Value Reference Range Interpretation Comments Urine RBC (test code = 95006-0) 0-5 0-5 [facility] HospitalUrine Fjcpnuxm8175-51-76 11:17:00* Test Item Value Reference Range Interpretation Comments Urine Bacteria (test code = 34228-7) FEW NONE [facility] HospitalUrine Epithelial Fekne6949-83-05 11:17:00 * Test Item Value Reference Range Interpretation Comments Urine Epithelial Cells (test code = 42272-4) FEW NONE [facility] HospitalUrine Kfbie4531-47-19 11:12:00* Test Item Value Reference Range Interpretation Comments Urine Color (test code = 5778-6) YELLOW YELLOW [facility] HospitalUrine Tevsrqx1632-08-51 11:12:00* Test Item Value Reference Range Interpretation Comments Urine Clarity (test code = 34879-4) CLEAR CLEAR [facility] HospitalUrine Specific Pohdssz6800-37-96 11:12:00 * Test Item Value Reference Range Interpretation Comments Urine Specific [place] (test code = 5811-5) 1.005 1.010-1.02 5 L [facility] HospitalUrine kA1974-77-41 11:12:00* Test Item Value Reference Range Interpretation Comments Urine pH (test code = 80568-8) 7 5-7 [facility] HospitalUrine Leukocyte Cowvxsig8726-46-93 11:12:00* Test Item Value Reference Range Interpretation Comments Urine Leukocyte Esterase (test code = 5799-2) NEGATIVE NEGATIVE [facility] HospitalUrine Reskdhj4769-74-47 11:12:00* Test Item Value Reference Range Interpretation Comments Urine Nitrite (test code = 22057-9) NEGATIVE NEGATIVE [facility] HospitalUrine Tfskfxx5307-20-82 11:12:00* Test Item Value Reference Range Interpretation Comments Urine Protein (test code = 5804-0) NEGATIVE NEGATIVE [facility] HospitalUrine Glucose (UA)2017-10-30 11:12:00* Test Item Value Reference Range Interpretation Comments Urine Glucose (UA) (test code = 2349-9) NEGATIVE NEGATIVE [facility] HospitalUrine Lyyudei2849-66-54 11:12:00* Test Item Value Reference Range Interpretation Comments Urine Ketones (test code = 57658-7) NEGATIVE NEGATIVE [facility] Xraewoaiawru5250-87-28 11:12:00* Test Item Value Reference Range Interpretation Comments Urine Urobilinogen (test code = 69788-8) 0.2 0.2-1 [facility] HospitalUrine Rxluyankz9093-06-01 11:12:00* Test Item Value Reference Range Interpretation Comments Urine Bilirubin (test code = 1978-6) NEGATIVE NEGATIVE [facility] HospitalUrine Irmai2543-09-38 11:12:00* Test Item Value Reference Range Interpretation Comments Urine Blood (test code = 58870-9) NEGATIVE NEGATIVE [facility] HospitalTotal Rrjqpvztr7890-82-29 10:47:00* Test Item Value Reference Range Interpretation Comments Total Bilirubin (test code = 1975-2) 0.5 0.2-1.2 [facility] HospitalAspartate Amino Transf (AST/SGOT) 2017-10-30 10:47:00* Test Item Value Reference Range Interpretation Comments Aspartate Amino Transf (AST/SGOT) (test code = Aspartate Amino Transf (AST/SGOT)) 14 5-34 [facility] HospitalAlanine Aminotransferase (ALT/SGPT) 2017-10-30 10:47:00* Test Item Value Reference Range Interpretation Comments Alanine Aminotransferase (ALT/SGPT) (test code = 1742-6) 17 0-55 [facility] HospitalTotal Desabix8082-14-69 10:47:00* Test Item Value Reference Range Interpretation Comments Total Protein (test code = 2885-2) 6.6 6.5-8.1 [facility] HospitalAlbumin2018-08-16 10:47:00* Test Item Value Reference Range Interpretation Comments Albumin (test code = 1751-7) 3.8 3.5-5.0 [facility] HospitalGlobulin2018-08-16 10:47:00* Test Item Value Reference Range Interpretation Comments Globulin (test code = 66240-2) 2.8 2.3-3.5 [facility] HospitalAlbumin/Globulin Zhhpe4204-57-98 10:47:00 * Test Item Value Reference Range Interpretation Comments Albumin/Globulin Ratio (test code = 1759-0) 1.4 0.8-2.0 [facility] HospitalAlkaline Suuyeycxjkz3404-96-80 10:47:00* Test Item Value Reference Range Interpretation Comments Alkaline Phosphatase (test code = 6768-6) 83 40-150 [facility] HospitalProthrombin Xulr6637-62-20 10:40:00* Test Item Value Reference Range Interpretation Comments Prothrombin Time (test code = 5902-2) 13.0 11.9-14.5 [facility] HospitalProthromb Time International Ratio 2017-10-30 10:40:00* Test Item Value Reference Range Interpretation Comments Prothromb Time International Ratio (test code = 6301-6) 1.06 Oral Anticoagulant Therapy INR Values:1. Low Intensity Therapy 1.5 - 2.02 . Moderate Intensity Therapy 2.0 - 3.03. High Intensity Therapy(1) 2.5 - 3. 54. High Intensity Therapy(2) 3.0 - 4.05. Panic Value INR > 5.0 [facility] HospitalActivated Partial Thromboplast Time 2017-10-30 10:40:00* Test Item Value Reference Range Interpretation Comments Activated Partial Thromboplast Time (test code = 63525-0) 27.4 23.8-35.5 [facility] HospitalCTA NECK [facility] [address] [place] [address] Patient Name: KASSI MCNULTY MR #: [id number] : 1955 Age/Sex: 62/M [facility] #: [id number] Req #: [id number] Adm Physician: Ordered by: PRAVEEN REED MD Report #: [id number] Location: CT Room/Bed: Procedure: CT/CTA NECK Exam [...]
[2020-01-30] MEDS ORDERED: KETOROLAC TROMETHAMINE 30 MG/ML VIAL IV STA (16:14)
[2020-01-30] MEDS ORDERED: DEXAMETHASONE SOD PHOS 10 MG/1 ML VIAL IV NR (16:15)
[2020-01-30] MEDS ORDERED: AZITHROMYCIN 500MG/NS 250 ML 250 ML IV ONE (16:15)
[2020-01-30] MEDS ORDERED: KETOROLAC TROMETHAMINE 30 MG/ML VIAL ONE (16:45)
[2020-01-30] MEDS ORDERED: AZITHROMYCIN 500MG/NS 250 ML 250 ML ONE (16:45)
[2020-01-30] MEDS ORDERED: DEXAMETHASONE SOD PHOS INJ 4 MG/ML VIAL ONE (16:45)
[2020-01-30] MEDS ORDERED: ZITHROMAX250 MG PO (17:19)
[2020-01-30] MEDS ORDERED: DECADRON6 MG PO (17:20)
[2020-01-30 17:52] VITALS: BP 178/90
--- NOTE | 2020-01-30 18:02 | Emergency Department Note ---
History of Present Illnes History of Present Illness Chief Complaint: Eye, Ear, Nose, Throat, Dental History of Present Illness This is a 64 year old male with worsening sore throat since this AM. Worse with swallowing and moving neck. No fever, chills, congestion. No loss taste/smell. No N/V. No change in chronic mild diarrhea from gallbladder removal. No sick contacts. Denies SOB to me. Told triage he was SOB, but patient tells me that taking deep breaths causes throat to hurt and denies SOB. No cough. Historian: Patient Arrival Mode: Car Demolition Engineer Required: No Onset (how long ago): hour(s) Location: left throat Quality: "raw: Radiation: Reports other (left ear) Severity: severe Onset quality: gradual Duration (how long): hour(s) Timing of current episode: constant Progression: worsening Chronicity: new Context: Denies recent illness, Denies trauma/injury Relieving factors: none Exacerbating factors: other (worse with swallowing or moving neck) Associated symptoms: Denies chest pain, Denies cough, Denies diaphoresis, Denies fever/chills, Denies headaches, Denies loss of appetite, Denies malaise, Denies nausea/vomiting, Denies rash, Denies seizure, Denies shortness of breath, Denies syncope, Denies weakness, Denies other (No diaphoresis) Past Medical/Family History Physician Review I have reviewed the patient's past medical and family history. Any updates have been documented here. Past Medical History Recent Fever: No Clinical Suspicion of Infectio: No New/Unexplained Change in Ment: No Past Medical History: Hypertension, DE, Hyperlipedemia Other Medical History: Heart cath. with stents placed x5, prostate CA with radiation tx. Past Surgical History: Cholecysctectomy Other Surgery: 5 cardiac stents pelvis surgery cervical fusion Social History Smoking Cessation: Never Smoker Counseling Performed: No Alcohol Use: None Any Illegal Drug Use: No Physically hurt or threatened: No Other Last Tetanus: X4 MONTHS AGO Any Pre-Existing Lines (PICC,: No Review of Systems Review of Systems Constitutional: Denies chills, Denies fever EENTM: Reports throat pain; Denies ear pain, Denies ear discharge, Denies nose congestion Cardiovascular: Denies chest pain, Denies palpitations, Denies syncope Respiratory: Denies cough, Denies dyspnea Gastrointestinal: Denies abdominal pain, Denies nausea, Denies vomiting Genitourinary: Denies dysuria Musculoskeletal: Denies joint pain Integumentary: Denies lumps Neurological: Denies headache, Denies numbness, Denies paresthesia Endocrine: Reports increased urination (on diuretic) Hematological/Lymphatic: Reports easy bleeding (on Plavix) Physical Exam Related Data Allergies: Coded Allergies: codeine (Verified Adverse Reaction, Mild, itching, 08/22/19) cannot take synthetic codeine only tramadol (Verified Adverse Reaction, Mild, ITCHING, 08/22/19) can take for a few days then begins to itch Triage Vital Signs Vital Signs Date Time Temp Pulse Resp B/P (MAP) Pulse Ox O2 Delivery O2 Flow Rate FiO2 01/30/20 15:02 99.3 67 20 218/104 97 Room Air Vital signs reviewed: Yes (> BP, did not take meds today) Physical Exam CONSTITUTIONAL Constitutional: Present well-developed, Present well-nourished, Present other (Handles secretions.) HENT HENT: Present normocephalic, Present atraumatic, Present nose normal, Present erythema; Absent nasal discharge, Absent oropharyngeal exudate, Absent tonsillar excudate HENT L/R: Present left ext ear normal, Present right ext ear normal EYES Eyes: Reports PERRL, Reports conjunctivae normal NECK Neck: Present ROM normal, Present cervical adenopathy (left anterior), Present other (No minengeal signs) PULMONARY Pulmonary: Present effort normal, Present breath sounds normal CARDIOVASCULAR Cardiovascular: Present regular rhythm, Present heart sounds normal, Present capillary refill normal, Present normal rate GASTROINTESTINAL Abdominal: Present soft, Present nontender, Present bowel sounds normal GENITOURINARY Genitourinary: Present exam deferred SKIN Skin: Present warm, Present dry MUSCULOSKELETAL Musculoskeletal: Present ROM normal NEUROLOGICAL Neurological: Present alert, Present oriented x 3, Present no gross motor or sensory deficits PSYCHOLOGICAL Psychological: Present mood/affect normal, Present judgement normal Results Laboratory Lab results reviewed: Yes Laboratory comments WBC 8.4, Strep negative, K 3.4, Glu 160, Trop neg, mono negative Procedures 12 Lead ECG Interpretation ECG Interpretation : ECG: ECG 1 Demolition Engineer: Interpreted by ED physician Date: Jan 30, 2020 Time: 15:30 Prior ECG tracings: reviewed Rhythm: sinus rhythm Rate: normal BPM: 66 QRS axis: normal Conduction: right bundle branch block ST segments normal: Yes Clinical Impression: abnormal ECG Assessment & Plan Medical Decision Making MDM Given patient's vague description of symptoms, mild exam findings, and level of pain - obtained EKG that showed RBBB new from August 2019. Patient denies CP, SOB, sweating, N/V, LE swelling. Taking Plavix. Troponin negative. Patient declined to be transferred for obs and declined to stay for repeat troponin. Patient declined CT for PE. Aware that PE is potential cause of new RBBB. Will treat patient's sore throat with zithromax & decadron to cover COVID and potential false negative Strep. First does given IV here in ED. Patient got COVID test here which is pending. Has appointment with cardiology tomorrow. Advised patient to get rapid COVID and call cardiology office about symptoms and COVID testing status before showing up. Reassessment Reassessment Mild improvement with viscous lidocaine initially. At discharge states pain mostly gone. Assessment & Plan Final Impression: (1) Right bundle branch block (RBBB) (2) Acute pharyngitis Depart Disposition: HOME, SELF-CARE Last Vital Signs Date Time Temp Pulse Resp B/P (MAP) Pulse Ox O2 Delivery O2 Flow Rate FiO2 01/30/20 15:02 99.3 67 20 218/104 97 Room Air Home Meds Active Scripts Dexamethasone (Decadron) 6 Mg Tablet, 1 TAB PO DAILY for 4 Days, #4 Prov:GIANFRANCO ABDALLA MD 01/30/20 Azithromycin (ZITHROMAX) 250 Mg Tablet, 1 TAB PO DAILY for 4 Days Prov:GIANFRANCO ABDALLA MD 01/30/20 Albuterol Sulf* (PROAIR HFA INHALER*) 8.5 Gm Inh, 1 INH INH Q6HR PRN for SHORTNESS OF BREATH, #1 Prov:HOLLI MOREL NP 08/24/19 Pantoprazole Sodium* (PROTONIX) 40 Mg Tablet.dr, 40 MG PO ACB for 30 Days, TAB Prov:HOLLI MOREL NP 08/15/19 [Isosorbide Mononitrate] 30 MG TABCR No Conflict Check, 60 MG PO DAILY for 30 Days Prov:HOLLI MOREL NP 08/15/19 [Atorvastatin] 40 MG TAB No Conflict Check, 80 MG PO HS for 30 Days Prov:HOLLI MOREL NP 07/31/19 Tramadol Hcl (ULTRAM) 50 Mg Tablet, 50 MG PO TID PRN for pain for 5 Days, #15 TAB Prov:JAISON HINOJOSA MD 03/07/19 Reported Medications Amlodipine Besylate (AMLODIPINE BESYLATE) 5 Mg Tablet, 5 MG PO BID, #30 TAB 12/09/18 Tadalafil (CIALIS) 10 Mg Tablet, 10 MG PO DAILY 10/29/18 [Testosterone ] No Conflict Check, 1.5 ML INJ .N0ENTIQ 10/29/18 Metoprolol Succinate (METOPROLOL SUCCINATE) 50 Mg Tab.er.24h, 50 MG PO BID, MG 10/29/18 Liraglutide (VICTOZA 2-MAGDY) 0.6 Mg/0.1 Ml Pen.injctr 10/31/17 Clopidogrel Bisulfate (CLOPIDOGREL) 75 Mg Tablet, 75 MG PO DAILY, #30 TAB 10/30/17 Aspirin (ASPIRIN) 81 Mg Tab.chew, 81 MG PO DAILY 10/30/17 Montelukast Sodium (SINGULAIR) 10 Mg Tablet, 10 MG PO HS 10/30/17 Duloxetine Hcl (CYMBALTA) 30 Mg Capsule.dr, 30 MG PO HS, #30 CAP 10/30/17 Tamsulosin Hcl* (FLOMAX*) 0.4 Mg Cap, 0.8 MG PO HS, #30 CAP 10/30/17 GIANFRANCO ABDALLA MD Jan 30, 2020 15:34
== END 2020-01-30 17:47 | disposition home or self-care (01) ==
LOC: FSED 15:34
DX: J02.9 Acute pharyngitis, unspecified (principal); I45.10 Unspecified right bundle-branch block; H92.02 Otalgia, left ear; I10 Essential (primary) hypertension; E78.5 Hyperlipidemia, unspecified; I25.2 Old myocardial infarction; Z85.46 Personal history of malignant neoplasm of prostate; Z20.828 Contact with and (suspected) exposure to other viral communicable diseases; R94.31 Abnormal electrocardiogram [ECG] [EKG]
CPT/HCPCS: 83518; 93005; 96374; 96375; 99283; J0456; J1100; J1885; U0002

== ENCOUNTER → 2020-02-15 | Outpatient (CLI) | payer OTHER ==
[~2020-02-15] MED LIST changes: +DECADRON6 MG PO; +IOPAMIDOL 370 MG/ML 200 ML INFUS..BTL INJ ONE; +SODIUM CHLORIDE 0.9% 100 ML ONE; +ZITHROMAX250 MG PO
[2020-02-15 17:25] LABS: BLOOD UREA NITROGEN 13 mg/dL (7-26); BUN/CREATININE RATIO 13 (6-25); CREATININE, SERUM 1.04 mg/dL (0.72-1.25); EST GLOMERULAR FILTRATION RATE > 60 ML/MIN (60-)
--- NOTE | 2020-02-15 19:05 | Diagnostic Imaging Report ---
EXAM: CT Abdomen and Pelvis WITH contrast INDICATION: ^[id number] ^[id number] ^PANCREATIC CYST COMPARISON: Chest CT on 08/22/2019. TECHNIQUE: Abdomen and pelvis were scanned utilizing a multidetector helical scanner from the lung base to the pubic symphysis after administration of IV contrast. Coronal and sagittal reformations were obtained. Routine protocol was performed. Scan was performed when during portal venous phase. IV CONTRAST: 100 mL of Isovue 370 ORAL CONTRAST: None COMPLICATIONS: None RADIATION DOSE: Total DLP: 816 mGy*cm Estimated effective dose: (DLP x 0.015 x size factor) mSv CTDIvol has been reviewed. It is below the limits set by the Radiation Protocol Committee (RPC). Dose modulation, iterative reconstruction, and/or weight based adjustment of the mA/kV was utilized to reduce the radiation dose to as low as reasonably achievable. FINDINGS: LINES and TUBES: None. LOWER THORAX: Dense calcification along the medial right subpleural space are unchanged when compared to chest CT from 08/22/2019. There is severe atherosclerotic calcification of the coronary vessels. HEPATOBILIARY: The liver is diffuse hypodense compared to the spleen, consistent with diffuse hepatic diffuse hepatic steatosis. No focal hepatic lesions. No biliary ductal dilation. GALLBLADDER: There are cholecystectomy clips. SPLEEN: No splenomegaly. PANCREAS: Normal pancreatic enhancement. There is a 1.3 x 1.5 cm cyst in the proximal pancreatic body. ADRENALS: No adrenal nodules KIDNEYS/URETERS: Kidneys enhance symmetrically. No hydronephrosis. There are bilateral renal cysts, the largest measuring approximately 4.8 x 3.0 cm on the right No stones. GI TRACT: No abnormal distention, wall thickening, or evidence of bowel obstruction. Appendix is not clearly identified. There is however no fat stranding or adenopathy in the right lower quadrant to suggest appendicitis. PELVIC ORGANS/BLADDER: There is apparent thickening of the urinary bladder wall. There is mild fat stranding around the prostate gland. LYMPH NODES: No lymphadenopathy. VESSELS: There is severe atherosclerotic disease in the aorta and major arterial branches. PERITONEUM / RETROPERITONEUM: No free air or fluid. BONES: There are degenerative changes in the spine. Left acetabular hardware without evidence of complication. SOFT TISSUES: Unremarkable. IMPRESSION: 1. 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 Follow-up recommendation for this finding are: repeat MRI/MRCP every year for total of 5 years. If the lesion remains stable, MRI/MRCP should be repeated every 2 years for additional 4 years. If the lesion remains stable for total of 9 years, imaging should be discontinued. However, if there is interval growth in size of this lesion, recommend endoscopic ultrasound with FNA. Please see below for evidence-based source of these recommendations. 2. Bilateral renal cysts. 3. Severe arthroscopic calcification of the coronary vessels and abdominal aorta. Jose L Link MD, MPH, Francis Boyd MD, Madelyn Marcos MD et al. Management of Incidental Pancreatic Cysts: A White Paper of the ACR Incidental Findings Committee 2017. JACR 2017; [id number] Signed by: Tavia Velasco MD on 02/15/2020 7:02 PM
== END ==
LOC: CT 16:19
PROVIDERS: ATTEND Internal Medicine Gastroenterology
DX: K86.2 Cyst of pancreas (principal)
CPT/HCPCS: 36415; 74177; 82565; 84520; J7050; Q9967

== ENCOUNTER 2020-04-23 18:59 | Emergency (ER) | payer OTHER ==
[~2020-04-23] VITALS: Ht 185.4 cm; Wt 113.4 kg
[~2020-04-23 18:59] MED LIST changes: -IOPAMIDOL 370 MG/ML 200 ML INFUS..BTL INJ ONE; -SODIUM CHLORIDE 0.9% 100 ML ONE
[2020-04-23 19:30] LABS: BASOPHILS # (AUTO) 0.1 (0.0-0.1); BASOPHILS % 0.5 % (0.0-1.0); EOSINOPHILS # (AUTO) 0.3 (0.0-0.4); EOSINOPHILS % 2.9 % (0.0-6.0); HEMATOCRIT 46.3 % (38.2-49.6); HEMOGLOBIN 15.7 g/dL (14.0-18.0); LYMPHOCYTES # (AUTO) 1.2 (1.0-3.2); LYMPHOCYTES % 11.3 % (18.0-39.1); MEAN CORPUSCULAR HEMOGLOBIN 30.3 pg (28-32); MEAN CORPUSCULAR HGB CONC 33.9 g/dL (31-35); MEAN CORPUSCULAR VOLUME 89.2 fL (81-99); MONOCYTES # (AUTO) 0.8 (0.2-0.8); MONOCYTES % 7.7 % (4.4-11.3); NEUTROPHILS % 76.9 % (38.7-80.0); PLATELET COUNT 216 x10e3/uL (140-360); RED BLOOD COUNT 5.19 x10e6/uL (4.3-5.7); RED CELL DISTRIBUTION WIDTH 12.8 % (11.7-14.4)
[2020-04-23] MEDS ORDERED: NITROGLYCERIN 2% OINT 1 GM PKT TOP ONE (19:30)
[2020-04-23 19:44] LABS: INR 0.96; PROTHROMBIN TIME 13.4 seconds (11.9-14.5)
[2020-04-23 19:45] LABS: PARTIAL THROMBOPLASTIN TIME 27.5 seconds (23.8-35.5)
[2020-04-23 19:54] LABS: ALANINE AMINOTRANSFERASE 19 IU/L (0-55); ALBUMIN 3.6 g/dL (3.5-5.0); ALBUMIN/GLOBULIN RATIO 1.4 (0.8-2.0); ALKALINE PHOSPHATASE 85 IU/L (40-150); ANION GAP 16.2 mmol/L (8-16); BLOOD UREA NITROGEN 11 mg/dL (7-26); BUN/CREATININE RATIO 13 (6-25); CALCIUM 8.1 mg/dL (8.4-10.2); CARBON DIOXIDE 27 mmol/L (22-29); CHLORIDE 96 mmol/L (98-107); CREATINE KINASE 106 IU/L (30-200); CREATININE, SERUM 0.88 mg/dL (0.72-1.25); EST GLOMERULAR FILTRATION RATE > 60 ML/MIN (60-); GLUCOSE 180 mg/dL (74-118); POTASSIUM 3.2 mmol/L (3.5-5.1); SODIUM 136 mmol/L (136-145)
[2020-04-23 21:54] LABS: CREATINE KINASE MB 2.8 ng/mL (0-5.0)
[2020-04-23 22:24] VITALS: BP 147/89
== END 2020-04-23 22:26 | disposition home or self-care (01) ==
LOC: ER 19:06
DX: I20.8 Other forms of angina pectoris (principal); R94.31 Abnormal electrocardiogram [ECG] [EKG]; I10 Essential (primary) hypertension; E78.5 Hyperlipidemia, unspecified; I25.2 Old myocardial infarction; Z85.46 Personal history of malignant neoplasm of prostate
CPT/HCPCS: 36415; 71045; 80053; 82550; 82553; 83880; 84484; 85025; 85610; 85730; 93005; 99284

== ENCOUNTER 2021-06-30 16:26 | Emergency (ER) | payer OTHER ==
[~2021-06-30] VITALS: Ht 185.4 cm; Wt 113.4 kg
[2021-06-30 17:48] LABS: BASOPHILS % 0.4 % (0.0-1.0); EOSINOPHILS # (AUTO) 0.3 (0.0-0.4); EOSINOPHILS % 3.3 % (0.0-6.0); HEMATOCRIT 39.6 % (38.2-49.6); HEMOGLOBIN 13.8 g/dL (14.0-18.0); LYMPHOCYTES # (AUTO) 1.4 (1.0-3.2); LYMPHOCYTES % 14.4 % (18.0-39.1); MEAN CORPUSCULAR HEMOGLOBIN 30.8 pg (28-32); MEAN CORPUSCULAR HGB CONC 34.8 g/dL (31-35); MEAN CORPUSCULAR VOLUME 88.4 fL (81-99); MONOCYTES # (AUTO) 0.9 (0.2-0.8); MONOCYTES % 9.3 % (4.4-11.3); NEUTROPHILS % 72.1 % (38.7-80.0); PLATELET COUNT 210 x10e3/uL (140-360); RED BLOOD COUNT 4.48 x10e6/uL (4.3-5.7); RED CELL DISTRIBUTION WIDTH 11.8 % (11.7-14.4)
[2021-06-30] MEDS ORDERED: IOPAMIDOL 370 MG/ML 100 ML INFUS..BTL INJ ONE (17:56)
[2021-06-30] MEDS ORDERED: SODIUM CHLORIDE 0.9% 100 ML ONE (17:56)
[2021-06-30] MEDS ORDERED: ONDANSETRON HCL INJ 2MG/ML 2ML 2 MG/ML VIAL IV STA (17:58)
[2021-06-30] MEDS ORDERED: Morphine 4mg Syringe 4 MG/ML INJ IV ONE (18:00)
[2021-06-30 18:06] LABS: ANION GAP 13.8 mmol/L (8-16); CALCIUM 8.7 mg/dL (8.4-10.2); CREATININE, SERUM 1.13 mg/dL (0.72-1.25); POTASSIUM 3.8 mmol/L (3.5-5.1)
[2021-06-30] MEDS ORDERED: FENTANYL CITRATE/PF 100MCG/2 ML INJ IV STA (20:16)
[2021-06-30] MEDS ORDERED: KETOROLAC TROMETHAMINE 30 MG/ML VIAL IV STA (20:16)
[2021-06-30] MEDS ORDERED: HYDROCODON-ACE1 EAC9 PO (20:43)
[2021-06-30] MEDS ORDERED: ONDANSETRON ODT4 MG PO ×2 (20:43→21:39)
[2021-06-30 20:50] VITALS: BP 139/85
[2021-06-30] MEDS ORDERED: HYDROCODON-ACE1 EA11 PO (21:39)
== END 2021-06-30 20:57 | disposition home or self-care (01) ==
LOC: ER 16:52
DX: M54.2 Cervicalgia (principal); I65.22 Occlusion and stenosis of left carotid artery; I10 Essential (primary) hypertension; E78.5 Hyperlipidemia, unspecified; I25.2 Old myocardial infarction; Z95.5 Presence of coronary angioplasty implant and graft; Z85.46 Personal history of malignant neoplasm of prostate
CPT/HCPCS: 36415; 70498; 80048; 85025; 99284; J1885; J2270; J2405; J3010; J7050; Q9967

== ENCOUNTER 2021-08-30 09:39 | Observation (INO) | payer OTHER, MEDICARE ==
[~2021-08-30] VITALS: Ht 177.8 cm; Wt 113.4 kg
[~2021-08-30 09:39] MED LIST changes: +HYDROCODON-ACE1 EA11 PO; +HYDROCODON-ACE1 EAC9 PO; +ONDANSETRON ODT4 MG PO
[2021-08-30 10:47] LABS: BASOPHILS % 0.4 % (0.0-1.0); EOSINOPHILS # (AUTO) 0.2 (0.0-0.4); EOSINOPHILS % 2.2 % (0.0-6.0); HEMATOCRIT 40.9 % (38.2-49.6); HEMOGLOBIN 13.9 g/dL (14.0-18.0); LYMPHOCYTES # (AUTO) 0.5 (1.0-3.2); MEAN CORPUSCULAR HEMOGLOBIN 30.3 pg (28-32); MEAN CORPUSCULAR VOLUME 89.3 fL (81-99); MONOCYTES # (AUTO) 0.7 (0.2-0.8); MONOCYTES % 8.3 % (4.4-11.3); NEUTROPHILS # (AUTO) 6.7 (2.1-6.9); NEUTROPHILS % 82.5 % (38.7-80.0); PLATELET COUNT 196 x10e3/uL (140-360); RED BLOOD COUNT 4.58 x10e6/uL (4.3-5.7); RED CELL DISTRIBUTION WIDTH 12.6 % (11.7-14.4)
[2021-08-30 11:05] LABS: INR 0.89; PROTHROMBIN TIME 12.9 seconds (11.9-14.5)
[2021-08-30 11:07] LABS: ALBUMIN 3.5 g/dL (3.5-5.0); ALBUMIN/GLOBULIN RATIO 1.1 (0.8-2.0); ANION GAP 15.7 mmol/L (8-16); CALCIUM 8.1 mg/dL (8.4-10.2); CREATININE, SERUM 0.92 mg/dL (0.72-1.25); POTASSIUM 3.7 mmol/L (3.5-5.1)
[2021-08-30 11:16] LABS: CREATINE KINASE MB 4.1 ng/mL (0-5.0)
[2021-08-30] MEDS ORDERED: SODIUM CHLORIDE 0.9% 1000ML 1,000 ML IV ONE (11:45)
[2021-08-30] MEDS ORDERED: ONDANSETRON HCL INJ 2MG/ML 2ML 2 MG/ML VIAL IV PRN (11:45)
[2021-08-30 12:55] VITALS: BP 149/81
[2021-08-30 13:00] VITALS: BP 149/81
[2021-08-30 14:41] VITALS: BP 149/81
[2021-08-30] MEDS ORDERED: TRAMADOL HCL 50 MG TAB PO PRN (15:15)
[2021-08-30 16:00] VITALS: BP 156/84
[2021-08-30] MEDS: GUAIFENESIN 600MG/DEXTROMETHORPHAN 30MG TABSR PO SCH (18:57)
[2021-08-30] MEDS: METOPROLOL SUCCINATE 50 MG TAB XL PO SCH (18:57)
[2021-08-30] MEDS: BENZONATATE 100 MG CAP PO PRN (18:58)
[2021-08-30] MEDS ORDERED: SODIUM CHLORIDE 0.9% 1000ML 1,000 ML ONE (19:07)
[2021-08-30 20:00] VITALS: BP 156/88
[2021-08-30 20:10] LABS: CREATINE KINASE MB 2.5 ng/mL (0-5.0)
[2021-08-30 21:00] VITALS: BP 156/88
[2021-08-30] MEDS ORDERED: TAMSULOSIN HCL 0.4 MG CAP PO SCH (21:00)
[2021-08-30] MEDS ORDERED: MONTELUKAST SODIUM 10 MG TAB PO SCH (21:00)
[2021-08-30] MEDS ORDERED: DULOXETINE HCL 30 MG DELAYED RELEASE PO SCH (21:00)
[2021-08-30] MEDS: CEPACOL SORE THROAT LOZENGES PO PRN (22:09)
[2021-08-31] VITALS (8 sets, daily range): BP systolic 105–161; BP diastolic 54–89
[2021-08-31] MEDS: BENZONATATE 100 MG CAP PO PRN ×2 (00:20→06:29)
[2021-08-31] MEDS: GUAIFENESIN 600MG/DEXTROMETHORPHAN 30MG TABSR PO SCH ×4 (00:20→17:30)
[2021-08-31] MEDS: CEPACOL SORE THROAT LOZENGES PO PRN (06:29)
[2021-08-31 07:10] LABS: BASOPHILS % 0.5 % (0.0-1.0); EOSINOPHILS # (AUTO) 0.2 (0.0-0.4); EOSINOPHILS % 3.3 % (0.0-6.0); HEMATOCRIT 40.1 % (38.2-49.6); HEMOGLOBIN 13.2 g/dL (14.0-18.0); LYMPHOCYTES # (AUTO) 0.8 (1.0-3.2); LYMPHOCYTES % 14.8 % (18.0-39.1); MEAN CORPUSCULAR HEMOGLOBIN 29.7 pg (28-32); MEAN CORPUSCULAR HGB CONC 32.9 g/dL (31-35); MEAN CORPUSCULAR VOLUME 90.3 fL (81-99); MONOCYTES # (AUTO) 0.8 (0.2-0.8); MONOCYTES % 14.8 % (4.4-11.3); NEUTROPHILS # (AUTO) 3.7 (2.1-6.9); NEUTROPHILS % 66.1 % (38.7-80.0); PLATELET COUNT 160 x10e3/uL (140-360); RED BLOOD COUNT 4.44 x10e6/uL (4.3-5.7); RED CELL DISTRIBUTION WIDTH 12.5 % (11.7-14.4)
[2021-08-31] MEDS ORDERED: PANTOPRAZOLE SOD 40 MG TABEC PO SCH (07:30)
[2021-08-31 08:34] LABS: ALBUMIN 3.2 g/dL (3.5-5.0); ALBUMIN/GLOBULIN RATIO 1.1 (0.8-2.0); ANION GAP 15.3 mmol/L (8-16); CALCIUM 7.7 mg/dL (8.4-10.2); CHOL/HDL RATIO 6.2 (3.9-4.7); CREATININE, SERUM 0.94 mg/dL (0.72-1.25); POTASSIUM 3.3 mmol/L (3.5-5.1)
[2021-08-31] MEDS ORDERED: ASPIRIN 81 MG ENTERIC COATED PO SCH (09:00)
[2021-08-31] MEDS ORDERED: AMLODIPINE BESYLATE 5 MG TAB PO SCH (09:00)
[2021-08-31] MEDS ORDERED: CLOPIDOGREL BISULFATE 75 MG TAB PO SCH ×2 (09:00)
[2021-08-31] MEDS ORDERED: ASPIRIN 81 MG CHEW TAB PO SCH (09:00)
[2021-08-31] MEDS: METOPROLOL SUCCINATE 50 MG TAB XL PO SCH ×2 (09:20→17:30)
[2021-08-31 10:02] LABS: CREATINE KINASE MB 2.1 ng/mL (0-5.0)
[2021-08-31] MEDS ORDERED: NIRMATRELVIR/RITONAVIR 1 EACH TABLET PO SCH (10:30)
[2021-08-31] MEDS ORDERED: METFORMIN HCL500 MG PO (16:18)
[2021-08-31] MEDS ORDERED: POTASSIUM CHLORIDE 20 MEQ TAB CR PO ONE (16:45)
[2021-08-31 17:17] LABS: CREATINE KINASE MB 1.8 ng/mL (0-5.0)
[2021-08-31] MEDS ORDERED: ONDANSETRON HCL 4 MG ORAL DISINTEGRATING TAB PO PRN (17:45)
[2021-08-31] MEDS ORDERED: ATORVASTATIN 20 MG TAB PO SCH (21:00)
[2021-09-05] MEDS ORDERED: TAMSULOSIN HCL 0.4 MG CAP PO SCH (21:00)
== END 2021-08-31 19:37 | disposition home or self-care (01) ==
LOC: ER 09:58 → ERHOLD 11:45 → MED/SURG2 12:58
PROVIDERS: ADMIT Internal Medicine; ATTEND Internal Medicine
DX: U07.1 COVID-19 (principal); I10 Essential (primary) hypertension; I25.10 Atherosclerotic heart disease of native coronary artery without angina pectoris; E78.5 Hyperlipidemia, unspecified; E11.9 Type 2 diabetes mellitus without complications; Z20.822 Contact with and (suspected) exposure to COVID-19; I27.20 Pulmonary hypertension, unspecified; E66.9 Obesity, unspecified; Z68.35 Body mass index [BMI] 35.0-35.9, adult; Z95.5 Presence of coronary angioplasty implant and graft; R73.9 Hyperglycemia, unspecified; Z85.46 Personal history of malignant neoplasm of prostate
CPT/HCPCS: 36415 ×2; 70450; 71045; 72125; 80053 ×2; 80061; 82550 ×2; 82553 ×2; 82948 ×2; 83036; 84484 ×2; 85025 ×2; 85610; 85730; 93005; 94799 ×2; 99285; G0378 ×2; J7030; S0164; U0002

== ENCOUNTER 2021-12-08 16:31 | Observation (INO) | payer OTHER, MEDICARE ==
[~2021-12-08] VITALS: Ht 177.8 cm; Wt 113.4 kg
[~2021-12-08 16:31] MED LIST changes: +METFORMIN HCL500 MG PO
[2021-12-08 17:26] LABS: BASOPHILS % 0.4 % (0.0-1.0); EOSINOPHILS # (AUTO) 0.3 (0.0-0.4); EOSINOPHILS % 4.3 % (0.0-6.0); HEMATOCRIT 42.2 % (38.2-49.6); HEMOGLOBIN 14.1 g/dL (14.0-18.0); LYMPHOCYTES # (AUTO) 1.2 (1.0-3.2); MEAN CORPUSCULAR HEMOGLOBIN 29.6 pg (28-32); MEAN CORPUSCULAR HGB CONC 33.4 g/dL (31-35); MEAN CORPUSCULAR VOLUME 88.7 fL (81-99); MONOCYTES # (AUTO) 0.6 (0.2-0.8); MONOCYTES % 7.7 % (4.4-11.3); NEUTROPHILS # (AUTO) 5.3 (2.1-6.9); NEUTROPHILS % 71.3 % (38.7-80.0); PLATELET COUNT 201 x10e3/uL (140-360); RED BLOOD COUNT 4.76 x10e6/uL (4.3-5.7)
[2021-12-08 17:33] LABS: INR 0.9; PARTIAL THROMBOPLASTIN TIME 26.5 seconds (23.8-35.5)
[2021-12-08 17:43] LABS: ALBUMIN 3.5 g/dL (3.5-5.0); ALBUMIN/GLOBULIN RATIO 1.5 (0.8-2.0); CALCIUM 8.4 mg/dL (8.4-10.2); CREATININE, SERUM 0.95 mg/dL (0.72-1.25); MAGNESIUM 1.3 MG/DL (1.3-2.1)
[2021-12-08 18:12] LABS: CREATINE KINASE MB 3.2 ng/mL (0-5.0)
[2021-12-08 18:20] LABS: THYROID STIMULATING HORMONE 0.96 uIU/mL (0.350-4.940)
[2021-12-08] MEDS ORDERED: ASPIRIN 81 MG CHEW TAB PO ONE (19:45)
[2021-12-08] MEDS ORDERED: DEXTROSE 50% SYRINGE 50 ML IV PRN (19:45)
[2021-12-08] MEDS ORDERED: ONDANSETRON HCL INJ 2MG/ML 2ML 2 MG/ML VIAL IV PRN (19:45)
[2021-12-08] MEDS: INSULIN REGULAR, HUMAN 100 UNIT/1 ML SQ SCH (21:00)
[2021-12-08 21:30] VITALS: BP 136/81
[2021-12-08 21:42] VITALS: BP 179/84
[2021-12-08] MEDS ORDERED: FLOMAX0.4 MG PO (23:21)
[2021-12-08] MEDS ORDERED: RANEXA500 MG PO (23:47)
[2021-12-08] MEDS ORDERED: BENZONATATE100 MG PO (23:48)
[2021-12-08] MEDS ORDERED: ICOSAPENT ETHYL1 GM PO (23:50)
[2021-12-08] MEDS ORDERED: FUROSEMIDE40 MG PO (23:52)
[2021-12-08] MEDS ORDERED: LISINOPRIL10 MG PO ×2 (23:53→23:54)
[2021-12-08] MEDS ORDERED: ZEGERID 20 MG1 EACH PO (23:55)
[2021-12-09] VITALS (8 sets, daily range): BP systolic 151–199; BP diastolic 82–95
[2021-12-09 05:23] LABS: BASOPHILS % 0.2 % (0.0-1.0); EOSINOPHILS # (AUTO) 0.3 (0.0-0.4); EOSINOPHILS % 3.3 % (0.0-6.0); HEMATOCRIT 42.4 % (38.2-49.6); HEMOGLOBIN 14.4 g/dL (14.0-18.0); LYMPHOCYTES # (AUTO) 1.2 (1.0-3.2); LYMPHOCYTES % 13.7 % (18.0-39.1); MEAN CORPUSCULAR HEMOGLOBIN 29.8 pg (28-32); MEAN CORPUSCULAR VOLUME 87.6 fL (81-99); MONOCYTES # (AUTO) 0.7 (0.2-0.8); MONOCYTES % 8.5 % (4.4-11.3); NEUTROPHILS # (AUTO) 6.5 (2.1-6.9); PLATELET COUNT 173 x10e3/uL (140-360); RED BLOOD COUNT 4.84 x10e6/uL (4.3-5.7); RED CELL DISTRIBUTION WIDTH 11.9 % (11.7-14.4)
[2021-12-09 05:40] LABS: ALBUMIN 3.5 g/dL (3.5-5.0); ALBUMIN/GLOBULIN RATIO 1.5 (0.8-2.0); ANION GAP 13.1 mmol/L (8-16); CALCIUM 8.4 mg/dL (8.4-10.2); CHOL/HDL RATIO 7.6 (3.9-4.7); CREATININE, SERUM 0.83 mg/dL (0.72-1.25); POTASSIUM 3.1 mmol/L (3.5-5.1)
[2021-12-09 07:10] LABS: CREATINE KINASE MB 2.9 ng/mL (0-5.0)
[2021-12-09] MEDS: INSULIN REGULAR, HUMAN 100 UNIT/1 ML SQ SCH ×4 (07:30→21:00)
[2021-12-09] MEDS ORDERED: ACETAMINOPHEN 325 MG TAB PO PRN (08:45)
[2021-12-09] MEDS ORDERED: HYDRALAZINE HCL 20 MG/ML VIAL IV PRN (08:45)
[2021-12-09] MEDS: BENZONATATE 100 MG CAP PO SCH ×2 (09:00→15:00)
[2021-12-09] MEDS: METFORMIN HCL 500 MG TAB PO SCH ×2 (10:17→17:00)
[2021-12-09] MEDS: AMLODIPINE BESYLATE 5 MG TAB PO SCH (10:17)
[2021-12-09] MEDS: TAMSULOSIN HCL 0.4 MG CAP PO SCH (10:17)
[2021-12-09] MEDS: LISINOPRIL 10 MG TAB PO SCH (10:18)
[2021-12-09] MEDS: RANOLAZINE 500 MG TABSR PO SCH ×2 (10:19→18:12)
[2021-12-09] MEDS: CLOPIDOGREL BISULFATE 75 MG TAB PO SCH (10:19)
[2021-12-09] MEDS: METOPROLOL SUCCINATE 50 MG TAB XL PO SCH ×2 (10:21→18:11)
[2021-12-09] MEDS: ASPIRIN 81 MG CHEW TAB PO SCH (10:23)
[2021-12-09] MEDS: FUROSEMIDE 20 MG TAB PO SCH (10:24)
[2021-12-09 13:56] LABS: CREATINE KINASE MB 2.7 ng/mL (0-5.0)
[2021-12-09] MEDS ORDERED: BENZONATATE 100 MG CAP PO PRN (15:45)
[2021-12-09] MEDS: Icosapent Ethyl 2 GM PO SCH (17:00)
[2021-12-09] MEDS ORDERED: ATORVASTATIN 40 MG TAB PO SCH (21:00)
[2021-12-09] MEDS ORDERED: DULOXETINE HCL 30 MG DELAYED RELEASE PO SCH (21:00)
[2021-12-10] VITALS: BP 162/91
[2021-12-10 04:00] VITALS: BP 173/79
[2021-12-10] MEDS: INSULIN REGULAR, HUMAN 100 UNIT/1 ML SQ SCH ×3 (07:30→16:44)
[2021-12-10] MEDS ORDERED: PANTOPRAZOLE SOD 40 MG TABEC PO SCH (07:30)
[2021-12-10 08:00] VITALS: BP 178/93
[2021-12-10 08:04] VITALS: BP 178/93
[2021-12-10] MEDS ORDERED: REGADENOSON 0.4 MG/5 ML SYR IV ONE (08:33)
[2021-12-10] MEDS ORDERED: ONDANSETRON HCL 4 MG ORAL DISINTEGRATING TAB PO PRN (08:45)
[2021-12-10] MEDS: Icosapent Ethyl 2 GM PO SCH ×2 (09:00→17:00)
[2021-12-10] MEDS: AMLODIPINE BESYLATE 5 MG TAB PO SCH (10:00)
[2021-12-10] MEDS: ASPIRIN 81 MG CHEW TAB PO SCH (10:00)
[2021-12-10] MEDS: METOPROLOL SUCCINATE 50 MG TAB XL PO SCH ×2 (10:01→17:39)
[2021-12-10] MEDS: FUROSEMIDE 20 MG TAB PO SCH (10:01)
[2021-12-10] MEDS: RANOLAZINE 500 MG TABSR PO SCH ×2 (10:01→17:39)
[2021-12-10] MEDS: TAMSULOSIN HCL 0.4 MG CAP PO SCH (10:02)
[2021-12-10] MEDS: CLOPIDOGREL BISULFATE 75 MG TAB PO SCH (10:02)
[2021-12-10] MEDS: LISINOPRIL 10 MG TAB PO SCH (10:02)
[2021-12-10 11:35] VITALS: BP 166/84
[2021-12-10 15:26] VITALS: BP 143/104
[2021-12-10] MEDS ORDERED: LISINOPRIL 20 MG TAB PO ONE (18:00)
[2021-12-10] MEDS ORDERED: LISINOPRIL40 MG PO (18:35)
[2021-12-10] MEDS ORDERED: AMLODIPINE BESY10 MG PO (18:38)
[2021-12-11] MEDS ORDERED: AMLODIPINE BESYLATE 10 MG TAB PO SCH (09:00)
[2021-12-11] MEDS ORDERED: LISINOPRIL 20 MG TAB PO SCH (09:00)
== END 2021-12-10 18:51 | disposition home or self-care (01) ==
LOC: ER 16:56 → ERHOLD 19:39 → MED/SURG 21:36
PROVIDERS: ADMIT Family Medicine; ATTEND Family Medicine
DX: R07.89 Other chest pain (principal); E11.9 Type 2 diabetes mellitus without complications; I10 Essential (primary) hypertension; E78.5 Hyperlipidemia, unspecified; E87.6 Hypokalemia; I49.3 Ventricular premature depolarization; I45.10 Unspecified right bundle-branch block; I25.2 Old myocardial infarction; I25.119 Atherosclerotic heart disease of native coronary artery with unspecified angina pectoris; E66.9 Obesity, unspecified; E88.81 Metabolic syndrome and other insulin resistance; Z85.46 Personal history of malignant neoplasm of prostate; Z95.5 Presence of coronary angioplasty implant and graft; Z90.49 Acquired absence of other specified parts of digestive tract; Z88.5 Allergy status to narcotic agent; Z68.35 Body mass index [BMI] 35.0-35.9, adult; Z20.822 Contact with and (suspected) exposure to COVID-19; Z79.82 Long term (current) use of aspirin
CPT/HCPCS: 36415 ×2; 71045; 78452; 80053 ×2; 80061; 82550 ×2; 82553 ×2; 82948 ×3; 83735; 83880; 84443; 84484 ×2; 85025 ×2; 85610; 85730; 93005; 93017; 94799; 99284; A9502; G0378 ×3; J1817; J2785; U0002